=== PATIENT | female | born 1960 | race Caucasian/White ===

== ENCOUNTER → 2021-07-24 10:59 | Outpatient (BNVA) | payer MEDICARE, MEDICAID, SELFPAY | PROVIDERS: PCP Family Medicine; Visit Provider Anesthesiology | DX: M10.9 Gout, unspecified (principal); E66.01 Morbid (severe) obesity due to excess calories; E11.51 Type 2 diabetes mellitus with diabetic peripheral angiopathy without gangrene; I70.209 Unspecified atherosclerosis of native arteries of extremities, unspecified extremity; G89.4 Chronic pain syndrome; Z85.118 Personal history of other malignant neoplasm of bronchus and lung | CPT/HCPCS: 99202 ==

== ENCOUNTER → 2021-08-14 16:04 | Outpatient (BNVA) | payer MEDICARE, MEDICAID, SELFPAY | PROVIDERS: PCP Family Medicine; Visit Provider Nurse Practitioner Family | DX: G89.4 Chronic pain syndrome (principal); M79.7 Fibromyalgia; M10.9 Gout, unspecified; E11.51 Type 2 diabetes mellitus with diabetic peripheral angiopathy without gangrene; E66.01 Morbid (severe) obesity due to excess calories; I70.209 Unspecified atherosclerosis of native arteries of extremities, unspecified extremity; Z85.118 Personal history of other malignant neoplasm of bronchus and lung | CPT/HCPCS: 99212 ==

== ENCOUNTER → 2021-09-11 15:41 | Outpatient (BNVA) | payer MEDICARE, MEDICAID, SELFPAY | PROVIDERS: PCP Family Medicine; Visit Provider Anesthesiology | DX: G89.4 Chronic pain syndrome (principal); M10.9 Gout, unspecified; E66.01 Morbid (severe) obesity due to excess calories; Z68.42 Body mass index [BMI] 45.0-49.9, adult; E11.51 Type 2 diabetes mellitus with diabetic peripheral angiopathy without gangrene; I70.209 Unspecified atherosclerosis of native arteries of extremities, unspecified extremity; Z85.118 Personal history of other malignant neoplasm of bronchus and lung; Z79.891 Long term (current) use of opiate analgesic | CPT/HCPCS: 99212 ==

== ENCOUNTER → 2021-10-09 15:58 | Outpatient (BNVA) | payer MEDICARE, MEDICAID, SELFPAY | PROVIDERS: PCP Family Medicine; Visit Provider Anesthesiology | DX: Z51.81 Encounter for therapeutic drug level monitoring (principal); F11.20 Opioid dependence, uncomplicated | CPT/HCPCS: 99211 ==

== ENCOUNTER → 2021-11-09 13:55 | Outpatient (BNVA) | payer MEDICARE, MEDICAID, SELFPAY | PROVIDERS: PCP Family Medicine; Visit Provider Nurse Practitioner Family | DX: Z51.81 Encounter for therapeutic drug level monitoring (principal); M79.7 Fibromyalgia; M10.9 Gout, unspecified; G89.4 Chronic pain syndrome; E66.01 Morbid (severe) obesity due to excess calories; Z79.891 Long term (current) use of opiate analgesic | CPT/HCPCS: 99212 ==

== ENCOUNTER → 2021-12-07 14:52 | Outpatient (BNVA) | payer MEDICARE, MEDICAID, SELFPAY | PROVIDERS: PCP Family Medicine; Visit Provider Nurse Practitioner Family | DX: Z51.81 Encounter for therapeutic drug level monitoring (principal); F11.20 Opioid dependence, uncomplicated | CPT/HCPCS: 99211 ==

== ENCOUNTER → 2022-01-04 15:23 | Outpatient (BNVA) | payer MEDICARE, MEDICAID, SELFPAY | PROVIDERS: PCP Family Medicine; Visit Provider Nurse Practitioner Family | DX: Z51.81 Encounter for therapeutic drug level monitoring (principal); F11.20 Opioid dependence, uncomplicated | CPT/HCPCS: 99211 ==

== ENCOUNTER → 2022-02-01 15:00 | Outpatient (BNVA) | payer MEDICARE, MEDICAID, SELFPAY | PROVIDERS: PCP Family Medicine; Visit Provider Nurse Practitioner Family | DX: Z79.891 Long term (current) use of opiate analgesic (principal) | CPT/HCPCS: 99211 ==

== ENCOUNTER → 2022-03-01 14:48 | Outpatient (BNVA) | payer MEDICARE, MEDICAID, SELFPAY | PROVIDERS: PCP Family Medicine; Visit Provider Nurse Practitioner Family | DX: Z51.81 Encounter for therapeutic drug level monitoring (principal); F11.20 Opioid dependence, uncomplicated | CPT/HCPCS: 99211 ==

== ENCOUNTER → 2022-03-30 15:17 | Outpatient (BNVA) | payer MEDICARE, MEDICAID, SELFPAY | PROVIDERS: PCP Family Medicine; Visit Provider Nurse Practitioner Family | DX: Z51.81 Encounter for therapeutic drug level monitoring (principal); F11.20 Opioid dependence, uncomplicated; M79.7 Fibromyalgia; G89.4 Chronic pain syndrome; E11.40 Type 2 diabetes mellitus with diabetic neuropathy, unspecified; E66.01 Morbid (severe) obesity due to excess calories; Z68.41 Body mass index [BMI] 40.0-44.9, adult | CPT/HCPCS: 99212 ==

== ENCOUNTER → 2022-04-27 11:40 | Outpatient (BNVA) | payer MEDICARE, MEDICAID, SELFPAY | PROVIDERS: PCP Family Medicine; Visit Provider Nurse Practitioner Family | DX: Z51.81 Encounter for therapeutic drug level monitoring (principal); Z79.899 Other long term (current) drug therapy | CPT/HCPCS: 99211 ==

== ENCOUNTER → 2022-06-01 14:43 | Outpatient (BNVA) | payer MEDICARE, MEDICAID, SELFPAY | PROVIDERS: PCP Family Medicine; Visit Provider Nurse Practitioner Family | DX: Z51.81 Encounter for therapeutic drug level monitoring (principal); F11.20 Opioid dependence, uncomplicated | CPT/HCPCS: 99211 ==

== ENCOUNTER → 2022-06-28 15:41 | Outpatient (BNVA) | payer MEDICARE, MEDICAID, SELFPAY | PROVIDERS: PCP Family Medicine; Visit Provider Nurse Practitioner Family | DX: Z51.81 Encounter for therapeutic drug level monitoring (principal); M25.561 Pain in right knee; M25.562 Pain in left knee; G89.4 Chronic pain syndrome; M79.7 Fibromyalgia; E66.01 Morbid (severe) obesity due to excess calories; E11.40 Type 2 diabetes mellitus with diabetic neuropathy, unspecified; Z79.891 Long term (current) use of opiate analgesic; Z68.41 Body mass index [BMI] 40.0-44.9, adult | CPT/HCPCS: 99212 ==

== ENCOUNTER → 2022-07-26 13:15 | Outpatient (BNVA) | payer MEDICARE, MEDICAID, SELFPAY | PROVIDERS: PCP Family Medicine; Visit Provider Nurse Practitioner Family | DX: Z51.81 Encounter for therapeutic drug level monitoring (principal); F11.20 Opioid dependence, uncomplicated | CPT/HCPCS: 99211 ==

== ENCOUNTER → 2022-08-23 11:01 | Outpatient (BNVA) | payer MEDICARE, MEDICAID, SELFPAY | PROVIDERS: PCP Family Medicine; Visit Provider Nurse Practitioner Family | DX: Z51.81 Encounter for therapeutic drug level monitoring (principal); M25.561 Pain in right knee; M25.562 Pain in left knee; M79.7 Fibromyalgia; E66.01 Morbid (severe) obesity due to excess calories; E11.40 Type 2 diabetes mellitus with diabetic neuropathy, unspecified; G89.4 Chronic pain syndrome; Z79.891 Long term (current) use of opiate analgesic; Z68.41 Body mass index [BMI] 40.0-44.9, adult | CPT/HCPCS: 99212 ==

== ENCOUNTER → 2022-09-20 10:57 | Outpatient (BNVA) | payer MEDICARE, MEDICAID, SELFPAY | PROVIDERS: PCP Family Medicine; Visit Provider Nurse Practitioner Family | DX: G89.4 Chronic pain syndrome (principal); M25.561 Pain in right knee; M25.562 Pain in left knee; M79.7 Fibromyalgia; E66.01 Morbid (severe) obesity due to excess calories; E11.40 Type 2 diabetes mellitus with diabetic neuropathy, unspecified; Z79.891 Long term (current) use of opiate analgesic | CPT/HCPCS: 99212 ==

== ENCOUNTER → 2022-10-25 15:29 | Outpatient (BNVA) | payer MEDICARE, MEDICAID, SELFPAY | PROVIDERS: PCP Family Medicine; Visit Provider Nurse Practitioner Family | DX: Z79.891 Long term (current) use of opiate analgesic (principal) | CPT/HCPCS: 99211 ==

== ENCOUNTER → 2022-11-22 15:24 | Outpatient (BNVA) | payer MEDICARE, MEDICAID, SELFPAY | PROVIDERS: PCP Family Medicine; Visit Provider Nurse Practitioner Family | DX: Z51.81 Encounter for therapeutic drug level monitoring (principal); F11.20 Opioid dependence, uncomplicated; M25.561 Pain in right knee; M25.562 Pain in left knee; M79.7 Fibromyalgia; E66.01 Morbid (severe) obesity due to excess calories; E11.40 Type 2 diabetes mellitus with diabetic neuropathy, unspecified; Z79.891 Long term (current) use of opiate analgesic; Z68.41 Body mass index [BMI] 40.0-44.9, adult | CPT/HCPCS: 99212 ==

== ENCOUNTER → 2022-12-20 15:25 | Outpatient (BNVA) | payer MEDICARE, MEDICAID, SELFPAY | PROVIDERS: PCP Family Medicine; Visit Provider Nurse Practitioner Family | DX: Z51.81 Encounter for therapeutic drug level monitoring (principal); F11.20 Opioid dependence, uncomplicated; M25.561 Pain in right knee; M25.562 Pain in left knee; M79.7 Fibromyalgia; G89.4 Chronic pain syndrome; E11.40 Type 2 diabetes mellitus with diabetic neuropathy, unspecified; E66.01 Morbid (severe) obesity due to excess calories; Z79.891 Long term (current) use of opiate analgesic; Z68.41 Body mass index [BMI] 40.0-44.9, adult | CPT/HCPCS: 99212 ==

== ENCOUNTER 2023-01-24 15:29 | Outpatient (AMB) | payer MEDICARE, MEDICAID, SELFPAY ==
--- NOTE | 2023-01-24 15:30 | A.OFFVIS_ITS ---
Intake Vital Signs 01/24/23 15:41 Height 5 ft 5 in Weight 264 lb 4 oz BMI 44.0 BP 132/60 Blood Pressure Location Lt brachial Position Sitting Intake Visit Reasons: Pill count Intake Note: Lina comes in today for a pill count to oxycodone, patient should have 42 tablets and presents with 44 tablets which she last took today 01/24/23at 10am. Pain today 09/21 Pediatric Clinical Dietician Required: No Accompanied by: Sponsored Dependent Allergies aspartame Allergy (Unknown, Verified 01/24/23 15:43) Unknown cephalexin Allergy (Unknown, Verified 01/24/23 15:43) Unknown cyclobenzaprine Allergy (Unknown, Verified 01/24/23 15:43) Unknown dobutamine Allergy (Unknown, Verified 01/24/23 15:43) Unknown indomethacin Allergy (Unknown, Verified 01/24/23 15:43) Unknown levofloxacin [Levaquin] Allergy (Unknown, Verified 01/24/23 15:43) Unknown morphine Allergy (Unknown, Verified 01/24/23 15:43) Unknown penicillin V Allergy (Unknown, Verified 01/24/23 15:43) Unknown tramadol Allergy (Unknown, Verified 01/24/23 15:43) Unknown Latex Gloves Allergy (Unknown, Uncoded 10/25/22 16:01) Unknown HPI HPI Comments History of Present Illness Details Lina presents today for a pill count. Patient is accompanied by . Patient is supposed to have #42 pills, in her possession has #44 pills. This demonstrates a responsible attitude in regards to the medication regimen. Patient reports adequate analgesia on her regimen of oxycodone 5 mg TID prn. She reports adequate analgesia, with no noted side effects. Denies any fever, malaise, weight changes, abdominal pain, constipation, nausea, sedation, dizziness, or urinary retention. She has lost 2 lbs since last week and encouraged to continue her weight loss journey. 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 Diabetic retinopathy Family history of lung cancer Fibromyalgia GERD (gastroesophageal reflux disease) Gout Gout, arthritis History of lung cancer IBS (irritable bowel syndrome) Lung cancer Migraine Morbid obesity Morbidly obese Nerve pain Non-alcoholic micronodular cirrhosis of liver Paroxysmal atrial fibrillation Plantar fasciitis, bilateral Primary Sjogren's syndrome Psoriasis Rosacea Sciatica Sleep apnea Type 2 diabetes mellitus Surgical History History of appendectomy History of carpal tunnel release History of section History of lung surgery History of repair of left rotator cuff Review of Systems Const All systems reviewed & are unremarkable except as noted in HPI and below Physical Exam Vital Signs: Last Vital Signs BP 132/60 01/24/23 15:41 BMI result Body Mass Index 44.0 General: Appears afebrile. Alert and oriented. Mood and affect appropriate. Follows and participates in conversation appropriately. Respiratory effort is unlabored. No cough. Able to transition from sit to stand unassisted. Ambulates with cane. Ambulates with bilaterally normal heel strike and toe off. Resp Effort & Inspection: normal respiratory effort, able to speak in complete sentences, no audible wheezes, no cough, no respiratory distress and symmetric chest movement Psych Appearance: grossly normal Mental Status: mental status grossly normal Speech and movement: Normal speech and movement present Affect: normal affect Attitude: cooperative Thought process: Normal thought process present Thought content: Normal thought content present, suicidality (none), no hallucinations and No Depressive thoughts present Insight: Good insight present (Psych) Judgement: Good judgement present (Psych) Assessment & Plan Assessment & Plan (1) Opioid contract exists: Code(s): Z79.891 - senior living (current) use of opiate analgesic (2) Bilateral knee pain: Code(s): M25.561 - Pain in right knee; M25.562 - Pain in left knee (3) Chronic pain syndrome: Code(s): G89.4 - Chronic pain syndrome (4) Fibromyalgia: Code(s): M79.7 - Fibromyalgia (5) Morbid obesity: Code(s): E66.01 - Morbid (severe) obesity due to excess calories (6) Chronic painful diabetic neuropathy: Code(s): E11.40 - Type 2 diabetes mellitus with diabetic neuropathy, unspecified Plan Patient has shown accountability for her medication regimen and the pill count was accurate.? There is no evidence of misuse, abuse or diversion at this time. [employer] reviewed. Will send in a prescription for oxycodone for 30 days with advanced date of 02/07/23. She is aware of monitoring for side effects. Reports adequate analgesia with no noted side effects. Encouraged daily physical activity and continue weight loss. All questions were answered and the patient is in agreement with the plan. Follow up in one month for pill count or sooner if needed. Medications: Refilled oxycodone Partial Fill upon patient request. 5 mg PO TID PRN 90 tabs 0RF pain 30 days G89.4 - Chronic pain syndrome, M25.561 - Pain in right knee, M25.562 - Pain in left knee, Z79.891 - senior living (current) use of opiate analgesic Coding Level of Care Code Est Pt Level 4 (26880) Diagnoses Opioid contract exists Z79.891 Bilateral knee pain M25.561; M25.562 Chronic pain syndrome G89.4 Fibromyalgia M79.7 Morbid obesity E66.01 Chronic painful diabetic neuropathy E11.40
[2023-01-24 15:41] VITALS: BP 132/60; BMI 44.0
== END 2023-01-24 15:46 | disposition home or self-care (01) ==
PROVIDERS: PCP Family Medicine; Visit Provider Nurse Practitioner Family
DX: M25.561 Pain in right knee (principal); Z79.891 Long term (current) use of opiate analgesic; M25.562 Pain in left knee; G89.4 Chronic pain syndrome; M79.7 Fibromyalgia; E66.01 Morbid (severe) obesity due to excess calories; E11.40 Type 2 diabetes mellitus with diabetic neuropathy, unspecified
CPT/HCPCS: 99213

== ENCOUNTER → 2023-01-24 15:29 | Outpatient (BNVA) | payer MEDICARE, MEDICAID, SELFPAY | PROVIDERS: PCP Family Medicine; Visit Provider Nurse Practitioner Family | DX: G89.4 Chronic pain syndrome (principal); M25.561 Pain in right knee; M25.562 Pain in left knee; M79.7 Fibromyalgia; E11.40 Type 2 diabetes mellitus with diabetic neuropathy, unspecified; E66.01 Morbid (severe) obesity due to excess calories; Z68.41 Body mass index [BMI] 40.0-44.9, adult; Z79.891 Long term (current) use of opiate analgesic | CPT/HCPCS: 99212 ==

== ENCOUNTER → 2023-02-28 14:31 | Outpatient (BNVA) | payer MEDICARE, MEDICAID, SELFPAY | PROVIDERS: PCP Family Medicine; Visit Provider Nurse Practitioner Family | DX: Z51.81 Encounter for therapeutic drug level monitoring (principal); F11.20 Opioid dependence, uncomplicated | CPT/HCPCS: 99211 ==

== ENCOUNTER 2023-03-28 15:19 | Outpatient (AMB) | payer MEDICARE, MEDICAID, SELFPAY ==
--- NOTE | 2023-03-28 15:27 | MHC.OFFVIS ---
Intake Vital Signs 03/28/23 15:37 Height 5 ft 5 in Weight 271 lb BMI 45.1 BP 152/70 H Blood Pressure Location Lt brachial Position Sitting Pulse 76 Pulse Source Pulse Oximeter Pulse Oximetry (%) 94 Oxygen Delivery Method Room Air Intake Visit Reasons: Pill count Intake Note: Lina comes in today for a pill count to oxycodone, patient should have 30 tablets and presents with 36 tablets which she last took 1/2 tablet today 03/28/23 at 3pm. Pain today 09/21. Food Service Representative Required: No Accompanied by: Self / Same As Patient Allergies aspartame Allergy (Unknown, Verified 03/28/23 15:38) Unknown cephalexin Allergy (Unknown, Verified 03/28/23 15:38) Unknown cyclobenzaprine Allergy (Unknown, Verified 03/28/23 15:38) Unknown dobutamine Allergy (Unknown, Verified 03/28/23 15:38) Unknown indomethacin Allergy (Unknown, Verified 03/28/23 15:38) Unknown levofloxacin [Levaquin] Allergy (Unknown, Verified 03/28/23 15:38) Unknown morphine Allergy (Unknown, Verified 03/28/23 15:38) Unknown penicillin V Allergy (Unknown, Verified 03/28/23 15:38) Unknown tramadol Allergy (Unknown, Verified 03/28/23 15:38) Unknown Latex Gloves Allergy (Unknown, Uncoded 02/28/23 14:48) Unknown HPI HPI Comments History of Present Illness Details Lina presents today for a pill count. Patient is accompanied by . Patient is supposed to have #30 pills, in her possession has # pills. This demonstrates a responsible attitude in regards to the medication regimen. Patient reports adequate analgesia on her regimen of oxycodone 5 mg TID prn. She reports adequate analgesia, with no noted side effects. Denies any fever, malaise, weight changes, abdominal pain, constipation, nausea, sedation, dizziness, or urinary retention. Patient reports she continues to stay under observation at [facility] for pulmonary nodules that have been stable per recent CT scan lung on 02/27/23. She reports new thyroid nodules noted per recent thyroid ultrasound. Patient reports muscle spasms and stiffness with right lateral cervical rotation, extension or bending. She notes neck pain increases her fibromyalgia symptoms. Patient has been treating her neck symptoms with over the counter magnesium and lidocaine patches. [facility] Medical History Chronic pain syndrome History of lung cancer Diabetes type 2 with atherosclerosis of arteries of extremities Morbid obesity Gout, arthritis Morbidly obese Gout Psoriasis Arthritis Family history of lung cancer Lung cancer Diabetic retinopathy Williamson's palsy Sciatica Plantar fasciitis, bilateral Rosacea Sleep apnea Asthma GERD (gastroesophageal reflux disease) IBS (irritable bowel syndrome) Nerve pain Migraine Carpal tunnel syndrome, bilateral Diabetic cheirarthropathy Fibromyalgia Non-alcoholic micronodular cirrhosis of liver Paroxysmal atrial fibrillation Primary Sjogren's syndrome Type 2 diabetes mellitus Surgical History History of carpal tunnel release History of lung surgery History of appendectomy History of repair of left rotator cuff History of section Review of Systems Const All systems reviewed & are unremarkable except as noted in HPI and below Physical Exam Vital Signs: Last Vital Signs Pulse 76 03/28/23 15:37 BP 152/70 H 03/28/23 15:37 Pulse Ox 94 03/28/23 15:37 Oxygen Delivery Method Room Air 03/28/23 15:37 BMI result Body Mass Index 45.1 General: Appears afebrile. Alert and oriented. Mood and affect appropriate. Follows and participates in conversation appropriately. Respiratory effort is unlabored. No cough. Able to transition from sit to stand unassisted. Ambulates with cane. Ambulates with bilaterally normal heel strike and toe off. Neck Neck: Yes full ROM, Yes no lymphadenopathy, Yes supple, No anterior neck swelling, Yes no JVD and Yes prominent dorsocervical fat pad Resp Effort & Inspection: normal respiratory effort, able to speak in complete sentences, no audible wheezes, no cough, no respiratory distress and symmetric chest movement Back/Spine/Pelvis Cervical Spine: loss of normal cervical lordosis, cervical muscular tenderness, pain with cervical ROM, cervical spasm (right) and No Cervical spine tenderness Psych Appearance: grossly normal Mental Status: mental status grossly normal Speech and movement: Normal speech and movement present Affect: normal affect Attitude: cooperative Thought process: Normal thought process present Thought content: Normal thought content present, suicidality (none), no hallucinations and No Depressive thoughts present Insight: Good insight present (Psych) Judgement: Good judgement present (Psych) Assessment & Plan Assessment & Plan (1) Opioid contract exists: Code(s): Z79.891 - director long term care (current) use of opiate analgesic (2) Chronic pain syndrome: Code(s): G89.4 - Chronic pain syndrome (3) Fibromyalgia: Code(s): M79.7 - Fibromyalgia (4) Morbid obesity: Code(s): E66.01 - Morbid (severe) obesity due to excess calories (5) Chronic painful diabetic neuropathy: Code(s): E11.40 - Type 2 diabetes mellitus with diabetic neuropathy, unspecified (6) Cervicalgia: Code(s): M54.2 - Cervicalgia Plan Patient has shown accountability for her medication regimen and the pill count was accurate.? There is no evidence of misuse, abuse or diversion at this time. Rosa reviewed. Will send in a prescription for oxycodone for 30 days with advanced date of 04/08/23. She is aware of monitoring for side effects. Reports adequate analgesia with no noted side effects. Encouraged daily physical activity and continue weight loss. Encouraged good posture, neck stretching exercises, sleep hygiene, ice/heat therapy, lidocaine patches and activity modifications as needed. All questions were answered and the patient is in agreement with the plan. Follow up in one month for pill count or sooner if needed. Medications: Refilled oxycodone Partial Fill upon patient request. 5 mg PO TID PRN 90 tabs 0RF pain 30 days G89.4 - Chronic pain syndrome, M25.561 - Pain in right knee, M25.562 - Pain in left knee, Z79.891 - long-term (current) use of opiate analgesic Coding Level of Care Code Est Pt Level 4 (56569) Diagnoses Opioid contract exists Z79.891 Chronic pain syndrome G89.4 Fibromyalgia M79.7 Morbid obesity E66.01 Chronic painful diabetic neuropathy E11.40 Cervicalgia M54.2
[2023-03-28 15:37] VITALS: BP 152/70; PULSE 76; O2SAT 94; BMI 45.1
== END 2023-03-28 15:51 | disposition home or self-care (01) ==
PROVIDERS: PCP Family Medicine; Visit Provider Nurse Practitioner Family
DX: G89.4 Chronic pain syndrome (principal); M79.7 Fibromyalgia; E11.40 Type 2 diabetes mellitus with diabetic neuropathy, unspecified; Z79.891 Long term (current) use of opiate analgesic; M54.2 Cervicalgia; E66.01 Morbid (severe) obesity due to excess calories
CPT/HCPCS: 99214

== ENCOUNTER → 2023-03-28 15:19 | Outpatient (BNVA) | payer MEDICARE, MEDICAID, SELFPAY | PROVIDERS: PCP Family Medicine; Visit Provider Nurse Practitioner Family | DX: G89.4 Chronic pain syndrome (principal); M79.7 Fibromyalgia; E11.40 Type 2 diabetes mellitus with diabetic neuropathy, unspecified; M54.2 Cervicalgia; E66.01 Morbid (severe) obesity due to excess calories; Z68.42 Body mass index [BMI] 45.0-49.9, adult; Z79.891 Long term (current) use of opiate analgesic | CPT/HCPCS: 99212 ==

== ENCOUNTER 2023-04-25 15:22 | Outpatient (AMB) | payer MEDICARE, MEDICAID, SELFPAY ==
--- NOTE | 2023-04-25 15:23 | MHC.OFFVIS ---
Intake Vital Signs 04/25/23 15:37 Height 5 ft 5 in Weight 270 lb 4 oz BMI 45.0 BP 138/68 Blood Pressure Location Rt brachial Position Sitting Pulse 60 Pulse Source Pulse Oximeter Pulse Oximetry (%) 95 Oxygen Delivery Method Room Air Intake Visit Reasons: Medication Count/confirmed Intake Note: Lina comes in today for a pill count to oxycodone, patient should have 36 tablets and presents with 41 tablets which she last took 1/2 tablet today 04/25/23 at 2pm. Pain today 11/21 Yardage Control Clerk Required: No Accompanied by: Spouse Allergies aspartame Allergy (Unknown, Verified 04/25/23 15:24) Unknown cephalexin Allergy (Unknown, Verified 04/25/23 15:24) Unknown cyclobenzaprine Allergy (Unknown, Verified 04/25/23 15:24) Unknown dobutamine Allergy (Unknown, Verified 04/25/23 15:24) Unknown indomethacin Allergy (Unknown, Verified 04/25/23 15:24) Unknown levofloxacin [Levaquin] Allergy (Unknown, Verified 04/25/23 15:24) Unknown morphine Allergy (Unknown, Verified 04/25/23 15:24) Unknown penicillin V Allergy (Unknown, Verified 04/25/23 15:24) Unknown tramadol Allergy (Unknown, Verified 04/25/23 15:24) Unknown Latex Gloves Allergy (Unknown, Uncoded 02/28/23 14:48) Unknown HPI HPI Comments History of Present Illness Details Lina presents today for a pill count. Patient is accompanied by . Patient is supposed to have #36 pills, in her possession has #41 pills. This demonstrates a responsible attitude in regards to the medication regimen. Patient reports adequate analgesia on her regimen of oxycodone 5 mg TID prn. She reports adequate analgesia, with no noted side effects. Patient reports current opioid allows her to be more functional and less symptomatic. Patient reports a 2 month of right foot pain with weight bearing and walking. Reports similar symptoms in left foot in the past with known small fracture. She has informed her hand ii tube bender about this and is trying new show inserts without any improvement in her symptoms. She has follow up with Loan Workout Officer in May. Patient is concerned for ongoing pain. Denies any gout attacks and reports drinking tart beecrra juice to prevent attacks. [facility] Medical History Chronic pain syndrome History of lung cancer Diabetes type 2 with atherosclerosis of arteries of extremities Morbid obesity Gout, arthritis Morbidly obese Gout Psoriasis Arthritis Family history of lung cancer Lung cancer Diabetic retinopathy Williamson's palsy Sciatica Plantar fasciitis, bilateral Rosacea Sleep apnea Asthma GERD (gastroesophageal reflux disease) IBS (irritable bowel syndrome) Nerve pain Migraine Carpal tunnel syndrome, bilateral Diabetic cheirarthropathy Fibromyalgia Non-alcoholic micronodular cirrhosis of liver Paroxysmal atrial fibrillation Primary Sjogren's syndrome Type 2 diabetes mellitus Surgical History History of carpal tunnel release History of lung surgery History of appendectomy History of repair of left rotator cuff History of section Review of Systems Const All systems reviewed & are unremarkable except as noted in HPI and below Physical Exam General: Appears afebrile. Alert and oriented. Mood and affect appropriate. Follows and participates in conversation appropriately. Respiratory effort is unlabored. No cough. Able to transition from sit to stand unassisted. Ambulates with cane. Ambulates with bilaterally normal heel strike and toe off. Back/Spine/Pelvis Cervical Spine: loss of normal cervical lordosis, cervical muscular tenderness, pain with cervical ROM, cervical spasm (right) and No Cervical spine tenderness Extrem General: Yes capillary refill normal, Yes no clubbing, cyanosis or edema, Yes no calf tenderness and No cyanosis Psych Appearance: grossly normal Mental Status: mental status grossly normal Speech and movement: Normal speech and movement present Affect: normal affect Attitude: cooperative Thought process: Normal thought process present Thought content: Normal thought content present, suicidality (none), no hallucinations and No Depressive thoughts present Insight: Good insight present (Psych) Judgement: Good judgement present (Psych) Assessment & Plan Assessment & Plan (1) Opioid contract exists: Code(s): Z79.891 - [facility] (current) use of opiate analgesic (2) Chronic pain syndrome: Code(s): G89.4 - Chronic pain syndrome (3) Fibromyalgia: Code(s): M79.7 - Fibromyalgia (4) Morbid obesity: Code(s): E66.01 - Morbid (severe) obesity due to excess calories (5) Chronic painful diabetic neuropathy: Code(s): E11.40 - Type 2 diabetes mellitus with diabetic neuropathy, unspecified (6) Right foot pain: Code(s): M79.671 - Pain in right foot Plan Patient has shown accountability for her medication regimen and the pill count was accurate.? There is no evidence of misuse, abuse or diversion at this time. [employer] reviewed. Will send in a prescription for oxycodone for 30 days with advanced date of 05/07/23. She is aware of monitoring for side effects. Reports adequate analgesia with no noted side effects. Right foot xray to further evaluate pain. Patient will follow up with her Loan Workout Officer as scheduled. All questions were answered and the patient is in agreement with the plan. Follow up in one month for pill count or sooner if needed. Orders: Orders XR foot RT min 3V Today M79.671 - Pain in right foot Medications: Refilled oxycodone Partial Fill upon patient request. 5 mg PO TID 30 days PRN 90 tabs 0RF pain G89.4 - Chronic pain syndrome, M25.561 - Pain in right knee, M25.562 - Pain in left knee, Z79.891 - intermediate teacher (current) use of opiate analgesic Coding Level of Care Code Est Pt Level 4 (59993) Diagnoses Opioid contract exists Z79.891 Chronic pain syndrome G89.4 Fibromyalgia M79.7 Morbid obesity E66.01 Chronic painful diabetic neuropathy E11.40 Right foot pain M79.671
[2023-04-25 15:37] VITALS: BP 138/68; PULSE 60; O2SAT 95; BMI 45.0
== END 2023-04-25 15:49 | disposition home or self-care (01) ==
PROVIDERS: PCP Family Medicine; Visit Provider Nurse Practitioner Family
DX: G89.4 Chronic pain syndrome (principal); M79.7 Fibromyalgia; E66.01 Morbid (severe) obesity due to excess calories; Z79.891 Long term (current) use of opiate analgesic; E11.40 Type 2 diabetes mellitus with diabetic neuropathy, unspecified; M79.671 Pain in right foot
CPT/HCPCS: 99214

== ENCOUNTER 2023-04-25 15:22 | Outpatient (REF) | payer MEDICARE, MEDICAID, SELFPAY ==
--- NOTE | ~2023-04-25 | XR_ITS ---
EXAMINATION: XR FOOT, RIGHT CLINICAL INFORMATION: Pain in right foot COMPARISON: None available. TECHNIQUE: 3 views of the right foot. FINDINGS: Minimal dorsal calcaneal spurring. Faint tiny calcification in the soft tissues just anterior to a moderate plantar calcaneal spur. Advanced degenerative changes first metatarsophalangeal joint with joint space narrowing and hypertrophic change. XR/XR foot RT min 3V IMPRESSION: Minimal dorsal calcaneal spurring. Faint tiny calcification in the soft tissues just anterior to a moderate plantar calcaneal spur. Advanced degenerative changes first metatarsophalangeal joint. No displaced fracture. Recommend follow-up imaging in 10-14 days if fracture is suspected. Additional imaging with CT scan or MRI should be considered for better visualization as these modalities are much more sensitive for detection of fracture or other underlying pathology.
== END 2023-04-25 15:23 | disposition home or self-care (01) ==
LOC: HO.XRAY 15:22
PROVIDERS: PCP Family Medicine; Visit Provider Nurse Practitioner Family
DX: G89.4 Chronic pain syndrome (principal); M79.671 Pain in right foot; M79.7 Fibromyalgia; E66.01 Morbid (severe) obesity due to excess calories; E11.40 Type 2 diabetes mellitus with diabetic neuropathy, unspecified; Z79.891 Long term (current) use of opiate analgesic
CPT/HCPCS: 73630; 99212

== ENCOUNTER 2023-05-23 15:21 | Outpatient (AMB) | payer MEDICARE, MEDICAID, SELFPAY ==
--- NOTE | 2023-05-23 15:22 | A.OFFVIS_ITS ---
Intake Vital Signs 05/23/23 15:34 Height 5 ft 5 in Weight 272 lb 6 oz BMI 45.3 BP 132/70 Blood Pressure Location Lt brachial Position Sitting Intake Visit Reasons: PILL COUNT/CONFIRMED Intake Note: Lina comes in today for a pill count to oxycodone, patient should have 39 tablets and presents with 44 tablets which she last took today 05/23/23 at 12pm. 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/22 [employer] Required: No Accompanied by: Spouse Allergies aspartame Allergy (Unknown, Verified 05/23/23 15:34) Unknown cephalexin Allergy (Unknown, Verified 05/23/23 15:34) Unknown cyclobenzaprine Allergy (Unknown, Verified 05/23/23 15:34) Unknown dobutamine Allergy (Unknown, Verified 05/23/23 15:34) Unknown indomethacin Allergy (Unknown, Verified 05/23/23 15:34) Unknown levofloxacin [Levaquin] Allergy (Unknown, Verified 05/23/23 15:34) Unknown morphine Allergy (Unknown, Verified 05/23/23 15:34) Unknown penicillin V Allergy (Unknown, Verified 05/23/23 15:34) Unknown tramadol Allergy (Unknown, Verified 05/23/23 15:34) Unknown Latex Gloves Allergy (Unknown, Uncoded 02/28/23 14:48) Unknown HPI HPI Comments History of Present Illness Details Lina presents today for a pill count. Patient is accompanied by . Patient is supposed to have #39 pills, in her possession has #44 pills. This demonstrates a responsible attitude in regards to the medication regimen. Patient reports adequate analgesia on her regimen of oxycodone 5 mg TID prn. She reports adequate analgesia, with no noted side effects. Patient reports current opioid allows her to be more functional and less symptomatic. Right foot xray results were reviewed with patient today and are noted for minimal dorsal calcaneal spurring. Faint tiny calcification in the soft tissues just anterior to a moderate plantar calcaneal spur. Advanced degenerative changes first metatarsophalangeal joint. No displaced fracture. Patient continues to endorse right foot pain and now reports left foot pain. She has been treating with rolling her plantar surfaces on ice bottle and elevation. Pat amber reports she will follow up with her Division Toll Wire Chief for bilateral foot pain. [facility] Medical History Chronic pain syndrome History of lung cancer Diabetes type 2 with atherosclerosis of arteries of extremities Morbid obesity Gout, arthritis Morbidly obese Gout Psoriasis Arthritis Family history of lung cancer Lung cancer Diabetic retinopathy Williamson's palsy Sciatica Plantar fasciitis, bilateral Rosacea Sleep apnea Asthma GERD (gastroesophageal reflux disease) IBS (irritable bowel syndrome) Nerve pain Migraine Carpal tunnel syndrome, bilateral Diabetic cheirarthropathy Fibromyalgia Non-alcoholic micronodular cirrhosis of liver Paroxysmal atrial fibrillation Primary Sjogren's syndrome Type 2 diabetes mellitus Surgical History History of carpal tunnel release History of lung surgery History of appendectomy History of repair of left rotator cuff History of section Review of Systems Const All systems reviewed & are unremarkable except as noted in HPI and below Physical Exam General: Appears afebrile. Alert and oriented. Mood and affect appropriate. Follows and participates in conversation appropriately. Respiratory effort is unlabored. No cough. Able to transition from sit to stand unassisted. Ambulates with cane. Ambulates with bilaterally normal heel strike and toe off. Extrem General: Yes capillary refill normal, Yes no clubbing, cyanosis or edema and Yes no calf tenderness Psych Appearance: grossly normal Mental Status: mental status grossly normal Speech and movement: Normal speech and movement present Affect: normal affect Attitude: cooperative Thought process: Normal thought process present Thought content: Normal thought content present, suicidality (none), no hallucinations and No Depressive thoughts present Insight: Good insight present (Psych) Judgement: Good judgement present (Psych) Results Reviewed Results Reviewed: XR FOOT, RIGHT 04/25/23 CLINICAL INFORMATION: Pain in right foot FINDINGS: Minimal dorsal calcaneal spurring. Faint tiny calcification in the soft tissues just anterior to a moderate plantar calcaneal spur. Advanced degenerative changes first metatarsophalangeal joint with joint space narrowing and hypertrophic change. IMPRESSION: Minimal dorsal calcaneal spurring. Faint tiny calcification in the soft tissues just anterior to a moderate plantar calcaneal spur. Advanced degenerative changes first metatarsophalangeal joint. No displaced fracture. Recommend follow-up imaging in 10-14 days if fracture is suspected. Additional imaging with CT scan or MRI should be considered for better visualization as these modalities are much more sensitive for detection of fracture or other underlying pathology. Assessment & Plan Assessment & Plan (1) Opioid contract exists: Code(s): Z79.891 - senior care (current) use of opiate analgesic (2) Chronic pain syndrome: Code(s): G89.4 - Chronic pain syndrome (3) Fibromyalgia: Code(s): M79.7 - Fibromyalgia (4) Right foot pain: Code(s): M79.671 - Pain in right foot Plan Patient has shown accountability for her medication regimen and the pill count was accurate.? There is no evidence of misuse, abuse or diversion at this time. [employer] reviewed. Will send in a prescription for oxycodone for 30 days with advanced date of 06/05/23. She is aware of monitoring for side effects. Reports adequate analgesia with no noted side effects. Right foot xray results reviewed with patient and ehr family. Patient will follow up with her Division Toll Wire Chief as scheduled. All questions were answered and the patient is in agreement with the plan. Follow up in one month for pill count or sooner if needed. Medications: Refilled oxycodone Partial Fill upon patient request. 5 mg PO TID PRN 90 tabs 0RF pain 30 days G 89.4 - Chronic pain syndrome, M25.561 - Pain in right knee, M25.562 - Pain in left knee, Z79.891 - senior care (current) use of opiate analgesic Coding Level of Care Code Est Pt Level 4 (24275) Diagnoses Opioid contract exists Z79.891 Chronic pain syndrome G89.4 Fibromyalgia M79.7 Right foot pain M79.671
[2023-05-23 15:34] VITALS: BP 132/70; BMI 45.3
== END 2023-05-23 15:43 | disposition home or self-care (01) ==
PROVIDERS: PCP Family Medicine; Visit Provider Nurse Practitioner Family
DX: G89.4 Chronic pain syndrome (principal); M79.7 Fibromyalgia; M79.671 Pain in right foot; Z79.891 Long term (current) use of opiate analgesic
CPT/HCPCS: 99214

== ENCOUNTER → 2023-05-23 15:21 | Outpatient (BNVA) | payer MEDICARE, MEDICAID, SELFPAY | PROVIDERS: PCP Family Medicine; Visit Provider Nurse Practitioner Family | DX: M79.7 Fibromyalgia (principal); M79.671 Pain in right foot; G89.4 Chronic pain syndrome; Z79.891 Long term (current) use of opiate analgesic | CPT/HCPCS: 99212 ==

== ENCOUNTER 2023-06-20 15:24 | Outpatient (AMB) | payer MEDICARE, MEDICAID, SELFPAY ==
--- NOTE | 2023-06-20 15:27 | A.OFFVIS_ITS ---
Intake Vital Signs 06/20/23 15:35 Height 5 ft 5 in Weight 272 lb 8 oz BMI 45.3 BP 122/60 Blood Pressure Location Lt brachial Position Sitting Intake Visit Reasons: Medication Count/confirmed Intake Note: Lina comes in today for a pill count to oxycodone, patient should have 42 tablets and presents with 47 tablets which she last took 12 tab today 06/20/23 at 12pm. 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 Accompanied by: Spouse Allergies aspartame Allergy (Unknown, Verified 06/20/23 15:36) Unknown cephalexin Allergy (Unknown, Verified 06/20/23 15:36) Unknown cyclobenzaprine Allergy (Unknown, Verified 06/20/23 15:36) Unknown dobutamine Allergy (Unknown, Verified 06/20/23 15:36) Unknown indomethacin Allergy (Unknown, Verified 06/20/23 15:36) Unknown levofloxacin [Levaquin] Allergy (Unknown, Verified 06/20/23 15:36) Unknown morphine Allergy (Unknown, Verified 06/20/23 15:36) Unknown penicillin V Allergy (Unknown, Verified 06/20/23 15:36) Unknown tramadol Allergy (Unknown, Verified 06/20/23 15:36) Unknown Latex Gloves Allergy (Unknown, Uncoded 02/28/23 14:48) Unknown HPI HPI Comments 2 History of Present Illness Details Lina presents today for a pill count. Patient is accompanied by . Patient is supposed to have #42 pills, in her possession has #47 pills. This demonstrates a responsible attitude in regards to the medication regimen. Patient reports adequate analgesia on her regimen of oxycodone 5 mg TID prn. She reports adequate analgesia, with no noted side effects. Patient reports current opioid regime allows her to be more functional and less symptomatic. Patient continues to report right foot pain and has upcoming right foot MRI on 07/10/23 at [facility]. Denies any recent cough, cold, infection, fever or other significant changes in medical history since last office visit. [facility] Medical History Chronic pain syndrome History of lung cancer Diabetes type 2 with atherosclerosis of arteries of extremities Morbid obesity Gout, arthritis Morbidly obese Gout Psoriasis Arthritis Family history of lung cancer Lung cancer Diabetic retinopathy Williamson's palsy Sciatica Plantar fasciitis, bilateral Rosacea Sleep apnea Asthma GERD (gastroesophageal reflux disease) IBS (irritable bowel syndrome) Nerve pain Migraine Carpal tunnel syndrome, bilateral Diabetic cheirarthropathy Fibromyalgia Non-alcoholic micronodular cirrhosis of liver Paroxysmal atrial fibrillation Primary Sjogren's syndrome Type 2 diabetes mellitus Surgical History History of carpal tunnel release History of lung surgery History of appendectomy History of repair of left rotator cuff History of section Review of Systems Const All systems reviewed & are unremarkable except as noted in HPI and below Physical Exam General: Appears afebrile. Alert and oriented. Mood and affect appropriate. Follows and participates in conversation appropriately. Respiratory effort is unlabored. No cough. Able to transition from sit to stand unassisted. Ambulates with cane. Ambulates with bilaterally normal heel strike and toe off. Extrem General: Yes capillary refill normal, Yes no clubbing, cyanosis or edema and Yes no calf tenderness Psych Appearance: grossly normal Mental Status: mental status grossly normal Speech and movement: Normal speech and movement present Affect: normal affect Attitude: cooperative Thought process: Normal thought process present Thought content: Normal thought content present, suicidality (none), no hallucinations and No Depressive thoughts present Insight: Good insight present (Psych) Judgement: Good judgement present (Psych) Assessment & Plan Assessment & Plan (1) Opioid contract exists: Code(s): Z79.891 - 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 [employer] reviewed. Will send in a prescription for oxycodone for 30 days with advanced date of 07/04/23. She is aware of monitoring for side effects. Reports adequate analgesia with no noted side effects. Reports upcoming right foot MRI this month to further evaluation ongoing right foot pain. Reports upcoming right foot MRI this month to further evaluation ongoing right foot pain on 07/10/23. All questions were answered and the patient is in agreement with the plan. Follow up in one month for pill count or sooner if needed. Medications: Refilled oxycodone Partial Fill upon patient request. 5 mg PO TID PRN 90 tabs 0RF pain 30 days G89.4 - Chronic pain syndrome, M25.561 - Pain in right knee, M25.562 - Pain in left knee, Z79.891 - termite helper (current) use of opiate analgesic Coding Level of Care Code Est Pt Level 4 (69672) Diagnoses Opioid contract exists Z79.891 Chronic pain syndrome G89.4 Fibromyalgia M79.7 Right foot pain M79.671
[2023-06-20 15:35] VITALS: BP 122/60; BMI 45.3
== END 2023-06-20 15:51 | disposition home or self-care (01) ==
PROVIDERS: PCP Family Medicine; Visit Provider Nurse Practitioner Family
DX: G89.4 Chronic pain syndrome (principal); M79.7 Fibromyalgia; M79.671 Pain in right foot; Z79.891 Long term (current) use of opiate analgesic
CPT/HCPCS: 99214

== ENCOUNTER → 2023-06-20 15:24 | Outpatient (BNVA) | payer MEDICARE, MEDICAID, SELFPAY | PROVIDERS: PCP Family Medicine; Visit Provider Nurse Practitioner Family | DX: Z51.81 Encounter for therapeutic drug level monitoring (principal); M79.7 Fibromyalgia; M79.671 Pain in right foot; G89.4 Chronic pain syndrome; Z79.891 Long term (current) use of opiate analgesic | CPT/HCPCS: 99212 ==

== ENCOUNTER 2023-07-25 15:32 | Outpatient (AMB) | payer MEDICARE, MEDICAID, SELFPAY ==
--- NOTE | 2023-07-25 15:38 | MHC.OFFVIS ---
Intake Vital Signs 07/25/23 15:48 Height 5 ft 5 in Weight 273 lb 8 oz BMI 45.5 BP 142/68 H Blood Pressure Location Lt brachial Position Sitting Intake Visit Reasons: Medication Count/Confirmed Intake Note: Lina comes in today for a pill count to oxycodone, patient should have 24 tablets and presents with 30 tablets which she last took today 07/25/23 about 4-5 hours ago . Pain today 11/21. Lina also signed uppdated opioid contract in office, signed copy was provided. [employer] Instructor Required: No Accompanied by: Spouse Allergies aspartame Allergy (Unknown, Verified 07/25/23 15:48) Unknown cephalexin Allergy (Unknown, Verified 07/25/23 15:48) Unknown cyclobenzaprine Allergy (Unknown, Verified 07/25/23 15:48) Unknown dobutamine Allergy (Unknown, Verified 07/25/23 15:48) Unknown indomethacin Allergy (Unknown, Verified 07/25/23 15:48) Unknown levofloxacin [Levaquin] Allergy (Unknown, Verified 07/25/23 15:48) Unknown morphine Allergy (Unknown, Verified 07/25/23 15:48) Unknown penicillin V Allergy (Unknown, Verified 07/25/23 15:48) Unknown tramadol Allergy (Unknown, Verified 07/25/23 15:48) Unknown Latex Gloves Allergy (Unknown, Uncoded 02/28/23 14:48) Unknown HPI HPI Comments History of Present Illness Details Lina presents today for a pill count. Patient is supposed to have #24 pills, in her possession has #30 pills. This demonstrates a responsible attitude in regards to the medication regimen. Patient reports mild to moderate analgesia on her regimen of oxycodone 5 mg TID prn with no noted side effects. Patient continues to report right foot pain and had completed right foot MRI on 07/10/23 at [facility]. This report is not available today. Patient also reports reoccurrence of right tennis elbow and considers cortisone injection. She describes pain as dull ache and soreness at the lateral epicondyle and worsen with right arm use, rotation movements, pulling, grasping, and lifting objects. She notes conservative measures for right elbow pain, including activity modifications, Tylenol, topical applications and bracing have been minimally effective. Denies any recent cough, cold, infection, fever or other significant changes in medical history since last office visit. [facility] Medical History Chronic pain syndrome History of lung cancer Diabetes type 2 with atherosclerosis of arteries of extremities Morbid obesity Gout, arthritis Morbidly obese Gout Psoriasis Arthritis Family history of lung cancer Lung cancer Diabetic retinopathy Williamson's palsy Sciatica Plantar fasciitis, bilateral Rosacea Sleep apnea Asthma GERD (gastroesophageal reflux disease) IBS (irritable bowel syndrome) Nerve pain Migraine Carpal tunnel syndrome, bilateral Diabetic cheirarthropathy Fibromyalgia Non-alcoholic micronodular cirrhosis of liver Paroxysmal atrial fibrillation Primary Sjogren's syndrome Type 2 diabetes mellitus Surgical History History of carpal tunnel release History of lung surgery History of appendectomy History of repair of left rotator cuff History of section Review of Systems Const All systems reviewed & are unremarkable except as noted in HPI and below Physical Exam Vital Signs: Last Vital Signs BP 142/68 H 07/25/23 15:48 BMI result Body Mass Index 45.5 General: Appears afebrile. Alert and oriented. Mood and affect appropriate. Follows and participates in conversation appropriately. Respiratory effort is unlabored. No cough. Wears facemask. Able to transition from sit to stand unassisted. Ambulates with cane. Ambulates with bilaterally normal heel strike and toe off. Extrem General: Yes capillary refill normal, Yes no clubbing, cyanosis or edema and Yes no calf tenderness Right upper extremity: elbow/forearm Details: normal to inspection and tenderness Location: of the lateral epicondyle; no swelling, no unusual warmth, no ecchymosis and no crepitus Psych Appearance: grossly normal Mental Status: mental status grossly normal Speech and movement: Normal speech and movement present Affect: normal affect Attitude: cooperative Thought process: Normal thought process present Thought content: Normal thought content present, suicidality (none), no hallucinations and No Depressive thoughts present Insight: Good insight present (Psych) Judgement: Good judgement present (Psych) Assessment & Plan Assessment & Plan (1) Opioid contract exists: Code(s): Z79.891 - [facility] (current) use of opiate analgesic (2) Chronic pain syndrome: Code(s): G89.4 - Chronic pain syndrome (3) Fibromyalgia: Code(s): M79.7 - Fibromyalgia (4) Right foot pain: Code(s): M79.671 - Pain in right foot (5) Lateral epicondylitis of right elbow: Code(s): M77.11 - Lateral epicondylitis, right elbow Plan Patient has shown accountability for her medication regimen and the pill count was accurate.?There is no evidence of misuse, abuse or diversion at this time. [employer] reviewed. Prescription for oxycodone for 30 days sent with advanced date of 08/03/23. Patient is aware of monitoring for side effects. Reports adequate analgesia with no noted side effects. Patient will notify our office if she is interested in right elbow injection. Continue conservative measures, activity restrictions, moist heat compresses, ice therapy, rest, NSAIDs, and Tylenol. Patient will continue to follow up for right foot pain with recent MRI with her Orthopedic provider. All questions were answered and the patient is in agreement with the plan. Follow up in one month for pill count or sooner if needed. Medications: Refilled oxycodone Partial Fill upon patient request. 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
[2023-07-25 15:48] VITALS: BP 142/68; BMI 45.5
== END 2023-07-25 15:54 | disposition home or self-care (01) ==
PROVIDERS: PCP Family Medicine; Visit Provider Nurse Practitioner Family
DX: G89.4 Chronic pain syndrome (principal); Z79.891 Long term (current) use of opiate analgesic; M79.7 Fibromyalgia; M79.671 Pain in right foot; M77.11 Lateral epicondylitis, right elbow
CPT/HCPCS: 99214

== ENCOUNTER → 2023-07-25 15:32 | Outpatient (BNVA) | payer MEDICARE, MEDICAID, SELFPAY | PROVIDERS: PCP Family Medicine; Visit Provider Nurse Practitioner Family | DX: Z51.81 Encounter for therapeutic drug level monitoring (principal); M79.7 Fibromyalgia; M79.671 Pain in right foot; M77.11 Lateral epicondylitis, right elbow; G89.4 Chronic pain syndrome; Z79.891 Long term (current) use of opiate analgesic | CPT/HCPCS: 99212 ==

== ENCOUNTER → 2023-08-22 15:19 | Outpatient (BNVA) | payer MEDICARE, MEDICAID, SELFPAY | PROVIDERS: PCP Family Medicine; Visit Provider Nurse Practitioner Family | DX: Z51.81 Encounter for therapeutic drug level monitoring (principal); F11.20 Opioid dependence, uncomplicated; M79.7 Fibromyalgia; M77.11 Lateral epicondylitis, right elbow; M25.561 Pain in right knee; M25.562 Pain in left knee; G89.4 Chronic pain syndrome | CPT/HCPCS: 99212 ==

== ENCOUNTER → 2023-08-22 15:47 | Outpatient (AMB) | payer MEDICARE, MEDICAID, SELFPAY ==
--- NOTE | 2023-08-22 15:22 | MHC.OFFVIS ---
Intake Vital Signs 08/22/23 15:32 Height 5 ft 5 in Weight 273 lb BMI 45.4 BP 110/66 Blood Pressure Location Lt brachial Position Sitting Respiration 16 Pulse 68 Pulse Source Pulse Oximeter Pulse Oximetry (%) 96 Oxygen Delivery Method Room Air Intake Visit Reasons: PILL COUNT Allergies aspartame Allergy (Unknown, Verified 08/22/23 15:32) Unknown cephalexin Allergy (Unknown, Verified 08/22/23 15:32) Unknown cyclobenzaprine Allergy (Unknown, Verified 08/22/23 15:32) Unknown dobutamine Allergy (Unknown, Verified 08/22/23 15:32) Unknown indomethacin Allergy (Unknown, Verified 08/22/23 15:32) Unknown levofloxacin [Levaquin] Allergy (Unknown, Verified 08/22/23 15:32) Unknown morphine Allergy (Unknown, Verified 08/22/23 15:32) Unknown penicillin V Allergy (Unknown, Verified 08/22/23 15:32) Unknown tramadol Allergy (Unknown, Verified 08/22/23 15:32) Unknown Latex Gloves Allergy (Unknown, Uncoded 02/28/23 14:48) Unknown HPI HPI Comments History of Present Illness Details Lina presents today for a pill count. Patient is supposed to have #30 pills, in her possession has #34 pills. This demonstrates a responsible attitude in regards to the medication regimen. Patient reports mild to moderate analgesia on her regimen of oxycodone 5 mg TID prn with no noted side effects. Medication last taken at 10:00 am today. Patient continues to report right tennis elbow pain and is interested in cortisone injection. Pain is described as dull ache and soreness at the lateral epicondyle and worsen with right arm use, rotation movements, pulling, grasping, lifting objects or driving. She is right hand dominant. Patient reports conservative measures for right elbow pain, including activity modifications, Tylenol, topical applications and bracing have been minimally effective. Denies any recent cough, cold, infection, fever or other significant changes in medical history since last office visit. Patient rates her pain at 7/10. Reports most recent A1C 7.9. [facility] Medical History Chronic pain syndrome History of lung cancer Diabetes type 2 with atherosclerosis of arteries of extremities Morbid obesity Gout, arthritis Morbidly obese Gout Psoriasis Arthritis Family history of lung cancer Lung cancer Diabetic retinopathy Williamson's palsy Sciatica Plantar fasciitis, bilateral Rosacea Sleep apnea Asthma GERD (gastroesophageal reflux disease) IBS (irritable bowel syndrome) Nerve pain Migraine Carpal tunnel syndrome, bilateral Diabetic cheirarthropathy Fibromyalgia Non-alcoholic micronodular cirrhosis of liver Paroxysmal atrial fibrillation Primary Sjogren's syndrome Type 2 diabetes mellitus Surgical History History of carpal tunnel release History of lung surgery History of appendectomy History of repair of left rotator cuff History of section Review of Systems Const All systems reviewed & are unremarkable except as noted in HPI and below Physical Exam General: Appears afebrile. Alert and oriented. Mood and affect appropriate. Follows and participates in conversation appropriately. Respiratory effort is unlabored. No cough. Wears facemask. Able to transition from sit to stand unassisted. Ambulates with cane. Ambulates with bilaterally normal heel strike and toe off. Extrem General: Yes capillary refill normal, Yes no clubbing, cyanosis or edema and Yes no calf tenderness Right upper extremity: elbow/forearm Details: normal to inspection and tenderness Location: of the lateral epicondyle; no swelling, no unusual warmth, no ecchymosis and no crepitus Psych Appearance: grossly normal and well kempt Mental Status: mental status grossly normal Speech and movement: Normal speech and movement present and Clear speech present Affect: normal affect Attitude: cooperative Thought process: Normal thought process present Thought content: Normal thought content present, suicidality (none), no hallucinations and No Depressive thoughts present Insight: Good insight present (Psych) Judgement: Good judgement present (Psych) Results Reviewed Results Reviewed: No imaging are available for review today. Assessment & Plan Assessment & Plan (1) Opioid contract exists: Code(s): Z79.891 - intermediate (current) use of opiate analgesic (2) Chronic pain syndrome: Code(s): G89.4 - Chronic pain syndrome (3) Fibromyalgia: Code(s): M79.7 - Fibromyalgia (4) Lateral epicondylitis of right elbow: Code(s): M77.11 - Lateral epicondylitis, right elbow (5) Bilateral knee pain: Code(s): M25.561 - Pain in right knee; M25.562 - Pain in left knee Plan Patient has shown accountability for her medication regimen and the pill count was accurate.?There is no evidence of misuse, abuse or diversion at this time. [employer] reviewed. Prescription for oxycodone for 30 days sent with advanced date of 09/02/23. Patient is aware of monitoring for side effects. Schedule right elbow steroid injection with local and [place] guidance with Dr. Montgomery next week. Expectations, risks and benefits were reviewed. Counseled patient on vigilance in checking and treatment of hyperglycemia following steroid injection. Continue conservative measures, activity restrictions, moist heat compresses, ice therapy, rest, NSAIDs, and Tylenol. All questions were answered and the patient is in agreement with the plan. Follow up in one month for pill count or sooner if needed. Medications: Refilled oxycodone Partial Fill upon patient request. 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
[2023-08-22 15:32] VITALS: BP 110/66; PULSE 68; RESP 16; O2SAT 96; BMI 45.4
== END | disposition home or self-care (01) ==
PROVIDERS: PCP Family Medicine; Visit Provider Nurse Practitioner Family
DX: G89.4 Chronic pain syndrome (principal); M79.7 Fibromyalgia; M77.11 Lateral epicondylitis, right elbow; Z79.891 Long term (current) use of opiate analgesic; M25.561 Pain in right knee; M25.562 Pain in left knee
CPT/HCPCS: 99214

== ENCOUNTER 2023-08-30 10:26 | Outpatient (AMB) | payer MEDICARE, MEDICAID, SELFPAY ==
--- NOTE | 2023-08-30 10:35 | A.OFFVIS_ITS ---
Intake Vital Signs 08/30/23 10:36 Height 5 ft 5 in Weight 273 lb BMI 45.4 BP 148/82 H Blood Pressure Location Lt radial Position Sitting Respiration 12 Pulse 81 Pulse Source Pulse Oximeter Pulse Oximetry (%) 92 Oxygen Delivery Method Room Air Intake Visit Reasons: R ELBOW INJECTION & ULTRASOUND Allergies aspartame Allergy (Unknown, Verified 08/30/23 10:39) Unknown cephalexin Allergy (Unknown, Verified 08/30/23 10:39) Unknown cyclobenzaprine Allergy (Unknown, Verified 08/30/23 10:39) Unknown dobutamine Allergy (Unknown, Verified 08/30/23 10:39) Unknown indomethacin Allergy (Unknown, Verified 08/30/23 10:39) Unknown levofloxacin [Levaquin] Allergy (Unknown, Verified 08/30/23 10:39) Unknown morphine Allergy (Unknown, Verified 08/30/23 10:39) Unknown penicillin V Allergy (Unknown, Verified 08/30/23 10:39) Unknown tramadol Allergy (Unknown, Verified 08/30/23 10:39) Unknown NSAIDS (Non-Steroidal Anti-Inflamma Adverse Reaction (Severe, Verified 08/30/23 10:39) afib Latex Gloves Allergy (Unknown, Uncoded 08/30/23 10:39) Unknown Medication List - Last Reconciled 08/30/23 by Marleny Delaney LPN albuterol sulfate 90 mcg/actuation 0 mcg inhalation cholecalciferol (vitamin D3) 25 mcg PO DAILY fluticasone propionate 50 mcg/actuation sprays intranasal insulin regular hum U-500 conc (Humulin R U-500 (Conc) Insulin Kwikpen) units subcut lidocaine 5% 2 patches topical DAILY loratadine (Claritin) 10 mg PO DAILY mecobalamin (vitamin B12) 1,000 mcg sublingual DAILY metformin ER 1,000 mg PO BID metronidazole 0.75% 1 appl topical BID naloxone 4 mg/actuation (Narcan) 4 mg intranasal Q2M PRN nystatin (Nystop) 1 appl topical BID-TID olopatadine 0.1% 0 drps ophthalmic (eye) oxycodone 5 mg PO TID PRN 30 days propranolol ER 80 mg PO DAILY triamcinolone acetonide 0.1% appl topical BID PRN HPI R ELBOW INJECTION & ULTRASOUND HPI Details 63-year-old female who presents today to the office for a right elbow injection, ultrasound guided. She reports elbow pain. She has a limited ROM. She is unable to extend the arm fully due to pain. She suspects that she has a tennis elbow issue. Denies any recent cough, cold, infection, fever or other significant changes in medical history since last office visit. [facility] Medical History Chronic pain syndrome History of lung cancer Diabetes type 2 with atherosclerosis of arteries of extremities Morbid obesity Gout, arthritis Morbidly obese Gout Psoriasis Arthritis Family history of lung cancer Lung cancer Diabetic retinopathy Williamson's palsy Sciatica Plantar fasciitis, bilateral Rosacea Sleep apnea Asthma GERD (gastroesophageal reflux disease) IBS (irritable bowel syndrome) Nerve pain Migraine Carpal tunnel syndrome, bilateral Diabetic cheirarthropathy Fibromyalgia Non-alcoholic micronodular cirrhosis of liver Paroxysmal atrial fibrillation Primary Sjogren's syndrome Type 2 diabetes mellitus Surgical History History of carpal tunnel release History of lung surgery History of appendectomy History of repair of left rotator cuff History of section Review of Systems Const All systems reviewed & are unremarkable except as noted in HPI and below Physical Exam Vital Signs: Last Vital Signs Pulse 81 08/30/23 10:36 Resp 12 08/30/23 10:36 BP 148/82 H 08/30/23 10:36 Pulse Ox 92 08/30/23 10:36 Oxygen Delivery Method Room Air 08/30/23 10:36 BMI result Body Mass Index 45.4 General: Appears afebrile. Alert and oriented. Mood and affect appropriate. Follows and participates in conversation appropriately. Respiratory effort is unlabored. Able to transition from sit to stand unassisted. Ambulates with bilaterally normal heel strike and toe off. Office Procedures Joint Injection/Drain Joint Injection/Drain Details: Lateral extensor tendon, right elbow, ultrasound guided injection. 20 milligrams Kenalog mixed with 0.25% ropivacaine, 1 ml infiltrated around the tendon. Note: An ultrasound image of the injection was taken and stored in the permanent record. Primary Site: right tennis elbow Prep: site was prepped using sterile technique Injected: 20 mg of, Kenalog, with 1 mL of (0.25% ropivacaine) and other (Around the lateral extensor tendon) Procedure: The patient tolerated the procedure well Coding 18313 - Medium joint (Under ultrasound guidance) Procedure code (CPT) selection complete Results Reviewed Results Reviewed: No imaging is available for review. Assessment & Plan Assessment & Plan (1) Lateral epicondylitis of right elbow: Code(s): M77.11 - Lateral epicondylitis, right elbow Plan Patient is status post lateral extensor tendon right elbow, ultrasound guided injection. Patient tolerated procedure well and was discharged home in stable condition with discharge instructions. All questions were answered. Follow-up as needed. Scribed for Dr. Montgomery by Alex Asencio, medical economics consultant, on 08/30/2023. I, Dr. Montgomery, have personally reviewed and agree with the information entered by the scribe. Coding Level of Care Code Procedure Only Diagnoses Lateral epicondylitis of right elbow M77.11 CPT Codes Coding - 84022 Medium joint: 47089 - Medium joint ([id number])
[2023-08-30 10:36] VITALS: BP 148/82; PULSE 81; RESP 12; O2SAT 92; BMI 45.4
== END 2023-08-30 11:37 | disposition home or self-care (01) ==
PROVIDERS: PCP Family Medicine; Visit Provider Internal Medicine
DX: M77.11 Lateral epicondylitis, right elbow (principal)
CPT/HCPCS: 20606

== ENCOUNTER → 2023-08-30 10:26 | Outpatient (BNVA) | payer MEDICARE, MEDICAID, SELFPAY | PROVIDERS: PCP Family Medicine; Visit Provider Internal Medicine | DX: M77.11 Lateral epicondylitis, right elbow (principal) | CPT/HCPCS: 20606; J2795; J3301 ==

== ENCOUNTER 2023-09-19 15:26 | Outpatient (AMB) | payer MEDICARE, MEDICAID, SELFPAY ==
--- NOTE | 2023-09-19 15:31 | MHC.OFFVIS ---
Intake Vital Signs 09/19/23 15:44 Height 5 ft 5 in Weight 275 lb BMI 45.8 BP 130/64 Blood Pressure Location Lt brachial Position Sitting Intake Visit Reasons: Pill Count Intake Note: Lina comes in today for a pill count today to oxycodone, patient should have 45 tablets and presents with 44 tablets which she last took today 09/19/23 at 3pm. Pain today 10/22. Chro Required: No Accompanied by: Spouse Allergies aspartame Allergy (Unknown, Verified 08/30/23 10:39) Unknown cephalexin Allergy (Unknown, Verified 08/30/23 10:39) Unknown cyclobenzaprine Allergy (Unknown, Verified 08/30/23 10:39) Unknown dobutamine Allergy (Unknown, Verified 08/30/23 10:39) Unknown indomethacin Allergy (Unknown, Verified 08/30/23 10:39) Unknown levofloxacin [Levaquin] Allergy (Unknown, Verified 08/30/23 10:39) Unknown morphine Allergy (Unknown, Verified 08/30/23 10:39) Unknown penicillin V Allergy (Unknown, Verified 08/30/23 10:39) Unknown tramadol Allergy (Unknown, Verified 08/30/23 10:39) Unknown NSAIDS (Non-Steroidal Anti-Inflamma Adverse Reaction (Severe, Verified 08/30/23 10:39) afib Latex Gloves Allergy (Unknown, Uncoded 08/30/23 10:39) Unknown HPI HPI Comments History of Present Illness Details Lina presents today for a pill count. Patient is supposed to have #45 pills, in her possession has #44 pills. This demonstrates a responsible attitude in regards to the medication regimen. Patient reports mild to moderate analgesia on her regimen of oxycodone 5 mg TID prn with no noted side effects. Denies any recent cough, cold, infection, fever, any significant changes in her medical history, medications or recent hospitalizations. Patient reports 75-80% pain relief since right elbow steroid injection on 08/30/[address] Montgomery. Patient is able to fully extend her right arm without significant pain, reports improved functioning. Past Procedures: 08/30/23: Right elbow steroid [id number] pain relief [facility] Medical History Chronic pain syndrome History of lung cancer Diabetes type 2 with atherosclerosis of arteries of extremities Morbid obesity Gout, arthritis Morbidly obese Gout Psoriasis Arthritis Family history of lung cancer Lung cancer Diabetic retinopathy Williamson's palsy Sciatica Plantar fasciitis, bilateral Rosacea Sleep apnea Asthma GERD (gastroesophageal reflux disease) IBS (irritable bowel syndrome) Nerve pain Migraine Carpal tunnel syndrome, bilateral Diabetic cheirarthropathy Fibromyalgia Non-alcoholic micronodular cirrhosis of liver Paroxysmal atrial fibrillation Primary Sjogren's syndrome Type 2 diabetes mellitus Surgical History History of carpal tunnel release History of lung surgery History of appendectomy History of repair of left rotator cuff History of section Review of Systems Const All systems reviewed & are unremarkable except as noted in HPI and below Physical Exam Vital Signs: Last Vital Signs BP 130/64 09/19/23 15:44 BMI result Body Mass Index 45.8 General: Appears afebrile. Alert and oriented. Mood and affect appropriate. Follows and participates in conversation appropriately. Respiratory effort is unlabored. No cough. Wears facemask. Able to transition from sit to stand unassisted. Ambulates with cane. Ambulates with bilaterally normal heel strike and toe off. Extrem Right upper extremity: elbow/forearm Details: normal to inspection, tenderness Location: of the lateral epicondyle (mild TTP) and normal ROM; no swelling, no unusual warmth, no ecchymosis and no crepitus Psych Appearance: grossly normal Mental Status: mental status grossly normal Speech and movement: Normal speech and movement present Affect: normal affect Attitude: cooperative Thought process: Normal thought process present Thought content: Normal thought content present, suicidality (none), no hallucinations and No Depressive thoughts present Insight: Good insight present (Psych) Judgement: Good judgement present (Psych) Results Reviewed Results Reviewed: No imaging is available for review. Assessment & Plan Assessment & Plan (1) Opioid contract exists: Code(s): Z79.891 - [facility] (current) use of opiate analgesic (2) Chronic pain syndrome: Code(s): G89.4 - Chronic pain syndrome (3) Fibromyalgia: Code(s): M79.7 - Fibromyalgia (4) Lateral epicondylitis of right elbow: Code(s): M77.11 - Lateral epicondylitis, right elbow (5) Bilateral knee pain: Code(s): M25.561 - Pain in right knee; M25.562 - Pain in left knee Plan Patient has shown accountability for her medication regimen and the pill count was accurate.?There is no evidence of misuse, abuse or diversion at this time. [employer] reviewed. Prescription for oxycodone for 30 days sent with advanced date of 10/02/23. Patient is aware of monitoring for side effects. Patient reports good results s/p recent right elbow steroid injection on 08/30/23. Patient encouraged to continue activity modifications, moist heat compresses, ice therapy, rest, NSAIDs, and Tylenol. All questions were answered and the patient is in agreement with the plan. Follow up in one month for pill count or sooner if needed. Medications: Refilled oxycodone Partial Fill upon patient request. 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
[2023-09-19 15:44] VITALS: BP 130/64; BMI 45.8
== END 2023-09-19 15:52 | disposition home or self-care (01) ==
PROVIDERS: PCP Family Medicine; Visit Provider Nurse Practitioner Family
DX: G89.4 Chronic pain syndrome (principal); M79.7 Fibromyalgia; M77.11 Lateral epicondylitis, right elbow; Z79.891 Long term (current) use of opiate analgesic; M25.561 Pain in right knee; M25.562 Pain in left knee
CPT/HCPCS: 99214

== ENCOUNTER → 2023-09-19 15:26 | Outpatient (BNVA) | payer MEDICARE, MEDICAID, SELFPAY | PROVIDERS: PCP Family Medicine; Visit Provider Nurse Practitioner Family | DX: Z51.81 Encounter for therapeutic drug level monitoring (principal); M79.7 Fibromyalgia; M77.11 Lateral epicondylitis, right elbow; M25.561 Pain in right knee; M25.562 Pain in left knee; G89.4 Chronic pain syndrome; Z79.891 Long term (current) use of opiate analgesic | CPT/HCPCS: 99212 ==

== ENCOUNTER 2023-10-17 15:13 | Outpatient (AMB) | payer MEDICARE, MEDICAID, SELFPAY ==
--- NOTE | 2023-10-17 15:14 | A.OFFVIS_ITS ---
Intake Vital Signs 10/17/23 15:23 Height 5 ft 5 in BMI Reason not done Patient refused/unable BP 128/70 Blood Pressure Location Lt brachial Position Sitting Pulse 72 Pulse Source Pulse Oximeter Pulse Oximetry (%) 98 Oxygen Delivery Method Room Air Intake Visit Reasons: Pill Count Intake Note: Lina comes in today for a pill count to oxycodone, patient should have 42 tablets and presents with 42 tablets which she last took today 10/17/23 at 10am. 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 Accompanied by: Spouse Allergies aspartame Allergy (Unknown, Verified 10/17/23 15:23) Unknown cephalexin Allergy (Unknown, Verified 10/17/23 15:23) Unknown cyclobenzaprine Allergy (Unknown, Verified 10/17/23 15:23) Unknown dobutamine Allergy (Unknown, Verified 10/17/23 15:23) Unknown indomethacin Allergy (Unknown, Verified 10/17/23 15:23) Unknown levofloxacin [Levaquin] Allergy (Unknown, Verified 10/17/23 15:23) Unknown morphine Allergy (Unknown, Verified 10/17/23 15:23) Unknown penicillin V Allergy (Unknown, Verified 10/17/23 15:23) Unknown tramadol Allergy (Unknown, Verified 10/17/23 15:23) Unknown NSAIDS (Non-Steroidal Anti-Inflamma Adverse Reaction (Severe, Verified 10/17/23 15:23) afib Latex Gloves Allergy (Unknown, Uncoded 08/30/23 10:39) Unknown HPI HPI Comments History of Present Illness Details Lina presents today for a pill count. Patient is supposed to have #42 pills, in her possession has #42 pills. This demonstrates a responsible attitude in regards to the medication regimen. Patient reports mild to moderate analgesia on her regimen of oxycodone 5 mg TID prn with no noted side effects. Denies any recent cough, cold, infection, fever, any significant changes in her medical history, medications or recent hospitalizations. Patient reports ongoing 90% pain relief since right elbow steroid injection on 08/30/[address] Montgomery. She is very content with outcome of injection. Patient is able to fully extend her right arm without significant pain, reports improved functioning and denies localized tenderness to her elbow or forearm. Past Procedures: 08/30/23: Right elbow steroid injection- 90% pain relief [facility] Medical History Chronic pain syndrome History of lung cancer Diabetes type 2 with atherosclerosis of arteries of extremities Morbid obesity Gout, arthritis Morbidly obese Gout Psoriasis Arthritis Family history of lung cancer Lung cancer Diabetic retinopathy Williamson's palsy Sciatica Plantar fasciitis, bilateral Rosacea Sleep apnea Asthma GERD (gastroesophageal reflux disease) IBS (irritable bowel syndrome) Nerve pain Migraine Carpal tunnel syndrome, bilateral Diabetic cheirarthropathy Fibromyalgia Non-alcoholic micronodular cirrhosis of liver Paroxysmal atrial fibrillation Primary Sjogren's syndrome Type 2 diabetes mellitus Surgical History History of carpal tunnel release History of lung surgery History of appendectomy History of repair of left rotator cuff History of section Review of Systems Const All systems reviewed & are unremarkable except as noted in HPI and below Physical Exam Vital Signs: Last Vital Signs Pulse 72 10/17/23 15:23 BP 128/70 10/17/23 15:23 Pulse Ox 98 10/17/23 15:23 Oxygen Delivery Method Room Air 10/17/23 15:23 General: Appears afebrile. Alert and oriented. Mood and affect appropriate. Follows and participates in conversation appropriately. Respiratory effort is unlabored. No cough. Wears facemask. Able to transition from sit to stand unassisted. Ambulates with cane. Ambulates with bilaterally normal heel strike and toe off. Extrem Right upper extremity: elbow/forearm Details: normal to inspection and normal ROM; no tenderness and no swelling Psych Appearance: grossly normal and well kempt Mental Status: mental status grossly normal Speech and movement: Normal speech and movement present Affect: normal affect Attitude: cooperative Thought process: Normal thought process present Thought content: Normal thought content present, suicidality (none), no hallucinations and No Depressive thoughts present Insight: Good insight present (Psych) Judgement: Good judgement present (Psych) Assessment & Plan Assessment & Plan (1) Opioid contract exists: Code(s): Z79.891 - retirement (current) use of opiate analgesic (2) Chronic pain syndrome: Code(s): G89.4 - Chronic pain syndrome (3) Fibromyalgia: Code(s): M79.7 - Fibromyalgia (4) Lateral epicondylitis of right elbow: Code(s): M77.11 - Lateral epicondylitis, right elbow (5) Bilateral knee pain: Code(s): M25.561 - Pain in right knee; M25.562 - Pain in left knee (6) Right foot pain: Code(s): M79.671 - Pain in right foot Plan Patient has shown accountability for her medication regimen and the pill count was accurate.?There is no evidence of misuse, abuse or diversion at this time. [employer] reviewed. Prescription for oxycodone for 30 days sent with advanced date of 11/01/23. Patient is aware of monitoring for side effects. Patient reports good results s/p recent right elbow steroid injection on 08/30/23 with ongoing 90% pain relief. Patient encouraged to continue activity modifications, moist heat compresses, ice therapy, restl as needed. She also has pending Orthopedic evaluation for chronic right foot pain. All questions were answered and the patient is in agreement with the plan. Follow up in one month for pill count or sooner if needed. Medications: Refilled oxycodone Partial Fill upon patient request. 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
[2023-10-17 15:23] VITALS: BP 128/70; PULSE 72; O2SAT 98
== END 2023-10-17 15:35 | disposition home or self-care (01) ==
PROVIDERS: PCP Family Medicine; Visit Provider Nurse Practitioner Family
DX: G89.4 Chronic pain syndrome (principal); M79.7 Fibromyalgia; M77.11 Lateral epicondylitis, right elbow; Z79.891 Long term (current) use of opiate analgesic; M25.561 Pain in right knee; M25.562 Pain in left knee; M79.671 Pain in right foot
CPT/HCPCS: 99214

== ENCOUNTER → 2023-10-17 15:13 | Outpatient (BNVA) | payer MEDICARE, MEDICAID, SELFPAY | PROVIDERS: PCP Family Medicine; Visit Provider Nurse Practitioner Family | DX: Z51.81 Encounter for therapeutic drug level monitoring (principal); M79.7 Fibromyalgia; M77.11 Lateral epicondylitis, right elbow; M25.561 Pain in right knee; M25.562 Pain in left knee; M79.671 Pain in right foot; G89.4 Chronic pain syndrome; Z79.891 Long term (current) use of opiate analgesic | CPT/HCPCS: 99212 ==

== ENCOUNTER 2023-11-21 11:05 | Outpatient (AMB) | payer MEDICARE, MEDICAID, SELFPAY ==
--- NOTE | 2023-11-21 11:07 | MHC.OFFVIS ---
Vital Signs 11/21/23 11:20 Height 5 ft 5 in Weight 280 lb 4 oz BMI 46.6 BP 132/64 Blood Pressure Location Lt brachial Position Sitting Intake Visit Reasons: PILL COUNT/ random UDS Intake Note: Lina comes in today for a pill count to oxycodone, patient should have 30 tablets and presents with 32 tablets which she last took today 11/21/23 at 12am. Pain today 01/21 Patient will also go for a random UDS, aware that she needs to go to the lab on the first floor of this building today 11/21/23 before 12pm. 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 Accompanied by: Spouse Allergies aspartame Allergy (Unknown, Verified 11/21/23 11:19) Unknown cephalexin Allergy (Unknown, Verified 11/21/23 11:19) Unknown cyclobenzaprine Allergy (Unknown, Verified 11/21/23 11:19) Unknown dobutamine Allergy (Unknown, Verified 11/21/23 11:19) Unknown indomethacin Allergy (Unknown, Verified 11/21/23 11:19) Unknown levofloxacin [Levaquin] Allergy (Unknown, Verified 11/21/23 11:19) Unknown morphine Allergy (Unknown, Verified 11/21/23 11:19) Unknown penicillin V Allergy (Unknown, Verified 11/21/23 11:19) Unknown tramadol Allergy (Unknown, Verified 11/21/23 11:19) Unknown NSAIDS (Non-Steroidal Anti-Inflamma Adverse Reaction (Severe, Verified 11/21/23 11:19) afib Latex Gloves Allergy (Unknown, Uncoded 08/30/23 10:39) Unknown HPI Comments Details: Lina presents today for a pill count. Patient is supposed to have #30 pills, in her possession has #32 pills. This demonstrates a responsible attitude in regards to the medication regimen. Patient reports mild to moderate analgesia on her regimen of oxycodone 5 mg TID prn with no noted side effects. Denies any recent cough, cold, infection, fever, any significant changes in her medical history, medications or recent hospitalizations. Past Procedures: 08/30/23: Right elbow steroid injection-90% pain relief [facility] Medical History Chronic pain syndrome History of lung cancer Diabetes type 2 with atherosclerosis of arteries of extremities Morbid obesity Gout, arthritis Morbidly obese Gout Psoriasis Arthritis Family history of lung cancer Lung cancer Diabetic retinopathy Williamson's palsy Sciatica Plantar fasciitis, bilateral Rosacea Sleep apnea Asthma GERD (gastroesophageal reflux disease) IBS (irritable bowel syndrome) Nerve pain Migraine Carpal tunnel syndrome, bilateral Diabetic cheirarthropathy Fibromyalgia Non-alcoholic micronodular cirrhosis of liver Paroxysmal atrial fibrillation Primary Sjogren's syndrome Type 2 diabetes mellitus Surgical History History of carpal tunnel release History of lung surgery History of appendectomy History of repair of left rotator cuff History of section Review of Systems Const All systems reviewed & are unremarkable except as noted in HPI and below Physical Exam Vital Signs: Last Vital Signs BP 132/64 11/21/23 11:20 BMI result Body Mass Index 46.6 General: Appears afebrile. Alert and oriented. Mood and affect appropriate. Follows and participates in conversation appropriately. Respiratory effort is unlabored. No cough. Wears facemask. Able to transition from sit to stand unassisted. Ambulates with cane. Ambulates with bilaterally normal heel strike and toe off. Psych Appearance: grossly normal and well kempt Mental Status: mental status grossly normal Speech and movement: Normal speech and movement present Affect: normal affect Attitude: cooperative Thought process: Normal thought process present Thought content: Normal thought content present, suicidality (none), no hallucinations and No Depressive thoughts present Insight: Good insight present (Psych) Judgement: Good judgement present (Psych) Assessment & Plan Assessment & Plan (1) Opioid contract exists: Code(s): Z79.891 - custodial (current) use of opiate analgesic Category: Medical (2) Chronic pain syndrome: Code(s): G89.4 - Chronic pain syndrome Category: Medical (3) Fibromyalgia: Code(s): M79.7 - Fibromyalgia Category: Medical (4) Bilateral knee pain: Code(s): M25.561 - Pain in right knee; M25.562 - Pain in left knee Category: Medical (5) Right foot pain: Code(s): M79.671 - Pain in right foot Category: Medical Plan Patient has shown accountability for her medication regimen and the pill count was accurate.?There is no evidence of misuse, abuse or diversion at this time. [employer] reviewed. Prescription for oxycodone for 30 days sent with advanced date of 11/30/23. Patient is aware of monitoring for side effects. All questions were answered and the patient is in agreement with the plan. Follow up in one month for pill count or sooner if needed. Medications: Refilled oxycodone Partial Fill upon patient request. 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
[2023-11-21 11:20] VITALS: BP 132/64; BMI 46.6
== END 2023-11-21 11:23 | disposition home or self-care (01) ==
PROVIDERS: PCP Family Medicine; Visit Provider Nurse Practitioner Family
DX: G89.4 Chronic pain syndrome (principal); M79.7 Fibromyalgia; M25.561 Pain in right knee; Z79.891 Long term (current) use of opiate analgesic; M25.562 Pain in left knee; M79.671 Pain in right foot
CPT/HCPCS: 99214

== ENCOUNTER → 2023-11-21 11:05 | Outpatient (BNVA) | payer MEDICARE, MEDICAID, SELFPAY | PROVIDERS: PCP Family Medicine; Visit Provider Nurse Practitioner Family | DX: Z51.81 Encounter for therapeutic drug level monitoring (principal); M79.7 Fibromyalgia; M25.561 Pain in right knee; M25.562 Pain in left knee; M79.671 Pain in right foot; G89.4 Chronic pain syndrome; Z79.891 Long term (current) use of opiate analgesic | CPT/HCPCS: 99212 ==

== ENCOUNTER 2023-12-26 14:07 | Outpatient (AMB) | payer MEDICARE, MEDICAID, SELFPAY ==
--- NOTE | 2023-12-26 14:10 | A.OFFVIS_ITS ---
Vital Signs 12/26/23 14:19 Height 5 ft 5 in Weight 279 lb 2 oz BMI 46.4 BP 128/70 Blood Pressure Location Lt brachial Position Sitting Intake Visit Reasons: PILL COUNT Intake Note: Lina comes in today for a pill count to oxycodone, patient should have 9 tablets and presents with 13 tablets which she last took today 12/26/23 at 1pm. 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 Accompanied by: Spouse Allergies aspartame Allergy (Unknown, Verified 12/26/23 14:18) Unknown cephalexin Allergy (Unknown, Verified 12/26/23 14:18) Unknown cyclobenzaprine Allergy (Unknown, Verified 12/26/23 14:18) Unknown dobutamine Allergy (Unknown, Verified 12/26/23 14:18) Unknown indomethacin Allergy (Unknown, Verified 12/26/23 14:18) Unknown levofloxacin [Levaquin] Allergy (Unknown, Verified 12/26/23 14:18) Unknown morphine Allergy (Unknown, Verified 12/26/23 14:18) Unknown penicillin V Allergy (Unknown, Verified 12/26/23 14:18) Unknown tramadol Allergy (Unknown, Verified 12/26/23 14:18) Unknown NSAIDS (Non-Steroidal Anti-Inflamma Adverse Reaction (Severe, Verified 12/26/23 14:18) afib Latex Gloves Allergy (Unknown, Uncoded 08/30/23 10:39) Unknown HPI Comments Details: Lina presents today for a pill count. Patient is supposed to have #9 pills, in her possession has #13 pills. This demonstrates a responsible attitude in regards to the medication regimen. Patient reports mild to moderate analgesia on her regimen of oxycodone 5 mg TID prn with no noted side effects. Denies any recent cough, cold, infection, fever, any significant changes in her medical history, medications or recent hospitalizations. Past Procedures: 08/30/23: Right elbow steroid injection-90% pain relief [facility] Medical History Chronic pain syndrome History of lung cancer Diabetes type 2 with atherosclerosis of arteries of extremities Morbid obesity Gout, arthritis Morbidly obese Gout Psoriasis Arthritis Family history of lung cancer Lung cancer Diabetic retinopathy Williamson's palsy Sciatica Plantar fasciitis, bilateral Rosacea Sleep apnea Asthma GERD (gastroesophageal reflux disease) IBS (irritable bowel syndrome) Nerve pain Migraine Carpal tunnel syndrome, bilateral Diabetic cheirarthropathy Fibromyalgia Non-alcoholic micronodular cirrhosis of liver Paroxysmal atrial fibrillation Primary Sjogren's syndrome Type 2 diabetes mellitus Surgical History History of carpal tunnel release History of lung surgery History of appendectomy History of repair of left rotator cuff History of section Review of Systems Const All systems reviewed & are unremarkable except as noted in HPI and below Physical Exam General: Appears afebrile. Alert and oriented. Mood and affect appropriate. Follows and participates in conversation appropriately. Respiratory effort is unlabored. No cough. Wears facemask. Able to transition from sit to stand unassisted. Ambulates with cane. Ambulates with bilaterally normal heel strike and toe off. Psych Appearance: grossly normal and well kempt Mental Status: mental status grossly normal Speech and movement: Normal speech and movement present Affect: normal affect Attitude: cooperative Thought process: Normal thought process present Thought content: Normal thought content present, suicidality (none), no hallucinations and No Depressive thoughts present Insight: Good insight present (Psych) Judgement: Good judgement present (Psych) Results Reviewed Results Reviewed: No imaging is available for review. Assessment & Plan Assessment & Plan (1) Opioid contract exists: Code(s): Z79.891 - residential (current) use of opiate analgesic Category: Medical (2) Chronic pain syndrome: Code(s): G89.4 - Chronic pain syndrome Category: Medical (3) Fibromyalgia: Code(s): M79.7 - Fibromyalgia Category: Medical (4) Bilateral knee pain: Code(s): M25.561 - Pain in right knee; M25.562 - Pain in left knee Category: Medical (5) Right foot pain: Code(s): M79.671 - Pain in right foot Category: Medical Plan Patient has shown accountability for her medication regimen and the pill count was accurate.?There is no evidence of misuse, abuse or diversion at this time. [employer] reviewed. Prescription for oxycodone for 30 days sent with advanced date of 12/30/23. Patient is aware of monitoring for side effects. Encouraged daily physical activity, stretching exercises, meditation, massage, adequate hydration, weight optimization (consider Mediterranean diet intermittent fasting) and good posture. Most recent A1C=8.3 per patient, she attributes this to high level of stess for past month due to unexpected in her 's family. She is wearing Dexicomp and reports adherence to ADA diet and medication regime. All questions were answered and the patient is in agreement with the plan. Follow up in 4 weeks for pill count or sooner as needed. Medications: Refilled oxycodone Partial Fill upon patient request. 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
[2023-12-26 14:19] VITALS: BP 128/70; BMI 46.4
== END 2023-12-26 14:30 | disposition home or self-care (01) ==
PROVIDERS: PCP Family Medicine; Visit Provider Nurse Practitioner Family
DX: G89.4 Chronic pain syndrome (principal); M79.7 Fibromyalgia; M25.561 Pain in right knee; Z79.891 Long term (current) use of opiate analgesic; M25.562 Pain in left knee; M79.671 Pain in right foot
CPT/HCPCS: 99214

== ENCOUNTER → 2023-12-26 14:07 | Outpatient (BNVA) | payer MEDICARE, MEDICAID, SELFPAY | PROVIDERS: PCP Family Medicine; Visit Provider Nurse Practitioner Family | DX: M25.561 Pain in right knee (principal); M25.562 Pain in left knee; G89.4 Chronic pain syndrome; M79.671 Pain in right foot; M79.7 Fibromyalgia; Z79.891 Long term (current) use of opiate analgesic | CPT/HCPCS: 99212 ==

== ENCOUNTER 2024-01-23 15:01 | Outpatient (AMB) | payer MEDICARE, MEDICAID, SELFPAY ==
--- NOTE | 2024-01-23 15:04 | A.OFFVIS_ITS ---
Vital Signs 01/23/24 15:17 Height 5 ft 5 in Weight 277 lb 8 oz BMI 46.2 BP 138/70 Blood Pressure Location Lt brachial Position Sitting Pulse 72 Pulse Source Pulse Oximeter Pulse Oximetry (%) 97 Oxygen Delivery Method Room Air Intake Visit Reasons: Pill Count Intake Note: Lina comes in today for a pill count to oxycodone, patient should have 33 tablets and presents with 40 tablets which she last took today 01/23/24 at 1:30pm. 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: No Accompanied by: Spouse Allergies aspartame Allergy (Unknown, Verified 01/23/24 15:17) Unknown cephalexin Allergy (Unknown, Verified 01/23/24 15:17) Unknown cyclobenzaprine Allergy (Unknown, Verified 01/23/24 15:17) Unknown dobutamine Allergy (Unknown, Verified 01/23/24 15:17) Unknown indomethacin Allergy (Unknown, Verified 01/23/24 15:17) Unknown levofloxacin [Levaquin] Allergy (Unknown, Verified 01/23/24 15:17) Unknown morphine Allergy (Unknown, Verified 01/23/24 15:17) Unknown penicillin V Allergy (Unknown, Verified 01/23/24 15:17) Unknown tramadol Allergy (Unknown, Verified 01/23/24 15:17) Unknown NSAIDS (Non-Steroidal Anti-Inflamma Adverse Reaction (Severe, Verified 01/23/24 15:17) afib Latex Gloves Allergy (Unknown, Uncoded 08/30/23 10:39) Unknown HPI Comments Details: Lina presents today for a pill count. Patient is supposed to have #33 pills, in her possession has #40 pills. This demonstrates a responsible attitude in regards to the medication regimen. Patient reports mild to moderate analgesia on her regimen of oxycodone 5 mg TID prn with no noted side effects. Denies any recent cough, cold, infection, fever, any significant changes in her medical history, medications or recent hospitalizations. Past Procedures: 08/30/23: Right elbow steroid injection-90% pain relief [facility] Medical History Chronic pain syndrome History of lung cancer Diabetes type 2 with atherosclerosis of arteries of extremities Morbid obesity Gout, arthritis Morbidly obese Gout Psoriasis Arthritis Family history of lung cancer Lung cancer Diabetic retinopathy Williamson's palsy Sciatica Plantar fasciitis, bilateral Rosacea Sleep apnea Asthma GERD (gastroesophageal reflux disease) IBS (irritable bowel syndrome) Nerve pain Migraine Carpal tunnel syndrome, bilateral Diabetic cheirarthropathy Fibromyalgia Non-alcoholic micronodular cirrhosis of liver Paroxysmal atrial fibrillation Primary Sjogren's syndrome Type 2 diabetes mellitus Surgical History History of carpal tunnel release History of lung surgery History of appendectomy History of repair of left rotator cuff History of section Review of Systems Const All systems reviewed & are unremarkable except as noted in HPI and below Physical Exam General: Appears afebrile. Alert and oriented. Mood and affect appropriate. Follows and participates in conversation appropriately. Respiratory effort is unlabored. No cough. Wears facemask. Able to transition from sit to stand unassisted. Ambulates with cane. Ambulates with bilaterally normal heel strike and toe off. Extrem General: Yes capillary refill normal, Yes no calf tenderness, No cyanosis and Yes edema (nonpitting right ankle) Psych Appearance: grossly normal Mental Status: mental status grossly normal Speech and movement: Normal speech and movement present Affect: normal affect Attitude: cooperative Thought process: Normal thought process present Thought content: Normal thought content present, suicidality (none), no hallucinations and No Depressive thoughts present Insight: Good insight present (Psych) Judgement: Good judgement present (Psych) Results Reviewed Results Reviewed: No imaging is available for review. 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 [employer] reviewed. Prescription for oxycodone for 30 days sent with advanced date of 02/04/24. Patient is aware of monitoring for side effects. Encouraged daily physical activity, stretching exercises, meditation, massage, adequate hydration, weight optimization (consider Mediterranean diet intermit tent fasting) and good posture. Most recent A1C=8.0 per patient. She is wearing Dexicomp and reports adherence to ADA diet and medication regime. All questions were answered and the patient is in agreement with the plan. Follow up in 4 weeks for pill count or sooner as needed. Medications: Refilled oxycodone Partial Fill upon patient request. 5 mg PO TID 30 days PRN 90 tabs 0RF pain G89.4 - Chronic pain syndrome, M25.561 - Pain in right knee, M25.562 - Pain in left knee, Z79.891 - retirement (current) use of opiate analgesic Coding Level of Care Code Est Pt Level 4 (09018) Diagnoses Opioid contract exists Z79.891 Chronic pain syndrome G89.4 Fibromyalgia M79.7 Bilateral knee pain M25.561; M25.562 Right foot pain M79.671
[2024-01-23 15:17] VITALS: BP 138/70; PULSE 72; O2SAT 97; BMI 46.2
== END 2024-01-23 15:27 | disposition home or self-care (01) ==
PROVIDERS: PCP Family Medicine; Visit Provider Nurse Practitioner Family
DX: G89.4 Chronic pain syndrome (principal); M79.7 Fibromyalgia; M25.561 Pain in right knee; Z79.891 Long term (current) use of opiate analgesic; M25.562 Pain in left knee; M79.671 Pain in right foot
CPT/HCPCS: 99214

== ENCOUNTER → 2024-01-23 15:01 | Outpatient (BNVA) | payer MEDICARE, MEDICAID, SELFPAY | PROVIDERS: PCP Family Medicine; Visit Provider Nurse Practitioner Family | DX: Z51.81 Encounter for therapeutic drug level monitoring (principal); M79.7 Fibromyalgia; M25.561 Pain in right knee; M25.562 Pain in left knee; M79.671 Pain in right foot; Z79.891 Long term (current) use of opiate analgesic; G89.4 Chronic pain syndrome | CPT/HCPCS: 99212 ==

== ENCOUNTER 2024-02-27 09:44 | Outpatient (AMB) | payer MEDICARE, SELFPAY ==
--- NOTE | 2024-02-27 09:56 | A.OFFVIS_ITS ---
Vital Signs 02/27/24 09:57 Height 5 ft 5 in Weight 278 lb BMI 46.3 BP 128/62 Blood Pressure Location Lt brachial Position Sitting Intake Visit Reasons: Pill Count Intake Note: Lina comes in today for a pill count to oxycodone, patient should have 21 tablets and presents with 24 tablets which she last took today 02/27/24 at 8 am. 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 Accompanied by: Family/Other Allergies aspartame Allergy (Unknown, Verified 02/27/24 09:57) Unknown cephalexin Allergy (Unknown, Verified 02/27/24 09:57) Unknown cyclobenzaprine Allergy (Unknown, Verified 02/27/24 09:57) Unknown dobutamine Allergy (Unknown, Verified 02/27/24 09:57) Unknown indomethacin Allergy (Unknown, Verified 02/27/24 09:57) Unknown levofloxacin [Levaquin] Allergy (Unknown, Verified 02/27/24 09:57) Unknown morphine Allergy (Unknown, Verified 02/27/24 09:57) Unknown penicillin V Allergy (Unknown, Verified 02/27/24 09:57) Unknown tramadol Allergy (Unknown, Verified 02/27/24 09:57) Unknown NSAIDS (Non-Steroidal Anti-Inflamma Adverse Reaction (Severe, Verified 02/27/24 09:57) afib Latex Gloves Allergy (Unknown, Uncoded 08/30/23 10:39) Unknown HPI Comments Details: Lina presents today for a pill count. Patient is supposed to have #21 pills, in her possession has #23 pills. This demonstrates a responsible attitude in re gards to the medication regimen. Patient reports adequate analgesia on her regimen of oxycodone 5 mg TID prn with no noted side effects. Denies any recent cough, cold, infection, fever, any significant changes in her medical history, medications or recent hospitalizations. Patient reports right elbow pain has returned and pain is worse than prior to injection in August. She is interested in Orthopedic evaluation. Past Procedures: 08/30/23: Right elbow steroid injection-90% pain relief for 1.5 months [facility] Medical History Chronic pain syndrome History of lung cancer Diabetes type 2 with atherosclerosis of arteries of extremities Morbid obesity Gout, arthritis Morbidly obese Gout Psoriasis Arthritis Family history of lung cancer Lung cancer Diabetic retinopathy Williamson's palsy Sciatica Plantar fasciitis, bilateral Rosacea Sleep apnea Asthma GERD (gastroesophageal reflux disease) IBS (irritable bowel syndrome) Nerve pain Migraine Carpal tunnel syndrome, bilateral Diabetic cheirarthropathy Fibromyalgia Non-alcoholic micronodular cirrhosis of liver Paroxysmal atrial fibrillation Primary Sjogren's syndrome Type 2 diabetes mellitus Surgical History History of carpal tunnel release History of lung surgery History of appendectomy History of repair of left rotator cuff History of section Review of Systems Const All systems reviewed & are unremarkable except as noted in HPI and below Physical Exam Vital Signs: Last Vital Signs BP 128/62 02/27/24 09:57 BMI result Body Mass Index 46.3 General: Appears afebrile. No acute distress. Alert and oriented. Mood and affect appropriate. Follows and participates in conversation appropriately. Respiratory effort is unlabored. No cough. Wears facemask. Able to transition from sit to stand unassisted. Ambulates with cane. Ambulates with bilaterally normal heel strike and toe off. Extrem General: Yes capillary refill normal, Yes no calf tenderness, No cyanosis and Yes edema (nonpitting right ankle) Right upper extremity: elbow/forearm Details: normal to inspection, tenderness Location: of the lateral epicondyle and distal pulses intact; no swelling, no unusual warmth and no ecchymosis Psych Appearance: grossly normal and well kempt Mental Status: mental status grossly normal Speech and movement: Normal speech and movement present and Clear speech present Affect: normal affect Attitude: cooperative Thought process: Normal thought process present Thought content: Normal thought content present, suicidality (none), no hallucinations and No Depressive thoughts present Insight: Good insight present (Psych) Judgement: Good judgement present (Psych) Results Reviewed Results Reviewed: No imaging is available for review. Assessment & Plan Assessment & Plan (1) Right foot pain: Code(s): M79.671 - Pain in right foot Category: Medical (2) Lateral epicondylitis of right elbow: Code(s): M77.11 - Lateral epicondylitis, right elbow Category: Medical (3) Opioid contract exists: Code(s): Z79.891 - intermediate (current) use of opiate analgesic Category: Medical (4) Chronic pain syndrome: Code(s): G89.4 - Chronic pain syndrome Category: Medical (5) Fibromyalgia: Code(s): M79.7 - Fibromyalgia Category: Medical (6) Bilateral knee pain: Code(s): M25.561 - Pain in right knee; M25.562 - Pain in left knee Category: Medical Plan Patient has shown accountability for her medication regimen and the pill count was accurate.?There is no evidence of misuse, abuse or diversion at this time. [email or web address] reviewed. Prescription for oxycodone for 30 days sent with advanced date of 03/05/24. Patient is aware of monitoring for side effects. Encouraged daily physical activity, stretching exercises, meditation, massage, adequate hydration, weight optimization (consider Mediterranean diet intermittent fasting) and good posture. Orthopedic Referral for further evaluation and treatment of right elbow pain. Continue bracing, rest, elevation, ice, NSAIDs. All questions were answered and the patient is in agreement with the plan. Follow up in 4 weeks for pill count or sooner as needed. Orders: Referrals Orthopedics Referral M77.11 - Lateral epicondylitis, right elbow, M79.671 - Pain in right foot Medications: Refilled oxycodone Partial Fill upon patient request. 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
[2024-02-27 09:57] VITALS: BP 128/62; BMI 46.3
== END 2024-02-27 10:07 | disposition home or self-care (01) ==
PROVIDERS: PCP Family Medicine; Visit Provider Nurse Practitioner Family
DX: G89.4 Chronic pain syndrome (principal); M79.671 Pain in right foot; M77.11 Lateral epicondylitis, right elbow; Z79.891 Long term (current) use of opiate analgesic; M79.7 Fibromyalgia; M25.561 Pain in right knee; M25.562 Pain in left knee
CPT/HCPCS: 99214

== ENCOUNTER → 2024-02-27 09:44 | Outpatient (BNVA) | payer MEDICARE, MEDICAID, SELFPAY | PROVIDERS: PCP Family Medicine; Visit Provider Nurse Practitioner Family | DX: G89.4 Chronic pain syndrome (principal); M79.671 Pain in right foot; M77.11 Lateral epicondylitis, right elbow; M79.7 Fibromyalgia; M25.561 Pain in right knee; M25.562 Pain in left knee; Z79.891 Long term (current) use of opiate analgesic | CPT/HCPCS: 99212 ==

== ENCOUNTER 2024-03-26 14:06 | Outpatient (AMB) | payer MEDICARE, SELFPAY ==
--- NOTE | 2024-03-26 14:15 | A.OFFVIS_ITS ---
Vital Signs 03/26/24 14:17 Height 5 ft 5 in Weight 276 lb BMI 45.9 Handedness Right Intake Visit Reasons: New Pt - right elbow pain Intake Note: Lina is a 63 year old right hand dominant female who presents today with her Williams as a new patient with complaints of right elbow pain. She was referred by Pain Management. Patient had steroid injection in the past which gave her relief for roughly 1 and a half months. Patient reports her pain is worse than it was before her injection. She feels pain on lateral aspect of her right elbow with flexion and extension and lifting. She is unable to take tylenol and NSAIDs, she finds relief from cannabis lotion and edibles. Pt says she had medical marijuana license. Allergies aspartame Allergy (Unknown, Verified 03/26/24 15:02) Unknown cephalexin Allergy (Unknown, Verified 03/26/24 15:02) Unknown cyclobenzaprine Allergy (Unknown, Verified 03/26/24 15:02) Unknown dobutamine Allergy (Unknown, Verified 03/26/24 15:02) Unknown indomethacin Allergy (Unknown, Verified 03/26/24 15:02) Unknown levofloxacin [Levaquin] Allergy (Unknown, Verified 03/26/24 15:02) Unknown morphine Allergy (Unknown, Verified 03/26/24 15:02) Unknown penicillin V Allergy (Unknown, Verified 03/26/24 15:02) Unknown tramadol Allergy (Unknown, Verified 03/26/24 15:02) Unknown NSAIDS (Non-Steroidal Anti-Inflamma Adverse Reaction (Severe, Verified 03/26/24 15:02) afib Latex Gloves Allergy (Unknown, Uncoded 03/26/24 14:17) Unknown HPI HPI New Pt - right elbow pain: Details: Patient is a 63-year-old female who presents for evaluation of right lateral elbow pain, previously diagnosed as tennis elbow by pain management, ongoing on and off for several years. The patient reports that she has previously had injections into this elbow for this same issue, which we have her relief for approximately 1.5 months. The patient reports that she would like to avoid any further injections if possible, but states she would like to explore other treatment options at this time. Patient reports that this pain worsens with lifting or range of motion of the right wrist and forearm. No other acute complaints or concerns at this time. [facility] Medical History Chronic pain syndrome History of lung cancer Diabetes type 2 with atherosclerosis of arteries of extremities Morbid obesity Gout, arthritis Morbidly obese Gout Psoriasis Arthritis Family history of lung cancer Lung cancer Diabetic retinopathy Williamson's palsy Sciatica Plantar fasciitis, bilateral Rosacea Sleep apnea Asthma GERD (gastroesophageal reflux disease) IBS (irritable bowel syndrome) Nerve pain Migraine Carpal tunnel syndrome, bilateral Diabetic cheirarthropathy Fibromyalgia Non-alcoholic micronodular cirrhosis of liver Paroxysmal atrial fibrillation Primary Sjogren's syndrome Type 2 diabetes mellitus Surgical History History of carpal tunnel release History of lung surgery History of appendectomy History of repair of left rotator cuff History of section Social History Alcohol intake: never Patient Tobacco Use Status: Former Tobacco user Current occupational status: disabled Physical Exam Vital Signs: BMI result Body Mass Index 45.9 Extrem Other: On inspection, there is no visible deformity of the right elbow No ecchymosis, erythema, edema noted No lacerations, abrasions, open areas No evidence of infection Patient reports significant tenderness to palpation about the lateral epicondyle of the right elbow Patient also reports some tenderness to palpation over the lateral aspect of the olecranon of the right elbow Patient is able to extend the right elbow to 0 degrees without difficulty, but states she does experience some discomfort with this Patient is able to flex the right elbow to approximately 150 degrees without difficulty Distal sensation intact Capillary refill brisk Positive Cozen's test on the right Assessment & Plan Assessment & Plan (1) Lateral epicondylitis of right elbow: Code(s): M77.11 - Lateral epicondylitis, right elbow Category: Medical Plan 1. Lateral epicondylitis of right elbow Ongoing for many years Patient is educated about this condition Patient is educated about the typical recovery course Patient is informed that the other main stay of treatment for lateral epicondylitis other than injections is occupational therapy Patient is referred for occupational therapy today, states that she would like to have the order printed out so she can bring it to the clinic of her choosing near home Order printed for the patient today Patient is educated that if she does not experience any relief in approximately 8-12 weeks, she can call the office for repeat evaluation and discussion of other treatment options, namely injections. Patient will follow-up as needed with any acute concerns Orders: Orders OT Evaluation and Treatment Today M77.11 - Lateral epicondylitis, right elbow Coding Level of Care Code New Pt Level 3 (36772) Diagnoses Lateral epicondylitis of right elbow M77.11
[2024-03-26 14:17] VITALS: BMI 45.9
== END 2024-03-26 14:38 | disposition home or self-care (01) ==
PROVIDERS: PCP Family Medicine
DX: M77.11 Lateral epicondylitis, right elbow (principal)
CPT/HCPCS: 99203

== ENCOUNTER → 2024-03-26 14:06 | Outpatient (BNVA) | payer MEDICARE, MEDICAID, SELFPAY | PROVIDERS: PCP Family Medicine | DX: M77.11 Lateral epicondylitis, right elbow (principal); M79.671 Pain in right foot; G89.4 Chronic pain syndrome; M79.7 Fibromyalgia; M25.561 Pain in right knee; M25.562 Pain in left knee; Z79.891 Long term (current) use of opiate analgesic; Z51.81 Encounter for therapeutic drug level monitoring | CPT/HCPCS: 99202; 99212 ==

== ENCOUNTER 2024-03-26 14:41 | Outpatient (AMB) | payer MEDICARE, SELFPAY ==
--- NOTE | 2024-03-26 14:47 | MHC.OFFVIS ---
Vital Signs 03/26/24 15:02 Height 5 ft 5 in Weight 275 lb 2 oz BMI 45.8 BP 122/68 Blood Pressure Location Rt brachial Position Sitting Intake Visit Reasons: PILL COUNT Intake Note: Lina comes in today for a pill count to oxycodone, patient should have 24 tablets and presents with 37 tablets which she last took today 03/26/24. 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: No Accompanied by: Spouse Allergies aspartame Allergy (Unknown, Verified 03/26/24 15:02) Unknown cephalexin Allergy (Unknown, Verified 03/26/24 15:02) Unknown cyclobenzaprine Allergy (Unknown, Verified 03/26/24 15:02) Unknown dobutamine Allergy (Unknown, Verified 03/26/24 15:02) Unknown indomethacin Allergy (Unknown, Verified 03/26/24 15:02) Unknown levofloxacin [Levaquin] Allergy (Unknown, Verified 03/26/24 15:02) Unknown morphine Allergy (Unknown, Verified 03/26/24 15:02) Unknown penicillin V Allergy (Unknown, Verified 03/26/24 15:02) Unknown tramadol Allergy (Unknown, Verified 03/26/24 15:02) Unknown NSAIDS (Non-Steroidal Anti-Inflamma Adverse Reaction (Severe, Verified 03/26/24 15:02) afib Latex Gloves Allergy (Unknown, Uncoded 03/26/24 14:17) Unknown HPI Comments Details: Lina presents today for a pill count. Patient is supposed to have #24 pills, in her possession has #37 pills. This demonstrates a responsible attitude in regards to the medication regimen. Patient reports adequate analgesia on her regimen of oxycodone 5 mg TID prn with no noted side effects. Denies any recent cough, cold, infection, fever, any significant changes in her medical history, medications or recent hospitalizations. Patient is following up with Orthopedics for right elbow pain and is starting OT therapy. She had temporary pain relief with therapeutic injection in August. Past Procedures: 08/30/23: Right elbow steroid injection-90% pain relief for 1.5 months [facility] Medical History Chronic pain syndrome History of lung cancer Diabetes type 2 with atherosclerosis of arteries of extremities Morbid obesity Gout, arthritis Morbidly obese Gout Psoriasis Arthritis Family history of lung cancer Lung cancer Diabetic retinopathy Williamson's palsy Sciatica Plantar fasciitis, bilateral Rosacea Sleep apnea Asthma GERD (gastroesophageal reflux disease) IBS (irritable bowel syndrome) Nerve pain Migraine Carpal tunnel syndrome, bilateral Diabetic cheirarthropathy Fibromyalgia Non-alcoholic micronodular cirrhosis of liver Paroxysmal atrial fibrillation Primary Sjogren's syndrome Type 2 diabetes mellitus Surgical History History of carpal tunnel release History of lung surgery History of appendectomy History of repair of left rotator cuff History of section Social History Alcohol intake: never Patient Tobacco Use Status: Former Tobacco user Current occupational status: disabled Review of Systems Const All systems reviewed & are unremarkable except as noted in HPI and below Physical Exam Vital Signs: Last Vital Signs BP 122/68 03/26/24 15:02 BMI result Body Mass Index 45.8 General: Appears afebrile. Alert and oriented. Mood and affect appropriate. Follows and participates in conversation appropriately. Respiratory effort is unlabored. No cough. Wears facemask. Able to transition from sit to stand unassisted. Ambulates with cane. Ambulates with bilaterally normal heel strike and toe off. Extrem General: Yes capillary refill normal, Yes no calf tenderness, No cyanosis and Yes edema (nonpitting right ankle) Right upper extremity: elbow/forearm Details: normal to inspection, tenderness Location: of the lateral epicondyle, normal ROM and distal pulses intact; no swelling, no unusual warmth and no ecchymosis Psych Appearance: grossly normal Mental Status: mental status grossly normal Speech and movement: Normal speech and movement present Affect: normal affect Attitude: cooperative Thought process: Normal thought process present Thought content: Normal thought content present, suicidality (none), no hallucinations and No Depressive thoughts present Insight: Good insight present (Psych) Judgement: Good judgement present (Psych) Results Reviewed Results Reviewed: No imaging is available for review. Assessment & Plan Assessment & Plan (1) Lateral epicondylitis of right elbow: Code(s): M77.11 - Lateral epicondylitis, right elbow Category: Medical (2) Right foot pain: Code(s): M79.671 - Pain in right foot Category: Medical (3) Opioid contract exists: Code(s): Z79.891 - [facility] (current) use of opiate analgesic Category: Medical (4) Chronic pain syndrome: Code(s): G89.4 - Chronic pain syndrome Category: Medical (5) Fibromyalgia: Code(s): M79.7 - Fibromyalgia Category: Medical (6) Bilateral knee pain: Code(s): M25.561 - Pain in right knee; M25.562 - Pain in left knee Category: Medical Plan Patient has shown accountability for her medication regimen and the pill count was accurate.?There is no evidence of misuse, abuse or diversion at this time. [employer] reviewed. Prescription for oxycodone for 30 days sent with advanced date of 04/08/24. Patient is aware of monitoring for side effects. Encouraged daily physical activity, stretching exercises, meditation, massage, adequate hydration and weight loss. Patient is starting OT therapy for right elbow pain per Orthopedics. Patient cannot take NSAIDs due to allergy (Afib). Will trial topical capsaicin. All questions were answered and the patient is in agreement with the plan. Follow up in 4 weeks for pill count or sooner as needed. Medications: New capsaicin 0.1% (Arthritis Pain Relief (capsaicin)) do not wash area for at least 30 min after application 1 appl topical TID 60 grams 0RF pain M77.11 - Lateral epicondylitis, right elbow Refilled oxycodone Partial Fill upon patient request. 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
[2024-03-26 15:02] VITALS: BP 122/68; BMI 45.8
== END 2024-03-26 15:17 | disposition home or self-care (01) ==
PROVIDERS: PCP Family Medicine; Visit Provider Nurse Practitioner Family
DX: M77.11 Lateral epicondylitis, right elbow (principal); M79.671 Pain in right foot; Z79.891 Long term (current) use of opiate analgesic; G89.4 Chronic pain syndrome; M79.7 Fibromyalgia; M25.561 Pain in right knee; M25.562 Pain in left knee
CPT/HCPCS: 99214; G2211

== ENCOUNTER 2024-04-23 15:31 | Outpatient (AMB) | payer MEDICARE, SELFPAY ==
--- NOTE | 2024-04-23 15:32 | MHC.OFFVIS ---
Vital Signs 04/23/24 15:41 Height 5 ft 5 in Weight 276 lb 6 oz BMI 46.0 BP 138/62 Blood Pressure Location Rt brachial Position Sitting Pulse 72 Pulse Source Pulse Oximeter Intake Visit Reasons: Pill Count Intake Note: Lina comes in today for a pill count to oxycodone, patient should have 42 tablets and presents with 48 tablets which she last took today 04/23/24 at 12:30pm. Pain today 3/10 Allergies aspartame Allergy (Unknown, Verified 03/26/24 15:02) Unknown cephalexin Allergy (Unknown, Verified 03/26/24 15:02) Unknown cyclobenzaprine Allergy (Unknown, Verified 03/26/24 15:02) Unknown dobutamine Allergy (Unknown, Verified 03/26/24 15:02) Unknown indomethacin Allergy (Unknown, Verified 03/26/24 15:02) Unknown levofloxacin [Levaquin] Allergy (Unknown, Verified 03/26/24 15:02) Unknown morphine Allergy (Unknown, Verified 03/26/24 15:02) Unknown penicillin V Allergy (Unknown, Verified 03/26/24 15:02) Unknown tramadol Allergy (Unknown, Verified 03/26/24 15:02) Unknown NSAIDS (Non-Steroidal Anti-Inflamma Adverse Reaction (Severe, Verified 03/26/24 15:02) afib Latex Gloves Allergy (Unknown, Uncoded 03/26/24 14:17) Unknown HPI Comments Details: Lina presents today for a pill count. Patient is supposed to have #42 pills, in her possession has #48 pills. This demonstrates a responsible attitude in regards to the medication regimen. Patient reports adequate analgesia on her regimen of oxycodone 5 mg TID prn with no noted side effects. Denies any recent cough, cold, infection, fever, any significant changes in her medical history, medications or recent hospitalizations. Past Procedures: 08/30/23: Right elbow steroid injection-90% pain relief for 1.5 months [facility] Medical History Chronic pain syndrome History of lung cancer Diabetes type 2 with atherosclerosis of arteries of extremities Morbid obesity Gout, arthritis Morbidly obese Gout Psoriasis Arthritis Family history of lung cancer Lung cancer Diabetic retinopathy Williamson's palsy Sciatica Plantar fasciitis, bilateral Rosacea Sleep apnea Asthma GERD (gastroesophageal reflux disease) IBS (irritable bowel syndrome) Nerve pain Migraine Carpal tunnel syndrome, bilateral Diabetic cheirarthropathy Fibromyalgia Non-alcoholic micronodular cirrhosis of liver Paroxysmal atrial fibrillation Primary Sjogren's syndrome Type 2 diabetes mellitus Surgical History History of carpal tunnel release History of lung surgery History of appendectomy History of repair of left rotator cuff History of section Social History Alcohol intake: never Patient Tobacco Use Status: Former Tobacco user Current occupational status: disabled Review of Systems Const All systems reviewed & are unremarkable except as noted in HPI and below Physical Exam General: Appears afebrile. Alert and oriented. Mood and affect appropriate. Follows and participates in conversation appropriately. Respiratory effort is unlabored. No cough. Wears facemask. Able to transition from sit to stand unassisted. Ambulates with cane. Ambulates with bilaterally normal heel strike and toe off. Psych Appearance: grossly normal Mental Status: mental status grossly normal Speech and movement: Normal speech and movement present Affect: normal affect Attitude: cooperative Thought process: Normal thought process present Thought content: Normal thought content present, suicidality (none), no hallucinations and No Depressive thoughts present Insight: Good insight present (Psych) Judgement: Good judgement present (Psych) Results Reviewed Results Reviewed: No imaging is available for review. Assessment & Plan Assessment & Plan (1) Opioid contract exists: Code(s): Z79.891 - [facility] (current) use of opiate analgesic Category: Medical (2) Chronic pain syndrome: Code(s): G89.4 - Chronic pain syndrome Category: Medical (3) Fibromyalgia: Code(s): M79.7 - Fibromyalgia Category: Medical (4) Bilateral knee pain: Code(s): M25.561 - Pain in right knee; M25.562 - Pain in left knee Category: Medical (5) Cervicalgia: Code(s): M54.2 - Cervicalgia Category: Medical Plan Patient has shown accountability for her medication regimen and the pill count was accurate.?There is no evidence of misuse, abuse or diversion at this time. [employer] reviewed. Prescription for oxycodone for 30 days sent with advanced date of 05/08/24. Patient is aware of monitoring for side effects. Encouraged daily physical activity, stretching exercises, meditation, massage, adequate hydration and weight loss. All questions were answered and the patient is in agreement with the plan. Follow up in 4-5 weeks for pill count or sooner as needed. Medications: Refilled oxycodone Partial Fill upon patient request. 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
[2024-04-23 15:41] VITALS: BP 138/62; PULSE 72; BMI 46.0
== END 2024-04-23 15:56 | disposition home or self-care (01) ==
PROVIDERS: PCP Family Medicine; Visit Provider Nurse Practitioner Family
DX: Z79.891 Long term (current) use of opiate analgesic (principal); G89.4 Chronic pain syndrome; M79.7 Fibromyalgia; M25.561 Pain in right knee; M25.562 Pain in left knee; M54.2 Cervicalgia
CPT/HCPCS: 99214; G2211

== ENCOUNTER → 2024-04-23 15:31 | Outpatient (BNVA) | payer MEDICARE, SELFPAY | PROVIDERS: PCP Family Medicine; Visit Provider Nurse Practitioner Family | DX: G89.4 Chronic pain syndrome (principal); M79.7 Fibromyalgia; M25.561 Pain in right knee; M25.562 Pain in left knee; M54.2 Cervicalgia; Z51.81 Encounter for therapeutic drug level monitoring; Z79.891 Long term (current) use of opiate analgesic | CPT/HCPCS: 99212 ==

== ENCOUNTER 2024-05-28 15:20 | Outpatient (AMB) | payer MEDICARE, SELFPAY ==
--- NOTE | 2024-05-28 15:23 | A.OFFVIS_ITS ---
Vital Signs 05/28/24 15:32 Height 5 ft 5 in Weight 276 lb 8 oz BMI 46.0 BP 140/68 H Blood Pressure Location Lt brachial Position Sitting Intake Visit Reasons: Pill Count Intake Note: Lina comes in today for a pill count to oxycodone, patient should have 27 tablets and presents with 34 tablets which she last took 1/2 tablet today 05/28/24 at 2pm. 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/22 Medical Doctor Md/Medical Director Required: No Accompanied by: Spouse Allergies aspartame Allergy (Unknown, Verified 05/28/24 15:33) Unknown cephalexin Allergy (Unknown, Verified 05/28/24 15:33) Unknown cyclobenzaprine Allergy (Unknown, Verified 05/28/24 15:33) Unknown dobutamine Allergy (Unknown, Verified 05/28/24 15:33) Unknown indomethacin Allergy (Unknown, Verified 05/28/24 15:33) Unknown levofloxacin [Levaquin] Allergy (Unknown, Verified 05/28/24 15:33) Unknown morphine Allergy (Unknown, Verified 05/28/24 15:33) Unknown penicillin V Allergy (Unknown, Verified 05/28/24 15:33) Unknown tramadol Allergy (Unknown, Verified 05/28/24 15:33) Unknown NSAIDS (Non-Steroidal Anti-Inflamma Adverse Reaction (Severe, Verified 05/28/24 15:33) afib Latex Gloves Allergy (Unknown, Uncoded 03/26/24 14:17) Unknown HPI Comments Details: Lina presents today for a pill count. Patient is supposed to have #27 pills, in her possession has #34 pills. This demonstrates a responsible attitude in regards to the medication regimen. Patient reports adequate analgesia on her regimen of oxycodone 5 mg TID prn with no noted side effects. Denies any recent cough, cold, infection, fever, any significant changes in her medical history, medications or recent hospitalizations. Past Procedures: 08/30/23: Right elbow steroid injection-90% pain relief for 1.5 months [facility] Medical History Chronic pain syndrome History of lung cancer Diabetes type 2 with atherosclerosis of arteries of extremities Morbid obesity Gout, arthritis Morbidly obese Gout Psoriasis Arthritis Family history of lung cancer Lung cancer Diabetic retinopathy Williamson's palsy Sciatica Plantar fasciitis, bilateral Rosacea Sleep apnea Asthma GERD (gastroesophageal reflux disease) IBS (irritable bowel syndrome) Nerve pain Migraine Carpal tunnel syndrome, bilateral Diabetic cheirarthropathy Fibromyalgia Non-alcoholic micronodular cirrhosis of liver Paroxysmal atrial fibrillation Primary Sjogren's syndrome Type 2 diabetes mellitus Surgical History History of carpal tunnel release History of lung surgery History of appendectomy History of repair of left rotator cuff History of section Social History Alcohol intake: never Patient Tobacco Use Status: Former Tobacco user Current occupational status: disabled Review of Systems Const All systems reviewed & are unremarkable except as noted in HPI and below Physical Exam Vital Signs: Last Vital Signs BP 140/68 H 05/28/24 15:32 BMI result Body Mass Index 46.0 General: Appears afebrile. Alert and oriented. Mood and affect appropriate. Follows and participates in conversation appropriately. Respiratory effort is unlabored. No cough. Wears facemask. Able to transition from sit to stand unassisted. Ambulates with cane. Ambulates with bilaterally normal heel strike and toe off. Psych Appearance: grossly normal Mental Status: mental status grossly normal Speech and movement: Normal speech and movement present Affect: normal affect Attitude: cooperative Thought process: Normal thought process present Thought content: Normal thought content present, suicidality (none), no hallucinations and No Depressive thoughts present Insight: Good insight present (Psych) Judgement: Good judgement present (Psych) Results Reviewed Results Reviewed: No imaging is available for review. Assessment & Plan Assessment & Plan (1) Opioid contract exists: Code(s): Z79.891 - [facility] (current) use of opiate analgesic Category: Medical (2) Chronic pain syndrome: Code(s): G89.4 - Chronic pain syndrome Category: Medical (3) Fibromyalgia: Code(s): M79.7 - Fibromyalgia Category: Medical (4) Bilateral knee pain: Code(s): M25.561 - Pain in right knee; M25.562 - Pain in left knee Category: Medical (5) Cervicalgia: Code(s): M54.2 - Cervicalgia Category: Medical Plan Patient has shown accountability for her medication regimen and the pill count was accurate.?There is no evidence of misuse, abuse or diversion at this time. [employer] reviewed. Prescription for oxycodone for 30 days sent with advanced date of 06/07/24. Patient is aware of monitoring for side effects. Patient has Narcan at home. Encouraged daily physical activity, stretching exercises, meditation, massage, adequate hydration and weight loss. All questions were answered and the patient is in agreement with the plan. Follow up in 4-5 weeks for pill count or sooner as needed. Medications: Refilled oxycodone Partial Fill upon patient request. 5 mg PO TID 30 days PRN 90 tabs 0RF pain G89.4 - Chronic pain syndrome, M25.561 - Pain in right knee, M25.562 - Pain in left knee, Z79.891 - [facility] (current) use of opiate analgesic Coding Level of Care Code Est Pt Level 4 (29988) Complex EM visit Add On G2211 Diagnoses Opioid contract exists Z79.891 Chronic pain syndrome G89.4 Fibromyalgia M79.7 Bilateral knee pain M25.561; M25.562 Cervicalgia M54.2
[2024-05-28 15:32] VITALS: BP 140/68; BMI 46.0
== END 2024-05-28 15:50 | disposition home or self-care (01) ==
PROVIDERS: PCP Family Medicine; Visit Provider Nurse Practitioner Family
DX: Z79.891 Long term (current) use of opiate analgesic (principal); G89.4 Chronic pain syndrome; M79.7 Fibromyalgia; M25.561 Pain in right knee; M25.562 Pain in left knee; M54.2 Cervicalgia
CPT/HCPCS: 99214; G2211

== ENCOUNTER → 2024-05-28 15:20 | Outpatient (BNVA) | payer MEDICARE, SELFPAY | PROVIDERS: PCP Family Medicine; Visit Provider Nurse Practitioner Family | DX: M54.2 Cervicalgia (principal); M25.561 Pain in right knee; G89.4 Chronic pain syndrome; M25.562 Pain in left knee; M79.7 Fibromyalgia; Z79.891 Long term (current) use of opiate analgesic | CPT/HCPCS: 99212 ==

== ENCOUNTER 2024-07-02 15:20 | Outpatient (AMB) | payer MEDICARE, SELFPAY ==
--- NOTE | 2024-07-02 15:20 | A.OFFVIS_ITS ---
Vital Signs 07/02/24 15:29 Height 5 ft 5 in Weight 276 lb 8 oz BMI 46.0 BP 132/60 Blood Pressure Location Lt brachial Position Sitting Intake Visit Reasons: PILL COUNT Intake Note: Lina comes in today for a pill count to oxycodone, patient should have 15 tablets and presents with 19 tablets which she last took today 07/02/24 at 11am. Pain today 09/21 [employer] Compos[employer] Inspector Required: No Accompanied by: Spouse Allergies aspartame Allergy (Unknown, Verified 05/28/24 15:33) Unknown cephalexin Allergy (Unknown, Verified 05/28/24 15:33) Unknown cyclobenzaprine Allergy (Unknown, Verified 05/28/24 15:33) Unknown dobutamine Allergy (Unknown, Verified 05/28/24 15:33) Unknown indomethacin Allergy (Unknown, Verified 05/28/24 15:33) Unknown levofloxacin [Levaquin] Allergy (Unknown, Verified 05/28/24 15:33) Unknown morphine Allergy (Unknown, Verified 05/28/24 15:33) Unknown penicillin V Allergy (Unknown, Verified 05/28/24 15:33) Unknown tramadol Allergy (Unknown, Verified 05/28/24 15:33) Unknown NSAIDS (Non-Steroidal Anti-Inflamma Adverse Reaction (Severe, Verified 05/28/24 15:33) afib Latex Gloves Allergy (Unknown, Uncoded 03/26/24 14:17) Unknown Medication List - Last Reconciled 07/02/24 by TIMOTHY Perez albuterol sulfate 90 mcg/actuation 0 mcg inhalation cholecalciferol (vitamin D3) 25 mcg PO DAILY fluticasone furoate-vilanterol 100-25 mcg/dose (Breo Ellipta) 1 ea inhalation DAILY fluticasone propionate 50 mcg/actuation sprays intranasal insulin regular hum U-500 conc (Humulin R U-500 (Conc) Insulin Kwikpen) units subcut lidocaine 5% 2 patches topical DAILY loratadine (Claritin) 10 mg PO DAILY mecobalamin (vitamin B12) 1,000 mcg sublingual DAILY metformin ER 1,000 mg PO BID metronidazole 0.75% 1 appl topical BID naloxone 4 mg/actuation (Narcan) 4 mg intranasal Q2M PRN olopatadine 0.1% 0 drps ophthalmic (eye) oxycodone 5 mg PO TID PRN 30 days propranolol ER 80 mg PO DAILY triamcinolone acetonide 0.1% appl topical BID PRN HPI Comments Details: Lina presents today for a pill count. Patient is supposed to have #15 pills, in her possession has #19 pills. This demonstrates a responsible attitude in regards to the medication regimen. Patient reports adequate analgesia on her regimen of oxycodone 5 mg TID prn with no noted side effects. Denies any recent cough, cold, infection, fever, any significant changes in her medical history, medications or recent hospitalizations. Past Procedures: 08/30/23: Right elbow steroid injection-90% pain relief for 1.5 months [facility] Medical History Chronic pain syndrome History of lung cancer Diabetes type 2 with atherosclerosis of arteries of extremities Morbid obesity Gout, arthritis Morbidly obese Gout Psoriasis Arthritis Family history of lung cancer Lung cancer Diabetic retinopathy Williamson's palsy Sciatica Plantar fasciitis, bilateral Rosacea Sleep apnea Asthma GERD (gastroesophageal reflux disease) IBS (irritable bowel syndrome) Nerve pain Migraine Carpal tunnel syndrome, bilateral Diabetic cheirarthropathy Fibromyalgia Non-alcoholic micronodular cirrhosis of liver Paroxysmal atrial fibrillation Primary Sjogren's syndrome Type 2 diabetes mellitus Surgical History History of carpal tunnel release History of lung surgery History of appendectomy History of repair of left rotator cuff History of section Social History Alcohol intake: never Patient Tobacco Use Status: Former Tobacco user Current occupational status: disabled Review of Systems Const All systems reviewed & are unremarkable except as noted in HPI and below Physical Exam Vital Signs: Last Vital Signs BP 132/60 07/02/24 15:29 BMI result Body Mass Index 46.0 General: Appears afebrile. No acute distress. Alert and oriented. Mood and affect appropriate. Follows and participates in conversation appropriately. Respiratory effort is unlabored. No cough. Wears facemask. Able to transition from sit to stand unassisted. Ambulates with cane. Ambulates with bilaterally normal heel strike and toe off. Psych Appearance: grossly normal and well kempt Mental Status: mental status grossly normal Speech and movement: Normal speech and movement present and Clear speech present Affect: normal affect Attitude: cooperative Thought process: Normal thought process present Thought content: Normal thought content present, suicidality (none), no hallucinations and No Depressive thoughts present Insight: Good insight present (Psych) Judgement: Good judgement present (Psych) Results Reviewed Results Reviewed: No imaging is available for review. 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 [email or web address] reviewed. Prescription for oxycodone for 30 days sent with advanced date of 07/06/24. Patient is aware of monitoring for side effects. Patient has Narcan at home. Encouraged daily physical activity, stretching exercises, meditation, massage, adequate hydration and weight loss. All questions were answered and the patient is in agreement with the plan. Follo w up in 4-5 weeks for pill count or sooner as needed. Medications: Refilled oxycodone Partial Fill upon patient request. 5 mg PO TID 30 days PRN 90 tabs 0RF pain G89.4 - Chronic pain syndrome, M25.561 - Pain in right knee, M25.562 - Pain in left knee, Z79.891 - [facility] (current) use of opiate analgesic Coding Level of Care Code Est Pt Level 4 (32034) Complex EM visit Add On G2211 Diagnoses Opioid contract exists Z79.891 Chronic pain syndrome G89.4 Fibromyalgia M79.7 Bilateral knee pain M25.561; M25.562 Cervicalgia M54.2
[2024-07-02 15:29] VITALS: BP 132/60; BMI 46.0
== END 2024-07-02 15:39 | disposition home or self-care (01) ==
PROVIDERS: PCP Family Medicine; Visit Provider Nurse Practitioner Family
DX: Z79.891 Long term (current) use of opiate analgesic (principal); G89.4 Chronic pain syndrome; M79.7 Fibromyalgia; M25.561 Pain in right knee; M25.562 Pain in left knee; M54.2 Cervicalgia
CPT/HCPCS: 99214; G2211

== ENCOUNTER → 2024-07-02 15:20 | Outpatient (BNVA) | payer MEDICARE, SELFPAY | PROVIDERS: PCP Family Medicine; Visit Provider Nurse Practitioner Family | DX: G89.4 Chronic pain syndrome (principal); M79.7 Fibromyalgia; M25.561 Pain in right knee; M25.562 Pain in left knee; M54.2 Cervicalgia; Z51.81 Encounter for therapeutic drug level monitoring; Z79.891 Long term (current) use of opiate analgesic | CPT/HCPCS: 99212 ==

== ENCOUNTER 2024-07-30 15:19 | Outpatient (AMB) | payer MEDICARE, SELFPAY ==
--- NOTE | 2024-07-30 15:23 | MHC.OFFVIS ---
Vital Signs 07/30/24 15:42 Height 5 ft 5 in Weight 276 lb 8 oz BMI 46.0 BP 120/58 L Blood Pressure Location Lt brachial Position Sitting Intake Visit Reasons: Pill Count Intake Note: Lina comes in today for a pill count to oxycodone, patient should have 15 tablets and presents with 24 tablets which she last took today 07/30/24 at 1:30pm. Pain today 4/10 Allergies aspartame Allergy (Unknown, Verified 05/28/24 15:33) Unknown cephalexin Allergy (Unknown, Verified 05/28/24 15:33) Unknown cyclobenzaprine Allergy (Unknown, Verified 05/28/24 15:33) Unknown dobutamine Allergy (Unknown, Verified 05/28/24 15:33) Unknown indomethacin Allergy (Unknown, Verified 05/28/24 15:33) Unknown levofloxacin [Levaquin] Allergy (Unknown, Verified 05/28/24 15:33) Unknown morphine Allergy (Unknown, Verified 05/28/24 15:33) Unknown penicillin V Allergy (Unknown, Verified 05/28/24 15:33) Unknown tramadol Allergy (Unknown, Verified 05/28/24 15:33) Unknown NSAIDS (Non-Steroidal Anti-Inflamma Adverse Reaction (Severe, Verified 05/28/24 15:33) afib Latex Gloves Allergy (Unknown, Uncoded 03/26/24 14:17) Unknown HPI Comments Details: Lina presents today for a pill count. Patient is supposed to have #15 pills, in her possession has #24 pills. This demonstrates a responsible attitude in regards to the medication regimen. Patient reports adequate analgesia on her regimen of oxycodone 5 mg TID prn with no noted side effects. Denies any recent cough, cold, infection, fever, any significant changes in her medical history, medications or recent hospitalizations. Past Procedures: 08/30/23: Right elbow steroid injection-90% pain relief for 1.5 months [facility] Medical History Chronic pain syndrome History of lung cancer Diabetes type 2 with atherosclerosis of arteries of extremities Morbid obesity Gout, arthritis Morbidly obese Gout Psoriasis Arthritis Family history of lung cancer Lung cancer Diabetic retinopathy Williamson's palsy Sciatica Plantar fasciitis, bilateral Rosacea Sleep apnea Asthma GERD (gastroesophageal reflux disease) IBS (irritable bowel syndrome) Nerve pain Migraine Carpal tunnel syndrome, bilateral Diabetic cheirarthropathy Fibromyalgia Non-alcoholic micronodular cirrhosis of liver Paroxysmal atrial fibrillation Primary Sjogren's syndrome Type 2 diabetes mellitus Surgical History History of carpal tunnel release History of lung surgery History of appendectomy History of repair of left rotator cuff History of section Social History Alcohol intake: never Patient Tobacco Use Status: Former Tobacco user Current occupational status: disabled Review of Systems Const All systems reviewed & are unremarkable except as noted in HPI and below Physical Exam General: Appears afebrile. No acute distress. Alert and oriented. Mood and affect appropriate. Follows and participates in conversation appropriately. Respiratory effort is unlabored. No cough. Wears facemask. Able to transition from sit to stand unassisted. Ambulates with cane. Ambulates with bilaterally normal heel strike and toe off. Extrem General: Yes capillary refill normal, Yes no clubbing, cyanosis or edema and Yes no calf tenderness Psych Appearance: grossly normal Mental Status: mental status grossly normal Speech and movement: Normal speech and movement present Affect: normal affect Attitude: cooperative Thought process: Normal thought process present Thought content: Normal thought content present, suicidality (none), no hallucinations and No Depressive thoughts present Insight: Good insight present (Psych) Judgement: Good judgement present (Psych) Results Reviewed Results Reviewed: No imaging is available for review. Assessment & Plan Assessment & Plan (1) Opioid contract exists: Code(s): Z79.891 - care home (current) use of opiate analgesic Category: Medical (2) Chronic pain syndrome: Code(s): G89.4 - Chronic pain syndrome Category: Medical (3) Fibromyalgia: Code(s): M79.7 - Fibromyalgia Category: Medical (4) Bilateral knee pain: Code(s): M25.561 - Pain in right knee; M25.562 - Pain in left knee Category: Medical (5) Cervicalgia: Code(s): M54.2 - Cervicalgia Category: Medical Plan Patient has shown accountability for her medication regimen and the pill count was accurate.?There is no evidence of misuse, abuse or diversion at this time. [employer] reviewed. Opioid contract reviewed with patient. Prescription for oxycodone for 30 days sent with advanced date of 08/05/24. Patient is aware of monitoring for side effects. Patient has Narcan at home. Encouraged daily physical activity, stretching exercises, meditation, massage, adequate hydration and weight loss. All questions were answered and the patient is in agreement with the plan. Follow up in 4 weeks for pill count or sooner as needed. Medications: Refilled oxycodone Partial Fill upon patient request. 5 mg PO TID 30 days PRN 90 tabs 0RF pain G89.4 - Chronic pain syndrome, M25.561 - Pain in right knee, M25.562 - Pain in left knee, Z79.891 - care home (current) use of opiate analgesic Coding Level of Care Code Est Pt Level 4 (15918) Complex EM visit Add On G2211 Diagnoses Opioid contract exists Z79.891 Chronic pain syndrome G89.4 Fibromyalgia M79.7 Bilateral knee pain M25.561; M25.562 Cervicalgia M54.2
[2024-07-30 15:42] VITALS: BP 120/58; BMI 46.0
== END 2024-07-30 15:50 | disposition home or self-care (01) ==
PROVIDERS: PCP Family Medicine; Visit Provider Nurse Practitioner Family
DX: Z79.891 Long term (current) use of opiate analgesic (principal); G89.4 Chronic pain syndrome; M79.7 Fibromyalgia; M25.561 Pain in right knee; M25.562 Pain in left knee; M54.2 Cervicalgia
CPT/HCPCS: 99214; G2211

== ENCOUNTER → 2024-07-30 15:19 | Outpatient (BNVA) | payer MEDICARE, SELFPAY | PROVIDERS: PCP Family Medicine; Visit Provider Nurse Practitioner Family | DX: Z51.81 Encounter for therapeutic drug level monitoring (principal); M79.7 Fibromyalgia; M25.561 Pain in right knee; M25.562 Pain in left knee; M54.2 Cervicalgia; Z79.891 Long term (current) use of opiate analgesic | CPT/HCPCS: 99212 ==

== ENCOUNTER 2024-08-27 15:31 | Outpatient (AMB) | payer MEDICARE, SELFPAY ==
--- NOTE | 2024-08-27 15:30 | A.OFFVIS_ITS ---
Vital Signs 08/27/24 15:41 Height 5 ft 5 in Weight 280 lb 4 oz BMI 46.6 BP 132/60 Blood Pressure Location Lt brachial Position Sitting Intake Visit Reasons: PILL COUNT Intake Note: Lina comes in today for a pill count to oxycodone, patient should have 24 tablets and present with 34 tablets which she last took today 08/27/24 at 2:30pm. Pain today 02/21 Direct Support Professional Home Health Required: No Accompanied by: Spouse Allergies aspartame Allergy (Unknown, Verified 08/27/24 15:41) Unknown cephalexin Allergy (Unknown, Verified 08/27/24 15:41) Unknown cyclobenzaprine Allergy (Unknown, Verified 08/27/24 15:41) Unknown dobutamine Allergy (Unknown, Verified 08/27/24 15:41) Unknown indomethacin Allergy (Unknown, Verified 08/27/24 15:41) Unknown levofloxacin [Levaquin] Allergy (Unknown, Verified 08/27/24 15:41) Unknown morphine Allergy (Unknown, Verified 08/27/24 15:41) Unknown penicillin V Allergy (Unknown, Verified 08/27/24 15:41) Unknown tramadol Allergy (Unknown, Verified 08/27/24 15:41) Unknown NSAIDS (Non-Steroidal Anti-Inflamma Adverse Reaction (Severe, Verified 08/27/24 15:41) afib Latex Gloves Allergy (Unknown, Uncoded 03/26/24 14:17) Unknown HPI Comments Details: Lina presents today for a pill count. Patient is supposed to have #24 pills, in her possession has #34 pills. This demonstrates a responsible attitude in reg ards to the medication regimen. Patient reports adequate analgesia on her regimen of oxycodone 5 mg TID prn with no noted side effects. Denies any recent cough, cold, infection, fever, or any significant changes in her medical history, medications or recent hospitalizations except recent onset of pink eye in right eye and now presenting in the left eye as well. She presents with itchy, watery and red eyes and reports frustration of not being able to be seen at Urgent Clinic today and was told to make appointment for another day. She also reached out to her PCP office for this per patient, but not able to be seen immediately. She has done warm compresses and OTC eye drops with no symptom improvement. Past Procedures: 08/30/23: Right elbow steroid injection-90% pain relief for 1.5 months [facility] Medical History Chronic pain syndrome History of lung cancer Diabetes type 2 with atherosclerosis of arteries of extremities Morbid obesity Gout, arthritis Morbidly obese Gout Psoriasis Arthritis Family history of lung cancer Lung cancer Diabetic retinopathy Williamson's palsy Sciatica Plantar fasciitis, bilateral Rosacea Sleep apnea Asthma GERD (gastroesophageal reflux disease) IBS (irritable bowel syndrome) Nerve pain Migraine Carpal tunnel syndrome, bilateral Diabetic cheirarthropathy Fibromyalgia Non-alcoholic micronodular cirrhosis of liver Paroxysmal atrial fibrillation Primary Sjogren's syndrome Type 2 diabetes mellitus Surgical History History of carpal tunnel release History of lung surgery History of appendectomy History of repair of left rotator cuff History of section Social History Alcohol intake: never Patient Tobacco Use Status: Former Tobacco user Current occupational status: disabled Review of Systems Const All systems reviewed & are unremarkable except as noted in HPI and below Eyes Reports as per HPI, Denies blurry vision, Denies change in vision, Denies decreased night vision, Denies diplopia, Reports dry eyes, Reports irritation, Reports itchy eyes, Denies seeing flashes and Denies photophobia Aller/Immun Reports itchy eyes Physical Exam Vital Signs: Last Vital Signs BP 132/60 08/27/24 15:41 BMI result Body Mass Index 46.6 General: Appears afebrile. No acute distress. Alert and oriented. Mood and affect appropriate. Follows and participates in conversation appropriately. Respiratory effort is unlabored. No cough. Wears facemask. Able to transition from sit to stand unassisted. Ambulates with cane. Ambulates with bilaterally normal heel strike and toe off. Eyes General: appearance normal, both eyes and all related structures Periorbital: periorbital findings normal Eyelids: Yes eyelids normal Conjunctivae: conjunctival abnormal bilateral conjunctival injection diffuse; Negative for conjunctival icterus and without discharge Pupils: Equal, round and reactive pupils present Direct Ophthalmoscopy: No photophobia Neuro Cranial nerves: Yes Equal, round and reactive pupils present Extrem General: Yes capillary refill normal, Yes no clubbing, cyanosis or edema and Yes no calf tenderness Psych Appearance: grossly normal Mental Status: mental status grossly normal Speech and movement: Normal speech and movement present Affect: normal affect Attitude: cooperative Thought process: Normal thought process present Thought content: Normal thought content present, suicidality (none), no hallucinations and No Depressive thoughts present Insight: Good insight present (Psych) Judgement: Good judgement present (Psych) Results Reviewed Results Reviewed: No imaging is available for review. Assessment & Plan Assessment & Plan (1) Opioid contract exists: Code(s): Z79.891 - emt intermediate (current) use of opiate analgesic Category: Medical (2) Chronic pain syndrome: Code(s): G89.4 - Chronic pain syndrome Category: Medical (3) Fibromyalgia: Code(s): M79.7 - Fibromyalgia Category: Medical (4) Bilateral knee pain: Code(s): M25.561 - Pain in right knee; M25.562 - Pain in left knee Category: Medical (5) Cervicalgia: Code(s): M54.2 - Cervicalgia Category: Medical (6) [place] eye: Code(s): H10.029 - Other mucopurulent conjunctivitis, unspecified eye Category: Medical Plan Patient has shown accountability for her medication regimen and the pill count was accurate.?There is no evidence of misuse, abuse or diversion at this time. [employer] reviewed. Opioid contract reviewed with patient. Prescription for oxycodone for 30 days sent with advanced date of 09/07/24. Patient is aware of monitoring for side effects. Patient has Narcan at home. Encouraged daily physical activity, stretching exercises, meditation, massage, a dequate hydration and weight loss. Script sent for antibiotic drop to both eye QID. Patient will return to Urgent clinic or PCP if symptoms are worsening or no relief. All questions were answered and the patient is in agreement with the plan. Follow up in 4-5 weeks for pill count or sooner as needed. Medications: New polymyxin B sulf-trimethoprim 10,000 unit- 1 mg/mL 1 drp ophthalmic (eye) QID 7 days 10 mL 0RF H10.029 - Other mucopurulent conjunctivitis, unspecified eye Refilled oxycodone Partial Fill upon patient request. 5 mg PO TID 30 days PRN 90 tabs 0RF pain G89.4 - Chronic pain syndrome, M25.561 - Pain in right knee, M25.562 - Pain in left knee, Z79.891 - emt intermediate (current) use of opiate analgesic Coding Level of Care Code Est Pt Level 4 (36039) Complex EM visit Add On G2211 Diagnoses Opioid contract exists Z79.891 Chronic pain syndrome G89.4 Fibromyalgia M79.7 Bilateral knee pain M25.561; M25.562 Cervicalgia M54.2 [place] eye H10.029
--- OUTSIDE RECORDS SUMMARY | 2024-08-27 15:37 | XMS_ITS | Clinical Summary ---
Author Organization [facility] Address [address] [place] [address] Care Team Providers Care Electrician Supervisor Substation Name Role Phone Williams Eubanks MD Primary Care Provider [phone] Allergies Active Allergy Reactions Criticality Noted Date Comments Adhesive Tape 04/04/2022 Aspartame 04/04/2022 Sulfamethoxazole-Trimethoprim 2021 Celecoxib 04/04/2022 Cevimeline 04/04/2022 Cyclobenzaprine 04/04/2022 Duloxetine Hcl 04/04/2022 Valproic Acid 04/04/2022 Dobutamine 04/04/2022 Indomethacin 04/04/2022 Levofloxacin 04/04/2022 Morphine 04/04/2022 Nsaids 04/04/2022 Penicillins 04/04/2022 Tramadol 04/04/2022 Medications Medication Sig Dispensed Refills Start Date End Date Status albuterol 108 (90 Base) MCG/ACT inhaler INHALE 2 PUFF FOUR TIMES A DAY NEEDED FOR SHORTNESS OF BREATH. 0 03/20/2022 Active HumuLIN R U-500 KWIKPEN 500 UNIT/ML SOPN PLEASE SEE ATTACHED FOR DETAILED DIRECTIONS 0 02/20/2022 Active metFORMIN (GLUCOPHAGE-XR) ER 24 hr tablet 500 mg TAKE 2 TAB(S) ORALLY TWICE A DAY 90 DAYS 0 03/04/2022 Active nystatin 758509 UNIT/GM external powder APPLY POWDER TOPICALLY TO AFFECTED AREA ONCE DAILY NEEDED 0 02/21/2022 Active olopatadine (PATANOL) 0.1 % ophthalmic solution APPLY 1 DROP INTO BOTH EYES TWICE A DAY 0 03/27/2022 Active propranolol (INDERAL LA) 80 MG 24 hr capsule Take 1 capsule (80 mg total) by mouth daily. 0 03/27/2022 Active triamcinolone (KENALOG) 0.1 % cream APPLY CREAM EXTERNALLY TWICE DAILY NEEDED TO AFFECTED AREAS ON BACK, FOLLOWED BY MOISTURIZER 0 02/21/2022 Active oxyCODONE (ROXICODONE) 5 MG immediate release tablet TAKE 1 TABLET BY MOUTH 3 TIMES A DAY NEEDED FOR PAIN X 30 DAYS 0 07/13/2022 Active Active Problems Problem Noted Date Diagnosed Date Pleural nodules 07/19/2022 Abnormal mammogram 04/04/2022 Skin lesion 04/03/2021 Refusal of blood transfusion s as patient is Islam 04/03/2018 Family history of colon cancer in father 018 History of lung cancer 03/10/2018 Overview: Overview: 2014, Right, Adenocarcinoma, Stage IB, T2A/B NX Tumor, Lobectomy Iron deficiency anemia 03/10/2018 GERD (gastroesophageal reflux disease) 8 DM (diabetes mellitus), type 2 with ophthalmic complications 03/10/2018 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 Anxiety 08/11/2013 GUTHRIE (nonalcoholic steatohepatitis) 08/11/2013 Paroxysmal atrial fibrillation 08/11/2013 Social History Tobacco Use Types Packs/Day Years Used Date Smoking Tobacco: Never Assessed Sex and Gender Information Value Date Recorded Sex Assigned at Not on file Gender Identity Not on file Sexual Orientation Not on file Job Start Date Occupation Industry Not on file Not on file Not on file Last Filed Vital Signs Vital Sign Reading Time Taken Comments Blood Pressure 128/50 10/24/2023 11:36 AM EDT Pulse 74 10/24/2023 11:36 AM EDT Temperature 36.6 ??C (97.8 ??F) 10/24/2023 1 1:36 AM EDT Respiratory Rate - - Oxygen Saturation 96% 10/24/2023 11: 36 AM EDT Inhaled Oxygen Concentration - - Weight 127.3 kg (280 lb 9.6 oz) 024 11:36 AM EDT Height - - Body Mass Index - - Plan of Treatment Health Maintenance Due Date Last Done Comments Hepatitis C Screening 1962 COVID-19 Vaccine (#1) 1962 Pneumococcal Vaccine (1 of 2 - PCV) 1968 Depression Screening 1974 Preventative Health Evaluation 1980 DTap / Tdap / Td (1 - Tdap) 1981 Cervical Cancer Screening (Pap Smear) 1983 Colon Cancer Screening (Colonoscopy) 2007 Breast Cancer Screening (Mammogram) 2012 Shingrix-Zoster Vaccine (1 of 2) 2012 RSV Adult > 60+ Yrs or (1 - Risk 60-74 years 1-dose series) 2022 Influenza Vaccine (#1) 2024 , 03/29/2020, 03/29/2020, Additional history exists Hepatitis B Vaccines Aged Out No long er eligible based on patient's age to complete this topic RSV Ped < 20 months Aged Out No longe r eligible based on patient's age to complete this topic Care Teams Electrician Supervisor Substation Relationship Specialty Start Date End Date Williams Eubanks MD [address] [place] [address] PCP - General Family Medicine 01/21/19
--- OUTSIDE RECORDS SUMMARY | 2024-08-27 15:37 | XMS_ITS | Encounter Summary ---
Author Organization [facility] Address [address] [address] Phone Care Team Providers Care Automation And Controls Supervisor Name Role Phone Williams Eubanks DO Primary Care Provider [phone] Encounter Details Date Type Department Care Team (Late Contact Info) Description 08/13/2024 Orders Only [facility] [address] [place] [address] Gabriele Lopez MD [facility] [address] [address] Hypomagnesemia Social History Tobacco Use Types Packs/Day Years Used Date Smoking Tobacco: Former Cigarettes Q uit: 07/15/1979 Smokeless Tobacco: Never Alcohol Use Standard Drinks/Week Comments Never 0 (1 standard drink = 0.6 oz pur e alcohol) Comments Unknown Sex and Gender Information Value Date Recorded Sex Assigned at Not on file Legal Sex Female 4:44 PM EST Gender Identity Not on file Sexual Orientation Not on file documented as of this encounter Plan of Treatment Upcoming Encounters Date Type Department Care Team (Late st Contact Info) Description 05/19/2025 1:15 PM EST Office Visit [facility] [address] [place] [address] Gabriele Lopez MD [address] [address] documented as of this encounter Visit Diagnoses Diagnosis Hypomagnesemia documented in this encounter Care Teams Automation And Controls Supervisor Relationship Specialty Start Date End Date Williams Eubanks DO [address] [place] [address] PCP - General 07/25/20 documented as of this encounter
--- OUTSIDE RECORDS SUMMARY | 2024-08-27 15:37 | XMS_ITS | Encounter Summary ---
Author Organization [facility] Address [address] [place] [address] Care Team Providers Care Interior Decorator Paperhanging Name Role Phone Williams Eubanks MD Primary Care Provider [phone] Encounter Details Date Type Department Care Team Description 07/27/2022 Social Work [facility] [address] [place] [address] [facility] Social History Tobacco Use Types Packs/Day Years Used Date Smoking Tobacco: Never Assessed Sex and Gender Information Value Date Recorded Sex Assigned at Not on file Gender Identity Not on file Sexual Orientation Not on file Job Start Date Occupation Industry Not on file Not on file Not on file COVID-19 Exposure Response Date Recorded In the last 10 days, have yo u been in contact with someone who was confirmed or suspected to have Coronavirus/COVID-19? No / Unsure 07/19/2022 11:36 AM EST documented as of this encounter Plan of Treatment Not on file documented as of this encounter Visit Diagnoses Not on filedocumented in this encounter Care Teams Interior Decorator Paperhanging Relationship Specialty Start Date End Date Williams Eubanks MD [address] [place] [address] PCP - General Family Medicine 01/21/19 documented as of this encounter
--- OUTSIDE RECORDS SUMMARY | 2024-08-27 15:37 | XMS_ITS | Clinical Summary ---
Author Organization [facility] Address [address] [place] [address] Care Team Providers Care Ammonia Technician Name Role Phone Unavailable Primary Care Provider Unavailabl e Source Comments PLEASE NOTE, if this patient is a minor, it may be UNLAWFUL to discuss sensitive information that is contained in these records (such as FAMILY PLANNING, MENTAL HEALTH or SUBSTANCE ABUSE) with the minor patient's parent or other person without the patient's specific authorization.[facility] Allergies Active Allergy Reactions Criticality Noted Date Comments Amoxicillin Rash 05/16/2022 Celecoxib Palpitations Low 12/05/2017 Clindamycin Rash 05/16/2022 Divalproex Sodium 05/16/2022 Dobutamine Other (See Comments) 06/27/2017 Duloxetine 04/04/2022 Ibuprofen 10/25/2020 Indomethacin Other (See Comments) 06/27/2017 Latex, Natural Rubber Other (See Comments) 06/14 Levofloxacin Other (See Comments) 06/27/2017 Morphine Other (See Comments) 06/27/2017 Nsaids (Non-Steroidal Anti-Inflammatory Drug) 05/16/2021 asthma Penicillin G Benzathin,Procain 06/27 Penicillins 06/27/2017 Sulfamethoxazole-Trimethoprim 2020 Tramadol Other (See Comments) 06/27/2017 Valproic Acid 04/04/2022 Medications clindamycin HCl (CLEOCIN) 300 mg capsuleIndicati ons:Tooth infection Take 1 Cap by mouth 4 (four) times daily 28 Cap 9 Active azithromycin (ZITHROMAX) 250 mg tabletIndicatio ns:Tooth infection Take two (2) tablets on the first day and take one (1) tablet daily for four (4) days 6 Tablet 2 Active fluoride, sodium, (SF 5000 PLUS) 1.1 % creaIndications :Enamel caries Suring twice daily with toothpaste then expectorate. Do not rinse. 51 g 4 4 Active Active Problems Problem Noted Date Diagnosed Date Asthma 05/16/2022 Severe obesity ([facility]) 05/16/2022 Enamel caries 05/16/2022 Extraction of tooth needed 05/16/2022 Overview (05/16/2022): #19 and 31 Abnormal mammogram 04/04/2022 At moderate risk for fall 11/15/2021 Atrophic vulva 11/15/2021 Benign essential hypertension 11/15/2021 Fibromyalgia 11/15/2021 Hyperlipidemia 11/15/2021 Irritable bowel syndrome 11/15/2021 Migraine 11/15/2021 Mixed stress and urge urinary incontinence 11/15 Polyp of colon 11/15/2021 Type 2 diabetes mellitus ([facility]) 11/15/2021 Overview (05/16/2022): endo endo Sleep apnea 11/15/2021 Sciatica 11/15/2021 Pes planus 04/12/2021 Hypomagnesemia 10/25/2020 Deep dyspareunia 02/03/2020 Overview (05/16/2022): Last Assessment & Plan: Patient's evaluation and presentation is entirely compatible with bursitis of the greater trochanter of the right hip. I believe she also has an element of sciatica. I am going to inject the right trochanteric bursa today. If she continues to have further pain we may consider an MRI of the lumbar spine to see if she has lateral recess stenosis or disc herniation which is less likely. Greater trochanteric bursitis of right hip 02/02 Overview (05/16/2022): Last Assessment & Plan: Patient's evaluation and presentation is entirely compatible with bursitis of the greater trochanter of the right hip. I believe she also has an element of sciatica. I am going to inject the right trochanteric bursa today. If she continues to have further pain we may consider an MRI of the lumbar spine to see if she has lateral recess stenosis or disc herniation which is less likely. Lateral epicondylitis of left elbow 08/25/2019 Overview (05/16/2022): Last Assessment & Plan: She is to get a counter brace and use Arnica gel 4 times daily while do stretching for the common extensor tendon sheath. Last Assessment & Plan: She is to get a counter brace and use Arnica gel 4 times daily while do stretching for the common extensor tendon sheath. Neuropathy 05/19/2019 Overview (05/16/2022): Last Assessment & Plan: Painful bilateral upper and lower extremity sensory neuropathy may very likely be secondary to her diabetes but she has not had EMGs and nerve conduction release in more than 5 years and I think these need to be repeated but she is reluctant to do that right now. I think we will need to do these in the near future. In addition I am sending him for diagnostic work-up today for her sensory neuropathy. Previous lab work was reviewed. Last Assessment & Plan: Painful bilateral upper and lower extremity sensory neuropathy may very likely be secondary to her diabetes but she has not had EMGs and nerve conduction release in more than 5 years and I think these need to be repeated but she is reluctant to do that right now. I think we will need to do these in the near future. In addition I am sending him for diagnostic work-up today for her sensory neuropathy. Previous lab work was reviewed. Lumbar radiculitis 01/06/2019 Overview (05/16/2022): Last Assessment & Plan: Unclear etiology of recent acute right sacral pain but could have been a small disc bulge with right lower extremity radicular pain, right sacroiliac joint pain, or a flare of right lower lumbar facet arthropathy. Her most recent lumbar MRI was reviewed and looks rather benign but if symptoms recur or worsen then she will need a new lumbar MRI. No change in treatment including weight modification and home exercise program and avoidance of heavy lifting and prolonged sitting. Last Assessment & Plan: Unclear etiology of recent acute right sacral pain but could have been a small disc bulge with right lower extremity radicular pain, right sacroiliac joint pain, or a flare of right lower lumbar facet arthropathy. Her most recent lumbar MRI was reviewed and looks rather benign but if symptoms recur or worsen then she will need a new lumbar MRI. No change in treatment including weight modification and home exercise program and avoidance of heavy lifting and prolonged sitting. Last Assessment & Plan: I reviewed the incomplete MRI of the lumbar spine from 2019 and suggested that she may benefit from a new MRI of the lumbar spine and referral to pain management for consideration of a fluoroscopically guided epidural or facet joint block but she would like to wait on that for now. Last Assessment & Plan: I reviewed the incomplete MRI of the lumbar spine from 2019 and suggested that she may benefit from a new MRI of the lumbar spine and referral to pain management for consideration of a fluoroscopically guided epidural or facet joint block but she would like to wait on that for now. Carpal tunnel syndrome of right wrist 06/17/2018 Overview (05/16/2022): Last Assessment & Plan: Substantial improvement after injection. Continue to wear nighttime wrist splint. Continue to use Soma at night and PRN oxycodone during the day. Last Assessment & Plan: Injection today due to significant symptoms -please see procedure note Definitive treatment is Left CTR-f/u with hand surgeon Last Assessment & Plan: Agree with plans for hand Ortho evaluation. Last Assessment & Plan: Agree with plans for hand Ortho evaluation. 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 Early OA left 4th PIP vs Trigger finger Pt had relief form previous injection to left 4th PIP joint so this was repeated today-please see procedure note Pt understands going forward -will try to limit this injections as frequent injections can accelerate fusion of the joint . Pt encouraged to work on hand therapy Techniques to continue Full ROM of the joint Last Assessment & Plan: She is having a moderate flare of left first carpometacarpal osteoarthritis which will be treated with ice followed by warmth as well as enlarged saw setter on tools and utensils and her pain medication. In several weeks if it still bothering her I may consider an intra-articular cortisone injection. Last Assessment & Plan: Intra-articular cortisone injection for flaring left fourth PIP joint today. Last Assessment & Plan: ? Early OA left 4th PIP vs Trigger finger Pt had relief form previous injection to left 4th PIP joint so this was repeated today-please see procedure note Pt understands going forward -will try to limit this injections as frequent injections can accelerate fusion of the joint . Pt encouraged to work on hand therapy Techniques to continue Full ROM of the joint Anxiety 08/11/2013 Nonalcoholic steatohepatitis ([facility]) 08/11/2013 Paroxysmal atrial fibrillation ([facility]) 014 Encounters Date Type Department Care Team Description 07/31/2024 1:00 PM EST Office Visit [facility] [address] [place] [address] Vanessa Villafana, DMD Caries (Primary Dx) 07/31/2024 Travel from Last 3 Months Social History Tobacco Use Types Packs/Day Years Used Date Smoking Tobacco: Never Smokeless Tobacco: Never Tobacco Cessation:Counseling Given: Not Answered Social Connections Answer Date Recorded Connectedness 0 04/03/2024 Financial Resource Strain Answer Date R ecorded Financial Resource Strain 0 2021 Stress Answer Date Recorded Stress 0 05/16/2022 Physical Activity Answer Date Recorded Physical Activity 0 05/16/2022 Food Insecurity Answer Date Recorded Food 0 04/09/2024 Transportation Needs Answer Date Record ed Transportation 0 05/16/2022 Housing Stability Answer Date Recorded Housing 0 05/16/2022 Safety and Environment Answer Date Justin rded Safety 0 05/16/2022 Utilities Answer Date Recorded Utilities 0 05/16/2022 Employment Answer Date Recorded Stress 0 04/03/2024 Comments Unknown Sex and Gender Information Value Date Recorded Sex Assigned at Not on file Legal Sex Female 10:35 AM PST Gender Identity Not on file Sexual Orientation Not on file COVID-19 Exposure Response Date Recorded In the last 10 days, have yo u been in contact with someone who was confirmed or suspected to have Coronavirus/COVID-19? No / Unsure 07/31/2024 1:00 PM EST Last Filed Vital Signs Vital Sign Reading Time Taken Comments Blood Pressure 140/65 07/31/2024 1:04 PM EST Pulse 75 07/31/2024 1:04 PM EST Temperature - - Respiratory Rate - - Oxygen Saturation - - Inhaled Oxygen Concentration - - Weight - - Height - - Body Mass Index - - Plan of Treatment Upcoming Encounters Date Type Department Care Team (Late st Contact Info) Description 11/26/2024 1:00 PM EDT Office Visit [facility] [address] [place] [address] [address] [place] [address] Health Maintenance Due Date Last Done Comments Diabetes Foot Exam 1962 Diabetes Microalbumin (w/Creatinine) 1962 EGD (Upper Endoscopy) 1962 HPV Screening 1962 Hepatitis C Screening 1962 Hepatocellular Carcinoma Scr eening (HCC) 1962 Pap + HPV 1962 Retinopathy Screening 1975 HIV Screening 1977 Imm-DTaP/Tdap/Td (1 - Tdap) 1981 Imm-Hepatitis A (1 of 2 - Ri sk 2-dose series) 1981 Imm-Pneumococcal (1 of 2 - PCV) 1981 Cervical Cancer Screening 1983 Pap Smear 1983 Breast Cancer Screening (Mammogram) 2002 CT Colonography 2007 Colonoscopy 2007 Colorectal Cancer Screening 2007 FIT/gFOBT 2007 Fecal DNA 2007 Flexible Sigmoidoscopy 2007 Imm-Zoster, Recombinant (1 of 2) 2012 Imm-Hepatitis B (1 of 3 - Ri sk 3-dose series) 2022 Dental Perio Charting 05/18/2023 05/16/2022 [id number] ( season) 2024 11/22/2021, 06/01/2021, 10/07/2020, Additional history exists Imm-Influenza (#1) 2024 03/28/2021, 0 03/29/2020, 04/06/2019, Additional history exists Lipid Screening 07/11/2024 07/11/2023 Alcohol and Drug Screen 07/15/2024 Depression Annual Screen 07/15/2024 Dental BW 08/11/2024 08/09/2023, 05/16/2022 Dental Prophy 10/24/2024 04/23/2024, 07/16, 05/16/2022 Diabetes HbA1c 12/16/2024 06/17/2024, 02/12, 11/12/2023, Additional history exists Dental Examination 04/25/2025 04/23/2024, 1 , 08/09/2023 Serum Creatinine 06/17/2025 06/17/2024, , 07/11/2023, Additional history exists Tobacco Screening 07/31/2025 07/31/2024 Dental FMX/Pano 05/18/2027 05/16/2022 Cervical Ablation/Cold-Knife Conization Discontinued Cervical Cryotherapy Discontinued Colposcopy Discontinued Endometrial Biopsy Discontinued Excision/Leep Discontinued HPV Genotyping Discontinued Vaginal Pap Discontinued Vulvoscopy Discontinued Procedures Procedure Name Priority Date/Time Associated Diagnosis Comments CASE PRESENTATION SUBS DTL & EXTENSIVE TX PLN Routine 07/31/2024 1:00 PM EST Caries 4 MB RESIN-BASED COMPOSITE - TWO SURFACES POSTERIOR Routine 07/31/2024 1:00 PM EST Caries PROPHYLAXIS - ADULT Routine 04/23/2024 1 :40 PM EDT Encounter for dental examination Caries Enamel caries PERIODIC ORAL EVALUATION ESTABLISHED PATIENT Routine 04/23/2024 1:40 PM EDT Encounter for dental examination [facility]ies Enamel caries BITEWINGS - FOUR RADIOGRAPHIC IMAGES Routine 08/09/2023 1:40 PM EST Caries COMP PERIODONTAL EVALUATION - NEW/EST PATIENT Routine 05/16/2022 9:00 AM EDT Enamel caries Extraction of tooth needed INTRAORAL - COMP SERIES OF RADIOGRAPHIC IMAGES Routine 05/16/2022 9:00 AM EDT Enamel caries Extraction of tooth needed from Last 3 Months or Most Recently Relevant to Health Maintenance
--- OUTSIDE RECORDS SUMMARY | 2024-08-27 15:37 | XMS_ITS | Encounter Summary ---
Author Organization [facility] Address [address] [place] [address] Care Team Providers Care Hand Mixer Name Role Phone Unavailable Primary Care Provider Unavailabl e Encounter Details Date Type Department Care Team (Latest Contact Info) Description 07/31/2024 Travel Social History Tobacco Use Types Packs/Day Years Used Date Smoking Tobacco: Never Smokeless Tobacco: Never Social Connections Answer Date Recorded Connectedness 0 [...] No / Unsure 07/31/2024 1:00 PM EST documented as of this encounter Plan of Treatment Upcoming Encounters Date Type Department Care Team ( Contact Info) Description 11/26/2024 1:00 PM EDT Office Visit [address] [address] [address] [place] [address] documented as of this encounter Visit Diagnoses Not on filedocumented in this encounter
--- OUTSIDE RECORDS SUMMARY | 2024-08-27 15:37 | XMS_ITS | Clinical Summary ---
Author Organization [facility] Facility Address [address] [address] Care Team Providers Care Warehouse Analyst Name Role Phone Williams Eubanks Primary Care Provider [phone] Allergies Active Allergy Reactions Criticality Noted Date Comments Acetaminophen 10/25/2020 Due to cirhosis Adhesive Tape Other (see comments) 10/25/2020 Asparaginase 10/25/2020 Aspartame Other (see comments) 10/25/2020 Other reaction(s): Other (see comments) Celecoxib Palpitations Low 12/05/2017 Cephalexin Other (see comments) 06/27/2017 Cevimeline Palpitations Low 12/05/2017 Clindamycin Rash Low 05/16/2022 Cyclobenzaprine Other (see comments) 06/27/2017 Dobutamine Other (see comments) 06/27/2017 Duloxetine 04/04/2022 Duloxetine Hcl 05/08/2023 Ibuprofen 10/25/2020 Indomethacin Other (see comments) 06/27/2017 Lactose 05/08/2023 Latex Other (see comments) 06/27/2017 Levofloxacin Other (see comments) 06/27/2017 Morphine Other (see comments) 06/27/2017 Nsaids Other (see comments) 05/08/2023 Other 06/27/2017 Asparatame Penicillin G 11/15/2021 Penicillins 06/27/2017 Statins 05/08/2023 Sulfamethoxazole-Trimeth oprim 10/25/2020 Tramadol Other (see comments) 06/27/2017 Valproic Acid 04/04/2022 Medications * This document contains information received from the source organization and may not represent a complete record from that organization. acyclovir (ZOVIRAX) 5 % ointment APPLY TO AFFECTED AREA EVERY 3 HRS X 30 DAY(S) 01/28/20 18 Active albuterol HFA (PROVENTIL HFA;VENTOLIN HFA) 108 (90 Base) MCG/ACT inhaler Acti ve ascorbic acid (VITAMIN C) 1000 MG tablet Active cholecalciferol (VITAMIN D-3) 25 MCG (1000 UT) tablet Take 1 tablet by mouth daily Active Cyanocobalamin 1500 MCG tablet dispersible Take 1 lozenge by mouth daily Active esomeprazole (NexIUM) [address] capsule Take 1 capsule by mouth 2 (two) times a day Active estradiol (ESTRACE) 0.1 MG/GM vaginal cream Insert 2 g into the vagina Active fluticasone (FLONASE) 50 MCG/ACT nasal spray Administer 2 sprays into each nostril every morning Active HumuLIN R U-500 KWIKPEN 500 UNIT/ML CONCENTRATED injection PLEASE SEE ATTACHED FOR DETAILED DIRECTIONS 08/02/19 21 Active loratadine (CLARITIN) 10 MG tablet Take 1 tablet by mouth 1 (one) time each day Active Magnesium Cl-Calcium Carbonate 71.5-119 MG tablet delayed-release Take 3 tablets by mouth 2 (two) times a day 12/14/19 16 Active metFORMIN XR (GLUCOPHAGE-XR) 500 MG 24 hr tablet Take 2 tablets by mouth 2 (two) times a day Active metroNIDAZOLE (Noritate) 1 % cream Apply topically 2 (two) times a day Active Mirabegron ER (Myrbetriq) 25 MG tablet sustained-release 24 hour Take 1 tablet by mouth 1 (one) time each day Active mupirocin (BACTROBAN) 2 % ointment mupirocin 2 % topical ointment 03/11/20 19 Active olopatadine (PATANOL) 0.1 % ophthalmic solution 1 drop twice a day A ctive oxyCODONE (ROXICODONE) 5 MG immediate release tablet Take 1 tablet by mouth 3 (three) times a day 08/19/19 21 Active pimecrolimus (ELIDEL) 1 % cream pimecrolimus 1 % topical cream 05/25/20 20 Active propranolol XL (INNOPRAN XL) 80 MG 24 hr capsule Take 1 capsule by mouth 1 (one) time each day Active Propylene Glycol 0.6 % solution as directed. Ac tive sodium chloride (OCEAN) 0.65 % nasal spray Atkins as directed Active Cranberry 400 MG capsule Take 1 capsule by mouth 1 (one) time each day Active Iron, Ferrous Sulfate, 325 (65 Fe) MG tablet Take 1 capsule by mouth every other day Active Milk Thistle 140 MG capsule Take 1 capsule by mouth daily Active Multiple Vitamin (multivitamin) capsule Take 1 capsule by mouth 1 (one) time each day Active Potassium 99 MG tablet Take 1 tablet by mouth 1 (one) time each day Active Cobalamin Combinations (Vitamin Y41-Tgeli Acid) 500-400 MCG tablet Duration: 1 Active Probiotic Product (PROBIOTIC PEARLS PO) Take 1 capsule by mouth 1 (one) time each day Active Somerset-3 Fatty Acids (OMEGA 3 PO) Take 1 capsule by mouth daily Active CALCIUM POLYCARBOPHIL PO See administration instructions Active doxycycline (VIBRAMYCIN) 100 MG capsule TAKE 1 TABLET BY MOUTH TWICE A DAY FOR 2-4 WEEKS NEEDED FOR FLARING. 10/10/19 22 Active Baqsimi Two Pack 3 MG/DOSE powder USE DIRECTED INTRANASALLY ONCE 08/31/19 22 Active triamcinolone (KENALOG) 0.1 % cream APPLY CREAM EXTERNALLY TWICE DAILY NEEDED TO AFFECTED AREAS ON BACK, FOLLOWED BY MOISTURIZER 10/10/19 22 Active hydrocortisone 0.5 % cream APPLY IN A THIN FILM TO THE AFFECTED SKIN AND RUB IN GENTLY AND COMPLETELY 1-2 TIMES PER DAY 03/18/20 23 Active Naloxone HCl 4 MG/0.1ML liquid USE 1 SPRAY INTO ONE NOSTRIL NEEDED CALL 911 REPEAT AFTER 2-3 MIN IF NO OR MINIMAL RESPONSE 03/05/20 23 Active propranolol LA (INDERAL LA) 80 MG 24 hr capsule Take 80 mg by mouth every night 03/05/20 23 Active Active Problems Problem Noted Date Diagnosed Date Right upper quadrant pain 05/08/20232022 care home current use of insulin 01/09/2023 05/08/2023 H/O: psoriasis 11/12/2022 05/08/2023 Overview (05/08/2023): B27 neg (2021) Last Assessment & Plan: No specific objective evidence to confirm previously documented psoriatic arthritis; will monitor clinically for e/o active inflammatory arthritis Pain in left finger 11/12/2022 05/08/2023 Overview (05/08/2023): Last Assessment & Plan: No significant joint space narrowing of left 1st CMC on 12/2020 plain films; empiric intra-articular steroid injection today as detailed in procedure note. Will obtain updated plain films pending clinical course. 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 Continue current treatment 'Unable to tolerate anti cholinergic tx Encouraged regular eye Enamel caries 05/16/2022 05/08/2023 Extraction of tooth needed 05/16/202205/08 Overview (05/08/2023): #19 and 31 Severe obesity 05/16/2022 05/08/2023 Mammography abnormal 04/04/2022 05/08/2023 Sleep apnea 11/15/2021 At moderate risk for fall 11/15/2021 Atrophic vulva 11/15/2021 Benign essential hypertension 11/15/2021 Fibromyalgia 11/15/2021 Hyperlipidemia 11/15/2021 Irritable bowel syndrome 11/15/2021 Lung mass 11/15/2021 Migraine 11/15/2021 Mixed urinary incontinence 11/15/2021 Non-alcoholic fatty liver 11/15/2021 Patient encounter status 11/15/2021 Polyp of colon 11/15/2021 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 Deep pain on intercourse 02/03/2020 Overview (11/15/2021): Last Assessment & Plan: Patient's evaluation and [...] or disc herniation which is less likely. Sj??gren's syndrome 09/23/2019 Lateral epicondylitis of left humerus 08/25/2019 Overview (10/25/2020): Last Assessment & Plan: She is to get a counter brace and use Arnica gel 4 times daily while do stretching for the common extensor tendon sheath. Neuropathy 05/19/2019 Overview (10/25/2020): Last Assessment & Plan: Painful bilateral upper [...] work was reviewed. Lumbar radiculitis 01/06/2019 Overview (10/25/2020): Last Assessment & Plan: Unclear etiology of [...] tunnel syndrome of right wrist 06/17/2018 Overview (11/15/2021): Last Assessment & Plan: Substantial improvement after injection. Continue to wear nighttime wrist splint. Continue to use Soma at night and PRN oxycodone during the day. Last Assessment & Plan: Injection today due to significant symptoms -please see procedure note Definitive treatment is Left CTR-f/u with hand surgeon Last Assessment & Plan: Agree with plans for hand Ortho evaluation. 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 Last Assessment & Plan: Patient is having a flare of her arthritis in her right first MTP joint. We discussed the utility and well fitting shoes with a wide enough toe box to accommodate her osteophytosis. She will receive a pain relieving injection today. I refilled her pain medication. Her trigger fingers will be dealt with on the next visit. Osteoarthritis of joint of bilateral hands 06/27 Overview (11/15/2021): Last Assessment & Plan: She is having a moderate flare of left first carpometacarpal osteoarthritis which will be treated with ice followed by warmth as well as enlarged studio model on tools and utensils and her pain [...] to continue Full ROM of the joint Triggering of digit 06/27/2017 Overview (11/15/2021): Last Assessment & Plan: Inject with cortisone today. Continue oxycodone as needed every 6 hours. Last Assessment & Plan: Continue pain medication as prescribed. Continue as needed stretches of the affected flexor tendon sheaths and a basin of warm water daily as needed. Schedule an appointment for corticosteroid injection within the next several weeks. Last Assessment & Plan: Patient will be referred to hand Ortho if for comment on surgical treatment of recurrent bilateral trigger fingers in this patient who has diabetes. She will receive an injection of corticosteroid today into the right fourth trigger finger. There has been some symptomatic improvement with the use of topical cannabis ointment which may continue and as a result as she states today she likely will need less oxycodone hopefully. Unspecified rotator cuff tea r or rupture of left shoulder, not specified as traumatic 06/27/2017 Overview (10/25/2020): Last Assessment & Plan: Patient's chief complaint today continues to be pain in the right shoulder. It can awaken her from sleep and she lies on the right side. Her exam today points towards acromioclavicular impingement and there is no evidence of glenohumeral instability or large rotator cuff tear. I will inject the shoulder today using a lateral approach and I refilled her pain medicine and requested an x-ray of the right shoulder. I will get back to her by phone call thereafter. I suggested physical therapy which she is reluctant to begin. I will try to find a physical therapist closer to her home. Last Assessment & Plan: Pendulum and wall walking motion exercises to maintain range of motion and corticosteroid injection today into the left shoulder. 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 Last Assessment & Plan: Secondary to Sjogren's syndrome her xerostomia is managed with Biotene mouthwash and toothpaste in good oral hydration and regular visits to the dentist. Last Assessment & Plan: Secondary to Sjogren's syndrome her xerostomia is managed with Biotene mouthwash and toothpaste in good oral hydration and regular visits to the dentist. Anxiety 08/11/2013 Nonalcoholic steatohepatitis (GUTHRIE) 08/11/2013 Atrial fibrillation 08/11/2013 Encounters Date Type Department Care Team Description 08/13/2024 Orders Only [facility] [address] [place] [address] Gabriele Lopez MD Hypomagnesemia from Last 3 Months Immunizations Name Administration Dates Next Due Influenza Whole 04/06/2019 Influenza, Quadrivalent, Pre servative Free 03/29/2020 Influenza, Unspecified 03/28/2021,2019,04/17/2018,2016,04/14/2016,04/16/2015 Moderna SARS-COV-2 11/22/2021,,10/07/2020,2020 Family History Medical History Relation Comments Diabetes Father Cancer Mother lung Heart disease Mother mothers father Cancer Sibling sister-lung Relation Status Comments Father Alive Mother Sibling Social History Tobacco Use Types Packs/Day Years Used Date Smoking Tobacco: Former Cigarettes Q uit: 07/15/1979 Smokeless Tobacco: Never Tobacco Cessation:Counseling Given: No Alcohol Use Standard Drinks/Week Comments Never 0 (1 standard drink = 0.6 oz pur e alcohol) Comments Unknown Sex and Gender Information Value Date Recorded Sex Assigned at Not on file Legal Sex Female 4:44 PM EST Gender Identity Not on file Sexual Orientation Not on file Last Filed Vital Signs Vital Sign Reading Time Taken Comments Blood Pressure 114/58 05/13/2024 1:26 PM EDT Pulse 66 05/13/2024 1:26 PM EDT Temperature - - Respiratory Rate - - Oxygen Saturation 96% 05/13/2024 1:26 PM EDT Inhaled Oxygen Concentration - - Weight 125 kg (276 lb) 05/13/2024 1:26 PM EDT Height 165.1 cm (5' 5 ) 10/26/2020 12:58 PM EDT Body Mass Index 45.93 10/26/2020 12:58 PM EDT Plan of Treatment Upcoming Encounters Date Type Department Care Team (Late st Contact Info) Description 05/19/2025 1:15 PM EST Office Visit [facility] [address] [place] [address] Gabriele Lopez MD [address] [address] Health Maintenance Due Date Last Done Comments Breast Cancer Screening 1960 Pneumococcal Vaccine: Pediat rics (0 to 5 Years) and At-Risk Patients (6 to 64 Years) (1 of 2 - PCV) 1968 Colorectal Cancer Screening: Annual FOBT 2011 Colorectal Cancer Screening: Colonoscopy 2011 Colorectal Cancer Screening: Sigmoidoscopy 2011 Diabetes: Ophthalmology Exam 08/11/2020 Diabetes: Pedal Pulse Checked 08/11/2020 Diabetes: Sensory Foot Exam 08/11/2020 Diabetes: Visual Foot Exam 08/11/2020 Hepatitis B Vaccine (1 of 3 - Risk 3-dose series) 2022 Diabetes: Hemoglobin A1C 10/10/2023 07/11/2023, 12/14 Influenza Vaccine (#1) 2024 , 03/29/2020, 03/29/2020, Additional history exists Procedures Procedure Name Priority Date/Time Associated Diagnosis Comments BLOOD PANEL (HC) Routine 01/09/2019 12:0 0 AM EDT from Last 3 Months or Most Recently Relevant to Health Maintenance Results * (ABNORMAL) Blood Panel (01/09/2019 12:00 AM EDT) Potassium 4.4 3.5 - 5.1 mmol/L [facility] Calcium 9.4 8.4 - 10.2 mg/dl [facility] eGFR 118 >60 ml/min [facility] LDL,Direct 99 <130 mg/dl [facility] Iron Saturation (TSat) 14(L) 15 - 62 % [facility] BUN 10 9 - 20 mg/dl [facility] Triglycerides 147 <150 mg/dl [facility] Hgb 13.0 13.0 - 16.5 g/dl [facility] Platelets 326 140 - 440 k/uL [facility] Iron 52 49 - 181 ug/dl [facility] Carbon Dioxide (CO2) 29 22 - 30 mmol/L [facility] Creatinine 0.6(L) 0.70 - 1.30 mg/dl [facility] eGFR Non- 102 >60 ml/min [facility] Cholesterol 173 <200 mg/dl [facility] Ferritin 63 [facility] Hemoglobin A1C 9.2(H) <5 % [facility] Sodium 140 137 - 145 mmol/L [facility] HDL 45 >40 mg/dl [facility] Hematocrit 41.0 38 - 50 % [facility] TIBC 365 261 - 462 ug/dl [facility] 01/09/2019 us [facility] [id number] LICITED RESULTS Final Result [facility] from Last 3 Months or Most Recently Relevant to Health Maintenance Insurance MEDICARE MEDICARE Care Teams Warehouse Analyst Relationship Specialty Start Date End Date Williams Eubanks DO [address] [place] [address] PCP - General 07/25/20
--- OUTSIDE RECORDS SUMMARY | 2024-08-27 15:37 | XMS_ITS | Encounter Summary ---
Author Organization [facility] Address [address] [facility] [place] [address] Care Team Providers Care Automotive Drivability Technician Name Role Phone Unavailable Primary Care Provider Unavailabl e Encounter Details Date Type Department Care Team (Late st Contact Info) Description 07/31/2024 1:00 PM EST Office Visit [facility] [address] [place] [phone] Vanessa Villafana, DENI [address] [place], [place] [phone] Caries (Primary Dx) Social History Tobacco Use Types Packs/Day Years [...] PM EST documented as of this encounter Last Filed Vital Signs Vital Sign Reading Time Taken Comments Blood Pressure 140/65 07/31/2024 1:04 PM EST Pulse 75 07/31/2024 1:04 PM EST Temperature - - Respiratory Rate - - Oxygen Saturation - - Inhaled Oxygen Concentration - - Weight - - Height - - Body Mass Index - - documented in this encounter Progress Notes * Vanessa Villafana DMD - 07/31/2024 1:18 PM EST Restorative Subjective Lina Phipps, 64 year old female, presents with for restorative. Enrolled Nurse: No CC: episcopal #4 Objective RMHx: Yes Vitals: Vitals: 07/31/24 1304 BP: (!) 140/65 Pulse: 75 BP Site: Left Arm BP Position: Sitting BP Cuff Size: Regular Adult Pain Score: 0 - No pain Assessment Dx: K02.9 Caries (primary encounter diagnosis) Dx Details (Clinical Decision-Making): #4 MF caries Plan Informed Consent/PARQ (Procedure, Alternatives, Risks, Questions): Patient confirms informed consent using PARQ. Topical Anesthetic: 20% topical benzocaine Local Anesthetic: 1/2 carpule 4% articaine (Septocaine) with 1:100k epi Injection administered: Infiltration Isolation used: Cotton roll Excavation of caries completed. No pulpal involvement Details: Etch, Munson, composite . Challenging closing the contact with the MOB design, contact left slightly open, pt is aware, if food impaction becomes an issue, crown episcopal is recommended as tooth is heavily restored. Shade: A3. Contour/Upper Sorbian: Yes Verified margins Post-Op Information Given: verbal Referral: No orders of the following type(s) were placed in this encounter: Referral. Rx: No orders of the defined types were placed in this encounter. Behavior: Excellent DA: Amy Jones [place]: Recall Exam - 6 months documented in this encounter Plan of Treatment Upcoming Encounters Date Type Department Care Team (Late st Contact Info) Description 11/26/2024 1:00 PM EDT Office Visit [address] [phone] [facility] [address] [place] [address] documented as of this encounter Procedures Procedure Name Priority Date/Time Associated Diagnosis Comments CASE PRESENTATION SUBS DTL & EXTENSIVE TX PLN Routine 07/31/2024 1:00 PM EST Caries 4 MB RESIN-BASED COMPOSITE - TWO SURFACES POSTERIOR Routine 07/31/2024 1:00 PM EST Caries documented in this encounter Visit Diagnoses Diagnosis Caries- Primary Unspecified dental caries documented in this encounter
--- OUTSIDE RECORDS SUMMARY | 2024-08-27 15:37 | XMS_ITS | Clinical Summary ---
Author Organization [facility] Address [address] [place] [address] Phone Care Team Providers Care Contract Modeler Name Role Phone Williams Eubanks Primary Care Provider [phone] Allergies Active Allergy Reactions Criticality Noted Date Comments Adhesive Tape-Silicones 04/04/2022 Aspartame 04/04/2022 Sulfamethoxazole-Trimethoprim 2021 Celecoxib 04/04/2022 Cevimeline 04/04/2022 Cyclobenzaprine 04/04/2022 Dobutamine 04/04/2022 Duloxetine Hcl 04/04/2022 Indomethacin 04/04/2022 Levofloxacin 04/04/2022 Morphine 04/04/2022 Nsaids (Non-Steroidal Anti-I nflammatory Drug) 04/04/2022 Penicillins 04/04/2022 Tramadol 04/04/2022 Valproic Acid 04/04/2022 Medications albuterol HFA (PROAIR HFA ; PROVENTIL HFA ; VENTOLIN HFA) 90 mcg/actuation inhaler INHALE 2 PUFF FOUR TIMES A DAY NEEDED FOR SHORTNESS OF BREATH. Active insulin regular (HumuLIN R U-500, Conc, Kwikpen) 500 unit/mL (3 mL) CONCENTRATED injection pen PLEASE SEE ATTACHED FOR DETAILED DIRECTIONS 2 Active metFORMIN XR (GLUCOPHAGE-XR) 500 mg 24 hr tablet TAKE 2 TAB(S) ORALLY TWICE A DAY 90 DAYS 2 Active nystatin (Nystop) 100,000 unit/gram powder APPLY POWDER TOPICALLY TO AFFECTED AREA ONCE DAILY NEEDED 2 Active olopatadine (PATANOL) 0.1 % ophthalmic solution APPLY 1 DROP INTO BOTH EYES TWICE A DAY 2 Active oxyCODONE (ROXICODONE) 5 mg immediate release tablet TAKE 1 TABLET BY MOUTH 3 TIMES A DAY NEEDED FOR PAIN X 30 DAYS 2 Active triamcinolone (KENALOG) 0.1 % cream APPLY CREAM EXTERNALLY TWICE DAILY NEEDED TO AFFECTED AREAS ON BACK, FOLLOWED BY MOISTURIZER 2 Active propranolol LA (INDERAL LA) 80 mg 24 hr capsule Take 1 capsule (80 mg total) by mouth at bedtime. Do not crush, chew, or split. 90 capsule 1 4 Active fluticasone propionate (FLONASE) 50 mcg/actuation nasal spray Administer 2 sprays into each nostril 2 (two) times a day. 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 Anxiety 08/11/2013 GUTHRIE (nonalcoholic steatohepatitis) 08/11/2013 Paroxysmal atrial fibrillation 08/11/2013 Encounters Date Type Department Care Team Description 06/19/2024 11:15 AM EST Office Visit [facility] Hematology Oncology [address] [place] [phone] Amarilis Reyes MD Malignant neoplasm of upper lobe of right lung (CMS/HCC) (Primary Dx); Sjogren's syndrome with other organ involvement (CMS/HCC); Other iron deficiency anemia; Breast pain; Anxiety; Abnormal mammogram from Last 3 Months Immunizations Name Administration Dates Next Due Moderna SARS-CoV-2 COVID-19, mRNA, LNP-S, preservative free 11/22/2021,06/01/2021,10/07/2020,2020 Surgical History Surgery Date Site/Laterality Comments ROTATOR CUFF REPAIR 04/2012 Left PROCEDURE: HISTORICAL ROTATOR CUFF REPAIR FOOT SURGERY 07/2010 Left PROCEDURE: HISTORICAL FOOT SURGERY; COMMENT: arthrodesis 1st intermetatarsal base L foot APPENDECTOMY PROCEDURE: HISTORICAL APPENDECTOMY SECTION PROCEDURE: HISTORICAL OTHER SURGICAL HISTORY 08/2012 PROCEDURE: DE BIOPSY LIVER NEEDLE PERCUTANEOUS UPPER GASTROINTESTINAL ENDOSCOPY 01/11/2015 PROCEDURE: DE UPPER GI ENDOSCOPY PERFORMED; COMMENT: Normal COLONOSCOPY 11/08/2015 PROCEDURE: HISTORICAL COLONOSCOPY; COMMENT: Colon Polyps. Repeat 5 yrs OTHER SURGICAL HISTORY 02/2014 Right PROCEDURE: DE RMVL LUNG XCP TOT PNEUMONECTOMY SLEEVE LOBECTOMY; COMMENT: Right Upper Lobe, Wedge Resection COLONOSCOPY 12/28/2020 PROCEDURE: HISTORICAL COLONOSCOPY; COMMENT: tubular adenomas Medical History Medical History Date Comments Paroxysmal atrial fibrillati on (CMS/HCC) 08/11/2013 DX:Paroxysmal atrial fibrill ation (HCC) Allergic rhinitis 08/11/2013 DX:Allergic rh initis Anxiety 08/11/2013 DX:Anxiety Sjogren's syndrome (CMS/HCC) DX: Sjogren's syndrome (HCC) GERD (gastroesophageal reflux disease) 8 DX:GERD (gastroesophageal reflux disease) IBS (irritable bowel syndrome) 03/10/2018 D X:IBS (irritable bowel syndrome) Migraines 03/10/2018 DX:Migraines Iron deficiency anemia 03/10/2018 DX:Iron d eficiency anemia LORAINE (obstructive sleep apnea) 03/10/2018 DX :LORAINE (obstructive sleep apnea) Osteoarthritis 03/10/2018 DX:Osteoarthriti s; COMMENT: Thoracic Spine Tubular adenoma 03/10/2018 DX:Tubular adeno ma; COMMENT: 2015. Repeat 5 years Morbid obesity with BMI of 4 0.0-44.9, adult (CMS/HCC) 03/10/2018 DX:Morbid obesity with BMI o f 40.0-44.9, adult (HCC) Fibromyalgia 03/10/2018 DX:Fibromyalgia Depression 03/10/2018 DX:Depression Pulmonary nodule 08/11/2013 DX:Pulmonary no dule; COMMENT: CT 10/2017, 4 mm stable lesion within Right middle lobe abbuting the major fissure Liver lesion 03/10/2018 DX:Liver lesion; COMMENT: CT, 02/2017, 10 mm liver lesion Diabetic retinopathy (CMS/HCC) 03/10/2018 D X:Diabetic retinopathy (HCC) Psoriasis 03/10/2018 DX:Psoriasis DM (diabetes mellitus), type 2 with ophthalmic complications (CMS/HCC) 03/10/2018 DX:DM (diabetes michelle litus), type 2 with ophthalmic complications (HCC) Non-alcoholic fatty liver disease 08/11/2013 DX:Non-alcoholic fatty liver disease Pain in joint, multiple sites 08/11/2013 DX :Pain in joint, multiple sites History of lung cancer 03/10/2018 DX:Histor y of lung cancer; COMMENT: 2013, Right, Adenocarcinoma, Stage IB, T2A/B NX Tumor, Lobectomy Refusal of blood transfusion s as patient is Confucianist 04/03/2018 DX:Refusal of blood trans fusions as patient is Confucianist Asthma 05/14/2019 DX:Asthma 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 (HCC) Vitamin D deficiency 05/14/2019 DX:Vitamin D deficiency OAB (overactive bladder) 05/14/2019 DX:OAB (overactive bladder) GUTHRIE (nonalcoholic steatohepatitis) 08/11/2013 DX:GUTHRIE (nonalcoholic steatohepatitis) Cirrhosis of liver (CMS/HCC) DX: Cirrhosis of liver (HCC) Refusal of blood transfusion s as patient is Confucianist DX:Refusal of blood trans fusions as patient is Confucianist; COMMENT: Patient states may possibly accept Cell Saver if needed Family History Medical History Relation Name Comments Other: Osteoarthritis Brother Colon cancer Father Arthritis Lung cancer Mother @ 51, cirr hosis Bladder Cancer Other Cousin Lung cancer Sister @ 44, Oste oarthritis Bladder Cancer Uncle Relation Name Status Comments Brother Father Mother Other Sister Uncle Social History Tobacco Use Types Packs/Day Years Used Date Smoking Tobacco: Former Cigarettes 2 6.4 0 1978 - 08/11/1984 Smokeless Tobacco: Never Tobacco Cessation:Counseling Given: Not Answered Alcohol Use Standard Drinks/Week Comments Not Currently 0 (1 standard drink = 0.6 oz pur e alcohol) Comments Unknown Sex and Gender Information Value Date Recorded Sex Assigned at Not on file Legal Sex Female 5:41 AM EST Gender Identity Not on file Sexual Orientation Not on file Obstetrics History Last Filed Vital Signs Vital Sign Reading Time Taken Comments Blood Pressure 144/50 06/19/2024 11:22 AM EST Pulse 69 06/19/2024 11:22 AM EST Temperature 36.4 ??C (97.6 ??F) 06/19/2024 11:[address] Respiratory Rate - - Oxygen Saturation 95% 06/19/2024 11:22 AM EST Inhaled Oxygen Concentration - - Weight 127 kg (279 lb 6.4 oz) 06/19/2024 11:22 A M EST Height 165.1 cm (5' 5 ) 04/29/2024 1:49 PM EDT Body Mass Index 46.49 04/29/2024 1:49 PM EDT Plan of Treatment Upcoming Encounters Date Type Department Care Team (Late st Contact Info) Description 04/09/2025 11:30 AM EDT Office Visit [facility] Hematology Oncology [address] [place] [address] Sherri-Amarilis Neves MD [address] [place] [phone] Health Maintenance Due Date Last Done Comments Breast Cancer Screening 1962 Diabetes: Annual Foot Exam 1972 Diabetes: Annual Retina Eye Exam 1972 DTaP,Tdap,and Td Vaccines (1 - Tdap) 1981 Hepatitis A Vaccines (1 of 2 - Risk 2-dose series) 1981 Zoster Vaccines (1 of 2) 1981 Cervical Cancer Screening: Pap Smear 1983 Pneumococcal Vaccine: Pediatrics (0 to 5 Years) and At-Risk Patients (6 to 64 Years) (2 of 2 - PPSV23 or PCV20) 08/26/2017 07/01/2017 Hepatitis B Vaccines (1 of 3 - Risk 3-dose series) 2022 RSV Immunization Patients 60+ Years Old (1 - Risk 60-74 years 1-dose series) 2022 Colorectal Cancer Screening: Colonoscopy 06/23/2022 Depression Screening 06/23/2022 HIV Screening 06/23/2022 Hepatitis C Screening 06/23/2022 Medicare Annual Wellness Visit 06/23/2022 Social Influencers of Health Screening 06/23/2022 Diabetes: Blood Sugar Control Test (HGBA1C) 01/10/2024 07/11/2023 COVID-19 Vaccine ( season) 2024 11/22/2021, 06/01/2021, 10/07/2020, Additional history exists Influenza Vaccine (#1) 2024 , 03/29/2020, 04/06/2019, Additional history exists Diabetes: Annual GFR (Glomerular Filtration Rate) 07/11/2024 07/11/2023 Hypertension/CHF/CAD Annual BMP Blood Test 07/11/2024 07/11/2023 Diabetes: Annual Urine Albumin-Creatinine Ratio (uACR) 02/25/2025 02/26/2024, 07/11/2023, 07/11/2023 Cholesterol Screening (Lipid Panel) 07/11/2028 07/11/2023 HIB Vaccines Aged Out No longer eligi ble based on patient's age to complete this topic HPV Vaccines Aged Out No longer eligi ble based on patient's age to complete this topic IPV Vaccines Aged Out No longer eligi ble based on patient's age to complete this topic MMR Vaccines Aged Out No longer eligi ble based on patient's age to complete this topic Meningococcal ACWY Vaccine Aged Out N o longer eligible based on patient's age to complete this topic RSV Immunization Patients Under 20 months Aged Out No longer eligible based on patient's age to complete this topic Varicella Vaccines Aged Out No longer eligible based on patient's age to complete this topic Procedures Procedure Name Priority Date/Time Associated Diagnosis Comments HM URINE ALBUMIN CREATININE RATIO Routine 07/11/2023 ANNUAL BMP BLOOD TEST Routine 07/11/2023 HEMOGLOBIN A1C Routine 07/11/2023 LIPID PANEL Routine 07/11/2023 from Last 3 Months or Most Recently Relevant to Health Maintenance Results * Urine Albumin Creatinine Ratio (07/11/2023) Pathologist [facility] Urine Albumin Creatinine Ratio abstracted Result [facility] Provider HEALTH MAINTENANCE Final Result * Annual BMP Blood Test (07/11/2023) Pathologist [facility] Annual BMP Blood Test abstracted Result [facility] HEALTH MAINTENANCE Final Result * Hemoglobin A1c (07/11/2023) Pathologist [facility] Hemoglobin A1C 0.0 % Comment:no interpretation,ab stracted Blood Venous blood specimen / Unknown Result [facility] Provider LAB BLOOD ORDERABLES Sridevi l Result * Lipid panel (07/11/2023) Pathologist [facility] LDL/HDL Ratio 0 Comment:no interpretation,ab stracted Triglycerides 0 mg/dL Comment:no interpretation,ab stracted Cholesterol 0 mg/dL Comment:no interpretation,ab stracted HDL 0 mg/dL Comment:no interpretation,ab stracted LDL Cholesterol 0 mg/dL Comment:no interpretation,ab stracted Blood Venous blood specimen / Unknown Result [facility] Provider LAB BLOOD ORDERABLES Sridevi l Result from Last 3 Months or Most Recently Relevant to Health Maintenance Insurance MEDICARE Advance Directives Documents on File Type Date Recorded Patient Marketing Services Specialist Expl anation Health Care Decision (hx) 03/01/2014 AD GARCIAS DIRECTIVE Health Care Decision (hx) 03/01/2014 AD GARCIAS DIRECTIVE Health Care Decision (hx) 03/01/2014 AD GARCIAS DIRECTIVE Health Care Decision (hx) 03/01/2014 AD GARCIAS DIRECTIVE Health Care Decision (hx) 03/01/2014 AD GARCIAS DIRECTIVE Health Care Decision (hx) 03/01/2014 AD GARCIAS DIRECTIVE Health Care Decision (hx) 03/01/2014 AD GARCIAS DIRECTIVE Health Care Decision (hx) 03/01/2014 AD GARCIAS DIRECTIVE Health Care Decision (hx) 03/01/2014 AD GARCIAS DIRECTIVE Health Care Decision (hx) 03/01/2014 AD GARCIAS DIRECTIVE Health Care Decision (hx) 03/01/2014 AD GARCIAS DIRECTIVE Health Care Decision (hx) 03/01/2014 AD GARCIAS DIRECTIVE Health Care Decision (hx) 03/01/2014 AD GARCIAS DIRECTIVE Health Care Decision (hx) 02/12/2014 AD GARCIAS DIRECTIVE Health Care Decision (hx) 02/12/2014 AD GARCIAS DIRECTIVE Health Care Decision (hx) 02/12/2014 AD GARCIAS DIRECTIVE Health Care Decision (hx) 02/12/2014 AD GARCIAS DIRECTIVE Health Care Decision (hx) 02/12/2014 AD GARCIAS DIRECTIVE Health Care Decision (hx) 02/12/2014 AD GARCIAS DIRECTIVE Health Care Decision (hx) 02/12/2014 AD GARCIAS DIRECTIVE Health Care Decision (hx) 02/12/2014 AD GARCIAS DIRECTIVE Health Care Decision (hx) 02/12/2014 AD GARCIAS DIRECTIVE Health Care Decision (hx) 02/12/2014 AD GARCIAS DIRECTIVE Health Care Decision (hx) 02/12/2014 AD GARCIAS DIRECTIVE Health Care Decision (hx) 02/12/2014 AD GARCIAS DIRECTIVE Health Care Decision (hx) 02/12/2014 AD GARCIAS DIRECTIVE Care Teams Contract Modeler Relationship Specialty Start Date End Date Williams Eubanks DO [address] [place], [place] PCP - General Family Medicine 01/21/19
[2024-08-27 15:41] VITALS: BP 132/60; BMI 46.6
--- OUTSIDE RECORDS SUMMARY | 2024-08-27 16:13 | XMS_ITS | Encounter Summary ---
Author Organization [facility][1] Address [address] [address] Phone Care Team Providers Care Geothermal Powerplant Mechanic Name Role Phone Williams Eubanks DO Primary Care Provider [phone] Encounter Details Date Type Department Care Team (Late Contact Info) Description 08/13/2024 Orders Only [facility][1] [address] [place] [address] Gabriele Lopez MD [facility] [address] [address] Hypomagnesemia Social History Tobacco Use [...] Office Visit [facility][1] [address] [place] [address] Gabriele Lopez MD [address] [address] documented as of this encounter Visit Diagnoses Diagnosis Hypomagnesemia documented in this encounter Care Teams Geothermal Powerplant Mechanic Relationship Specialty Start Date End Date Williams Eubanks DO [address] [place] [address] PCP - General 07/25/20 documented as of this encounter
--- OUTSIDE RECORDS SUMMARY | 2024-08-27 16:13 | XMS_ITS | Encounter Summary ---
Author Organization [facility] Address [address] [place] [address] Care Team Providers Care Manager Video Name Role Phone Williams Eubanks MD Primary Care Provider [phone] Encounter Details Date Type Department Care Team Description 07/27/2022 Social Work [facility] Oncology Services [address] [place] [address] [facility] Social History Tobacco Use Types Packs/Day Years [...] on filedocumented in this encounter Care Teams Manager Video Relationship Specialty Start Date End Date Williams Eubanks MD [address] [place] [address] PCP - General Family Medicine 01/21/19 documented as of this encounter
--- OUTSIDE RECORDS SUMMARY | 2024-08-27 16:13 | XMS_ITS | Encounter Summary ---
Author Organization [facility] Address [address] [facility] [place] [address] Care Team Providers Care Towel Folder Name Role Phone Unavailable Primary Care Provider Unavailabl e Encounter Details Date Type Department Care Team (Late st Contact Info) Description 07/31/2024 1:00 PM EST Office Visit [facility] [address] [place] [phone] Vanessa Villafana, DENI [address] [place], [place] [phone] Caries (Primary Dx) Social History Tobacco Use [...] year old female, presents with for restorative. Manager Resort: No CC: lutheran #4 Objective RMHx: Yes Vitals: Vitals: 07/31/24 [...] if food impaction becomes an issue, crown lutheran is recommended as tooth is heavily restored. Shade: A3. Contour/Pashto: Yes Verified margins Post-Op Information Given: verbal [...] Description 11/26/2024 1:00 PM EDT Office Visit [address] [phone] Gil Bar RHD [address] [place] [address] documented as of this encounter Procedures Procedure [...]
--- OUTSIDE RECORDS SUMMARY | 2024-08-27 16:13 | XMS_ITS | Clinical Summary ---
Author Organization [facility] Address [address] [address] Care Team Providers Care Plasterer Helper Name Role Phone Williams Eubanks Primary Care Provider [phone] Allergies Active Allergy Reactions Criticality Noted Date [...] sodium chloride (OCEAN) 0.65 % nasal spray Keavy as directed Active Cranberry 400 MG capsule [...] time each day Active Cobalamin Combinations (Vitamin W91-Awtbe Acid) 500-400 MCG tablet Duration: 1 Active Probiotic Product (PROBIOTIC PEARLS PO) Take 1 capsule by mouth 1 (one) time each day Active Hotevilla-3 Fatty Acids (OMEGA 3 PO) Take 1 [...] Diagnosed Date Right upper quadrant pain 05/08/20232022 [facility] current use of insulin 01/09/2023 05/08/2023 H/O: [...] followed by warmth as well as enlarged plug cutter on tools and utensils and her pain [...] Only [facility] [address] [place] [address] Gabriele Lopez MD Hypomagnesemia from Last 3 [...] Visit [facility] [address] [place] [address] Gabriele Lopez MD [address] [address] Health Maintenance Due Date Last [...] ug/dl PVNMA 01/09/2019 us Rtama Conversion LAB [id number] LICITED RESULTS Final Result PVNMA from Last 3 Months or Most Recently Relevant to Health Maintenance Insurance MEDICARE MEDICARE Care Teams Plasterer Helper Relationship Specialty Start Date End Date Williams Eubanks DO [address] [place] [address] PCP - General 07/25/20
--- OUTSIDE RECORDS SUMMARY | 2024-08-27 16:13 | XMS_ITS | Encounter Summary ---
Author Organization [facility] Address [address] [facility] [address] [place] [address] Care Team Providers Care Slot Floor Supervisor Name Role Phone Unavailable Primary Care Provider [...] Description 11/26/2024 1:00 PM EDT Office Visit [address] [address] Gil Bar [facility] [address] [place] [address] documented as of this encounter Visit Diagnoses Not on filedocumented in this encounter
--- OUTSIDE RECORDS SUMMARY | 2024-08-27 16:13 | XMS_ITS | Clinical Summary ---
Author Organization [facility] Address [address] [place] [address] Care Team Providers Care Public Relations Representative Name Role Phone Williams Eubanks MD Primary Care Provider [phone] Allergies Active Allergy Reactions Criticality Noted Date [...] DAY 90 DAYS 0 03/04/2022 Active nystatin 517350 UNIT/GM external powder APPLY POWDER TOPICALLY TO [...] of blood transfusion s as patient is Mandaeism 04/03/2018 Family history of colon cancer in [...] age to complete this topic Care Teams Public Relations Representative Relationship Specialty Start Date End Date Williams Eubanks MD [address] [place] [address] PCP - General Family Medicine 01/21/19
--- OUTSIDE RECORDS SUMMARY | 2024-08-27 16:13 | XMS_ITS | Clinical Summary ---
Author Organization [facility] Address [address] [place] [address] Care Team Providers Care Ramp Supervisor Name Role Phone Unavailable Primary Care [...] 5000 PLUS) 1.1 % creaIndications :Enamel caries [place] twice daily with toothpaste then expectorate. Do not rinse. 51 g 4 4 Active Active Problems Problem Noted Date Diagnosed Date Asthma 05/16/2022 Severe obesity ([facility]) 05/16/2022 Enamel caries 05/16/2022 Extraction of tooth needed 05/16/2022 Overview (05/16/2022): #19 and 31 Abnormal mammogram 04/04/2022 At moderate risk for fall 11/15/2021 Atrophic vulva 11/15/2021 Benign essential hypertension 11/15/2021 Fibromyalgia 11/15/2021 Hyperlipidemia 11/15/2021 Irritable bowel syndrome 11/15/2021 Migraine 11/15/2021 Mixed stress and urge urinary incontinence 11/15 Polyp of colon 11/15/2021 Type 2 diabetes mellitus ([facility]) 11/15/2021 Overview (05/16/2022): endo endo Sleep apnea [...] Left CTR-f/u with hand surgeon Cryptogenic cirrhosis ([facility]) 03/10/2018 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 [address] [place] [address] Vanessa Villafana, DMD Caries (Primary [...] Description 11/26/2024 1:00 PM EDT Office Visit [facility] [address] [place] [address] Gil Bar R[facility] [address] [place] [address] Health Maintenance Due Date Last Done Comments [...] series) 2022 Dental Perio Charting 05/18/2023 05/16/2022 [id number] ( season) 2024 11/22/2021, 06/01/2021, 10/07/2020, Additional [...]
--- OUTSIDE RECORDS SUMMARY | 2024-08-27 16:13 | XMS_ITS | Clinical Summary ---
Author Organization [facility] Address [address] [place] [address] Phone Care Team Providers Care Dural Mechanic Name Role Phone Williams Eubanks Primary Care Provider [phone] Allergies Active Allergy Reactions Criticality Noted Date [...] Description 06/19/2024 11:15 AM EST Office Visit [facility] Hematology Oncology [address] [place] [phone] Amarilis Reyes MD Malignant neoplasm of upper [...] PROCEDURE: HISTORICAL OTHER SURGICAL HISTORY 08/2012 PROCEDURE: NM BIOPSY LIVER NEEDLE PERCUTANEOUS UPPER GASTROINTESTINAL ENDOSCOPY 01/11/2015 PROCEDURE: NM UPPER GI ENDOSCOPY PERFORMED; COMMENT: Normal COLONOSCOPY 11/08/2015 PROCEDURE: HISTORICAL COLONOSCOPY; COMMENT: Colon Polyps. Repeat 5 yrs OTHER SURGICAL HISTORY 02/2014 Right PROCEDURE: NM RMVL LUNG XCP TOT PNEUMONECTOMY SLEEVE LOBECTOMY; [...] of blood transfusion s as patient is Rastafari 04/03/2018 DX:Refusal of blood trans fusions as patient is Rastafari Asthma 05/14/2019 DX:Asthma 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 (HCC) Vitamin D deficiency 05/14/2019 DX:Vitamin D deficiency OAB (overactive bladder) 05/14/2019 DX:OAB (overactive bladder) GUTHRIE (nonalcoholic steatohepatitis) 08/11/2013 DX:GUTHRIE (nonalcoholic steatohepatitis) Cirrhosis of liver (CMS/HCC) DX: Cirrhosis of liver (HCC) Refusal of blood transfusion s as patient is Rastafari DX:Refusal of blood trans fusions as patient is Rastafari; COMMENT: Patient states may possibly accept Cell [...] Description 04/09/2025 11:30 AM EDT Office Visit [facility] Hematology Oncology [address] [place] [address] Sherri-Amarilis Neves MD [address] [place] [phone] Health Maintenance Due Date Last Done Comments [...] * Urine Albumin Creatinine Ratio (07/11/2023) Pathologist [facility] Urine Albumin Creatinine Ratio abstracted Result [facility] Provider HEALTH MAINTENANCE Final Result * Annual BMP Blood Test (07/11/2023) Pathologist [facility] Annual BMP Blood Test abstracted Result [facility] HEALTH MAINTENANCE Final Result * Hemoglobin A1c (07/11/2023) Pathologist [facility] Hemoglobin A1C 0.0 % Comment:no interpretation,ab stracted Blood Venous blood specimen / Unknown Result [facility] Provider LAB BLOOD ORDERABLES Sridevi l Result * Lipid panel (07/11/2023) Pathologist [facility] LDL/HDL Ratio 0 Comment:no interpretation,ab stracted Triglycerides 0 mg/dL Comment:no interpretation,ab stracted Cholesterol 0 mg/dL Comment:no interpretation,ab stracted HDL 0 mg/dL Comment:no interpretation,ab stracted LDL Cholesterol 0 mg/dL Comment:no interpretation,ab stracted Blood Venous blood specimen / Unknown Result [facility] Provider LAB BLOOD ORDERABLES Sridevi l Result from Last 3 Months or Most Recently Relevant to Health Maintenance Insurance MEDICARE Advance Directives Documents on File Type Date Recorded Patient Home And Family Living Professor Expl anation Health Care Decision (hx) 03/01/2014 [...] (hx) 02/12/2014 AD GARCIAS DIRECTIVE Care Teams Dural Mechanic Relationship Specialty Start Date End Date Williams Eubanks DO [address] [place], [place] PCP - General Family Medicine 01/21/19
== END 2024-08-27 15:51 | disposition home or self-care (01) ==
LOC: HO.PMC 16:11
PROVIDERS: PCP Family Medicine; Visit Provider Nurse Practitioner Family
DX: Z79.891 Long term (current) use of opiate analgesic (principal); G89.4 Chronic pain syndrome; M79.7 Fibromyalgia; M25.561 Pain in right knee; M25.562 Pain in left knee; M54.2 Cervicalgia; H10.029 Other mucopurulent conjunctivitis, unspecified eye
CPT/HCPCS: 99214; G2211

== ENCOUNTER → 2024-08-27 15:32 | Outpatient (BNVA) | payer MEDICARE, SELFPAY | PROVIDERS: PCP Family Medicine; Visit Provider Nurse Practitioner Family | DX: Z51.81 Encounter for therapeutic drug level monitoring (principal); M79.7 Fibromyalgia; M25.561 Pain in right knee; M25.562 Pain in left knee; M54.2 Cervicalgia; H10.029 Other mucopurulent conjunctivitis, unspecified eye; Z79.891 Long term (current) use of opiate analgesic | CPT/HCPCS: 99212 ==

== ENCOUNTER 2024-09-24 15:33 | Outpatient (AMB) | payer MEDICARE, SELFPAY ==
--- NOTE | 2024-09-24 15:34 | MHC.OFFVIS ---
Vital Signs 09/24/24 15:47 Height 5 ft 5 in Weight 283 lb 2 oz BMI 47.1 BP 130/68 Blood Pressure Location Rt brachial Position Sitting Intake Visit Reasons: PILL COUNT Intake Note: Lina comes in today for a pill count to oxycodone, patient should have 36 tablets and presents with 42 tablets which she last took today 09/24/24 at 1:30pm, pain today 02/21 [employer] Portal Developer Required: No Accompanied by: Spouse Allergies aspartame Allergy (Unknown, Verified 09/24/24 15:47) Unknown cephalexin Allergy (Unknown, Verified 09/24/24 15:47) Unknown cyclobenzaprine Allergy (Unknown, Verified 09/24/24 15:47) Unknown dobutamine Allergy (Unknown, Verified 09/24/24 15:47) Unknown indomethacin Allergy (Unknown, Verified 09/24/24 15:47) Unknown levofloxacin [Levaquin] Allergy (Unknown, Verified 09/24/24 15:47) Unknown morphine Allergy (Unknown, Verified 09/24/24 15:47) Unknown penicillin V Allergy (Unknown, Verified 09/24/24 15:47) Unknown tramadol Allergy (Unknown, Verified 09/24/24 15:47) Unknown NSAIDS (Non-Steroidal Anti-Inflamma Adverse Reaction (Severe, Verified 09/24/24 15:47) afib Latex Gloves Allergy (Unknown, Uncoded 03/26/24 14:17) Unknown HPI Comments Details: Lina presents today for a pill count. Patient is supposed to have #36 pills, in her possession has #42 pills. This demonstrates a responsible attitude in regards to the medication regimen. Patient reports adequate analgesia on her regimen of oxycodone 5 mg TID prn with no noted side effects. Denies any recent cough, cold, infection, fever, or any significant changes in her medical history, medications or recent hospitalizations. Past Procedures: 08/30/23: Right elbow steroid injection-90% pain relief for 1.5 months [facility] Medical History Chronic pain syndrome History of lung cancer Diabetes type 2 with atherosclerosis of arteries of extremities Morbid obesity Gout, arthritis Morbidly obese Gout Psoriasis Arthritis Family history of lung cancer Lung cancer Diabetic retinopathy Williamson's palsy Sciatica Plantar fasciitis, bilateral Rosacea Sleep apnea Asthma GERD (gastroesophageal reflux disease) IBS (irritable bowel syndrome) Nerve pain Migraine Carpal tunnel syndrome, bilateral Diabetic cheirarthropathy Fibromyalgia Non-alcoholic micronodular cirrhosis of liver Paroxysmal atrial fibrillation Primary Sjogren's syndrome Type 2 diabetes mellitus Surgical History History of carpal tunnel release History of lung surgery History of appendectomy History of repair of left rotator cuff History of section Social History Alcohol intake: never Patient Tobacco Use Status: Former Tobacco user Current occupational status: disabled Review of Systems Const All systems reviewed & are unremarkable except as noted in HPI and below Physical Exam Vital Signs: Last Vital Signs BP 130/68 09/24/24 15:47 BMI result Body Mass Index 47.1 General: Appears afebrile. No acute distress. Alert and oriented. Mood and affect appropriate. Follows and participates in conversation appropriately. Respiratory effort is unlabored. No cough. Wears facemask. Able to transition from sit to stand unassisted. Ambulates with cane. Ambulates with bilaterally normal heel strike and toe off. Psych Appearance: grossly normal Mental Status: mental status grossly normal Speech and movement: Normal speech and movement present Affect: normal affect Attitude: cooperative Thought process: Normal thought process present Thought content: Normal thought content present, suicidality (none), no hallucinations and No Depressive thoughts present Insight: Good insight present (Psych) Judgement: Good judgement present (Psych) Results Reviewed Results Reviewed: No imaging is available for review. Assessment & Plan Assessment & Plan (1) Opioid contract exists: Code(s): Z79.891 - oysterman (current) use of opiate analgesic Category: Medical (2) Chronic pain syndrome: Code(s): G89.4 - Chronic pain syndrome Category: Medical (3) Fibromyalgia: Code(s): M79.7 - Fibromyalgia Category: Medical (4) Bilateral knee pain: Code(s): M25.561 - Pain in right knee; M25.562 - Pain in left knee Category: Medical (5) Cervicalgia: Code(s): M54.2 - Cervicalgia Category: Medical Plan Patient has shown accountability for her medication regimen and the pill count was accurate.?There is no evidence of misuse, abuse or diversion at this time[facility]. [facility] for [facility]one for 30 days sent with advanced date of 10/06/24. Patient is aware of monitoring for side effects. Patient has Narcan at home. Encouraged daily physical activity, stretching exercises, meditation, massage, adequate hydration and weight loss. All questions were answered and the patient is in agreement with the plan. Follow up in one month for pill count or sooner as needed. Medications: Refilled oxycodone Partial Fill upon patient request. 5 mg PO TID 30 days PRN 90 tabs 0RF pain G89.4 - Chronic pain syndrome, M25.561 - Pain in right knee, M25.562 - Pain in left knee, Z79.891 - oysterman (current) use of opiate analgesic Coding Level of Care Code Est Pt Level 4 (36017) Complex EM visit Add On G2211 Diagnoses Opioid contract exists Z79.891 Chronic pain syndrome G89.4 Fibromyalgia M79.7 Bilateral knee pain M25.561; M25.562 Cervicalgia M54.2
[2024-09-24 15:47] VITALS: BP 130/68; BMI 47.1
--- OUTSIDE RECORDS SUMMARY | 2024-09-24 19:07 | XMS_ITS | Clinical Summary ---
Author Organization [facility] Address [address] [place] [address] Care Team Providers Care Sweeper Driver Name Role Phone Williams Eubanks MD Primary Care Provider [phone] Allergies Active Allergy Reactions Criticality Noted Date [...] DAY 90 DAYS 0 03/04/2022 Active nystatin 179518 UNIT/GM external powder APPLY POWDER TOPICALLY TO [...] of blood transfusion s as patient is Mu-ism 04/03/2018 Family history of colon cancer in [...] age to complete this topic Care Teams Sweeper Driver Relationship Specialty Start Date End Date Williams Eubanks MD [address] [place] [address] PCP - General Family Medicine 01/21/19
--- OUTSIDE RECORDS SUMMARY | 2024-09-24 19:07 | XMS_ITS | Clinical Summary ---
Author Organization [facility] Address [address] [address] Care Team Providers Care Human Resources Operations Specialist Name Role Phone Williams Eubanks Primary Care Provider [phone] Allergies Active Allergy Reactions Criticality Noted Date [...] sodium chloride (OCEAN) 0.65 % nasal spray Kirby as directed Active Cranberry 400 MG capsule [...] time each day Active Cobalamin Combinations (Vitamin C96-Krsuu Acid) 500-400 MCG tablet Duration: 1 Active Probiotic Product (PROBIOTIC PEARLS PO) Take 1 capsule by mouth 1 (one) time each day Active [place]-3 Fatty Acids (OMEGA 3 PO) Take 1 [...] Diagnosed Date Right upper quadrant pain 05/08/20232022 snf current use of insulin 01/09/2023 05/08/2023 H/O: [...] followed by warmth as well as enlarged specialized developer on tools and utensils and her pain [...] Only [facility] [address] [place] [address] Gabriele Lopez MD Hypomagnesemia from Last 3 [...] Visit [facility] [address] [place] [address] Gabriele Lopez MD [address] [address] Health Maintenance Due Date Last [...] ug/dl PVNMA 01/09/2019 us [facility] [id number] LICITED RESULTS Final Result PVNMA from Last 3 Months or Most Recently Relevant to Health Maintenance Insurance MEDICARE MEDICARE Care Teams Human Resources Operations Specialist Relationship Specialty Start Date End Date Williams Eubanks DO [address] [place] [address] PCP - General 07/25/20
--- OUTSIDE RECORDS SUMMARY | 2024-09-24 19:07 | XMS_ITS | Clinical Summary ---
Author Organization [facility] Address [address] [place] [address] Care Team Providers Care Tool Builder Name Role Phone Unavailable Primary Care Provider [...] 5000 PLUS) 1.1 % creaIndications :Enamel caries [place] twice daily with toothpaste then expectorate. Do not rinse. 51 g 4 4 Active Active Problems Problem Noted Date Diagnosed Date Asthma 05/16/2022 Severe obesity ([facility]) 05/16/2022 Enamel caries 05/16/2022 Extraction of tooth needed 05/16/2022 Overview (05/16/2022): #19 and 31 Abnormal mammogram 04/04/2022 At moderate risk for fall 11/15/2021 Atrophic vulva 11/15/2021 Benign essential hypertension 11/15/2021 Fibromyalgia 11/15/2021 Hyperlipidemia 11/15/2021 Irritable bowel syndrome 11/15/2021 Migraine 11/15/2021 Mixed stress and urge urinary incontinence 11/15 Polyp of colon 11/15/2021 Type 2 diabetes mellitus ([facility]) 11/15/2021 Overview (05/16/2022): endo endo Sleep [...] Left CTR-f/u with hand surgeon 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 ([facility]) 03/10/2018 Gastroesophageal reflux disease 03/10/2018 History [...] followed by warmth as well as enlarged core winding operator on tools and utensils and her pain [...] Nonalcoholic steatohepatitis ([facility]) 08/11/2013 Paroxysmal atrial fibrillation ([facility]) 014 Encounters Date Type Department Care Team Description 07/31/2024 1:00 PM EST Office Visit [facility] [address] [place] [phone] Vanessa Villafana, DENI Caries (Primary Dx) 07/31/2024 Travel from Last [...] Description 11/26/2024 1:00 PM EDT Office Visit [facility] [address] [place] [phone] [address] [facility] [place] [address] Health Maintenance Due Date Last Done Comments [...] series) 2022 Dental Perio Charting 05/18/2023 05/16/2022 [id number] ( season) 2024 11/22/2021, 06/01/2021, 10/07/2020, Additional [...]
--- OUTSIDE RECORDS SUMMARY | 2024-09-24 19:07 | XMS_ITS | Clinical Summary ---
Author Organization [facility] Address [address] [place] [address] Phone Care Team Providers Care Real Estate Agency Licensee Name Role Phone Williams Eubanks Primary Care Provider [phone] Allergies Active Allergy Reactions Criticality Noted Date [...] (nonalcoholic steatohepatitis) 08/11/2013 Paroxysmal atrial fibrillation 08/11/2013 Immunizations Name Administration Dates Next Due Moderna SARS-CoV-2 COVID-19, mRNA, LNP-S, preservative free 11/22/2021,06/01/2021,10/07/2020,2020 Surgical History Surgery Date Site/Laterality Comments ROTATOR CUFF REPAIR 04/2012 Left PROCEDURE: HISTORICAL ROTATOR CUFF REPAIR FOOT SURGERY 07/2010 Left PROCEDURE: HISTORICAL FOOT SURGERY; COMMENT: arthrodesis 1st intermetatarsal base L foot APPENDECTOMY PROCEDURE: HISTORICAL APPENDECTOMY SECTION PROCEDURE: HISTORICAL OTHER SURGICAL HISTORY 08/2012 PROCEDURE: PA BIOPSY LIVER NEEDLE PERCUTANEOUS UPPER GASTROINTESTINAL ENDOSCOPY 01/11/2015 PROCEDURE: PA UPPER GI ENDOSCOPY PERFORMED; COMMENT: Normal COLONOSCOPY 11/08/2015 PROCEDURE: HISTORICAL COLONOSCOPY; COMMENT: Colon Polyps. Repeat 5 yrs OTHER SURGICAL HISTORY 02/2014 Right PROCEDURE: PA RMVL LUNG XCP TOT PNEUMONECTOMY SLEEVE LOBECTOMY; COMMENT: Right Upper Lobe, Wedge Resection COLONOSCOPY 12/28/2020 PROCEDURE: HISTORICAL COLONOSCOPY; COMMENT: tubular adenomas Medical History Medical History Date Comments Paroxysmal atrial fibrillati on (CMS/HCC) 08/11/2013 DX:Paroxysmal atrial fibrill ation (HCC) Allergic rhinitis 08/11/2013 DX:Allergic rh initis Anxiety 08/11/2013 DX:Anxiety Sjogren's syndrome (CMS/HCC) DX: Sjogren's syndrome (HCC) GERD (gastroesophageal reflux disease) DX:GERD (gastroesophageal reflux disease) IBS (irritable bowel [...] obesity with BMI o f 40.0-44.9, adult ([facility]) Fibromyalgia 03/10/2018 DX:Fibromyalgia Depression 03/10/2018 DX:Depression Pulmonary [...] of blood transfusion s as patient is Worship 04/03/2018 DX:Refusal of blood trans fusions as patient is Worship Asthma 05/14/2019 DX:Asthma 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 (HCC) Vitamin D deficiency 05/14/2019 DX:Vitamin D deficiency OAB (overactive bladder) 05/14/2019 DX:OAB (overactive bladder) GUTHRIE (nonalcoholic steatohepatitis) 08/11/2013 DX:GUTHRIE (nonalcoholic steatohepatitis) Cirrhosis of liver (CMS/HCC) DX: Cirrhosis of liver (HCC) Refusal of blood transfusion s as patient is Worship DX:Refusal of blood trans fusions as patient is Worship; COMMENT: Patient states may possibly accept Cell [...] Description 04/09/2025 11:30 AM EDT Office Visit [facility] Hematology Oncology [address] [place] [phone] Sherri-Amarilis Neves MD [address] [place] [phone] Health Maintenance Due Date Last Done Comments Breast Cancer Screening 1962 Diabetes: Annual Foot Exam 1972 Diabetes: Annual Retina Eye Exam 1972 DTaP,Tdap,and Td Vaccines (1 - Tdap) 1981 Hepatitis A Vaccines (1 of 2 - Risk 2-dose series) 1981 Zoster Vaccines (1 of 2) 1981 Cervical Cancer Screening: Pap Smear 1983 Pneumococcal Vaccine: 50+ Years (2 of 2 - PPSV23) 08/26/2017 07/01/2017 Pneumococcal Vaccine: Pediatrics (0 to 5 Years) and At-Risk Patients (6 to 64 Years) (2 of 2 - PPSV23) 08/26/2017 07/01/2017 Hepatitis B Vaccines (1 of [...] patient's age to complete this topic Meningococcal B Vacine Aged Out No lo nger eligible based on patient's age to complete [...] Recently Relevant to Health Maintenance Results * HM Urine Albumin Creatinine Ratio (07/11/2023) Pathologist [facility] Urine Albumin Creatinine Ratio abstracted Result [facility] Provider HEALTH MAINTENANCE Final Result * Annual BMP Blood Test (07/11/2023) Pathologist [facility] Annual BMP Blood Test abstracted Result [facility] Provider HEALTH MAINTENANCE Final Result * Hemoglobin A1c (07/11/2023) Pathologist [facility] Hemoglobin A1C 0.0 % Comment:no interpretation,ab stracted Blood Venous blood specimen / Unknown Result [facility] Provider LAB BLOOD ORDERABLES Sridevi l Result * Lipid panel (07/11/2023) Pathologist [facility] LDL/HDL Ratio 0 Comment:no interpretation,ab stracted Triglycerides 0 mg/dL Comment:no interpretation,ab stracted Cholesterol 0 mg/dL Comment:no interpretation,ab stracted HDL 0 mg/dL Comment:no interpretation,ab stracted LDL Cholesterol 0 mg/dL Comment:no interpretation,ab stracted Blood Venous blood specimen / Unknown Result [facility] Provider LAB BLOOD ORDERABLES Sridevi l Result from Last 3 Months or Most Recently Relevant to Health Maintenance Insurance MEDICARE Advance Directives Documents on File Type Date Recorded Patient Wood Dowel Machine Operator Expl anation Health Care Decision (hx) 03/01/2014 [...] DIRECTIVE Health Care Decision (hx) 03/01/2014 AD GARICAS DIRECTIVE Health Care Decision (hx) 03/01/2014 AD [...] (hx) 02/12/2014 AD GARCIAS DIRECTIVE Care Teams Real Estate Agency Licensee Relationship Specialty Start Date End Date Williams Eubanks DO [address] [place] [address] PCP - General Family Medicine 01/21/19
--- OUTSIDE RECORDS SUMMARY | 2024-09-24 19:07 | XMS_ITS | Encounter Summary ---
Author Organization [facility] Address [address] [place] [address] Care Team Providers Care Pbx Installer Name Role Phone Williams Eubanks MD Primary Care Provider [phone] Encounter Details Date Type Department Care Team Description 07/27/2022 Social Work [facility] Oncology Services [address] [place] [address] [facility] History Tobacco Use Types Packs/Day [...] on filedocumented in this encounter Care Teams Pbx Installer Relationship Specialty Start Date End Date Williams Eubanks MD [address] [place] [phone] PCP - General Family Medicine 01/21/19 documented as of this encounter
== END 2024-09-24 15:56 | disposition home or self-care (01) ==
LOC: HO.PMC 15:33
PROVIDERS: PCP Family Medicine; Visit Provider Nurse Practitioner Family
DX: G89.4 Chronic pain syndrome (principal); M79.7 Fibromyalgia; M25.561 Pain in right knee; Z79.891 Long term (current) use of opiate analgesic; M25.562 Pain in left knee; M54.2 Cervicalgia
CPT/HCPCS: 99214; G2211

== ENCOUNTER → 2024-09-24 15:33 | Outpatient (BNVA) | payer MEDICARE, SELFPAY | PROVIDERS: PCP Family Medicine; Visit Provider Nurse Practitioner Family | DX: G89.4 Chronic pain syndrome (principal); M79.7 Fibromyalgia; M25.561 Pain in right knee; M25.562 Pain in left knee; M54.2 Cervicalgia; Z51.81 Encounter for therapeutic drug level monitoring; Z79.891 Long term (current) use of opiate analgesic | CPT/HCPCS: 99212 ==

== ENCOUNTER 2024-10-22 15:19 | Outpatient (AMB) | payer MEDICARE, SELFPAY ==
--- NOTE | 2024-10-22 15:21 | MHC.OFFVIS ---
Vital Signs 10/22/24 15:40 Height 5 ft 5 in Weight 282 lb 6 oz BMI 47.0 BP 132/70 Blood Pressure Location Lt brachial Position Sitting Respiration 18 Intake Visit Reasons: PILL COUNT Intake Note: Lina comes in today for a pill count to oxycodone, patient should have 45 tablets and presents with 52 tablets which she last took today 10/22/24 at 2pm. Pain today 11/21 Medical Billing Assistant Required: No Accompanied by: Spouse Allergies aspartame Allergy (Unknown, Verified 10/22/24 15:41) Unknown cephalexin Allergy (Unknown, Verified 10/22/24 15:41) Unknown cyclobenzaprine Allergy (Unknown, Verified 10/22/24 15:41) Unknown dobutamine Allergy (Unknown, Verified 10/22/24 15:41) Unknown indomethacin Allergy (Unknown, Verified 10/22/24 15:41) Unknown levofloxacin [Levaquin] Allergy (Unknown, Verified 10/22/24 15:41) Unknown morphine Allergy (Unknown, Verified 10/22/24 15:41) Unknown penicillin V Allergy (Unknown, Verified 10/22/24 15:41) Unknown tramadol Allergy (Unknown, Verified 10/22/24 15:41) Unknown NSAIDS (Non-Steroidal Anti-Inflamma Adverse Reaction (Severe, Verified 10/22/24 15:41) afib Latex Gloves Allergy (Unknown, Uncoded 03/26/24 14:17) Unknown HPI Comments Details: Lina presents today for a pill count. Patient is supposed to have #45 pills, in her possession has #52 pills. This demonstrates a responsible attitude in regards to the medication regimen. Patient reports adequate analgesia on her regimen of oxycodone 5 mg TID prn with no noted side effects. Denies any recent cough, cold, infection, fever, or any significant changes in her medical history, medications or recent hospitalizations except recently she pulled right shoulder. She reports limited range of motion and has been using walker. Patient declines need to further evaluate shoulder pain and notes symptoms have been sibsiding. Past Procedures: 08/30/23: Right elbow steroid injection-90% pain relief for 1.5 months [facility] Medical History Chronic pain syndrome History of lung cancer Diabetes type 2 with atherosclerosis of arteries of extremities Morbid obesity Gout, arthritis Morbidly obese Gout Psoriasis Arthritis Family history of lung cancer Lung cancer Diabetic retinopathy Williamson's palsy Sciatica Plantar fasciitis, bilateral Rosacea Sleep apnea Asthma GERD (gastroesophageal reflux disease) IBS (irritable bowel syndrome) Nerve pain Migraine Carpal tunnel syndrome, bilateral Diabetic cheirarthropathy Fibromyalgia Non-alcoholic micronodular cirrhosis of liver Paroxysmal atrial fibrillation Primary Sjogren's syndrome Type 2 diabetes mellitus Surgical History History of carpal tunnel release History of lung surgery History of appendectomy History of repair of left rotator cuff History of section Social History Alcohol intake: never Patient Tobacco Use Status: Former Tobacco user Current occupational status: disabled Review of Systems Const All systems reviewed & are unremarkable except as noted in HPI and below Physical Exam General: Appears afebrile. No acute distress. Alert and oriented. Mood and affect appropriate. Follows and participates in conversation appropriately. Respiratory effort is unlabored. No cough. Wears facemask. Able to transition from sit to stand unassisted. Ambulates with cane. Ambulates with bilaterally normal heel strike and toe off. Extrem Right upper extremity: shoulder/upper arm (limited ROM due to pain) Details: normal to inspection, tenderness (anterior aspects) and crepitus; no swelling Psych Appearance: grossly normal Mental Status: mental status grossly normal Speech and movement: Normal speech and movement present Affect: normal affect Attitude: cooperative Thought process: Normal thought process present Thought content: Normal thought content present, suicidality (none), no hallucinations and No Depressive thoughts present Insight: Good insight present (Psych) Judgement: Good judgement present (Psych) Results Reviewed Results Reviewed: No imaging is available for review. Assessment & Plan Assessment & Plan (1) Opioid contract exists: Code(s): Z79.891 - superintendent terminal (current) use of opiate analgesic Category: Medical (2) Chronic pain syndrome: Code(s): G89.4 - Chronic pain syndrome Category: Medical (3) Fibromyalgia: Code(s): M79.7 - Fibromyalgia Category: Medical (4) Bilateral knee pain: Code(s): M25.561 - Pain in right knee; M25.562 - Pain in left knee Category: Medical (5) Cervicalgia: Code(s): M54.2 - Cervicalgia Category: Medical (6) Right shoulder pain: Code(s): M25.511 - Pain in right shoulder Category: Medical Plan Patient has shown accountability for her medication regimen and the pill count was accurate.?There is no evidence of misuse, abuse or diversion at this time. [employer] reviewed. Prescription for oxycodone for 30 days sent with advanced date of 11/08/24. Patient is aware of monitoring for side effects. Patient has Narcan at home. Encouraged daily physical activity, stretching exercises, meditation, massage, adequate hydration and weight loss. All questions were answered and the patient is in agreement with the plan. Follow up in one month for pill count or sooner as needed. Medications: Refilled oxycodone Partial Fill upon patient request. 5 mg PO TID PRN 90 tabs 0RF pain 30 days G89.4 - Chronic pain syndrome, M25.561 - Pain in right knee, M25.562 - Pain in left knee, Z79.891 - superintendent terminal (current) use of opiate analgesic Coding Level of Care Code Est Pt Level 4 (47543) Complex EM visit Add On G2211 Diagnoses Opioid contract exists Z79.891 Chronic pain syndrome G89.4 Fibromyalgia M79.7 Bilateral knee pain M25.561; M25.562 Cervicalgia M54.2 Right shoulder pain M25.511
[2024-10-22 15:40] VITALS: BP 132/70; RESP 18; BMI 47.0
--- OUTSIDE RECORDS SUMMARY | 2024-10-22 17:41 | XMS_ITS | Clinical Summary ---
Author Organization [facility] Address [address] [place] [address] Care Team Providers Care Payment Collector Name Role Phone Unavailable Primary Care Provider [...] 5000 PLUS) 1.1 % creaIndications :Enamel caries Vici twice daily with toothpaste then expectorate. Do not rinse. 51 g 4 4 Active Active Problems Problem Noted Date Diagnosed Date Asthma ([facility]) 05/16/2022 Severe obesity ([facility]) 05/16/2022 Enamel caries 05/16/2022 Extraction of tooth needed 05/16/2022 Overview (05/16/2022): #19 and 31 Abnormal mammogram 04/04/2022 At moderate risk for fall 11/15/2021 Atrophic vulva 11/15/2021 Benign essential hypertension 11/15/2021 Fibromyalgia 11/15/2021 Hyperlipidemia 11/15/2021 Irritable bowel syndrome 11/15/2021 Migraine 11/15/2021 Mixed stress and urge urinary incontinence 11/15 Polyp of colon 11/15/2021 Type 2 diabetes mellitus ([facility]) 11/15/2021 Overview (05/16/2022): endo endo Sleep apnea [...] with hand surgeon 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 ([facility]) 03/10/2018 Gastroesophageal reflux disease 03/10/2018 History of [...] followed by warmth as well as enlarged plumber assistant on tools and utensils and her pain [...] Nonalcoholic steatohepatitis ([facility]) 08/11/2013 Paroxysmal atrial fibrillation ([facility]) 014 Encounters Date Type Department Care Team Description 07/31/2024 1:00 PM EST Office Visit [facility] [address] [place] [phone] Vanessa Villafana DENI Caries (Primary Dx) 07/31/2024 Travel from [...] Description 11/26/2024 1:00 PM EDT Office Visit [facility] [address] [place] [phone] [address] [place] [address] Health Maintenance Due Date Last Done Comments Anxiety Screening 1962 Diabetes Foot Exam 1960 EGD (Upper Endoscopy) 1962 HPV Screening [...] 3 - Ri sk 3-dose series) 2022 Urine Albumin Creatinine Rat io Screening 12/25/2022 12/25/2021 Dental Perio Charting 05/18/2023 05/16/2022 [id number] ( season) 2024 11/22/2021, 06/01/2021, 10/07/2020, Additional [...]
--- OUTSIDE RECORDS SUMMARY | 2024-10-22 17:41 | XMS_ITS | Clinical Summary ---
Author Organization [facility] Address [address] [place] [address] Care Team Providers Care Kiln Tester Name Role Phone Williams Eubanks MD Primary Care Provider [phone] Allergies Active Allergy Reactions Criticality Noted Date [...] DAY 90 DAYS 0 03/04/2022 Active nystatin 976302 UNIT/GM external powder APPLY POWDER TOPICALLY TO [...] of blood transfusion s as patient is Gnosticism 04/03/2018 Family history of colon cancer in [...] age to complete this topic Care Teams Kiln Tester Relationship Specialty Start Date End Date Williams Eubanks MD [address] [place] [address] PCP - General Family Medicine 01/21/19
--- OUTSIDE RECORDS SUMMARY | 2024-10-22 17:41 | XMS_ITS | Clinical Summary ---
Author Organization [facility] Facility Address [address] [address] Care Team Providers Care Bellstand Attendant Name Role Phone Williams Eubanks Primary Care Provider [phone] Allergies Active Allergy Reactions Criticality Noted Date [...] sodium chloride (OCEAN) 0.65 % nasal spray [place] as directed Active Cranberry 400 MG capsule [...] time each day Active Cobalamin Combinations (Vitamin J18-Ikvsy Acid) 500-400 MCG tablet Duration: 1 Active Probiotic Product (PROBIOTIC PEARLS PO) Take 1 capsule by mouth 1 (one) time each day Active [place]-3 Fatty Acids (OMEGA 3 PO) Take 1 [...] Diagnosed Date Right upper quadrant pain 05/08/20232022 long-term current use of insulin 01/09/2023 05/08/2023 H/O: [...] followed by warmth as well as 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 [address] [place] [address] Gabriele Lopez MD [address] [address] Health Maintenance Due Date Last Done Comments Breast Cancer Screening 1960 Pneumococcal Vaccine: Peds ( 0 to 5 Years) and At-Risk Patients (6 to 49 Years) (1 of 2 - PCV) 1968 Colorectal Cancer Screening: Annual FOBT 2011 Colorectal Cancer Screening: Colonoscopy 2011 Colorectal Cancer Screening: Sigmoidoscopy 2011 Diabetes: Ophthalmology Exam 08/11/2020 Diabetes: Pedal Pulse Checked 08/11/2020 Diabetes: Sensory Foot Exam 08/11/2020 Diabetes: Visual Foot Exam 08/11/2020 Hepatitis B Vaccine (1 of 3 - Risk 3-dose series) 2022 Diabetes: Hemoglobin A1C 10/10/2023 07/11/2023, 12/14 Influenza Vaccine (Season Ended) 2025 03/28/2021, 03/29/2020, 03/29/2020, Additional history exists Procedures Procedure [...] ug/dl PVNMA 01/09/2019 us Rtama Conversion LAB [id number] LICITED RESULTS Final Result PVNMA from Last 3 Months or Most Recently Relevant to Health Maintenance Insurance Medicare Medicare Care Teams Bellstand Attendant Relationship Specialty Start Date End Date Williams Eubanks DO [address] [place] [address] PCP - General 07/25/20
--- OUTSIDE RECORDS SUMMARY | 2024-10-22 17:41 | XMS_ITS | Encounter Summary ---
Author [facility] Address [address] [place] [address] Care Team Providers Care Bulk Fluids Handler Name Role Phone RaimundoWilliams Primary Care Provider [phone] Reason for Referral * Imaging (Routine) - Authorized Specialty Diagnoses / Procedures Referred By Johana gaxiola Referred To Contact Radiology Diagnoses Cirrhosis of liver without ascites, unspecified hepatic cirrhosis type (CMS/HCC V24, CMS/HCC V28) Procedures US Abdomen Limited Yg Chahal PA [address] [address] Phone: tel: fax: [facility] Ultrasound [address] [place] [address] Phone: tel: Referral ID Status Reason Start Date Expiration Date V isits Requested Visits Authorized [id number] Authorized 10/19/2024 10/19/2025 1 1 Encounter Details Date Type Department Care Team (Late st Contact Info) Description 10/19/2024 Telephone Gastroenterology - [place] 175 [facility] 175 [facility] [address] [place] [phone] Yg Chahal PA [address] [id number] Social History Tobacco Use Types Packs/Day Years Used Date Smoking Tobacco: Former Cigarettes 2 6.4 0 1978 - 08/11/1984 Smokeless Tobacco: Never Alcohol Use Standard Drinks/Week Comments Not Currently 0 (1 standard drink = 0.6 oz pur e alcohol) Comments Unknown Sex and Gender Information Value Date Recorded Sex Assigned at Not on file Legal Sex Female 5:41 AM EST Gender Identity Not on file Sexual Orientation Not on file documented as of this encounter Progress Notes * SEGUN Liu - 10/19/2024 8:03 PM EDT Cirrhosis needs labs and ultrasound documented in this encounter Plan of Treatment Upcoming Encounters Date Type Department Care Team (Late st Contact Info) Description 04/09/2025 11:30 AM EDT Office Visit [facility] Hematology Oncology [address] [place] [address] Amarilis Reyes MD [address] [place] [phone] Scheduled Orders Name Type Priority Associated Diagnoses Orde r Schedule CBC and differential Lab Routine Cirrhosis of liver without ascites, unspecified hepatic cirrhosis type (CMS/HCC V24, CMS/HCC V28) Expected: 10/19/2024, Expires: 10/19/2025 Comprehensive metabolic panel Lab Routine Cirrhosis of liver without ascites, unspecified hepatic cirrhosis type (CMS/HCC V24, CMS/HCC V28) Expected: 10/19/2024, Expires: 10/19/2025 Alpha fetoprotein tumor marker Lab Routine Cirrhosis of liver without ascites, unspecified hepatic cirrhosis type (CMS/HCC V24, CMS/HCC V28) Expected: 10/19/2024, Expires: 10/19/2025 Prothrombin time with INR Lab Routine Cirrhosis of liver without ascites, unspecified hepatic cirrhosis type (CMS/HCC V24, CMS/HCC V28) Expected: 10/19/2024, Expires: 10/19/2025 US Abdomen Limited Imaging Routine Cirrhosis of liver without ascites, unspecified hepatic cirrhosis type (CMS/HCC V24, CMS/HCC V28) Expected: 10/19/2024, Expires: 10/19/2025 documented as of this encounter Visit Diagnoses Diagnosis Cirrhosis of liver without ascites, unspecified hepatic cirrhosis type (CMS/HCC V24, CMS/HCC V28)- Primary documented in this encounter Care Teams Bulk Fluids Handler Relationship Specialty Start Date End Date Williams Eubanks DO [address] [place], [place] PCP - General Family Medicine 01/21/19 documented as of this encounter
--- OUTSIDE RECORDS SUMMARY | 2024-10-22 17:41 | XMS_ITS | Clinical Summary ---
Author Organization [facility] Address [address] [place] [address] Phone Care Team Providers Care Rim Fire Priming Tool Setter Name Role Phone Williams Eubanks Primary Care Provider [phone] Allergies Active Allergy Reactions Criticality Noted Date [...] mammogram 04/04/2022 Skin lesion 04/03/2021 Cryptogenic cirrhosis ([facility] V24, [facility] V28) 03/10/2018 DM (diabetes mellitus), type 2 with ophthalmic complications ([facility] V24, [facility] V28) 03/10/2018 GERD (gastroesophageal reflux disease) 8 Iron deficiency anemia 03/10/2018 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 Anxiety 08/11/2013 GUTHRIE (nonalcoholic steatohepatitis) 08/11/2013 Paroxysmal atrial fibrillation ([facility] V24, [facility] V28) 08/11/2013 Encounters Date Type Department Care Team Description 10/19/2024 Telephone Gastroenterology - [place] [address] [place] [address] [facility] [address] [place] [address] Yg Chahal PA from Last 3 Months Immunizations Name Administration Dates Next Due Moderna SARS-CoV-2 COVID-19, mRNA, LNP-S, preservative free 11/22/2021,06/01/2021,10/07/2020,2020 Surgical History Surgery Date Site/Laterality Comments ROTATOR CUFF REPAIR 04/2012 Left PROCEDURE: HISTORICAL ROTATOR CUFF REPAIR FOOT SURGERY 07/2010 Left PROCEDURE: HISTORICAL FOOT SURGERY; COMMENT: arthrodesis 1st intermetatarsal base L foot APPENDECTOMY PROCEDURE: HISTORICAL APPENDECTOMY SECTION PROCEDURE: HISTORICAL OTHER SURGICAL HISTORY 08/2012 PROCEDURE: NC BIOPSY LIVER NEEDLE PERCUTANEOUS UPPER GASTROINTESTINAL ENDOSCOPY 01/11/2015 PROCEDURE: NC UPPER GI ENDOSCOPY PERFORMED; COMMENT: Normal COLONOSCOPY 11/08/2015 PROCEDURE: HISTORICAL COLONOSCOPY; COMMENT: Colon Polyps. Repeat 5 yrs OTHER SURGICAL HISTORY 02/2014 Right PROCEDURE: NC RMVL LUNG XCP TOT PNEUMONECTOMY SLEEVE LOBECTOMY; COMMENT: Right Upper Lobe, Wedge Resection COLONOSCOPY 12/28/2020 PROCEDURE: HISTORICAL COLONOSCOPY; COMMENT: tubular adenomas Medical History Medical History Date Comments Paroxysmal atrial fibrillati on ([facility] V24, [facility] V28) 08/11/2013 DX:Paroxysmal atrial fibril lation ([facility]) Allergic rhinitis 08/11/2013 DX:Allergic rh initis Anxiety 08/11/2013 DX:Anxiety Sjogren's syndrome ([facility] V24) DX:Sjogren's syndrome ([facility]) GERD (gastroesophageal reflux disease) 8 DX:GERD (gastroesophageal [...] obesity with BMI of 4 0.0-44.9, adult (CMS/HCC V24, CMS/HCC V28) 03/10/2018 DX:Morbid obesity wit h BMI of 40.0-44.9, adult (HCC) Fibromyalgia 03/10/2018 DX:Fibromyalgia Depression 03/10/2018 DX:Depression Pulmonary nodule 08/11/2013 DX:Pulmonary no dule; COMMENT: CT 10/2017, 4 mm stable lesion within Right middle lobe abbuting the major fissure Liver lesion 03/10/2018 DX:Liver lesion; COMMENT: CT, 02/2017, 10 mm liver lesion Diabetic retinopathy (CMS/HC C V24, CMS/HCC V28) 03/10/2018 DX:Diabetic retinopathy (HCC ) Psoriasis 03/10/2018 DX:Psoriasis DM (diabetes mellitus), type 2 with ophthalmic complications (CMS/HCC V24, CMS/HCC V28) 03/10/2018 DX:DM (diabetes mellitus), t ype 2 with ophthalmic complications (HCC) Non-alcoholic fatty liver disease 08/11/2013 DX:Non-alcoholic fatty liver disease Pain in joint, multiple sites 08/11/2013 DX :Pain in joint, multiple sites History of lung cancer 03/10/2018 DX:Histor y of lung cancer; COMMENT: 2013, Right, Adenocarcinoma, Stage IB, T2A/B NX Tumor, Lobectomy Refusal of blood transfusion s as patient is Amish 04/03/2018 DX:Refusal of blood trans fusions as patient is Amish Asthma 05/14/2019 DX:Asthma Cryptogenic cirrhosis (CMS/H CC V24, 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) Vitamin D deficiency 05/14/2019 DX:Vitamin D deficiency OAB (overactive bladder) 05/14/2019 DX:OAB (overactive bladder) GUTHRIE (nonalcoholic steatohepatitis) 08/11/2013 DX:GUHTRIE (nonalcoholic steatohepatitis) Cirrhosis of liver (CMS/HCC V24, CMS/HCC V28) DX:Cirrhosis of liver (HCC) Refusal of blood transfusion s as patient is Amish DX:Refusal of blood trans fusions as patient is Amish; COMMENT: Patient states may possibly accept Cell [...] Description 04/09/2025 11:30 AM EDT Office Visit [facility] Hematology Oncology [address] [place] [phone] Amarilis Reyes MD [address] [place] [phone] Health Maintenance Due Date Last Done Comments [...] - Risk 3-dose series) 2022 RSV Immunization Adult Patients (1 - Risk 60-74 years 1-dose series) 2022 Colorectal Cancer Screening: Colonoscopy 06/23/2022 Depression Screening 06/23/2022 HIV Screening 06/23/2022 Hepatitis C Screening 06/23/2022 Medicare Annual Wellness Visit 06/23/2022 Social Influencers of Health Screening 06/23/2022 Diabetes: Blood Sugar Control Test (HGBA1C) 01/10/2024 07/11/2023 COVID-19 Vaccine ( season) 2024 11/22/2021, 06/01/2021, 10/07/2020, Additional history exists Diabetes: Annual GFR (Glomerular Filtration Rate) 07/11/2024 07/11/2023 Hypertension/CHF/CAD Annual BMP Blood Test 07/11/2024 07/11/2023 Diabetes: Annual Urine Albumin-Creatinine Ratio (uACR) 02/25/2025 02/26/2024, 07/11/2023, 07/11/2023 Influenza Vaccine (Season Ended) 2025 03/28/2021, 03/29/2020, 04/06/2019, Additional history exists Cholesterol Screening (Lipid Panel) 07/11/2028 07/11/2023 HIB [...] age to complete this topic Meningococcal B Vaccine Aged Out No l onger eligible based on patient's age to complete this topic RSV Immunization Patients Under 20 months Aged Out No longer eligible based on patient's age to complete this topic Varicella Vaccines Aged Out No longer eligible based on patient's age to complete this topic Procedures Procedure Name Priority Date/Time Associated Diagnosis Comments URINE ALBUMIN CREATININE RATIO Routine 07/11/2023 ANNUAL BMP BLOOD TEST Routine 07/11/2023 HEMOGLOBIN A1C Routine 07/11/2023 LIPID PANEL Routine 07/11/2023 from Last 3 Months or Most Recently Relevant to Health Maintenance Results * Urine Albumin Creatinine Ratio (07/11/2023) [facility]ologist [facility] Urine Albumin Creatinine Ratio abstracted Result [facility] HEALTH MAINTENANCE Final Result * Annual BMP Blood Test (07/11/2023) Pathologist [facility] Annual BMP Blood Test abstracted Result [facility] Provider HEALTH MAINTENANCE Final Result * Hemoglobin A1c (07/11/2023) Pathologist [facility] Hemoglobin A1C 0.0 % Comment:no interpretation,ab stracted Blood Venous blood specimen / Unknown Result [facility] Provider LAB BLOOD ORDERABLES Sridevi l Result * Lipid panel (07/11/2023) Pathologist [facility] LDL/HDL Ratio 0 Comment:no interpretation,ab stracted Triglycerides 0 mg/dL Comment:no interpretation,ab stracted Cholesterol 0 mg/dL Comment:no interpretation,ab stracted HDL 0 mg/dL Comment:no interpretation,ab stracted LDL Cholesterol 0 mg/dL Comment:no interpretation,ab stracted Blood Venous blood specimen / Unknown Result [facility] Provider LAB BLOOD ORDERABLES Sridevi l Result from Last 3 Months or Most Recently Relevant to Health Maintenance Insurance MEDICARE Advance Directives Documents on File Type Date Recorded Patient Animal Therapist Expl anation Health Care Decision (hx) 03/01/2014 [...] (hx) 02/12/2014 AD GARCIAS DIRECTIVE Care Teams Rim Fire Priming Tool Setter Relationship Specialty Start Date End Date Williams Eubanks DO [address] [place], [place] PCP - General Family Medicine 01/21/19
--- OUTSIDE RECORDS SUMMARY | 2024-10-22 17:42 | XMS_ITS | Encounter Summary ---
Author Organization [facility] Address [address] [place] [address] Care Team Providers Care Dehairer Name Role Phone Williams Eubanks MD Primary Care Provider [phone] Encounter Details Date Type Department Care Team Description 07/27/2022 Social Work [facility] [address] [place] [address] [facility] Social History Tobacco Use Types Packs/Day [...] on filedocumented in this encounter Care Teams Dehairer Relationship Specialty Start Date End Date Williams Eubanks MD [address] [place] [phone] PCP - General Family Medicine 01/21/19 documented as of this encounter
== END 2024-10-22 15:37 | disposition home or self-care (01) ==
LOC: HO.PMC 15:20
PROVIDERS: PCP Family Medicine; Visit Provider Nurse Practitioner Family
DX: G89.4 Chronic pain syndrome (principal); M79.7 Fibromyalgia; M25.561 Pain in right knee; Z79.891 Long term (current) use of opiate analgesic; M25.562 Pain in left knee; M54.2 Cervicalgia; M25.511 Pain in right shoulder
CPT/HCPCS: 99214; G2211

== ENCOUNTER → 2024-10-22 15:19 | Outpatient (BNVA) | payer MEDICARE, SELFPAY | PROVIDERS: PCP Family Medicine; Visit Provider Nurse Practitioner Family | DX: Z51.81 Encounter for therapeutic drug level monitoring (principal); M25.561 Pain in right knee; M25.562 Pain in left knee; M54.2 Cervicalgia; M25.511 Pain in right shoulder; M79.7 Fibromyalgia; G89.4 Chronic pain syndrome; Z79.891 Long term (current) use of opiate analgesic | CPT/HCPCS: 99212 ==

== ENCOUNTER 2024-11-26 15:27 | Outpatient (AMB) | payer MEDICARE, SELFPAY ==
--- NOTE | 2024-11-26 15:29 | MHC.OFFVIS ---
Vital Signs 11/26/24 15:38 Height 5 ft 5 in Weight 278 lb 4 oz BMI 46.3 BP 122/60 Blood Pressure Location Lt brachial Position Sitting Respiration 16 Pulse 82 Pulse Source Pulse Oximeter Intake Visit Reasons: Pill Count Intake Note: Lina comes in today for a pill count to oxycodone, patient should have 33 tablets and presents with 40 tablets which she last took today 12/06/24 between 1-2pm. Pain today 310 Strategic Communications Manager Required: No Accompanied by: Spouse Allergies aspartame Allergy (Unknown, Verified 11/26/24 15:38) Unknown cephalexin Allergy (Unknown, Verified 11/26/24 15:38) Unknown cyclobenzaprine Allergy (Unknown, Verified 11/26/24 15:38) Unknown dobutamine Allergy (Unknown, Verified 11/26/24 15:38) Unknown indomethacin Allergy (Unknown, Verified 11/26/24 15:38) Unknown levofloxacin [Levaquin] Allergy (Unknown, Verified 11/26/24 15:38) Unknown morphine Allergy (Unknown, Verified 11/26/24 15:38) Unknown penicillin V Allergy (Unknown, Verified 11/26/24 15:38) Unknown tramadol Allergy (Unknown, Verified 11/26/24 15:38) Unknown NSAIDS (Non-Steroidal Anti-Inflamma Adverse Reaction (Severe, Verified 11/26/24 15:38) afib Latex Gloves Allergy (Unknown, Uncoded 03/26/24 14:17) Unknown HPI Comments Details: Lina presents today for a pill count. Patient is supposed to have #33 pills, in her possession has #40 pills. This demonstrates a responsible attitude in regards to the medication regimen. Patient reports adequate analgesia on her regimen of oxycodone 5 mg TID prn with no noted side effects. Pain is rated at 3/10. Denies any recent cough, cold, infection, fever, or any significant changes in her medical history, medications or recent hospitalizations. She reports seasonal and environmental allergies managed with Zertec, Flonase nasal spray, Pataday eye drops and had to use rescue inhaler. Past Procedures: 08/30/23: Right elbow steroid injection-90% pain relief for 1.5 months [facility] Medical History (Updated 11/26/24 @ 15:47 by TIMOTHY Perez) Environmental and seasonal allergies Chronic pain syndrome History of lung cancer Diabetes type 2 with atherosclerosis of arteries of extremities Morbid obesity Gout, arthritis Morbidly obese Gout Psoriasis Arthritis Family history of lung cancer Lung cancer Diabetic retinopathy Willaimson's palsy Sciatica Plantar fasciitis, bilateral Rosacea Sleep apnea Asthma GERD (gastroesophageal reflux disease) IBS (irritable bowel syndrome) Nerve pain Migraine Carpal tunnel syndrome, bilateral Diabetic cheirarthropathy Fibromyalgia Non-alcoholic micronodular cirrhosis of liver Paroxysmal atrial fibrillation Primary Sjogren's syndrome Type 2 diabetes mellitus Surgical History History of carpal tunnel release History of lung surgery History of appendectomy History of repair of left rotator cuff History of section Social History Alcohol intake: never Patient Tobacco Use Status: Former Tobacco user Current occupational status: disabled Review of Systems Const All systems reviewed & are unremarkable except as noted in HPI and below Physical Exam Vital Signs: Last Vital Signs Pulse 82 11/26/24 15:38 Resp 16 11/26/24 15:38 BP 122/60 11/26/24 15:38 BMI result Body Mass Index 46.3 General: Appears afebrile. No acute distress. Alert and oriented. Mood and affect appropriate. Follows and participates in conversation appropriately. Respiratory effort is unlabored. No cough. Wears facemask. Able to transition from sit to stand unassisted. Ambulates with cane. Ambulates with bilaterally normal heel strike and toe off. Extrem Right upper extremity: shoulder/upper arm (limited ROM due to pain) Details: normal to inspection, tenderness (anterior aspects) and crepitus; no swelling Psych Appearance: grossly normal Mental Status: mental status grossly normal Speech and movement: Normal speech and movement present Affect: normal affect Attitude: cooperative Thought process: Normal thought process present Thought content: Normal thought content present, suicidality (none), no hallucinations and No Depressive thoughts present Insight: Good insight present (Psych) Judgement: Good judgement present (Psych) Results Reviewed Results Reviewed: No imaging is available for review. Assessment & Plan Assessment & Plan (1) Opioid contract exists: Code(s): Z79.891 - ferry terminal agent (current) use of opiate analgesic Category: Medical (2) Chronic pain syndrome: Code(s): G89.4 - Chronic pain syndrome Category: Medical (3) Fibromyalgia: Code(s): M79.7 - Fibromyalgia Category: Medical (4) Bilateral knee pain: Code(s): M25.561 - Pain in right knee; M25.562 - Pain in left knee Category: Medical (5) Cervicalgia: Code(s): M54.2 - Cervicalgia Category: Medical Plan Patient has shown accountability for her medication regimen and the pill count was accurate.?There is no evidence of misuse, abuse or diversion at this time. [employer] reviewed. Prescription for oxycodone for 30 days sent with advanced date of 12/08/24. Patient is aware of monitoring for side effects. Patient has Narcan at home. Encouraged daily physical activity, stretching exercises, meditation, massage, adequate hydration and weight loss. All questions were answered and the patient is in agreement with the plan. Follow up in one month for pill count or sooner as needed. Medications: Refilled oxycodone Partial Fill upon patient request. 5 mg PO TID 30 days PRN 90 tabs 0RF pain G89.4 - Chronic pain syndrome, M25.561 - Pain in right knee, M25.562 - Pain in left knee, Z79.891 - ferry terminal agent (current) use of opiate analgesic Coding Level of Care Code Est Pt Level 4 (31061) Complex EM visit Add On G2211 Diagnoses Opioid contract exists Z79.891 Chronic pain syndrome G89.4 Fibromyalgia M79.7 Bilateral knee pain M25.561; M25.562 Cervicalgia M54.2
[2024-11-26 15:38] VITALS: BP 122/60; PULSE 82; RESP 16; BMI 46.3
--- OUTSIDE RECORDS SUMMARY | 2024-11-26 15:55 | XMS_ITS | Clinical Summary ---
Author Organization [facility] Facility Address [address] [address] Care Team Providers Care Plant Controls Specialist Name Role Phone Williams Eubanks Primary Care Provider [phone] Allergies Active Allergy Reactions Criticality Noted Date [...] sodium chloride (OCEAN) 0.65 % nasal spray [place] as directed Active Cranberry 400 MG capsule [...] time each day Active Cobalamin Combinations (Vitamin Q67-Fjzli Acid) 500-400 MCG tablet Duration: 1 Active Probiotic Product (PROBIOTIC PEARLS PO) Take 1 capsule by mouth 1 (one) time each day Active [place]-3 Fatty Acids (OMEGA 3 PO) Take 1 [...] Diagnosed Date Right upper quadrant pain 05/08/20232022 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 [address] [place] [phone] Gabriele Lopez MD [address] [phone] Health Maintenance Due Date Last Done Comments Breast Cancer Screening 1962 Pneumococcal Vaccine: 50+ Ye ars (1 of 2 - PCV) 1981 Colorectal Cancer Screening: Annual FOBT 2011 Colorectal [...] ug/dl PVNMA 01/09/2019 us [facility] [id number] LICITED RESULTS Final Result PVNMA from Last 3 Months or Most Recently Relevant to Health Maintenance Insurance Medicare Medicare Care Teams Plant Controls Specialist Relationship Specialty Start Date End Date Williams Eubanks DO [address] [place] [address] PCP - General 07/25/20
--- OUTSIDE RECORDS SUMMARY | 2024-11-26 15:55 | XMS_ITS | Clinical Summary ---
Author Organization [facility] Address [address] [place] [address] Care Team Providers Care Eco Industrial Development Consultant Name Role Phone Unavailable Primary Care Provider [...] 5000 PLUS) 1.1 % creaIndications :Enamel caries [place] twice daily with toothpaste then expectorate. Do not rinse. 51 g 4 4 Active Active Problems Problem Noted Date Diagnosed Date Asthma ([facility]) 05/16/2022 Severe obesity ([facility]) 05/16/2022 Enamel caries 05/16/2022 Extraction of tooth needed 05/16/2022 Overview (05/16/2022): #19 and 31 Abnormal mammogram 04/04/2022 At moderate risk for fall 11/15/2021 Atrophic vulva 11/15/2021 Benign essential hypertension 11/15/2021 Fibromyalgia 11/15/2021 Hyperlipidemia 11/15/2021 Irritable bowel syndrome 11/15/2021 Migraine 11/15/2021 Mixed stress and urge urinary incontinence 11/15 Polyp of colon 11/15/2021 Type 2 diabetes mellitus ([facility]) 11/15/2021 Overview (05/16/2022): endo endo Sleep apnea [...] Left CTR-f/u with hand surgeon Cryptogenic cirrhosis ([facility]) 03/10/2018 Diabetic oculopathy associat ed with type 2 diabetes mellitus ([facility]) 03/10/2018 Gastroesophageal reflux disease 03/10/2018 History of [...] followed by warmth as well as 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 and her pain [...] Nonalcoholic steatohepatitis (GUTHRIE) 08/11/2013 Paroxysmal atrial fibrillation ([facility]) 014 Social History Tobacco Use Types Packs/Day Years [...] Care Team (Late st Contact Info) Description 12/08/2024 2:20 PM EDT Office Visit [facility] [address] [place] [phone] Vanessa Villafana, DMD [address] [place], [place] [id number] Health Maintenance Due Date Last Done Comments [...] 12/25/2022 12/25/2021 Dental Perio Charting 05/18/2023 05/16/2022 [id number] ( season) 2024 11/22/2021, 06/01/2021, 10/07/2020, Additional history exists Imm-Influenza (#1) 2024 03/28/2021, 0 03/29/2020, 04/06/2019, Additional history exists Lipid Screening 07/11/2024 07/11/2023 Alcohol and Drug Screen 07/15/2024 Depression Annual Screen 07/15/2024 Dental BW 08/11/2024 08/09/2023, 05/16/2022 Dental Prophy 10/24/2024 04/23/2024, 07/16, 05/16/2022 Diabetes HbA1c 12/16/2024 06/17/2024, 08/10/2023, 11/12/2023, Additional history exists Dental Examination 04/25/2025 04/23/2024, 1 , 08/09/2023 Serum Creatinine 06/17/2025 06/17/2024, , 07/11/2023, Additional history exists Tobacco Screening 07/31/2025 07/31/2024 Dental FMX/Pano 05/18/2027 05/16/2022 Cervical Ablation/Cold-Knife Conization Discontinued Cervical Cryotherapy Discontinued Colposcopy Discontinued Endometrial Biopsy Discontinued Excision/Leep Discontinued HPV Genotyping Discontinued Vaginal Pap Discontinued Vulvoscopy Discontinued Procedures Procedure Name Priority Date/Time Associated Diagnosis Comments PROPHYLAXIS - ADULT Routine 04/23/2024 1 :40 [...]
--- OUTSIDE RECORDS SUMMARY | 2024-11-26 15:55 | XMS_ITS | Clinical Summary ---
Author Organization [facility] Address [address] [place] [address] Phone Care Team Providers Care Cabin Crew Name Role Phone Williams Eubanks Primary Care Provider [phone] Allergies Active Allergy Reactions Criticality Noted Date [...] A DAY NEEDED FOR SHORTNESS OF BREATH. 03/20/20 22 Active insulin regular (HumuLIN R U-500, Conc, Kwikpen) 500 unit/mL (3 mL) CONCENTRATED injection pen PLEASE SEE ATTACHED FOR DETAILED DIRECTIONS 02/21/20 Active metFORMIN XR (GLUCOPHAGE-XR) 500 mg 24 hr tablet TAKE 2 TAB(S) ORALLY TWICE A DAY 90 DAYS 03/04/20 Active nystatin (Nystop) 100,000 unit/gram powder APPLY POWDER TOPICALLY TO AFFECTED AREA ONCE DAILY NEEDED 02/22/20 Active olopatadine (PATANOL) 0.1 % ophthalmic solution APPLY 1 DROP INTO BOTH EYES TWICE A DAY 03/27/20 Active oxyCODONE (ROXICODONE) 5 mg immediate release tablet TAKE 1 TABLET BY MOUTH 3 TIMES A DAY NEEDED FOR PAIN X 30 DAYS 07/13/20 Active triamcinolone (KENALOG) 0.1 % cream APPLY CREAM EXTERNALLY TWICE DAILY NEEDED TO AFFECTED AREAS ON BACK, FOLLOWED BY MOISTURIZER 02/22/20 Active fluticasone propionate (FLONASE) 50 mcg/actuation nasal spray Administer 2 sprays into each nostril 2 (two) times a day. Active propranolol LA (INDERAL LA) 80 mg 24 hr capsule TAKE 1 CAPSULE BY MOUTH EVERY DAY AT BEDTIME DO NOT CRUSH CHEW OR SPLIT 90 capsule 1 11/17/19 25 Active propranolol LA (INDERAL LA) 80 mg 24 hr capsule Take 1 capsule (80 mg total) by mouth at bedtime. Do not crush, chew, or split. 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 Anxiety 08/11/2013 GUTHRIE (nonalcoholic steatohepatitis) 08/11/2013 Paroxysmal atrial fibrillation ([facility] V24, [facility] V28) 08/11/2013 Encounters Date Type Department Care Team Description 10/19/2024 Telephone Gastroenterology - [address] [facility] [address] [place] [address] Yg Chahal PA from Last [...] PROCEDURE: HISTORICAL OTHER SURGICAL HISTORY 08/2012 PROCEDURE: VT BIOPSY LIVER NEEDLE PERCUTANEOUS UPPER GASTROINTESTINAL ENDOSCOPY 01/11/2015 PROCEDURE: VT UPPER GI ENDOSCOPY PERFORMED; COMMENT: Normal COLONOSCOPY 11/08/2015 PROCEDURE: HISTORICAL COLONOSCOPY; COMMENT: Colon Polyps. Repeat 5 yrs OTHER SURGICAL HISTORY 02/2014 Right PROCEDURE: VT RMVL LUNG XCP TOT PNEUMONECTOMY SLEEVE LOBECTOMY; COMMENT: Right Upper Lobe, Wedge Resection COLONOSCOPY 12/28/2020 PROCEDURE: HISTORICAL COLONOSCOPY; COMMENT: tubular adenomas Medical History Medical History Date Comments Paroxysmal atrial fibrillati on ([facility] V24, [facility] V28) 08/11/2013 DX:Paroxysmal atrial fibril lation (HCC) Allergic rhinitis 08/11/2013 DX:Allergic rh initis Anxiety 08/11/2013 DX:Anxiety Sjogren's syndrome ([facility] V24) DX:Sjogren's syndrome (HCC) GERD (gastroesophageal reflux disease) 8 [...] of blood transfusion s as patient is Adventism 04/03/2018 DX:Refusal of blood trans fusions as patient is Adventism Asthma 05/14/2019 DX:Asthma Cryptogenic cirrhosis (CMS/H CC V24, 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) Vitamin D deficiency 05/14/2019 DX:Vitamin D deficiency OAB (overactive bladder) 05/14/2019 DX:OAB (overactive bladder) GUTHRIE (nonalcoholic steatohepatitis) 08/11/2013 DX:GUTHRIE (nonalcoholic steatohepatitis) Cirrhosis of liver (CMS/HCC V24, CMS/HCC V28) DX:Cirrhosis of liver (HCC) Refusal of blood transfusion s as patient is Adventism DX:Refusal of blood trans fusions as patient is Adventism; COMMENT: Patient states may possibly accept Cell [...] Description 04/09/2025 11:30 AM EDT Office Visit [facility] Hematology Oncology [address] [place] [address] Amarilis Reyes MD [address] [place] [phone] Health Maintenance Due Date Last Done Comments [...] Results * Urine Albumin Creatinine Ratio (07/11/2023) Urine Albumin Creatinine Ratio abstracted Result [facility] Provider HEALTH MAINTENANCE Final Result * Annual BMP Blood Test (07/11/2023) Annual BMP Blood Test abstracted Result [facility] Provider HEALTH MAINTENANCE Final Result * Hemoglobin A1c (07/11/2023) Hemoglobin A1C 0.0 % Comment:no interpretation,ab stracted Blood Venous blood specimen / Unknown Result [facility] Provider LAB BLOOD ORDERABLES Sridevi l Result * Lipid panel (07/11/2023) LDL/HDL Ratio 0 Comment:no interpretation,ab stracted Triglycerides 0 mg/dL Comment:no interpretation,ab stracted Cholesterol 0 mg/dL Comment:no interpretation,ab stracted HDL 0 mg/dL Comment:no interpretation,ab stracted LDL Cholesterol 0 mg/dL Comment:no interpretation,ab stracted Blood Venous blood specimen / Unknown Result [facility] Provider LAB BLOOD ORDERABLES Sridevi l Result from Last 3 Months or Most Recently Relevant to Health Maintenance Insurance MEDICARE Advance Directives Documents on File Type Date Recorded Patient Die Forger Expl anation Health Care Decision (hx) 03/01/2014 [...] DIRECTIVE Health Care Decision (hx) 02/12/2014 AD GRACIAS DIRECTIVE Health Care Decision (hx) 02/12/2014 AD GARCIAS DIRECTIVE Health Care Decision (hx) 02/12/2014 AD GARCIAS DIRECTIVE Health Care Decision (hx) 02/12/2014 AD GARCIAS DIRECTIVE Care Teams Cabin Crew Relationship Specialty Start Date End Date Williams Eubanks DO [address] [place], [place] PCP - General Family Medicine 01/21/19
--- OUTSIDE RECORDS SUMMARY | 2024-11-26 15:55 | XMS_ITS | Encounter Summary ---
Author Organization [facility] Address [address] [place] [address] Care Team Providers Care Airport Ramp Attendant Name Role Phone Williams Eubanks MD Primary Care Provider [phone] Encounter Details Date Type Department Care Team Description 07/27/2022 Social Work [facility] Oncology Services [address] [place] [address] [facility] Social History Tobacco Use Types Packs/Day [...] on filedocumented in this encounter Care Teams Airport Ramp Attendant Relationship Specialty Start Date End Date Williams Eubanks MD [address] [place] [address] PCP - General Family Medicine 01/21/19 documented as of this encounter
--- OUTSIDE RECORDS SUMMARY | 2024-11-26 15:55 | XMS_ITS | Clinical Summary ---
Author Organization [facility] Address [address] [place] [address] Care Team Providers Care S3B Multi Sensor Operator Name Role Phone Williams Eubanks MD Primary Care Provider [phone] Allergies Active Allergy Reactions Criticality Noted Date [...] DAY 90 DAYS 0 03/04/2022 Active nystatin 249067 UNIT/GM external powder APPLY POWDER TOPICALLY TO [...] of blood transfusion s as patient is [employer] 04/03/2018 Family history of colon cancer in [...] age to complete this topic Care Teams S3B Multi Sensor Operator Relationship Specialty Start Date End Date Williams Eubanks MD [address] [place] [address] PCP - General Family Medicine 01/21/19
== END 2024-11-26 15:44 | disposition home or self-care (01) ==
LOC: HO.PMC 15:28
PROVIDERS: PCP Family Medicine; Visit Provider Nurse Practitioner Family
DX: G89.4 Chronic pain syndrome (principal); M79.7 Fibromyalgia; M25.561 Pain in right knee; Z79.891 Long term (current) use of opiate analgesic; M25.562 Pain in left knee; M54.2 Cervicalgia
CPT/HCPCS: 99214; G2211

== ENCOUNTER → 2024-11-26 15:27 | Outpatient (BNVA) | payer MEDICARE, SELFPAY | PROVIDERS: PCP Family Medicine; Visit Provider Nurse Practitioner Family | DX: Z51.81 Encounter for therapeutic drug level monitoring (principal); M79.7 Fibromyalgia; M25.561 Pain in right knee; M25.562 Pain in left knee; M54.2 Cervicalgia; G89.4 Chronic pain syndrome; Z79.891 Long term (current) use of opiate analgesic | CPT/HCPCS: 99212 ==

== ENCOUNTER 2024-12-31 15:17 | Outpatient (AMB) | payer MEDICARE, SELFPAY ==
--- NOTE | 2024-12-31 15:20 | MHC.OFFVIS ---
Vital Signs 12/31/24 15:33 Height 5 ft 5 in Weight 277 lb 2 oz BMI 46.1 BP 120/68 Blood Pressure Location Lt brachial Position Sitting Respiration 16 Intake Visit Reasons: Pill Count Intake Note: Lina comes in today for a pill count to oxycodone, patient should have 18 tablets and presents with 29 tablets which she last took today 12/31/24 at 2pm. Pain today 8/10 Accompanied by: Spouse Allergies aspartame Allergy (Unknown, Verified 12/31/24 15:33) Unknown cephalexin Allergy (Unknown, Verified 12/31/24 15:33) Unknown cyclobenzaprine Allergy (Unknown, Verified 12/31/24 15:33) Unknown dobutamine Allergy (Unknown, Verified 12/31/24 15:33) Unknown indomethacin Allergy (Unknown, Verified 12/31/24 15:33) Unknown levofloxacin (Levaquin) Allergy (Unknown, Verified 12/31/24 15:33) Unknown morphine Allergy (Unknown, Verified 12/31/24 15:33) Unknown penicillin V Allergy (Unknown, Verified 12/31/24 15:33) Unknown tramadol Allergy (Unknown, Verified 12/31/24 15:33) Unknown NSAIDS (Non-Steroidal Anti-Inflamma Adverse Reaction (Severe, Verified 12/31/24 15:33) afib Latex Gloves Allergy (Unknown, Uncoded 03/26/24 14:17) Unknown HPI Comments Details: Lina presents today for a pill count. Patient is supposed to have #18 pills, in her possession has #29 pills. This demonstrates a responsible attitude in regards to the medication regimen. Patient reports adequate analgesia on her regimen of oxycodone 5 mg TID prn with no noted side effects. Pain is rated at 8/10, low back with bilateral radiculopathy. Patient also reports worsening coccyx pain following a fall last year, which has not been evaluated. She reports significant discomfort when sitting and difficulty finding a comfortable position, impacting her daily activities. The pain radiates and affects her mobility, causing her to alter her walking pattern. Denies any recent cough, cold, infection, fever, or any significant changes in her medical history, medications or recent hospitalizations. She reports seasonal and environmental allergies managed with Zertec, Flonase nasal spray, Pataday eye drops and had to use rescue inhaler. Past Procedures: 08/30/23: Right elbow steroid injection-90% pain relief for 1.5 months [facility] Medical History Environmental and seasonal allergies Chronic pain syndrome History of lung cancer Diabetes type 2 with atherosclerosis of arteries of extremities Morbid obesity Gout, arthritis Morbidly obese Gout Psoriasis Arthritis Family history of lung cancer Lung cancer Diabetic retinopathy Williamson's palsy Sciatica Plantar fasciitis, bilateral Rosacea Sleep apnea Asthma GERD (gastroesophageal reflux disease) IBS (irritable bowel syndrome) Nerve pain Migraine Carpal tunnel syndrome, bilateral Diabetic cheirarthropathy Fibromyalgia Non-alcoholic micronodular cirrhosis of liver Paroxysmal atrial fibrillation Primary Sjogren's syndrome Type 2 diabetes mellitus Surgical History History of carpal tunnel release History of lung surgery History of appendectomy History of repair of left rotator cuff History of section Social History Alcohol intake: never Patient Tobacco Use Status: Former Tobacco user Current occupational status: disabled Review of Systems Const Details: - Musculoskeletal: Reports chronic pain, worsening coccyx pain, and difficulty sitting - Neurological: Reports neuropathy, denies bowel or bladder dysfunction or saddle anesthesia. All systems reviewed & are unremarkable except as noted in HPI and below Physical Exam Vital Signs: Last Vital Signs Resp 16 12/31/24 15:33 BP 120/68 12/31/24 15:33 BMI result Body Mass Index 46.1 General: Appears afebrile. No acute distress. Alert and oriented. Mood and affect appropriate. Follows and participates in conversation appropriately. Respiratory effort is unlabored. No cough. Wears facemask. Able to transition from sit to stand unassisted. Ambulates with cane. Ambulates with bilaterally normal heel strike and toe off. General: Yes no CVA tenderness Back/Spine/Pelvis Back: no CVA tenderness and back tenderness Cervical Spine: cervical ROM normal, cervical muscular tenderness, pain with cervical ROM and No Cervical spine tenderness Thoracic/Lumbar Spine: thoracic and lumbar spine normal to inspection, Lasegue's sign positive bilateral and diffuse, No thoracic spinal tenderness and lumbar spinal tenderness (L4-S1) Sacroiliac joints: bilaterally tender to palpation Sacrum: tenderness midline Coccyx: Coccyx tenderness present (per patient, h/o fall 2023) Extrem General: Yes capillary refill normal, Yes no clubbing, cyanosis or edema and Yes no calf tenderness Psych Appearance: grossly normal Mental Status: mental status grossly normal Speech and movement: Normal speech and movement present Affect: normal affect Attitude: cooperative Thought process: Normal thought process present Thought content: Normal thought content present, suicidality (none), no hallucinations and No Depressive thoughts present Insight: Good insight present (Psych) Judgement: Good judgement present (Psych) Results Reviewed Results Reviewed: No imaging is available for review. Assessment & Plan Assessment & Plan (1) Coccydynia: Code(s): M53.3 - Sacrococcygeal disorders, not elsewhere classified Category: Medical (2) Low back pain: Code(s): M54.50 - Low back pain, unspecified Category: Medical (3) Lumbar radiculopathy: Code(s): M54.16 - Radiculopathy, lumbar region Category: Medical (4) Opioid contract exists: Code(s): Z79.891 - longterm (current) use of opiate analgesic Category: Medical (5) Chronic pain syndrome: Code(s): G89.4 - Chronic pain syndrome Category: Medical (6) Fibromyalgia: Code(s): M79.7 - Fibromyalgia Category: Medical (7) Bilateral knee pain: Code(s): M25.561 - Pain in right knee; M25.562 - Pain in left knee Category: Medical (8) Cervicalgia: Code(s): M54.2 - Cervicalgia Category: Medical Plan Patient has shown accountability for her medication regimen and the pill count was accurate.?There is no evidence of misuse, abuse or diversion at this time. Zoodigt reviewed. Prescription for oxycodone for 30 days sent with advanced date of 01/08/25. Patient is aware of monitoring for side effects. Patient has Narcan at home. Patient has upcoming vacation travels in January and notify us with any changes, to ensure adequate supply for medication. Encouraged daily physical activity, stretching exercises, meditation, massage, adequate hydration and weight loss. The patient will undergo x-rays to evaluate the coccyx and lumbar spine for any fractures or abnormalities. She is advised to contact the clinic if her pain worsens or if new symptoms arise. All questions were answered and the patient is in agreement with the plan. Follow up in one month for pill count or sooner as needed. Patient was informed and verbally consented to the use of an ambient scribe for clinic note documentation during this visit. Orders: Orders XR sacrum coccyx min 2V Today M53.3 - Sacrococcygeal disorders, not elsewhere classified XR lumbar spine 6V w bending Today M54.16 - Radiculopathy, lumbar region, M54.50 - Low back pain, unspecified Medications: Refilled oxycodone Partial Fill upon patient request. 5 mg PO TID PRN 90 tabs 0RF pain 30 days G89.4 - Chronic pain syndrome, M25.561 - Pain in right knee, M25.562 - Pain in left knee, Z79.891 - longterm (current) use of opiate analgesic Coding Level of Care Code Est Pt Level 4 (80085) Complex EM visit Add On G2211 Diagnoses Coccydynia M53.3 Low back pain M54.50 Lumbar radiculopathy M54.16 Opioid contract exists Z79.891 Chronic pain syndrome G89.4 Fibromyalgia M79.7 Bilateral knee pain M25.561; M25.562 Cervicalgia M54.2
[2024-12-31 15:33] VITALS: BP 120/68; RESP 16; BMI 46.1
--- OUTSIDE RECORDS SUMMARY | 2024-12-31 16:34 | XMS_ITS | Clinical Summary ---
Author Organization [facility] Facility Address [address] [address] Care Team Providers Care Keg Varnisher Name Role Phone Williams Eubanks Primary Care Provider [phone] Allergies Active Allergy Reactions Criticality Noted Date [...] sodium chloride (OCEAN) 0.65 % nasal spray [place] as directed Active Cranberry 400 MG capsule [...] time each day Active Cobalamin Combinations (Vitamin T32-Auwlh Acid) 500-400 MCG tablet Duration: 1 Active Probiotic Product (PROBIOTIC PEARLS PO) Take 1 capsule by mouth 1 (one) time each day Active [place]-3 Fatty Acids (OMEGA 3 PO) Take 1 [...] Diagnosed Date Right upper quadrant pain 05/08/20232022 emt intermediate current use of insulin 01/09/2023 05/08/2023 H/O: [...] labs Pleura finding 07/19/2022 05/08/2023 Keratoconjunctivitis sicca ( excluding Sj gren syndrome) 06/15/2022 05/08/2023 Overview (05/08/2023): Sicca syndrome with [...] or disc herniation which is less likely. Sj gren's syndrome 09/23/2019 Lateral epicondylitis of left humerus [...] followed by warmth as well as enlarged hr assistant on tools and utensils and her [...] Office Visit [facility] [address] [place] [address] Gabriele Lopez MD [address] [phone] Health Maintenance Due Date Last Done Comments [...] ug/dl PVNMA 01/09/2019 us Rtama Conversion LAB [id number] LICITED RESULTS Final Result PVNMA from Last 3 Months or Most Recently Relevant to Health Maintenance Insurance Medicare Medicare Care Teams Keg Varnisher Relationship Specialty Start Date End Date Williams Eubanks DO [address] [place] [address] PCP - General 07/25/20
== END 2024-12-31 15:44 | disposition home or self-care (01) ==
LOC: HO.PMC 15:18
PROVIDERS: PCP Family Medicine; Visit Provider Nurse Practitioner Family
DX: M53.3 Sacrococcygeal disorders, not elsewhere classified (principal); M54.50 Low back pain, unspecified; M54.16 Radiculopathy, lumbar region; Z79.891 Long term (current) use of opiate analgesic; G89.4 Chronic pain syndrome; M79.7 Fibromyalgia; M25.561 Pain in right knee; M25.562 Pain in left knee; M54.2 Cervicalgia
CPT/HCPCS: 99214; G2211

== ENCOUNTER → 2024-12-31 15:17 | Outpatient (BNVA) | payer MEDICARE, SELFPAY | PROVIDERS: PCP Family Medicine; Visit Provider Nurse Practitioner Family | DX: Z51.81 Encounter for therapeutic drug level monitoring (principal); M54.50 Low back pain, unspecified; M54.16 Radiculopathy, lumbar region; M53.3 Sacrococcygeal disorders, not elsewhere classified; M79.7 Fibromyalgia; M25.561 Pain in right knee; M25.562 Pain in left knee; M54.2 Cervicalgia; G89.4 Chronic pain syndrome; Z79.891 Long term (current) use of opiate analgesic | CPT/HCPCS: 99212 ==

== ENCOUNTER 2025-02-04 11:15 | Outpatient (AMB) | payer MEDICARE, SELFPAY ==
--- NOTE | 2025-02-04 11:15 | A.OFFVIS_ITS ---
Vital Signs 3 02/04/25 11:35 Height 5 ft 5 in Weight 276 lb BMI 45.9 BP 128/70 Blood Pressure Location Lt brachial Position Sitting Intake Visit Reasons: Pill Count/ random UDS Intake Note: Lina comes in today for a pill count to oxycodone, patient should have 9 tablets and presents with 15 tablets which she last took today 02/04/25 at 7:30am. Pain today 09/21 Patient will also have a random UDS done today, aware that she will need to go to the lab on the first floor of this building today 02/04/25 before 12pm. Accounting System Expert Required: No Accompanied by: Spouse Allergies aspartame Allergy (Unknown, Verified 02/04/25 11:36) Unknown cephalexin Allergy (Unknown, Verified 02/04/25 11:36) Unknown cyclobenzaprine Allergy (Unknown, Verified 02/04/25 11:36) Unknown dobutamine Allergy (Unknown, Verified 02/04/25 11:36) Unknown indomethacin Allergy (Unknown, Verified 02/04/25 11:36) Unknown levofloxacin (Levaquin) Allergy (Unknown, Verified 02/04/25 11:36) Unknown morphine Allergy (Unknown, Verified 02/04/25 11:36) Unknown penicillin V Allergy (Unknown, Verified 02/04/25 11:36) Unknown tramadol Allergy (Unknown, Verified 02/04/25 11:36) Unknown NSAIDS (Non-Steroidal Anti-Inflamma Adverse Reaction (Severe, Verified 02/04/25 11:36) afib Latex Gloves Allergy (Unknown, Uncoded 03/26/24 14:17) Unknown HPI Comments Details: Lina presents today for a pill count. Patient is supposed to have #9 pills, in her possession has #15 pills. This demonstrates a responsible attitude in regards to the medication regimen on as needed for moderate-severe pain only. Patient reports adequate analgesia on her regimen of oxycodone 5 mg TID prn with no noted side effects. Pain is rated at 3/10, low back and bilateral buttock and coccyx pain. Patient has worsening coccyx pain following a fall last year, which has not been evaluated. She reports significant discomfort when sitting and difficulty finding a comfortable position, impacting her daily activities. The pain radiates and affects her mobility, causing her to alter her walking pattern. Her recent lumbar spine and sacrum/coccyx x-rays noted for mild degenerative changes and no fracture. Denies any recent cough, cold, infection, fever, or any significant changes in her medical history, medications or recent hospitalizations. Past Procedures: 08/30/23: Right elbow steroid injection-90% pain relief for 1.5 months [facility] Medical History Environmental and seasonal allergies Chronic pain syndrome History of lung cancer Diabetes type 2 with atherosclerosis of arteries of extremities Morbid obesity Gout, arthritis Morbidly obese Gout Psoriasis Arthritis Family history of lung cancer Lung cancer Diabetic retinopathy Williamson's palsy Sciatica Plantar fasciitis, bilateral Rosacea Sleep apnea Asthma GERD (gastroesophageal reflux disease) IBS (irritable bowel syndrome) Nerve pain Migraine Carpal tunnel syndrome, bilateral Diabetic cheirarthropathy Fibromyalgia Non-alcoholic micronodular cirrhosis of liver Paroxysmal atrial fibrillation Primary Sjogren's syndrome Type 2 diabetes mellitus Surgical History History of carpal tunnel release History of lung surgery History of appendectomy History of repair of left rotator cuff History of section Social History Alcohol intake: never Patient Tobacco Use Status: Former Tobacco user Current occupational status: disabled Review of Systems Const All systems reviewed & are unremarkable except as noted in HPI and below Physical Exam General: Appears afebrile. No acute distress. Alert and oriented. Mood and affect appropriate. Follows and participates in conversation appropriately. Respiratory effort is unlabored. No cough. Wears facemask. Able to transition from sit to stand unassisted. Ambulates with cane. Ambulates with bilaterally normal heel strike and toe off. General: Yes no CVA tenderness Back/Spine/Pelvis Back: no CVA tenderness and back tenderness Cervical Spine: cervical ROM normal, cervical muscular tenderness, pain with cervical ROM and No Cervical spine tenderness Thoracic/Lumbar Spine: thoracic and lumbar spine normal to inspection, No Thoracic/lumbar spine scar(s), pain with thoraco-lumbar ROM, paraspinal muscle tenderness, thoraco-lumbar ROM limited, No thoracic spinal tenderness and lumbar spinal tenderness (L4-S1) Sacroiliac joints: bilaterally (+Juan's, +Pelvic compression) tender to palpation Sacrum: tenderness midline Extrem General: Yes capillary refill normal, Yes no clubbing, cyanosis or edema and Yes no calf tenderness Psych Appearance: grossly normal Mental Status: mental status grossly normal Speech and movement: Normal speech and movement present Affect: normal affect Attitude: cooperative Thought process: Normal thought process present Thought content: Normal thought content present, suicidality (none), no hallucinations and No Depressive thoughts present Insight: Good insight present (Psych) Judgement: Good judgement present (Psych) Results Reviewed Results Reviewed: Assessment & Plan Assessment & Plan (1) Coccydynia: Code(s): M53.3 - Sacrococcygeal disorders, not elsewhere classified Category: Medical (2) Low back pain: Code(s): M54.50 - Low back pain, unspecified Category: Medical (3) Lumbar radiculopathy: Code(s): M54.16 - Radiculopathy, lumbar region Category: Medical (4) Opioid contract exists: Code(s): Z79.891 - oil heaterman (current) use of opiate analgesic Category: Medical (5) Chronic pain syndrome: Code(s): G89.4 - Chronic pain syndrome Category: Medical (6) Fibromyalgia: Code(s): M79.7 - Fibromyalgia Category: Medical (7) Bilateral knee pain: Code(s): M25.561 - Pain in right knee; M25.562 - Pain in left knee Category: Medical Plan Patient has shown accountability for her medication regimen and the pill count was accurate.?There is no evidence of misuse, abuse or diversion at this time. MassPat reviewed. Random UDS will be obtained today. Prescription for oxycodone for 30 days sent with advanced date of 02/06/25. Patient is aware of monitoring for side effects. Patient has Narcan at home. Encouraged daily physical activity, stretching exercises, meditation, massage, adequate hydration and weight loss. All questions were answered and the patient is in agreement with the plan. Follow up in one month for pill count/UDS review or sooner as needed. Medications: Refilled 2 oxycodone Partial Fill upon patient request. 5 mg PO TID PRN 90 tabs 0RF pain 30 days G89.4 - Chronic pain syndrome, M25.561 - Pain in right knee, M25.562 - Pain in left knee, Z79.891 - oil heaterman (current) use of opiate analgesic Coding Level of Care Code Est Pt Level 4 (18150) Complex EM visit Add On G2211 Diagnoses Coccydynia M53.3 Low back pain M54.50 Lumbar radiculopathy M54.16 Opioid contract exists Z79.891 Chronic pain syndrome G89.4 Fibromyalgia M79.7 Bilateral knee pain M25.561; M25.562
[2025-02-04 11:35] VITALS: BP 128/70; BMI 45.9
--- OUTSIDE RECORDS SUMMARY | 2025-02-04 12:09 | XMS_ITS | Encounter Summary ---
Author Organization [facility] Address [address] [place] [phone] Phone Care Team Providers Care Plastic Boat Buffer Name Role Phone Williams Eubanks Primary Care Provider Encounter Details Date Type Department Care Team (Late st Contact Info) Description 03/27/2021 Prep for Surgery [facility] [address] [place] [id number] Gela Ott MD [address] [place] [address] Orthopedics & Sports Medicine, [facility] [place] [address] [email or web address] Social History Tobacco Use Types Packs/Day Years Used Date Smoking Tobacco: Never Smokeless Tobacco: Never Alcohol Use Standard Drinks/Week Comments No 0 (1 standard drink = 0.6 oz pur e alcohol) Comments Unknown Sex and Gender Information Value Date Recorded Sex Assigned at Female 05/17/2021 7:39 AM EDT Legal Sex Female 9:45 PM EDT Gender Identity Female 05/17/2021 7:39 AM EDT Sexual Orientation Straight 05/17/2021 7: 39 AM EDT documented as of this encounter Plan of Treatment Upcoming Encounters Date Type Department Care Team (Late st Contact Info) Description 02/15/2025 1:20 PM EDT Office Visit [facility] [address] [place] [address] [id number] Melanie Morton MD [address] [place] [id number] 05/19/2025 11:20 AM EST Office Visit [facility] [address] [place] [address] Norah Saldana PA-C [address] [place] [address] documented as of this encounter Visit Diagnoses Not on filedocumented in this encounter Care Teams Plastic Boat Buffer Relationship Specialty Start Date End Date Williams Eubanks DO [address] [facility] [place] [address] PCP - General Family Medicine 06/27/17 documented as of this encounter Additional Source Comments The information contained in this document represents components of the legal health record. It is not the complete legal health record.[facility]
--- OUTSIDE RECORDS SUMMARY | 2025-02-04 12:10 | XMS_ITS | Clinical Summary ---
Author Organization [facility] Facility Address [address] [address] Care Team Providers Care Cableman Name Role Phone Williams Eubanks Primary Care Provider [phone] Allergies Active Allergy Reactions Criticality Noted Date [...] sodium chloride (OCEAN) 0.65 % nasal spray [place] as directed Active Cranberry 400 MG capsule [...] time each day Active Cobalamin Combinations (Vitamin A84-Nqdlo Acid) 500-400 MCG tablet Duration: 1 Active Probiotic Product (PROBIOTIC PEARLS PO) Take 1 capsule by mouth 1 (one) time each day Active [place]-3 Fatty Acids (OMEGA 3 PO) Take 1 [...] Diagnosed Date Right upper 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 01/09/2023 05/08/2023 H/O: [...] followed by warmth as well as enlarged 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 and utensils and her pain [...] [facility] [address] [place] [address] Gabriele Lopez MD [address] [phone] Health Maintenance Due Date Last Done Comments [...] A1C 10/10/2023 07/11/2023, 12/14 Influenza Vaccine (#1) 2025 , 03/29/2020, 03/29/2020, Additional history exists Procedures [...] ug/dl PVNMA 01/09/2019 us Rtama Conversion LAB [id number] LICITED RESULTS Final Result PVNMA from Last 3 Months or Most Recently Relevant to Health Maintenance Insurance Medicare Medicare Care Teams Cableman Relationship Specialty Start Date End Date Williams Eubanks DO [address] [place] [address] PCP - General 07/25/20
--- OUTSIDE RECORDS SUMMARY | 2025-02-04 12:10 | XMS_ITS | Clinical Summary ---
Author Organization [facility] Address [address] [place] [address] Phone Care Team Providers Care Upper Trimmer Name Role Phone Williams Eubanks Primary Care Provider [phone] Allergies Active Allergy Reactions Criticality Noted Date [...] ON BACK, FOLLOWED BY MOISTURIZER 2 Active fluticasone propionate (FLONASE) 50 mcg/actuation nasal spray Administer 2 sprays into each nostril 2 (two) times a day. 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[facility] V24, [facility] V28) 03/10/2018 DM (diabetes mellitus), type 2 with ophthalmic complications ([facility] V24, [facility] V28) 03/10/2018 GERD (gastroesophageal reflux disease) 8 Iron deficiency anemia 03/10/2018 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 Anxiety 08/11/2013 GUTHRIE (nonalcoholic steatohepatitis) 08/11/2013 Paroxysmal atrial fibrillation ([facility] V24, [facility] V28) 08/11/2013 Encounters Date Type Department Care Team Description 01/14/2025 Telephone Gastroenterology - [place] 175 [facility] [address] [facility] [address] [place] [address] Zandra Briceno PA Provider Call Back 01/01/2025 Telephone Thoracic Surgery - [place] [address] [place] [address] Evelyne Lara MA from Last 3 Months Immunizations Name Administration Dates Next Due Moderna SARS-CoV-2 COVID-19, mRNA, LNP-S, preservative free 11/22/2021,06/01/2021,10/07/2020,2020 Surgical History Surgery Date Site/Laterality Comments ROTATOR CUFF REPAIR 04/2012 Left PROCEDURE: HISTORICAL ROTATOR CUFF REPAIR FOOT SURGERY 07/2010 Left PROCEDURE: HISTORICAL FOOT SURGERY; COMMENT: arthrodesis 1st intermetatarsal base L foot APPENDECTOMY PROCEDURE: HISTORICAL APPENDECTOMY SECTION PROCEDURE: HISTORICAL OTHER SURGICAL HISTORY 08/2012 PROCEDURE: IA BIOPSY LIVER NEEDLE PERCUTANEOUS UPPER GASTROINTESTINAL ENDOSCOPY 01/11/2015 PROCEDURE: IA UPPER GI ENDOSCOPY PERFORMED; COMMENT: Normal COLONOSCOPY 11/08/2015 PROCEDURE: HISTORICAL COLONOSCOPY; COMMENT: Colon Polyps. Repeat 5 yrs OTHER SURGICAL HISTORY 02/2014 Right PROCEDURE: IA RMVL LUNG XCP TOT PNEUMONECTOMY SLEEVE LOBECTOMY; COMMENT: Right Upper Lobe, Wedge Resection COLONOSCOPY 12/28/2020 PROCEDURE: HISTORICAL COLONOSCOPY; COMMENT: tubular adenomas Medical History Medical History Date Comments Paroxysmal atrial fibrillati on ([facility] V24, [facility] V28) 08/11/2013 DX:Paroxysmal atrial fibril lation (HCC) Allergic rhinitis 08/11/2013 DX:Allergic rh initis Anxiety 08/11/2013 DX:Anxiety Sjogren's syndrome ([facility] V24) DX:Sjogren's syndrome (HCC) GERD (gastroesophageal reflux [...] of blood transfusion s as patient is Latter-day 04/03/2018 DX:Refusal of blood trans fusions as patient is Latter-day Asthma 05/14/2019 DX:Asthma Cryptogenic cirrhosis (CMS/H CC V24, 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) Vitamin D deficiency 05/14/2019 DX:Vitamin D deficiency OAB (overactive bladder) 05/14/2019 DX:OAB (overactive bladder) GUTHRIE (nonalcoholic steatohepatitis) 08/11/2013 DX:GUTHRIE (nonalcoholic steatohepatitis) Cirrhosis of liver (CMS/HCC V24, CMS/HCC V28) DX:Cirrhosis of liver (HCC) Refusal of blood transfusion s as patient is Latter-day DX:Refusal of blood trans fusions as patient is Latter-day; COMMENT: Patient states may possibly accept Cell [...] 69 06/19/2024 11:22 AM EST Temperature 36.4 C (97.6 F) 06/19/2024 11:22 AM EST Respiratory Rate - - Oxygen Saturation 95% 06/19/2024 11:22 AM EST Inhaled Oxygen Concentration - - Weight 127 kg (279 lb 6.4 oz) 06/19/2024 11:22 A M EST Height 165.1 cm (5' 5 ) 04/29/2024 1:49 PM EDT Body Mass Index 46.49 04/29/2024 1:49 PM EDT Plan of Treatment Upcoming Encounters Date Type Department Care Team (Late st Contact Info) Description 03/10/2025 11:00 AM EDT Office Visit Thoracic Surgery - [place] [address] [phone] Nhan Ewing PA [address] [address] 04/09/2025 11:30 AM EDT Office Visit [facility] Hematology Oncology [address] [place] [phone] Amarilis Reyes MD [address] [place] [phone] 04/14/2025 1:00 PM EDT Office Visit Gastroenterology - [place] 175 [facility] 175 [facility] [address] [place] [phone] Zandra Briceno PA 175 [facility] 200 [place] [address] Health Maintenance Due Date Last Done Comments [...] series) 2022 Colorectal Cancer Screening: Colonoscopy 06/23/2022 HIV Screening 06/23/2022 Hepatitis C Screening 06/23/2022 Medicare Annual Wellness Visit 06/23/2022 Social Influencers of Health Screening 06/23/2022 Diabetes: Blood Sugar Control Test (HGBA1C) 01/10/2024 07/11/2023 COVID-19 Vaccine ( season) 2024 11/22/2021, 06/01/2021, 10/07/2020, Additional history exists Diabetes: Annual GFR (Glomerular Filtration Rate) 07/11/2024 07/11/2023 Hypertension/CHF/CAD Annual BMP Blood Test 07/11/2024 07/11/2023 Depression Screening 07/15/2024 Diabetes: Annual Urine Albumin-Creatinine Ratio (uACR) 02/25/2025 02/26/2024, 07/11/2023, 07/11/2023 Influenza Vaccine (#1) 2025 1, 03/29/2020, 04/06/2019, Additional history exists Cholesterol Screening [...] * Urine Albumin Creatinine Ratio (07/11/2023) Pathologist [facility] Urine Albumin Creatinine Ratio abstracted [facility] Provider HEALTH MAINTENANCE Final Result * Annual BMP Blood Test (07/11/2023) Pathologist [facility] Annual BMP Blood Test abstracted [facility] Provider HEALTH MAINTENANCE Final Result * Hemoglobin A1c (07/11/2023) [facility] Hemoglobin A1C 0.0 % Comment:no interpretation,ab stracted Blood Venous blood specimen / Unknown Result [facility] Provider LAB BLOOD ORDERABLES Sridevi l Result * Lipid panel (07/11/2023) LDL/HDL Ratio 0 Comment:no interpretation,ab stracted Triglycerides 0 mg/dL Comment:no interpretation,ab stracted Cholesterol 0 mg/dL Comment:no interpretation,ab stracted HDL 0 mg/dL Comment:no interpretation,ab stracted LDL Cholesterol 0 mg/dL Comment:no interpretation,ab stracted Blood Venous blood specimen / Unknown Historical Provider LAB BLOOD ORDERABLES Sridevi l Result from Last 3 Months or Most Recently Relevant to Health Maintenance Insurance MEDICARE Advance Directives Documents on File Type Date Recorded 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
--- OUTSIDE RECORDS SUMMARY | 2025-02-04 12:11 | XMS_ITS | Clinical Summary ---
Author Organization [facility] Address [address] [place] [address] Care Team Providers Care Scrum Master Name Role Phone Williams Eubanks MD Primary Care Provider [phone] Allergies Active Allergy Reactions Criticality Noted Date [...] DAY 90 DAYS 0 03/04/2022 Active nystatin 302382 UNIT/GM external powder APPLY POWDER TOPICALLY TO [...] of blood transfusion s as patient is Jainism 04/03/2018 Family history of colon cancer in [...] 74 10/24/2023 11:36 AM EDT Temperature 36.6 C (97.8 F) 10/24/2023 11:36 AM EDT Respiratory Rate - - Oxygen [...] years 1-dose series) 2022 Influenza Vaccine (#1) 2025 1, 03/29/2020, 03/29/2020, Additional history exists Hepatitis B Vaccines Aged Out No long er eligible based on patient's age to complete this topic RSV Ped < 20 months Aged Out No longe r eligible based on patient's age to complete this topic Care Teams Scrum Master Relationship Specialty Start Date End Date Williams Eubanks MD [address] [place] [address] PCP - General Family Medicine 01/21/19
== END 2025-02-04 12:05 | disposition home or self-care (01) ==
LOC: HO.PMC 11:15
PROVIDERS: PCP Family Medicine; Visit Provider Nurse Practitioner Family
DX: G89.4 Chronic pain syndrome (principal); M79.7 Fibromyalgia; M25.561 Pain in right knee; Z79.891 Long term (current) use of opiate analgesic; M25.562 Pain in left knee
CPT/HCPCS: 99214; G2211

== ENCOUNTER → 2025-02-04 11:15 | Outpatient (BNVA) | payer MEDICARE, SELFPAY | PROVIDERS: PCP Family Medicine; Visit Provider Nurse Practitioner Family | DX: Z79.891 Long term (current) use of opiate analgesic (principal); G89.4 Chronic pain syndrome; M53.3 Sacrococcygeal disorders, not elsewhere classified; M54.50 Low back pain, unspecified; M54.16 Radiculopathy, lumbar region; M79.7 Fibromyalgia; M25.561 Pain in right knee; M25.562 Pain in left knee | CPT/HCPCS: 99212 ==

== ENCOUNTER 2025-03-05 14:59 | Outpatient (AMB) | payer MEDICARE, SELFPAY ==
--- OUTSIDE RECORDS SUMMARY | 2025-03-05 15:02 | XMS_ITS | Clinical Summary ---
Author Organization [facility] Address [address] [place] [address] Phone Care Team Providers Care Auger Operator Name Role Phone Williams Eubanks Primary Care Provider [phone] Allergies Active Allergy Reactions Criticality Noted Date [...] CRUSH CHEW OR SPLIT 90 capsule 1 02/24/20 25 Active propranolol LA (INDERAL LA) 80 mg 24 hr capsule TAKE 1 CAPSULE BY MOUTH EVERY DAY AT BEDTIME DO NOT CRUSH CHEW OR SPLIT 90 capsule 1 11/17/19 25 025 Discontinued Active Problems Problem Noted Date Diagnosed Date Pleural nodules 07/19/2022 Abnormal mammogram 04/04/2022 Skin lesion 04/03/2021 Cryptogenic cirrhosis (CMS/HCC V24, CMS/[facility] V28) 03/10/2018 DM (diabetes mellitus), type 2 with ophthalmic complications (CMS/HCC V24, CMS/HCC V28) 03/10/2018 GERD (gastroesophageal reflux disease) 8 Iron deficiency anemia 03/10/2018 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 Anxiety 08/11/2013 GUTHRIE (nonalcoholic steatohepatitis) 08/11/2013 Paroxysmal atrial fibrillation ([facility] V24, [facility] V28) 08/11/2013 Encounters Date Type Department Care Team Description 01/14/2025 Telephone Gastroenterology - [place] 175 [facility] 175 [facility] [address] [place] [address] Zandra Briceno PA Provider Call Back 01/01/2025 Telephone Thoracic Surgery - [place] 299 [facility] [address] [place] [address] Evelyne Lara MA from Last [...] PROCEDURE: HISTORICAL OTHER SURGICAL HISTORY 08/2012 PROCEDURE: [place] BIOPSY LIVER NEEDLE PERCUTANEOUS UPPER GASTROINTESTINAL ENDOSCOPY 01/11/2015 PROCEDURE: SC UPPER GI ENDOSCOPY PERFORMED; COMMENT: Normal COLONOSCOPY 11/08/2015 PROCEDURE: HISTORICAL COLONOSCOPY; COMMENT: Colon Polyps. Repeat 5 yrs OTHER SURGICAL HISTORY 02/2014 Right PROCEDURE: SC RMVL LUNG XCP TOT PNEUMONECTOMY SLEEVE LOBECTOMY; COMMENT: Right Upper Lobe, Wedge Resection COLONOSCOPY 12/28/2020 PROCEDURE: HISTORICAL COLONOSCOPY; COMMENT: tubular adenomas Medical History Medical History Date Comments Paroxysmal atrial fibrillati on ([facility] V24, [facility] V28) 08/11/2013 DX:Paroxysmal atrial fibril lation (HCC) Allergic rhinitis 08/11/2013 DX:Allergic rh initis Anxiety 08/11/2013 DX:Anxiety Sjogren's syndrome ([facility] V24) DX:Sjogren's syndrome (HCC) GERD (gastroesophageal reflux [...] of blood transfusion s as patient is Holiness 04/03/2018 DX:Refusal of blood trans fusions as patient is Holiness Asthma 05/14/2019 DX:Asthma Cryptogenic cirrhosis (CMS/H CC V24, 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) Vitamin D deficiency 05/14/2019 DX:Vitamin D deficiency OAB (overactive bladder) 05/14/2019 DX:OAB (overactive bladder) GUTHRIE (nonalcoholic steatohepatitis) 08/11/2013 DX:GUTHRIE (nonalcoholic steatohepatitis) Cirrhosis of liver (CMS/HCC V24, CMS/HCC V28) DX:Cirrhosis of liver (HCC) Refusal of blood transfusion s as patient is Holiness DX:Refusal of blood trans fusions as patient is Holiness; COMMENT: Patient states may possibly accept Cell [...] AM EDT Office Visit Thoracic Surgery - [place] 299 [facility] [address] [place] [phone] Nhan Ewing PA [address] [place] [address] 04/09/2025 11:30 AM EDT Office Visit [facility] Hematology Oncology [address] [place] [address] Amarilis Reyes MD [address] [place] [address] 04/14/2025 1:00 PM EDT Office Visit Gastroenterology - [place] 175 [facility] 175 [facility] 200 [place] [address] Zandra Briceno PA 175 [facility] 200 [place] [address] Health Maintenance Due Date Last Done Comments [...] 02/26/2024, 07/11/2023, 07/11/2023 Influenza Vaccine (#1) 2025 , 03/29/2020, 04/06/2019, Additional history exists Cholesterol Screening [...] Ratio (07/11/2023) Urine Albumin Creatinine Ratio abstracted Historical Provider HEALTH MAINTENANCE Final Result * Annual BMP Blood Test (07/11/2023) Pathologist [facility] Annual BMP Blood Test abstracted Historical Provider HEALTH MAINTENANCE Final Result * Hemoglobin [...] Documents on File Type Date Recorded 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
--- OUTSIDE RECORDS SUMMARY | 2025-03-05 15:02 | XMS_ITS | Clinical Summary ---
Author Organization [facility] Address [address] [place] [address] Care Team Providers Care Footwear Sales Associate Name Role Phone Williams Eubanks MD Primary Care Provider [phone] Allergies Active Allergy Reactions Criticality Noted Date [...] DAY 90 DAYS 0 03/04/2022 Active nystatin 467052 UNIT/GM external powder APPLY POWDER TOPICALLY TO [...] of blood transfusion s as patient is Adventist 04/03/2018 Family history of colon cancer in [...] age to complete this topic Care Teams Footwear Sales Associate Relationship Specialty Start Date End Date Williams Eubanks MD [address] [place] [address] PCP - General Family Medicine 01/21/19
--- OUTSIDE RECORDS SUMMARY | 2025-03-05 15:02 | XMS_ITS | Encounter Summary ---
Author Organization [facility] Address [address] [place] [phone] Phone Care Team Providers Care Fiber Technician Name Role Phone Williams Eubanks Primary Care Provider Encounter Details Date Type Department Care Team (Late st Contact Info) Description 03/27/2021 Prep for Surgery [facility] Orthopedics & Sports Medicine [address] [place] [address] Gela Ott MD [address] [place] [address] Orthopedics & Sports Medicine, [facility] [place] [address] [email or web address] Social History Tobacco Use Types Packs/Day Years [...] Care Team (Late st Contact Info) Description 03/26/2025 11:40 AM EDT Office Visit [facility] [address] [place], [place] [phone] Norah Saldana PA-C [address] [place] [address] 05/19/2025 11:20 AM EST Office Visit [facility] [address] [place] [address] [place] [address] 06/17/2025 11:00 AM EST Office Visit [facility] [address] [place] [address] Melanie Morton MD [address] [address] documented as of this encounter Visit Diagnoses Not on filedocumented in this encounter Care Teams Fiber Technician Relationship Specialty Start Date End Date Williams Eubanks DO 24 [facility] [place] [address] PCP - General Family Medicine 06/27/17 documented as of this encounter Additional Source Comments The information contained in this document represents components of the legal health record. It is not the complete legal health record.[facility]
--- OUTSIDE RECORDS SUMMARY | 2025-03-05 15:02 | XMS_ITS | Clinical Summary ---
Author Organization [facility] Address [address] [address] Care Team Providers Care Tobacco Weigher Name Role Phone Williams Eubanks Primary Care Provider [phone] Allergies Active Allergy Reactions Criticality Noted Date [...] sodium chloride (OCEAN) 0.65 % nasal spray [place] as directed Active Cranberry 400 MG capsule [...] time each day Active Cobalamin Combinations (Vitamin C16-Glqds Acid) 500-400 MCG tablet Duration: 1 Active Probiotic Product (PROBIOTIC PEARLS PO) Take 1 capsule by mouth 1 (one) time each day Active [place]-3 Fatty Acids (OMEGA 3 PO) Take 1 [...] Diagnosed Date Right upper quadrant pain 05/08/20232022 [facility] current use of insulin 01/09/2023 05/08/2023 H/O: [...] followed by warmth as well as 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 and her pain [...] Office [facility] [address] [place] [address] Gabriele Lopez MD [address] [phone] Health Maintenance Due Date Last Done Comments [...] Procedure Name Priority Date/Time Associated Diagnosis Comments MAGNESIUM Routine 02/12/2025 10:44 AM EDT BLOOD PANEL (HC) Routine 01/09/2019 12:0 0 AM EDT from Last 3 Months or Most Recently Relevant to Health Maintenance Results * Magnesium (02/12/2025 10:44 AM EDT) Pathologist [facility] Magnesium 1.8 1.6 - 2.3 mg/dL [facility] 02/12/2025 10:4 4 AM EDT 02/12/2025 Narrative [facility] - 02/13/2025 8:07 AM EDT Specimen Comment: A courtesy copy of this report has been sent to the patient Gabriele Lopez MD LAB BLOOD ORDERABLES Final Resul t [facility] [address] [place] [id number] * (ABNORMAL) Blood Panel (01/09/2019 12:00 AM EDT) Pathologist [facility] Potassium 4.4 3.5 - 5.1 mmol/L PVNMA [...] ug/dl PVNMA 01/09/2019 us Rtama Conversion LAB [id number] LICITED RESULTS Final Result PVNMA from Last 3 Months or Most Recently Relevant to Health Maintenance Insurance Medicare Medicare Care Teams Tobacco Weigher Relationship Specialty Start Date End Date Williams Eubanks DO [address] [place] [address] PCP - General 07/25/20
--- OUTSIDE RECORDS SUMMARY | 2025-03-05 15:02 | XMS_ITS | Clinical Summary ---
Author Organization [facility] Address [address] [place] [address] Care Team Providers Care Dairy Farm Operator Name Role Phone Unavailable Primary Care Provider [...] 5000 PLUS) 1.1 % creaIndications :Enamel caries [place] twice daily with toothpaste then expectorate. Do not rinse. 51 g 4 4 Active Active Problems Problem Noted Date Diagnosed Date Asthma ([facility]) 05/16/2022 Severe obesity ([facility]) 05/16/2022 Enamel caries 05/16/2022 Extraction of tooth needed 05/16/2022 Overview (05/16/2022): #19 and 31 Abnormal mammogram 04/04/2022 At moderate risk for fall 11/15/2021 Atrophic vulva 11/15/2021 Benign essential hypertension 11/15/2021 Fibromyalgia 11/15/2021 Hyperlipidemia 11/15/2021 Irritable bowel syndrome 11/15/2021 Migraine 11/15/2021 Mixed stress and urge urinary incontinence 11/15 Polyp of colon 11/15/2021 Type 2 diabetes mellitus ([facility]) 022 Overview (05/16/2022): endo endo Sleep apnea 11/15/2021 [...] Left CTR-f/u with hand surgeon Cryptogenic cirrhosis (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) 0 08/11/2013 Encounters Date Type Department Care Team Description 12/08/2024 2:20 PM EDT Office Visit [place] [id number] [place] [address] Vanessa Villafana DMD from Last 3 Months Social History Tobacco [...] Sign Reading Time Taken Comments Blood Pressure 154/89 12/08/2024 2:56 PM EDT Pulse 73 12/08/2024 2:56 PM EDT Temperature - - Respiratory Rate [...] - Ri sk 2-dose series) 1981 Imm-Pneumococcal 50+ (1 of 2 - PCV) 1981 Cervical [...] 12/25/2022 12/25/2021 Dental Perio Charting 05/18/2023 05/16/2022 [id number] ( season) 2024 11/22/2021, 06/01/2021, 10/07/2020, Additional history exists Lipid Screening 07/11/2024 07/11/2023 Alcohol and Drug Screen 07/15/2024 Depression Annual Screen 07/15/2024 Dental BW 08/11/2024 08/09/2023, 05/16/2022 Dental Prophy 10/24/2024 04/23/2024, 07/16, 05/16/2022 Imm-Influenza (#1) 2025 03/28/2021, 0 03/29/2020, 04/06/2019, Additional history exists Hemoglobin A1c 04/10/2025 10/08/2024, 12/10/2023, 02/26/2024, Additional history exists Dental Examination 04/25/2025 04/23/2024, 1 , 08/09/2023 Serum Creatinine 10/08/2025 10/08/2024, 10/2023, 02/26/2024, Additional history exists Tobacco Screening 12/08/2025 12/08/2024 Dental FMX/Pano 05/18/2027 05/16/2022 Cervical Ablation/Cold-Knife Conization Discontinued Cervical Cryotherapy Discontinued Colposcopy Discontinued Endometrial Biopsy Discontinued Excision/Leep Discontinued HPV Genotyping Discontinued Vaginal Pap Discontinued Vulvoscopy Discontinued Procedures Procedure Name Priority Date/Time Associated Diagnosis Comments CASE PRESENTATION SUBS DTL & EXTENSIVE TX PLN Routine 12/08/2024 2:20 PM EDT Fractured dental sabianism with loss of material 8 MIDF RESIN-BASED COMPOSITE-4/> SURFACES ANTERIOR Routine 12/08/2024 2:20 PM EDT Fractured dental sabianism with loss of material PROPHYLAXIS - ADULT Routine 04/23/2024 1 :40 [...]
[2025-03-05 15:17] VITALS: BP 120/71; RESP 16; BMI 46.6
--- NOTE | 2025-03-05 15:17 | A.OFFVIS_ITS ---
Vital Signs 3 03/05/25 15:17 Height 5 ft 5 in Weight 280 lb BMI 46.6 BP 120/71 Blood Pressure Location Lt brachial Position Sitting Respiration 16 Intake Visit Reasons: Pill Count Intake Note: Patient here for a pill count routine of Oxycodone. Per directions patient should have 9 pills. Patient presented 15 pills. last took 12. Investigative Agent Required: No Accompanied by: Life Partner Allergies aspartame Allergy (Unknown, Verified 03/05/25 15:18) Unknown cephalexin Allergy (Unknown, Verified 03/05/25 15:18) Unknown cyclobenzaprine Allergy (Unknown, Verified 03/05/25 15:18) Unknown dobutamine Allergy (Unknown, Verified 03/05/25 15:18) Unknown indomethacin Allergy (Unknown, Verified 03/05/25 15:18) Unknown levofloxacin (Levaquin) Allergy (Unknown, Verified 03/05/25 15:18) Unknown morphine Allergy (Unknown, Verified 03/05/25 15:18) Unknown penicillin V Allergy (Unknown, Verified 03/05/25 15:18) Unknown tramadol Allergy (Unknown, Verified 03/05/25 15:18) Unknown NSAIDS (Non-Steroidal Anti-Inflamma Adverse Reaction (Severe, Verified 03/05/25 15:18) afib Latex Gloves Allergy (Unknown, Uncoded 03/26/24 14:17) Unknown HPI Comments Details: Christy is a very pleasant 64-year-old female who presents the office today, accompanied by her , for chronic pain and chronic opioid medication management. Patient is prescribed oxycodone 5 mg p.o. 3 times daily as needed. Patient arrived today with the expectation of having 9 pills, she presented 15 pills which were counted in the presence of two staff members and returned to the patient in the original prescription bottle. This demonstrates responsible attitude toward patient's opioid medications. Pain is reported today as 3/10 and last dose of pain medication was taken at 130 this afternoon. Pain is well managed on current opioid regimen. Patient denies any recent changes or exacerbations of chronic back pain and states she is able to engage in activities of daily living with minimal interruption due to chronic pain. Patient denies side effects including somnolence, constipation, itching, dyspnea, rash, dizziness or weakness. [facility] Medical History Environmental and seasonal allergies Chronic pain syndrome History of lung cancer Diabetes type 2 with atherosclerosis of arteries of extremities Morbid obesity Gout, arthritis Morbidly obese Gout Psoriasis Arthritis Family history of lung cancer Lung cancer Diabetic retinopathy Williamson's palsy Sciatica Plantar fasciitis, bilateral Rosacea Sleep apnea Asthma GERD (gastroesophageal reflux disease) IBS (irritable bowel syndrome) Nerve pain Migraine Carpal tunnel syndrome, bilateral Diabetic cheirarthropathy Fibromyalgia Non-alcoholic micronodular cirrhosis of liver Paroxysmal atrial fibrillation Primary Sjogren's syndrome Type 2 diabetes mellitus Surgical History History of carpal tunnel release History of lung surgery History of appendectomy History of repair of left rotator cuff History of section Social History Alcohol intake: never Patient Tobacco Use Status: Former Tobacco user Current occupational status: disabled Review of Systems Const All systems reviewed & are unremarkable except as noted in HPI and below Physical Exam Exam Exam: General: awake, alert, oriented. Answers questions appropriately. Fully engaged in examination. Obese Skin: warm, dry, intact HEENT: Normocephalic. Hearing intact. Cardiac: External chest normal in appearance. Respiratory: No cough, audible wheezing or stridor. Abdomen: without gross distension. MS: No obvious swelling or deformities. Neurological: Oriented to person, place, time and situation. Thought process intact. No gait abnormalities appreciated. Ambulates with the use of a cane Psychiatric: Appropriate mood and affect. Good judgment and insight. Vital Signs: Last Vital Signs Resp 16 03/05/25 15:17 BP 120/71 03/05/25 15:17 BMI result Body Mass Index 46.6 Results Reviewed Results Reviewed: Assessment & Plan Assessment & Plan (1) Coccydynia: Code(s): M53.3 - Sacrococcygeal disorders, not elsewhere classified Category: Medical (2) Low back pain: Code(s): M54.50 - Low back pain, unspecified Category: Medical (3) Lumbar radiculopathy: Code(s): M54.16 - Radiculopathy, lumbar region Category: Medical (4) Opioid contract exists: Code(s): Z79.891 - long term care social worker (current) use of opiate analgesic Category: Medical (5) Chronic pain syndrome: Code(s): G89.4 - Chronic pain syndrome Category: Medical (6) Fibromyalgia: Code(s): M79.7 - Fibromyalgia Category: Medical (7) Bilateral knee pain: Code(s): M25.561 - Pain in right knee; M25.562 - Pain in left knee Category: Medical Plan Masspat was reviewed and without concerns. No obvious signs of diversion, abuse or misuse of the opioid medications. Will send in prescription for oxycodone 5 mg p.o. 3 times daily as needed dispense #90, no refills Patient has Narcan at home, trained in the use. All questions and concerns have been answered and patient agrees with the plan. Follow-up in the office in 1 month, sooner if needed. Medications: Refilled 2 oxycodone Partial Fill upon patient request. 5 mg PO TID PRN 90 tabs 0RF pain 30 days G89.4 - Chronic pain syndrome, M25.561 - Pain in right knee, M25.562 - Pain in left knee, Z79.891 - [facility] (current) use of opiate analgesic Coding Level of Care Code Est Pt Level 3 (11966) Complex EM visit Add On G2211 Diagnoses Coccydynia M53.3 Low back pain M54.50 Lumbar radiculopathy M54.16 Opioid contract exists Z79.891 Chronic pain syndrome G89.4 Fibromyalgia M79.7 Bilateral knee pain M25.561; M25.562
== END 2025-03-05 15:50 | disposition home or self-care (01) ==
LOC: HO.PMC 15:00
PROVIDERS: PCP Family Medicine; Visit Provider Registered Nurse Emergency
DX: M53.3 Sacrococcygeal disorders, not elsewhere classified (principal); M54.50 Low back pain, unspecified; M54.16 Radiculopathy, lumbar region; Z79.891 Long term (current) use of opiate analgesic; G89.4 Chronic pain syndrome; M79.7 Fibromyalgia; M25.561 Pain in right knee; M25.562 Pain in left knee
CPT/HCPCS: 99213; G2211

== ENCOUNTER → 2025-03-05 14:59 | Outpatient (BNVA) | payer MEDICARE, SELFPAY | PROVIDERS: PCP Family Medicine; Visit Provider Registered Nurse Emergency | DX: Z51.81 Encounter for therapeutic drug level monitoring (principal); M53.3 Sacrococcygeal disorders, not elsewhere classified; M54.50 Low back pain, unspecified; M54.16 Radiculopathy, lumbar region; M79.7 Fibromyalgia; M25.561 Pain in right knee; M25.562 Pain in left knee; G89.4 Chronic pain syndrome; Z79.891 Long term (current) use of opiate analgesic | CPT/HCPCS: 99212 ==

== ENCOUNTER 2025-04-01 15:24 | Outpatient (AMB) | payer MEDICARE, SELFPAY ==
--- NOTE | 2025-04-01 15:25 | MHC.OFFVIS ---
Vital Signs 04/01/25 15:36 Height 5 ft 5 in Weight 274 lb 4 oz BMI 45.6 BP 128/70 Blood Pressure Location Lt brachial Position Sitting Intake Visit Reasons: PILL COUNT Intake Note: Lina comes in today for a pill count to oxycodone, patient should have 24 tablets and presents with 32 tablets which she last took today 04/01/25 at 1:30pm. Pain today 6/10 Outpatient Phlebotomist Required: No Accompanied by: Spouse Allergies aspartame Allergy (Unknown, Verified 04/01/25 15:36) Unknown cephalexin Allergy (Unknown, Verified 04/01/25 15:36) Unknown cyclobenzaprine Allergy (Unknown, Verified 04/01/25 15:36) Unknown dobutamine Allergy (Unknown, Verified 04/01/25 15:36) Unknown indomethacin Allergy (Unknown, Verified 04/01/25 15:36) Unknown levofloxacin (Levaquin) Allergy (Unknown, Verified 04/01/25 15:36) Unknown morphine Allergy (Unknown, Verified 04/01/25 15:36) Unknown penicillin V Allergy (Unknown, Verified 04/01/25 15:36) Unknown tramadol Allergy (Unknown, Verified 04/01/25 15:36) Unknown NSAIDS (Non-Steroidal Anti-Inflamma Adverse Reaction (Severe, Verified 04/01/25 15:36) afib Latex Gloves Allergy (Unknown, Uncoded 03/26/24 14:17) Unknown HPI Comments Details: Lina presents today for a pill count. Patient is supposed to have #24 pills, in her possession has #32 pills. This demonstrates a responsible attitude in regards to the medication regimen on as needed for moderate-severe pain only. Patient reports adequate analgesia on her regimen of oxycodone 5 mg TID prn with no noted side effects. Pain is rated at 6/10, low back and right buttock radiating down into right leg. The patient reports she has followed up with her Urban Renewal Manager and have been told pulmonary nodules with a recent increase in size and number, as noted on a recent CT scan. She is scheduled to see her Oncologist later this month for further evaluation. She also has a history of liver cirrhosis, with imaging showing nodularity on the liver surface resembling bubble wrap and early stages of internal scarring. She is aware that chemotherapy is not an option and that radiation could further damage the liver. Her Oncologist has mentioned the possibility of future immunotherapy. The patient has asthma, which contributes to her dyspnea, especially since she carries weight centrally. Denies any recent cough, cold, infection, fever, or any significant changes in her medical history, medications or recent hospitalizations. Past Procedures: 08/30/23: Right elbow steroid injection-90% pain relief for 1.5 months [facility] Medical History Environmental and seasonal allergies Chronic pain syndrome History of lung cancer Diabetes type 2 with atherosclerosis of arteries of extremities Morbid obesity Gout, arthritis Morbidly obese Gout Psoriasis Arthritis Family history of lung cancer Lung cancer Diabetic retinopathy Williamson's palsy Sciatica Plantar fasciitis, bilateral Rosacea Sleep apnea Asthma GERD (gastroesophageal reflux disease) IBS (irritable bowel syndrome) Nerve pain Migraine Carpal tunnel syndrome, bilateral Diabetic cheirarthropathy Fibromyalgia Non-alcoholic micronodular cirrhosis of liver Paroxysmal atrial fibrillation Primary Sjogren's syndrome Type 2 diabetes mellitus Surgical History History of carpal tunnel release History of lung surgery History of appendectomy History of repair of left rotator cuff History of section Social History Alcohol intake: never Patient Tobacco Use Status: Former Tobacco user Current occupational status: disabled Review of Systems Const All systems reviewed & are unremarkable except as noted in HPI and below Physical Exam Vital Signs: Last Vital Signs BP 128/70 04/01/25 15:36 BMI result Body Mass Index 45.6 General: Appears afebrile. No acute distress. Alert and oriented. Mood and affect appropriate. Follows and participates in conversation appropriately. Respiratory effort is unlabored. No cough. Wears facemask. Able to transition from sit to stand unassisted. Ambulates with cane. Ambulates with bilaterally normal heel strike and toe off. General: Yes no CVA tenderness Back/Spine/Pelvis Back: no CVA tenderness and back tenderness Cervical Spine: cervical ROM normal, cervical muscular tenderness, pain with cervical ROM and No Cervical spine tenderness Thoracic/Lumbar Spine: thoracic and lumbar spine normal to inspection, No Thoracic/lumbar spine scar(s), pain with thoraco-lumbar ROM, paraspinal muscle tenderness, thoraco-lumbar ROM limited, No thoracic spinal tenderness and lumbar spinal tenderness (L4-S1) Sacroiliac joints: bilaterally (+Juan's, +Pelvic compression) tender to palpation Sacrum: tenderness midline Extrem General: Yes capillary refill normal, Yes no clubbing, cyanosis or edema and Yes no calf tenderness Psych Appearance: grossly normal Mental Status: mental status grossly normal Speech and movement: Normal speech and movement present Affect: normal affect Attitude: cooperative Thought process: Normal thought process present Thought content: Normal thought content present, suicidality (none), no hallucinations and No Depressive thoughts present Insight: Good insight present (Psych) Judgement: Good judgement present (Psych) Results Reviewed Results Reviewed: Assessment & Plan Assessment & Plan (1) Coccydynia: Code(s): M53.3 - Sacrococcygeal disorders, not elsewhere classified Category: Medical (2) Low back pain: Code(s): M54.50 - Low back pain, unspecified Category: Medical (3) Lumbar radiculopathy: Code(s): M54.16 - Radiculopathy, lumbar region Category: Medical (4) Opioid contract exists: Code(s): Z79.891 - [facility] (current) use of opiate analgesic Category: Medical (5) Chronic pain syndrome: Code(s): G89.4 - Chronic pain syndrome Category: Medical (6) Fibromyalgia: Code(s): M79.7 - Fibromyalgia Category: Medical (7) Bilateral knee pain: Code(s): M25.561 - Pain in right knee; M25.562 - Pain in left knee Category: Medical Plan Patient has shown accountability for her medication regimen and the pill count was accurate.?There is no evidence of misuse, abuse or diversion at this time. MassPat reviewed. Recent random UDS was concordant. Prescription for oxycodone for 30 days sent with advanced date of 04/11/25. Patient is aware of monitoring for side effects. Patient has Narcan at home. Continue daily physical activity, stretching exercises, meditation, massage, adequate hydration and weight loss. All questions were answered and the patient is in agreement with the plan. Follow up in one month for pill count or sooner as needed. Medications: Refilled oxycodone Partial Fill upon patient request. 5 mg PO TID PRN 90 tabs 0RF pain 30 days G89.4 - Chronic pain syndrome, M25.561 - Pain in right knee, M25.562 - Pain in left knee, Z79.891 - intermediate school teacher (current) use of opiate analgesic Coding Level of Care Code Est Pt Level 4 (70545) Complex EM visit Add On G2211 Diagnoses Coccydynia M53.3 Low back pain M54.50 Lumbar radiculopathy M54.16 Opioid contract exists Z79.891 Chronic pain syndrome G89.4 Fibromyalgia M79.7 Bilateral knee pain M25.561; M25.562
[2025-04-01 15:36] VITALS: BP 128/70; BMI 45.6
--- OUTSIDE RECORDS SUMMARY | 2025-04-01 16:50 | XMS_ITS | Encounter Summary ---
Author Organization [facility] Address [address] [place] [address] Care Team Providers Care Bankruptcy Judge Name Role Phone Yuni Chirinos Primary Care Provider [phone] Reason for Visit * Reason Onset Date Comments Med Dose Change 03/11/2025 Encounter Details Date Type Department Care Team (Late st Contact Info) Description 03/11/2025 Telephone [facility] [address] [place] [address] [place] [address] Oz So MD [address] [place] [address] [address] [place] [address] Social History Tobacco Use Types Packs/Day Years [...] as of this encounter Progress Notes * Christel Jimenez MA - 03/12/2025 2:30 PM EDT Lvm for pt to cb , lvm on land line * Ernesto Ho - 03/11/2025 10:53 AM EDT Patient spoke to her airframe and powerplant technician and they want her to taper off her Propranolol slowly. She has questions about this. documented in this encounter Plan of Treatment Upcoming Encounters Date Type Department Care Team (Late st Contact Info) Description 04/09/2025 11:30 AM EDT Office Visit [facility] Hematology Oncology [address] [place] [phone] Amarilis Reyes MD [address] [place] [phone] 04/14/2025 1:00 PM EDT Office Visit Gastroenterology - [place] 175 [facility] 175 [facility] [address] [place] [phone] Zandra Briceno PA 175 [facility] [address] [place] [address] 04/20/2025 11:00 AM EDT Office Visit Pulmonology - [place] 299 [facility] [address] [place] [address] Rima Johnson MD [address] [place] [address] documented as of this encounter Visit Diagnoses Not on filedocumented in this encounter Care Teams Bankruptcy Judge Relationship Specialty Start Date End Date CandisEpifanio carlsonna [address] [place] [address] PCP - General 03/11/25 documented as of this encounter
--- OUTSIDE RECORDS SUMMARY | 2025-04-01 16:50 | XMS_ITS | Encounter Summary ---
Author Organization [facility] Address [address] [place] [address] Phone Care Team Providers Care Manager Cash Name Role Phone Eubanks, Gary Zaki SALGUERO Primary Care Provider Yuni Chirinos NP Primary Care Provider + Encounter Details Date Type Department Care Team (Late st Contact Info) Description 03/27/2021 Prep for Surgery [facility] Orthopedics & Sports Medicine [address] [place] [address] Gela Ott MD [address] [place] [address] Orthopedics & Sports Medicine, [facility] [place] [address] [email or web address] Social History Tobacco Use Types Packs/Day Years [...] Care Team (Late st Contact Info) Description 06/17/2025 11:00 AM EST Office Visit [facility] [address] [place] [address] Melanie Morton MD [address] [address] 10/20/2025 11:20 AM EDT Office Visit [facility] [address] [place] [address] Norah Saldana PA-C [address] [place] [address] [email or web address] documented as of this encounter Visit Diagnoses Not on filedocumented in this encounter Care Teams Manager Cash Relationship Specialty Start Date End Date Williams Eubanks DO 24 [facility] [place] [address] PCP - General Family Medicine 06/27/17 03/25/25 Yuni Chirinos NP [address] [place] [address] PCP - General Nurse Practitioner 03/26/25 documented as of this encounter Additional Source Comments The information contained in this document represents components of the legal health record. It is not the complete legal health record.[facility]
--- OUTSIDE RECORDS SUMMARY | 2025-04-01 16:50 | XMS_ITS | Clinical Summary ---
Author Organization [facility] Address [address] [place] [address] Care Team Providers Care Solid Tire Tuber Machine Operator Name Role Phone Williams Eubnaks MD Primary Care Provider [phone] Allergies Active Allergy Reactions Criticality Noted Date [...] DAY 90 DAYS 0 03/04/2022 Active nystatin 497972 UNIT/GM external powder APPLY POWDER TOPICALLY TO [...] of blood transfusion s as patient is Syn[employer] 04/03/2018 Family history of colon cancer in [...] age to complete this topic Care Teams Solid Tire Tuber Machine Operator Relationship Specialty Start Date End Date Williams Eubanks MD [address] [place] [address] PCP - General Family Medicine 01/21/19
--- OUTSIDE RECORDS SUMMARY | 2025-04-01 16:50 | XMS_ITS | Encounter Summary ---
Author Organization [facility] Address [address] [place] [address] [place] [address] Phone Care Team Providers Care Hvac Services Professional Name Role Phone Willimas Eubanks DO Primary Care Provider Yuni Chirinos NP Primary Care Provider + Encounter Details Date Type Department Care Team (Late st Contact Info) Description 05/27/2023 Procedure Pass [facility], [facility] [address] [place] [address] Social History Tobacco Use Types Packs/Day Years Used Date Smoking Tobacco: Former Smokeless Tobacco: Never Comments:over 30 years ago Alcohol Use Standard Drinks/Week Comments No 0 (1 standard drink = 0.6 oz pur e alcohol) Education Answer Date Recorded Are you interested in more education? Not on susan e 11/09/2022 Are you concerned about learning? Not on file 11/09/2022 No 11/09/2022 No 11/09/2022 Digital Access Answer Date Recorded No 12/08/2022 No 12/08/2022 Reliable internet access at home? Not on file 12/08/2022 Device with a working camera? Not on file Comments No Sex and Gender Information Value Date Recorded [...] AM EST Office Visit [facility] [address] [place] [address] Melanie Morton MD [address] [address] 10/20/2025 11:20 AM EDT Office Visit [facility] [address] [place] [address] Norah Saldana PA-C [address] [place] [address] [email or web address] documented as of this encounter Visit Diagnoses Not on filedocumented in this encounter Care Teams Hvac Services Professional Relationship Specialty Start Date End Date Williams Eubanks DO 24 [facility] [place] [address] PCP - General Family Medicine 06/27/17 03/25/25 Yuni Chirinos NP [address] [place] [address] PCP - General Nurse Practitioner 03/26/25 documented as of this encounter Additional Source Comments The information contained in this document represents components of the legal health record. It is not the complete legal health record.[facility]
--- OUTSIDE RECORDS SUMMARY | 2025-04-01 16:50 | XMS_ITS | Encounter Summary ---
Author Organization [facility] Address [address] [place] [address] Care Team Providers Care Guidance Director Name Role Phone Williams Eubanks MD Primary Care Provider [phone] Encounter Details Date Type Department Care Team Description 07/27/2022 Social Work [facility] Oncology Services [address] [place] [address] [facility] Social History Tobacco Use Types Packs/Day [...] on filedocumented in this encounter Care Teams Guidance Director Relationship Specialty Start Date End Date Williams Eubanks MD [address] [place] [address] PCP - General Family Medicine 01/21/19 documented as of this encounter
--- OUTSIDE RECORDS SUMMARY | 2025-04-01 16:50 | XMS_ITS | Clinical Summary ---
Author Organization [facility] Address [address] [place] [id number] Phone Care Team Providers Care [employer] Operators Supervisor Name Role Phone Yuni Chirinos NP Primary Care Provider + Allergies Active Allergy Reactions Criticality Noted Date Comments Acetaminophen 10/25/2020 Due to cirhosis Adhesive 06/27/2017 Adhesive Tape-Silicones 10/25/2020 Other reaction(s): Other (see comments) Celecoxib Palpitations Low 12/05/2017 Cephalexin 06/27/2017 Cyclobenzaprine 06/27/2017 Divalproex 10/03/2022 Dobutamine 06/27/2017 Duloxetine 04/04/2022 Duloxetine Hcl 04/04/2022 Cevimeline Palpitations Low 12/05/2017 Indomethacin 06/27/2017 Latex, Natural Rubber 06/27/2017 Levofloxacin 06/27/2017 Morphine Sulfate 06/27/2017 Nsaids (Non-Steroidal Anti-Inflammatory Drug) 05/16/2021 asthma Other 06/27/2017 Asparatame Penicillin G Benzathin,Procain 06/27/2017 Penicillins 06/27/2017 Vofvgvf-Hqb-Lqi Reductase Inhibitors 10/03/2022 Sulfamethoxazole-Trimethopri m 10/25/2020 Tramadol 06/27/2017 Medications mhvnz-2m-pys-epa- fish oil 1,000-1,400 mg CpDR Take 1 capsule by mouth daily. Active fluticasone propionate (FLONASE) 50 mcg/actuation nasal spray 2 sprays by Nasal route as needed. Active iron bisgly,ps-FA-B-C# 12-succ 65 mg-65 mg -1,000 mcg (24) Tab Take 1 tablet by mouth daily. Active propylene glycoL (SYSTANE BALANCE) 0.6 % Drop as directed. Active rcfogwi-hpo-sjpiq -osr747-juo24 167 mg-65 mg -50 mg Tab Take 1 tablet by mouth daily. Active milk thistle 140 mg Cap Take 1 capsule by mouth daily. Active ktuggfjp-mam-gpwd ous fumarate 9 mg iron/15 mL Liqd Take 1 TABLEspoonful by mouth daily. Active olopatadine (PATANOL) 0.1 % ophthalmic solution 1 drop 2 (two) times a day. Active albuterol 90 mcg/actuation inhaler Inhale 2 puffs into the lungs as needed. Active L. ACIDOPHILUS/BIFID O LONGUM (PROBIOTIC PEARLS ORAL) Take by mouth daily. Active propranolol (INDERAL) 80 MG immediate release tablet Take 1 tablet by mouth daily. Active sodium chloride (OCEAN) 0.65 % nasal spray Active cyanocobalamin, vitamin B-12, 1,500 mcg ODT Take 1 lozenge by mouth daily. Active cholecalciferol (VITAMIN D3) 1,000 unit tablet Take 1 tablet by mouth daily. 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 90 tablet 07/17/19 22 Active pimecrolimus (ELIDEL) 1 % cream APPLY TO AFFECTED AREA TWICE A DAY 30 g 10/10/19 22 Active Medication-Free Text Take 1,500 mg by mouth daily. chaga Active insulin pen needles, disposable, (BD INSULIN PEN NEEDLE UF SHORT) 31 gauge x 11/27 NdleIndications:T ype 2 diabetes mellitus with hyperglycemia, with long-term current use of insulin USE 1 EACH 3 TIMES A DAY BEFORE MEALS 300 each 3 07/20/19 25 Active metFORMIN (GLUCOPHAGE-XR) 500 MG 24 hr tabletIndications :Type 2 diabetes mellitus with hyperglycemia, with long-term current use of insulin TAKE 2 TABLETS (1,000 MG TOTAL) BY MOUTH 2 (TWO) TIMES A DAY. 360 tablet 2 08/20/19 25 Active esomeprazole (NEXIUM) 40 MG capsule Take 1 capsule by mouth 2 (two) times a day. Active FREESTYLE LITE Strp stripsIndications :Type 2 diabetes mellitus with hyperglycemia, with long-term current use of insulin 1 each by Percutaneous route 2 (two) times a day. 200 strip 3 11/21/19 25 Active ADVAIR HFA 115-21 mcg/actuation inhaler Inhale 230 mcg/treatment of fluticasone into the lungs 2 (two) times a day. 02/04/20 25 Active glucagon (BAQSIMI) 3 mg/actuation SpryIndications:T ype 2 diabetes mellitus with hyperglycemia, with long-term current use of insulin 1 spray by Nasal route once as needed (severe hypoglycemia). 2 each 3 03/26/20 25 Active insulin regular U-500 CONC (HUMULIN R, KWIKPEN) 500 unit/mL (3 mL) subcutaneous injection penIndications:Ty pe 2 diabetes mellitus with hyperglycemia, with long-term current use of insulin Inject 140 Units under the skin daily before breakfast AND 20-40 Units daily before lunch AND 70 Units Daily before dinner. 48 mL 2 03/26/20 25 Active glucagon (BAQSIMI) 3 mg/actuation SpryIndications:T ype 2 diabetes mellitus with hyperglycemia, with long-term current use of insulin 1 spray by Nasal route once as needed (severe hypoglycemia). 2 each 3 02/28/20 24 025 Discontin ued(Reord er) insulin regular U-500 CONC (HUMULIN R, KWIKPEN) 500 unit/mL (3 mL) subcutaneous injection penIndications:Ty pe 2 diabetes mellitus with hyperglycemia, with long-term current use of insulin Inject 140 Units under the skin daily before breakfast AND 20-40 Units daily before lunch AND 70 Units Daily before dinner. 48 mL 2 07/20/19 25 025 Discontin ued(Reord er) Active Problems Problem Noted Date Diagnosed Date Other fatigue 10/09/2024 Assessment & Plan (10/14/2024 12:03 PM EDT): With having a lot of fatigue, will order labs to rule out potential causes of the fatigue Polyarthralgia 05/27/2024 Assessment & Plan (05/27/2024 1:46 PM EST): Documented h/o polyarticular OA; no specific objective e/o underlying or co- morbid inflammatory arthritis. Limited role for ongoing rheum-specific mgmt in absence of inflammatory disease. Happy to re-evaluate for any clinically significant change. Left groin pain 05/27/2024 Assessment & Plan (05/27/2024 1:45 PM EST): Present x2 wks; plain films left hip and l-spine deferred per patient preference and logistics. She will obtain these studies next month if pain persists. Chronic foot pain, right 05/27/2023 Overview (05/27/2023): Plain film ([facility]) 04/2023 - significant joint space narrowing and hypertrophy of 1st MTP, otherwise essentially nl Assessment & Plan (05/27/2023 9:55 AM EST): Proceed with MRI given chronicity and severity of pain, ? occult fx. Patient to f/u with people manager. intermediate current use of insulin 01/09/2023 Chronic pain of left thumb 11/12/2022 Assessment & Plan (05/27/2023 9:53 AM EST): Left 1st CMC pain significantly improved since 11/2022 intra-articular steroid injection Assessment & Plan (11/12/2022 1:26 PM EDT): No significant joint space narrowing of left 1st CMC on 12/2020 plain films; empiric intra-articular steroid injection today as detailed in procedure note. Will obtain updated plain films pending clinical course. H/O guttate psoriasis 11/12/2022 Overview (11/12/2022): B27 neg (2021) Assessment & Plan (05/27/2024 1:45 PM EST): No objective e/o co-morbid psoriatic or other inflammatory arthritis Assessment & Plan (05/27/2023 9:53 AM EST): Remains no specific evidence of underlying psoriatic arthritis Assessment & Plan (11/12/2022 1:25 PM EDT): No specific objective evidence to confirm previously documented psoriatic arthritis; will monitor clinically for e/o active inflammatory arthritis Podagra 11/12/2022 Overview (05/27/2023): One lifetime episode of podagra 2021; no crystal dx to confirm gout and no baseline serum uric acid Assessment & Plan (05/27/2023 9:54 AM EST): No recurrence; patient will call for expedited re-evaluation if she has any recurrent s/s s/o acute gout Assessment & Plan (11/12/2022 1:27 PM EDT): No recurrent podagra and no baseline serum uric acid; can obtain on f/u / with next routine labs Trigger finger, right index finger 06/18/2022 Overview (06/18/2022): Injection today Assessment & Plan (06/18/2022 5:27 PM EST): Injection today-Right index finger Risks and benefits discussed . Under sterile conditions and with verbal consent the A1 swathi of right index finger site was cleaned with iodine and alcohol, then injected w/ 0.25mL lidocaine 1% and depo-medrol 20 mg using a 27G 0.5 needle without complications. Bandage applied. Patient tolerated the procedure well w/o immediate complications. Counseled about monitoring for increased pain, swelling, warmth, or redness in the area. Keratoconjunctivitis sicca o f both eyes not due to Sjogren's syndrome 06/15/2022 Overview (06/15/2022): Sicca syndrome with negative labs for SS or other auto immune dz Continue current treatment 'Unable to tolerate anti cholinergic tx Encouraged regular eye Assessment & Plan (06/15/2022 11:52 AM EST): Sicca syndrome with negative labs for SS or other auto immune dz Continue current treatment 'Unable to tolerate anti cholinergic tx Encouraged regular eye Type 2 diabetes mellitus wit h hyperglycemia, with long-term current use of insulin 11/15/2021 Assessment & Plan (04/01/2025 3:43 PM EDT): Control is reasonable but not optimal based upon the patient's dexcom G7 sensor download. No frequent or severe hypoglycemia. With all of the stress she has been under recently, this is likely the cause of the higher glucose levels. Do not want to increase the insulin dosing to potentially cause hypoglycemia. Will maintain her regimen. She will try to work through the stress the best she can. Continue to work on eating healthy and being active. To call or message with any issues managing her glucose levels. Up to date with [facility]. Labs ordered Assessment & Plan (10/14/2024 12:08 PM EDT): Control is reasonable but not optimal based upon the patient's dexcom G7 sensor download. No frequent or severe hypoglycemia. She is getting frustrated that her glucose levels are not responding to the insulin even when giving it far enough in advance. Discussed considering the use of insulin pump. She is willing to try it. Will ordered the blood work to determine if she will qualify for a pump by medicare standards. Continue to work on eating healthy and being active. To call or message with any issues managing her glucose levels. Up to date with [facility]. Labs ordered Assessment & Plan (07/18/2024 11:02 AM EST): Suboptimal control by Dexcom G7 download. A1c higher at 8.6% in 06/2024 from 8.2% in 02/2024. Weight is stable. Limited physical activity. She remains on U-500 insulin between 140 to 150 units around 9 AM, 50 to 85 units before evening meal at 9 PM and 50 units between 1 to 2 AM when blood sugars are high. No frequent or severe hypoglycemia. Postprandial hyperglycemia between 12 to 3 PM and between 11 PM to 3 AM. -Suggested to decrease carbohydrate content and increase protein with first meal. -Try set dose of insulin 140 units with first meal, about 20 units with lunch and 70 units with dinner for few days and see blood sugar trends before adjusting insulin doses. Enter insulin doses to sensor -Call if blood sugar below 70 or over 250 repeatedly to help assist with insulin adjustment. Assessment & Plan (02/28/2024 3:48 PM EDT): Control is reasonable/improving based upon the patient's dexcom G7 download and her . No frequent or severe hypoglycemia. Will maintain her insulin regimen. Continue to work on eating healthy and being active. To call or message with any issues managing her glucose levels. Up to date with [facility]. Foot and nail care is good. Will order labs to do prior to next visit Assessment & Plan (11/13/2023 1:32 PM EDT): Control is unknown as we are unable to download the patient's dexcom G6 last sawyer and we don't have the results of her blood work yet. No frequent or severe hypoglycemia. She has had some lows but cannot determine the cause as she had eaten normally and activity levels were normal. She has noticed that her levels are running higher more often but other days are okay. Without being able to look at her dexcom download will maintain her regimen as lows are not happening often. Will get the copy of her blood work to determine if adjustments should be made. Continue to work on eating healthy and being active. To call or message with any issues managing her glucose levels. [facility] Waiting to see podiatry. Will order labs to do prior to next visit Assessment & Plan (07/21/2023 10:58 AM EST): Improved, reasonable control by last A1c of 8% on 07/11/2023 and by reported blood sugars from her Dexcom CGM which we could not download remotely. She has been wildly varying the dose of her U-500 insulin before breakfast, before dinner and has been taking bedtime dose between 25 to 60 units since last visit in mid April which improved overnight blood sugars. Weight is up by few pounds while less physically active because of pain and and short of breath. No frequent or severe hypoglycemia. Plan to continue to inject the U-500 insulin at least 1 hour before breakfast and before dinner. Try not to adjust the bedtime insulin dose so widely because of risk of overnight hypoglycemia. Hope to see her in person at next visit on 11/13/2023 in order to download her Dexcom. She will call in the interim with blood sugar problems. Lab orders mailed to her to do none fasting before next appointment. Assessment & Plan (05/06/2023 12:22 PM EDT): Control is improving/reasonable based upon the patient's dexcom G6 download. No frequent or severe hypoglycemia. She will have an occasional low, she will correct with something to eat and then is fine. With her glucose levels running higher in the evening, will have her increase her evening dose of insulin and see if this helps with the highs in the evenings. Continue to work on eating healthy and being active. To call or message with any issues managing her glucose levels. Up to date with [facility]. A foot exam was done by Dr Morton during today's visit. Assessment & Plan (01/09/2023 5:27 PM EDT): Suboptimal control by Dexcom CGM download and by last A1c of 8.2% in 12/2022. Highest blood sugars are after late breakfast. Patient is changing the morning U500 insulin widely between 85 to 120 units depending on activity level and if she is staying home or not. When leaving the home for safety she is using a lower dose. Her blood sugars lately are running high overnight while using between 40 to 50 units of U-500. In the last 2 weeks she had soft diet because of an oral surgery. Suggested to increase her insulin to 50 units before dinner. Try taking the morning insulin even earlier about 60 to 70 minutes before eating her cereal. She wants to continue to eat cereal for breakfast. Gave her prescription on diabetic shoes. She has follow-up with her people manager Dr. Ware. Reviewed symptoms, prevention and treatment of hypoglycemia. Patient to call if blood sugars below 70 or over 250 repeatedly. Assessment & Plan (10/03/2022 3:55 PM EDT): Control is reasonable based upon the patient's dexcom G6 download. No frequent severe or hypoglycemia. She has had some recent variation in her glucose levels, likely due to her pain levels being higher recently. She has been adjusting her insulin to help compensate for the higher glucose levels. She will also decrease the insulin dosing when needed if she is not eating as much. Will maintain her regimen as she has been going. Continue to work on eating healthy and being as active as can tolerate. Up to date with [facility]. Lab orders given to do when having blood work with oncology Flat foot 04/12/2021 Osteoarthritis of left hand 01/31/2021 Assessment & Plan (01/31/2021 10:03 AM EDT): Intra-articular cortisone injection for flaring left fourth PIP joint today. Right carpal tunnel syndrome 11/15/2020 Assessment & Plan (01/31/2021 10:04 AM EDT): Agree with plans for hand Ortho evaluation. Assessment & Plan (11/15/2020 9:03 AM EDT): Continue to wear nighttime wrist splints and do consultation with hand Ortho at the end of this month. No further injection therapy at is shown to be not helpful. Trigger thumb, left thumb 10/25/2020 Assessment & Plan (11/15/2020 9:02 AM EDT): Inject with cortisone today. Lumbar radiculitis 05/02/2020 Assessment & Plan (05/02/2020 4:19 PM EDT): I reviewed the incomplete MRI of the lumbar spine from 2019 and suggested that she may benefit from a new MRI of the lumbar spine and referral to pain management for consideration of a fluoroscopically guided epidural or facet joint block but she would like to wait on that for now. Greater trochanteric bursitis of right hip 02/02 Assessment & Plan (02/03/2020 4:51 PM EDT): Patient's evaluation and presentation is entirely compatible [...] or disc herniation which is less likely. Left lateral epicondylitis 08/25/2019 Assessment & Plan (12/29/2019 8:23 AM EDT): She is to get a counter brace and use Arnica gel 4 times daily while do stretching for the common extensor tendon sheath. Assessment & Plan (08/25/2019 3:15 PM EST): Acute left lateral epicondylitis will be treated with local injection therapy today followed by use of a counter brace and stretches and strengthening of the left common extensor tendon sheath. Neuropathy 05/19/2019 Assessment & Plan (05/19/2019 2:46 PM EST): Painful bilateral upper and lower extremity sensory [...] lab work was reviewed. Lumbar radiculitis 01/06/2019 Assessment & Plan (11/25/2019 1:53 PM EDT): Unclear etiology of recent acute right sacral [...] avoidance of heavy lifting and prolonged sitting. Assessment & Plan (03/11/2019 3:33 PM EDT): Certainly the symptomatology is compatible with intermittent lumbar radiculopathy but I reviewed in detail the last MRI scan done last month indicating minimal broad- based posterior disc bulge at L3-4 but no central canal or lateral recess stenosis. Interestingly no mention was made of the hemangiomas which were seen on the previous study. I am considering referring her to [facility] for more physical therapy as they have gotten results were of the physical therapist have not. I do not think it is appropriate to do another epidural injection. If not already done it may be helpful to have EMGs and nerve conduction velocities of both lower extremities but will hold off with that for now. Several questions were answered on review of the MRI and greater than 50% of this 28-minute visit was spent [id number] conversation with the patient and her present going over the treatment and natural history of trigger fingers as well as the treatment and natural history of lumbar radiculopathy going over her scans and coordinating my care with out of other subspecialist. I refilled her oxycodone today as well. Assessment & Plan (01/06/2019 3:33 PM EDT): Because of persistent and severe pain which have been worsening and disturbing her sleep in a pattern consistent with lumbar radiculitis, I will do an MRI of the lumbar spine and get back to her by phone call. Medications will be unchanged today. Left carpal tunnel syndrome 06/17/2018 Assessment & Plan (07/30/2021 11:54 PM EST): Injection today due to significant symptoms -please see procedure note Definitive treatment is Left CTR-f/u with hand surgeon Assessment & Plan (01/31/2021 10:04 AM EDT): Agree with plans for evaluating and surgically treating bilateral carpal tunnel syndrome with hand Ortho. Assessment & Plan (11/15/2020 9:03 AM EDT): Nighttime wrist splinting. Assessment & Plan (10/25/2020 8:42 AM EDT): Worsening symptoms from median neuropathy and carpal tunnel syndrome be addressed today with continued use of a nighttime splint and injection of Depo-Medrol into the carpal tunnel and referral to hand Ortho for consideration of surgery. Assessment & Plan (02/03/2020 4:54 PM EDT): Substantial improvement after injection. Continue to wear nighttime wrist splint. Continue to use Soma at night and PRN oxycodone during the day. Assessment & Plan (12/29/2019 8:23 AM EDT): Nighttime wrist splint preceded by injection today. Assessment & Plan (11/25/2019 1:52 PM EDT): Subacute flare of left carpal tunnel syndrome causing paresthesias and pain will be treated by carpal tunnel corticosteroid injection on next visit. In the meantime continue to wear nighttime wrist splint. Assessment & Plan (09/24/2018 3:27 PM EDT): Injection today. But the wrist splint back on at night. Follow-up phone call 10 days. If no improvement consider referral to hand orthopnea. Assessment & Plan (06/17/2018 4:10 PM EST): She is to use a carpal tunnel wrist splint for the next 3-4 weeks at night only and then call me with the results. If she see some improvement to the tingling and numbness then we will continue this for an additional 3 months until her next visit otherwise I will consider doing an injection in the left carpal tunnel. Pain medicine was renewed today. Trigger middle finger of left hand 06/17/2018 Assessment & Plan (11/25/2019 1:51 PM EDT): Continue pain medication as prescribed. Continue as needed stretches of the affected flexor tendon sheaths and a basin of warm water daily as needed. Schedule an appointment for corticosteroid injection within the next several weeks. Assessment & Plan (05/19/2019 2:45 PM EST): Same instructions as for the contralateral hand. Assessment & Plan (03/11/2019 3:31 PM EDT): Acute flare of left third trigger finger will be treated with local warmth, as well as stretches in a basin of warm water to be held for 60 seconds twice daily. Large tailor's aide on tools and utensils. Assessment & Plan (06/17/2018 4:09 PM EST): Cortisone injection today. Stretches in a basin of warm water twice daily to be held for 60 seconds each. Osteoarthritis of right ankle 12/05/2017 Assessment & Plan (08/25/2019 3:16 PM EST): I gave her an update on her prescription for compression stockings today. Assessment & Plan (09/24/2018 3:28 PM EDT): Flare of osteoarthritis and tendinitis over the medial aspect of the ankle. She will use a ankle support and contrast baths as well as relative rest and elevation over the next 48-72 hours. Assessment & Plan (03/12/2018 5:26 PM EDT): Chronic pain from osteoarthritis and the right ankle and foot she'll be treated with orthotic inserts. I've asked her to contact [facility]. She will do so. Assessment & Plan (12/05/2017 1:23 PM EDT): Flare of pain along the medial aspect of the right ankle for 2 months is suggestive of a tendinitis. She does have pain on inversion and dorsiflexion but there is no erythema or edema or ecchymosis. She will get an ankle support. We will get an x-ray today to rule out a fracture and I'll get back to her by phone call. Incomplete tear of right rotator cuff 12/05/2017 Assessment & Plan (03/12/2018 5:26 PM EDT): Patient's chief complaint today continues to be [...] a physical therapist closer to her home. Assessment & Plan (12/05/2017 1:23 PM EDT): Flare of pain and rotator cuff impingement in the right shoulder be treated with range of motion exercises, continue his current medication and cortisone injection today. Osteoarthritis of right foot 09/05/2017 Assessment & Plan (09/05/2017 1:31 PM EST): Patient is having a flare of her arthritis in her right first MTP joint. We discussed the utility and well fitting shoes with a wide enough toe box to accommodate her osteophytosis. She will receive a pain relieving injection today. I refilled her pain medication. Her trigger fingers will be dealt with on the next visit. Clinical xerostomia 06/27/2017 Overview (11/12/2022): SSA/SSB neg 12/2021 KALYN NR 2018 No baseline RF Did not tolerate pilocarpine - vomiting; cevimeline - palpitations No salivary gland bx done per previous rheum Assessment & Plan (05/27/2024 1:43 PM EST): Persistent oral and ocular sicca; reviewed with patient potential utility of minor salivary gland bx but she is not interested in pursuing this option. She is also not currently interested in second opinion from [facility]. D/w patient and her that Sjogren's dx is much more difficult to confirm in absence of either positive serologies or bx findings. She has previously tried and not tolerated oral secretagogues regardless. Assessment & Plan (11/12/2022 1:24 PM EDT): Yearly CXR through oncologist / thoracic surgeon; no clear e/o extra-glandular disease. Patient-reported h/o Raynaud's; reassuringly there is no periungual erythema on exam today and baseline KALYN is NR. Assessment & Plan (06/15/2022 11:56 AM EST): No evidence of underlying auto immune disorder by labs Occasionally SS can present without positive labs Minor salivary biopsy would be test of choice to confirm dx At this time , will continue current tx with OTC products and regular follow up visits intermediate Rare potential complications include B cell lymphoma, and ILD Pt getting yearly CT scan of Chest for hx of lung cancer Assessment & Plan (05/19/2019 2:44 PM EST): Secondary to Sjogren's syndrome her xerostomia is managed with Biotene mouthwash and toothpaste in good oral hydration and regular visits to the dentist. Assessment & Plan (03/12/2018 5:26 PM EDT): This is stable. No odontophagia or dysphagia. She will continue to use good oral hydration and Biotene mouthwash and toothpaste when needed. Primary osteoarthritis of both hands 06/27/2017 Assessment & Plan (07/30/2021 11:57 PM EST): ? Early OA left 4th PIP vs Trigger finger Pt had relief form previous injection to left 4th PIP joint so this was repeated today-please see procedure note Pt understands going forward -will try to limit this injections as frequent injections can accelerate fusion of the joint . Pt encouraged to work on hand therapy Techniques to continue Full ROM of the joint Assessment & Plan (01/31/2021 10:04 AM EDT): Continue current pain medicine along with generalized warmth and enlarged tailor's aide on tools and utensils. 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 Assessment & Plan (02/03/2020 4:50 PM EDT): She is having a moderate flare of left first carpometacarpal osteoarthritis which will be treated with ice followed by warmth as well as enlarged tailor's aide on tools and utensils and her pain medication. In several weeks if it still bothering her I may consider an intra-articular cortisone injection. Assessment & Plan (09/24/2018 3:27 PM EDT): Enlarged tailor's aide on tools and utensils and the judicious use of warmth. Fill pain medication today. Left rotator cuff tear arthropathy 06/27/2017 Assessment & Plan (05/19/2019 2:44 PM EST): Pendulum and wall walking motion exercises to maintain range of motion and corticosteroid injection today into the left shoulder. Assessment & Plan (06/28/2017 11:01 AM EST): This is be treated with local injection therapy today. We discussed the natural history of rotator cuff impingement syndrome as well as rotator cuff stretches and strengthening. We also discussed the potential referral to physical therapy and an orthopedic shoulder surgeon. Medications otherwise will remain unchanged. Trigger ring finger of right hand 06/27/2017 Assessment & Plan (06/15/2022 11:49 AM EST): Due to DM Injection today Right 2nd Digit Trigger finger Risks and benefits discussed . Under sterile conditions and with verbal consent the A-1 swathi site of right 2nd digit was cleaned with iodine and alcohol, then injected w/ 0.25mL lidocaine 1% and depo-medrol 20 mg using a 27G 0.5 needle without complications. Bandage applied. Patient tolerated the procedure well w/o immediate complications. Counseled about monitoring for increased pain, swelling, warmth, or redness in the area. Assessment & Plan (10/25/2020 8:42 AM EDT): Patient will be referred to hand Ortho [...] she likely will need less oxycodone hopefully. Assessment & Plan (05/02/2020 4:19 PM EDT): Inject with cortisone today. Continue oxycodone as needed every 6 hours. Assessment & Plan (12/29/2019 8:23 AM EDT): Trigger finger injection today followed by stretches in a basin of warm water 3 times daily as needed. Assessment & Plan (08/25/2019 3:16 PM EST): We talked about habituation to the oxycodone in this patient who cannot tolerate NSAIDs. She will continue on 5 mg of oxycodone 3 times daily as needed. Appropriate narcotics contract was filled out today. Other medications will remain unchanged. Assessment & Plan (05/19/2019 2:44 PM EST): Stable, active, and she is to use enlarged tailor's aide on tools utensils and judicious use of warmth and steroid injections were necessary. Assessment & Plan (01/06/2019 3:33 PM EDT): Enlarged tailor's aide on tools utensils, judicious use of warmth, and local injection today. Assessment & Plan (06/17/2018 4:10 PM EST): Cortisone injection today. Stretches in a basin of warm water to be done twice daily and held for 60 seconds each. Assessment & Plan (12/05/2017 1:22 PM EDT): Patient will receive a cortisone injection today into the flaring trigger finger of the right third position. Assessment & Plan (06/28/2017 11:01 AM EST): Patient's right fourth finger will be treated today with a injection into the inflamed and nodular flexor tendon sheath and she'll follow that up with stretches of the affected flexor tendon sheath and a basin of warm water twice daily. Encounter for preoperative s creening laboratory testing for COVID-19 virus Encounters Date Type Department Care Team Description 03/26/2025 11:40 AM EDT Office Visit [facility] [address] [place] [address] [place] [address] Norah Saldana PA-C Type 2 diabetes mellitus with hyperglycemia, with long-term current use of insulin (Primary Dx) 03/01/2025 Orders Only [facility] [address] [place] [address] Svetlana Bustillos MA Other fatigue; Type 2 diabetes mellitus with hyperglycemia, with long-term current use of insulin 02/12/2025 Telephone [facility] [address] [place] [address] Melanie Morton MD Appointment from Last 3 Months Social History Tobacco Use Types Packs/Day Years Used Date Smoking Tobacco: Former Passive Smoke Exposure: Past Smokeless Tobacco: Never Tobacco Cessation:Counseling Given: Not Answered Comments:over 30 years ago Alcohol Use Standard [...] Orientation Straight 05/17/2021 7: 39 AM EDT Last Filed Vital Signs Vital Sign Reading Time Taken Comments Blood Pressure 118/68 03/26/2025 11:37 AM EDT Pulse 71 03/26/2025 11:37 AM EDT Temperature 35.9 C (96.6 F) 01/09/2023 1:05 PM EDT Respiratory Rate 16 05/27/2023 9:06 AM EST Oxygen Saturation 97% 03/26/2025 11:37 AM EDT Inhaled Oxygen Concentration - - Weight 125.2 kg (276 lb) 03/26/2025 11:37 AM EDT Height 165.1 cm (5' 5 ) 03/26/2025 11:37 AM EDT Body Mass Index 45.93 03/26/2025 11:37 AM EDT Plan of Treatment Upcoming Encounters Date Type Department Care Team (Late st Contact Info) Description 06/17/2025 11:00 AM EST Office Visit [facility] [address] [place] [address] Melanie Morton MD [address] [place] [id number] 10/20/2025 11:20 AM EDT Office Visit [facility] [address] [place] [address] Norah Saldana PA-C [address] [place] [id number] Health Maintenance Due Date Last Done Comments Adult Td,Tdap Booster 1962 DEPRESSION SCREENING 1974 SMOKING Hx and SMOKELESS TOBACCO SCREENING 1975 HEPATITIS C SCREENING 1980 HIV ONE-TIME SCREENING (18-65 YEARS) 1980 PNEUMOCOCCAL VACCINES (50+ years) (1 of 2 - PCV) 1981 PAP SMEAR 1983 MAMMOGRAM 2002 COLOGUARD 2007 COLONOSCOPY 2007 COLORECTAL CANCER SCREENING 2007 FIT TEST 2007 FOBT 2007 SIGMOIDOSCOPY 2007 VIRTUAL COLONOSCOPY 2007 ZOSTER VACCINES (1 of 2) 2012 RSV VACCINE (1 - Risk 60-74 years 1-dose series) 2022 DIABETIC EYE EXAM 06/13/2022 URINE MICROALBUMIN/CREATININE RATIO 06/13/2022 HEMOGLOBIN A1C 01/10/2024 07/11/2023 LIPID PANEL 07/11/2024 07/11/2023 INFLUENZA VACCINE (#1) 2025 , 03/29/2020, 03/29/2020, Additional history exists COVID-19 VACCINE ( season) 2025 11/22/2021, 06/01/2021, 10/07/2020, Additional history exists BLOOD PRESSURE 09/23/2025 03/26/2025 CREATININE LEVEL 02/13/2026 02/13/2025, , 06/17/2024, Additional history exists HEPATITIS A VACCINES Aged Out No long er eligible based on patient's age to complete this topic HIB VACCINES Aged Out No longer eligi ble based on patient's age to complete this topic MENINGOCOCCAL VACCINES (ACWY) Aged Out No longer eligible based on patient's age to complete this topic MENINGOCOCCAL VACCINES (B) Aged Out N o longer eligible based on patient's age to complete this topic Medical Devices Not on file Procedures Procedure Name Priority Date/Time Associated Diagnosis Comments ASPARTATE AMINOTRANSFERASE (AST) Routine 02/13/2025 10:11 AM EDT Type 2 diabetes mellitus with hyperglycemia, with long-term current use of insulin VITAMIN B12 Routine 02/13/2025 10:11 AM EDT Other fatigue TSH WITH REFLEX Routine 02/13/2025 10:11 AM EDT Other fatigue 25-OH VITAMIN D Routine 02/13/2025 10:10 AM EDT Other fatigue C-PEPTIDE Routine 02/13/2025 10:10 AM EDT Type 2 diabetes mellitus with hyperglycemia, with long-term current use of insulin HEMOGLOBIN A1C Routine 02/13/2025 10:10 AM EDT Type 2 diabetes mellitus with hyperglycemia, with long-term current use of insulin MICROALBUMIN/CREATININE RATIO, RANDOM URINE Routine 02/13/2025 10:10 AM EDT Type 2 diabetes mellitus with hyperglycemia, with long-term current use of insulin IRON AND IRON BINDING CAPACITY Routine 02/13/2025 10:10 AM EDT Other fatigue LIPID PANEL Routine 02/13/2025 10:10 AM EDT Type 2 diabetes mellitus with hyperglycemia, with long-term current use of insulin BASIC METABOLIC PANEL Routine 02/13/2025 10:10 AM EDT Type 2 diabetes mellitus with hyperglycemia, with long-term current use of insulin CBC Routine 02/13/2025 10:10 AM EDT Other fatigue from Last 3 Months Results * Aspartate aminotransferase (AST) (02/13/2025 10:11 AM EDT) Blood us Norah Saldana PA-C LAB BLOOD ORDERABL ES Final Result [address] [address] * Vitamin B12 (02/13/2025 10:11 AM EDT) Blood Norah Saldana PA-C LAB BLOOD ORDERABL ES Final Result Performing Organization Address [facility] de Phone Number [address] [address] * TSH with reflex (02/13/2025 10:11 AM EDT) Blood Norah Saldana PA-C LAB BLOOD ORDERABL ES Final Result Performing Organization Address [facility] Phone Number [address] [address] * 25-OH vitamin D (02/13/2025 10:10 AM EDT) Blood Norah Saldana PA-C LAB BLOOD ORDERABL ES Final Result Performing Organization Address [facility] de Phone Number [address] [address] * C-peptide (02/13/2025 10:10 AM EDT) Blood Norah Saldana PA-C LAB BLOOD ORDERABL ES Final Result Performing Organization Address [facility] de Phone Number [address] [address] * Hemoglobin A1c (02/13/2025 10:10 AM EDT) Blood Norah Saldana PA-C LAB BLOOD ORDERABL ES Final Result Performing Organization Address [facility] Co de Phone Number [address] [address] * Microalbumin/creatinine ratio, random urine (02/13/2025 10:10 AM EDT) Urine (Urine) Norah Saldana PA-C URINE ORDERABLES F inal Result Performing Organization Address [facility] Co de Phone Number [address] [address] * Iron and iron binding capacity (02/13/2025 10:10 AM EDT) Blood Norah Saldana PA-C LAB BLOOD ORDERABL ES Final Result Performing Organization Address [facility] de Phone Number [address] [address] * Lipid panel (02/13/2025 10:10 AM EDT) Blood Norah Saldana PA-C LAB BLOOD ORDERABL ES Final Result Performing Organization Address [facility] Co de Phone Number [address] [address] * Basic metabolic panel (02/13/2025 10:10 AM EDT) Blood Norah Suzetteduong Bradyor PA-C LAB BLOOD ORDERABL ES Final Result Performing Organization Address [facility] Co de Phone Number [address] [address] * CBC (02/13/2025 10:10 AM EDT) Blood us Norah Saldana PA-C LAB BLOOD ORDERABL ES Final Result [facility] [address] [place] [address] from Last 3 Months Insurance MEDICARE PART A & B MEDICARE PART A & B MEDICARE PART A & B MEDICARE PART A & B MEDICARE PART A & B MEDICARE PART A & B MEDICARE PART A & B MEDICARE PART A & B MEDICARE PART A & B Care Teams Power Plant Operators Supervisor Relationship Specialty Start Date End Date uYni Chirinos NP [address] [place] [address] PCP - General Nurse Practitioner 03/26/25 Additional Source Comments The information contained in this document represents components of the legal health record. It is not the complete legal health record.[facility]
--- OUTSIDE RECORDS SUMMARY | 2025-04-01 16:50 | XMS_ITS | Clinical Summary ---
Author Organization [facility] Facility Address [address] [address] Care Team Providers Care Counter Waiter Name Role Phone Williams Eubanks Primary Care Provider [phone] Allergies Active Allergy Reactions Criticality Noted Date [...] sodium chloride (OCEAN) 0.65 % nasal spray [place] as directed Active Cranberry 400 MG capsule [...] time each day Active Cobalamin Combinations (Vitamin E90-Whfzp Acid) 500-400 MCG tablet Duration: 1 Active Probiotic Product (PROBIOTIC PEARLS PO) Take 1 capsule by mouth 1 (one) time each day Active [place]-3 Fatty Acids (OMEGA 3 PO) Take 1 [...] Diagnosed Date Right upper quadrant pain 05/08/20232022 prison current use of insulin 01/09/2023 05/08/2023 H/O: [...] followed by warmth as well as enlarged tire technician on tools and utensils and her pain [...] Office Visit [facility] [address] [place] [address] Gabriele Lopez MD [address] [phone] Health Maintenance Due Date Last Done Comments [...] * Magnesium (02/12/2025 10:44 AM EDT) Pathologist [facility] Magnesium 1.8 1.6 - 2.3 mg/dL [facility] 02/12/2025 10:4 4 AM EDT 02/12/2025 Narrative [facility] - 02/13/2025 8:07 AM EDT Specimen Comment: A courtesy copy of this report has been sent to the patient Gabriele Lopez MD LAB BLOOD ORDERABLES Final Resul t [facility] [address] [place] [phone] * (ABNORMAL) Blood Panel (01/09/2019 12:00 AM EDT) Pathologist [facility] Potassium 4.4 3.5 - 5.1 mmol/L PVNMA [...] ug/dl PVNMA 01/09/2019 us [facility] [id number] LICITED RESULTS Final Result PVNMA from Last 3 Months or Most Recently Relevant to Health Maintenance Insurance Medicare Medicare Care Teams Counter Waiter Relationship Specialty Start Date End Date Williams Eubanks DO [address] [place] [address] PCP - General 07/25/20
--- OUTSIDE RECORDS SUMMARY | 2025-04-01 16:50 | XMS_ITS | Encounter Summary ---
Author Organization [facility] Address [address] [place] [phone] Phone Care Team Providers Care Motorboat Mechanic Inboard/Outboard Name Role Phone Eubanks, Williams Haines DO Primary Care Provider Yuni Chirinos NP Primary Care Provider + Encounter Details Date Type Department Care Team (Late st Contact Info) Description 05/17/2021 Procedure Pass OR Admitting Dept - Virtual Department [address] [place] [address] Social History Tobacco Use Types Packs/Day Years Used Date Smoking Tobacco: Former Smokeless Tobacco: Never Comments:over 30 years ago Alcohol Use Standard Drinks/Week Comments No 0 (1 standard drink = 0.6 oz pur e alcohol) Comments No Sex and Gender Information Value [...] 11:00 AM EST Office Visit [facility] [address] [place] [address] Melanie Morton MD [address] [place] [address] 10/20/2025 11:20 AM EDT Office Visit [facility] [address] [place] [address] Norah Saldana PA-C [address] [place] [address] [email or web address] documented as of this encounter Visit Diagnoses Not on filedocumented in this encounter Care Teams Motorboat Mechanic Inboard/Outboard Relationship Specialty Start Date End Date Williams Eubanks DO [address] [facility] [place] [address] PCP - General Family Medicine 06/27/17 03/25/25 Yuni Chirinos NP [address] [place] [address] PCP - General Nurse Practitioner 03/26/25 documented as of this encounter Additional Source Comments The information contained in this document represents components of the legal health record. It is not the complete legal health record.[facility]
--- OUTSIDE RECORDS SUMMARY | 2025-04-01 16:50 | XMS_ITS | Clinical Summary ---
Author Organization [facility] Address [address] [place] [address] Phone Care Team Providers Care Furnace Reliner Name Role Phone Yuni Chirinos Primary Care Provider [phone] Allergies Active Allergy Reactions Criticality Noted Date [...] A DAY NEEDED FOR SHORTNESS OF BREATH. 09/06/202 2 Active insulin regular (HumuLIN R U-500, Conc, [...] Problems Problem Noted Date Diagnosed Date Pleural effusion 03/11/2025 Pleural nodules 07/19/2022 Assessment & Plan (03/11/2025 2:38 PM EDT): Ms. Veliz is a 64 year old female who did have a right upper lobe wedge resection for a stage 1b adenocarcinoma in [address] Terry. On subsequent imaging she was noted to have some increased nodularity at the right lung apex, as well as a small right pleural effusion. While in office we did review her most recent chest CT scan which does show an increase of her right sided pleural effusion which was performed on 03/04/2025 and does show a small increase once again in her right sided pleural effusion as well as a slight interval increase in size of 5 mm subpleural nodule in the right lower lobe and interval increase in size of 1.5 x 0.8 cm subpleural nodular density in the right lower lobe previously measuring 1.3 x 0.6 cm which may reflect an enlarging pulmonary nodule versus compressive atelectasis. There are also additional nodular densities in the right lung apex along her staple line which has also slightly increased in size since her initial scan with us in 2021. We did discuss recommendations during her visit with us today which included a PET CT scan however patient is refusing to move forward with a PET CT scan as she does not want to have too much imaging performed due to fears of radiation exposure. In regards to her pleural effusion we will be referring her to interventional pulmonology for further assessment and to discuss any possible biopsies of her slowly enlarging pulmonary nodules. 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 Anxiety 08/11/2013 GUTHRIE (nonalcoholic steatohepatitis) 08/11/2013 Paroxysmal atrial fibrillation ([facility] V24, [facility] V28) 08/11/2013 Encounters Date Type Department Care Team Description 03/11/2025 Telephone [facility] [address] [place] [phone] Oz So MD 03/10/2025 11:00 AM EDT Office Visit Thoracic Surgery - [place] [address] [place] [address] Nhan Ewing PA Pleural nodules (Primary Dx) 01/14/2025 Telephone Gastroenterology [facility] [address] [place] [phone] Zandra Briceno PA 01/01/2025 Telephone Thoracic Surgery - [address] [place] [address] Evelyne Lara MA from Last [...] PROCEDURE: HISTORICAL OTHER SURGICAL HISTORY 08/2012 PROCEDURE: WI BIOPSY LIVER NEEDLE PERCUTANEOUS UPPER GASTROINTESTINAL ENDOSCOPY 01/11/2015 PROCEDURE: WI UPPER GI ENDOSCOPY PERFORMED; COMMENT: Normal COLONOSCOPY 11/08/2015 PROCEDURE: HISTORICAL COLONOSCOPY; COMMENT: Colon Polyps. Repeat 5 yrs OTHER SURGICAL HISTORY 02/2014 Right PROCEDURE: WI RMVL LUNG XCP TOT PNEUMONECTOMY SLEEVE LOBECTOMY; COMMENT: Right Upper Lobe, Wedge Resection COLONOSCOPY 12/28/2020 PROCEDURE: HISTORICAL COLONOSCOPY; COMMENT: tubular adenomas Medical History Medical History Date Comments Paroxysmal atrial fibrillati on ([facility] V24, [facility] V28) 08/11/2013 DX:Paroxysmal atrial fibril lation (HCC) Allergic rhinitis 08/11/2013 DX:Allergic rh initis Anxiety 08/11/2013 DX:Anxiety Sjogren's syndrome ([facility] V24) DX:Sjogren's syndrome (HCC) GERD [...] obesity with BMI of 4 0.0-44.9, adult ([facility] V24, [facility] V28) 03/10/2018 DX:Morbid obesity wit h BMI [...] of blood transfusion s as patient is Yazidi 04/03/2018 DX:Refusal of blood trans fusions as patient is Yazidi Asthma 05/14/2019 DX:Asthma 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, [facility]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/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 (HC C) Vitamin D deficiency 05/14/2019 DX:Vitamin D deficiency OAB (overactive bladder) 05/14/2019 DX:OAB (overactive bladder) GUTHRIE (nonalcoholic steatohepatitis) 08/11/2013 DX:GUTHRIE (nonalcoholic steatohepatitis) Cirrhosis of liver (CMS/HCC V24, CMS/HCC V28) DX:Cirrhosis of liver (HCC) Refusal of blood transfusion s as patient is Yazidi DX:Refusal of blood trans fusions as patient is Yazidi; COMMENT: Patient states may possibly accept Cell [...] Sign Reading Time Taken Comments Blood Pressure 143/80 03/10/2025 11:12 AM EDT Pulse 69 03/10/2025 11:12 AM EDT Temperature 37.1 C (98.8 F) 03/10/2025 11:12 AM EDT Respiratory Rate 16 03/10/2025 11:12 AM EDT Oxygen Saturation 97% 03/10/2025 11:12 AM EDT Inhaled Oxygen Concentration - - Weight 124 kg (274 lb 3.2 oz) 03/10/2025 11:12 A M EDT Height 165.1 cm (5' 5 ) 03/10/2025 11:12 AM EDT Body Mass Index 45.63 03/10/2025 11:12 AM EDT Plan of Treatment Upcoming Encounters Date Type Department Care Team (Late st Contact Info) Description 04/09/2025 11:30 AM EDT Office Visit [facility] Hematology Oncology [address] [place] [phone] Amarilis Reyes MD [address] [place] [address] 04/14/2025 1:00 PM EDT Office Visit G[facility]enterology [facility] [address] [facility] [address] [phone] Zandra Briceno PA [address] [address] 04/20/2025 11:00 AM EDT Office Visit Pulmonology - [address] [place] [address] Rima Johnson MD [address] [place] [address] Health Maintenance Due Date Last Done Comments [...] Blood Sugar Control Test (HGBA1C) 01/10/2024 07/11/2023 Diabetes: Annual GFR (Glomerular Filtration Rate) 07/11/2024 07/11/2023 Hypertension/CHF/CAD Annual BMP Blood Test 07/11/2024 07/11/2023 Depression Screening 07/15/2024 COVID-19 Vaccine ( season) 2025 11/22/2021, 06/01/2021, 10/07/2020, Additional history exists Influenza Vaccine (#1) 2025 , 03/29/2020, 04/06/2019, Additional history exists Diabetes: Annual Urine Albumin-Creatinine Ratio (uACR) 02/13/2026 02/13/2025, 02/26/2024, 07/11/2023, Additional history exists Cholesterol Screening (Lipid Panel) [...] Recently Relevant to Health Maintenance Results * Annual BMP Blood Test (07/11/2023) Pathologist [facility] Annual BMP Blood Test abstracted [facility] Provider HEALTH MAINTENANCE Final Result * Hemoglobin A1c (07/11/2023) Pathologist [facility] Hemoglobin A1C 0.0 % Comment:no interpretation,ab stracted Blood Venous blood specimen / Unknown Historical Provider LAB BLOOD ORDERABLES Sridevi l Result * Lipid panel (07/11/2023) LDL/HDL Ratio 0 Comment:no interpretation,ab stracted Triglycerides 0 mg/dL Comment:no interpretation,ab stracted Cholesterol 0 mg/dL Comment:no interpretation,ab stracted HDL 0 mg/dL Comment:no interpretation,ab stracted LDL Cholesterol 0 mg/dL Comment:no interpretation,ab stracted Blood Venous blood specimen / Unknown us Historical Provider LAB BLOOD ORDERABLES Sridevi l Result from Last 3 Months or Most Recently Relevant to Health Maintenance Insurance MEDICARE Advance Directives Documents on File Type Date Recorded Patient Support Group Manager Expl anation Health Care Decision (hx) 03/01/2014 [...] (hx) 02/12/2014 AD GARCIAS DIRECTIVE Care Teams Furnace Reliner Relationship Specialty Start Date End Date Yuni Chirinos [address] [place] [id number] PCP - General 03/11/25
--- OUTSIDE RECORDS SUMMARY | 2025-04-01 16:50 | XMS_ITS | Clinical Summary ---
Author Organization [facility] Address [address] [place] [address] Care Team Providers Care Gluing Machine Offbearer Name Role Phone Unavailable Primary Care Provider [...] 5000 PLUS) 1.1 % creaIndications :Enamel caries Yampa twice daily with toothpaste then expectorate. Do not rinse. 51 g 4 4 Active Active Problems Problem Noted Date Diagnosed Date Asthma ([facility]) 05/16/2022 Severe obesity ([facility]) 05/16/2022 Enamel caries 05/16/2022 Extraction of tooth needed 05/16/2022 Overview (05/16/2022): #19 and 31 Abnormal mammogram 04/04/2022 At moderate risk for fall 11/15/2021 Atrophic vulva 11/15/2021 Benign essential hypertension 11/15/2021 Fibromyalgia 11/15/2021 Hyperlipidemia 11/15/2021 Irritable bowel syndrome 11/15/2021 Migraine 11/15/2021 Mixed stress and urge urinary incontinence 11/15 Polyp of colon 11/15/2021 Type 2 diabetes mellitus ([facility]) 022 Overview (05/16/2022): endo endo Sleep [...] hand surgeon 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 ([facility]) 03/10/2018 Gastroesophageal reflux disease 03/10/2018 [...] followed by warmth as well as enlarged resource paraprofessional on tools and utensils and her pain [...] 08/11/2013 Paroxysmal atrial fibrillation ([facility]) 0 08/11/2013 Social History Tobacco Use Types Packs/Day [...] Imm-Hepatitis B (1 of 3 - Ri 3-dose series) 2022 Urine Albumin Creatinine Rat io Screening 12/25/2022 12/25/2021 Dental Perio Charting 05/18/2023 05/16/2022 Lipid Screening 07/11/2024 07/11/2023 Alcohol and Drug Screen 07/15/2024 Depression Annual Screen 07/15/2024 Dental BW 08/11/2024 08/09/2023, 05/16/2022 Dental Prophy 10/24/2024 04/23/2024, 07/16, 05/16/2022 [id number] ( season) 2025 11/22/2021, 06/01/2021, 10/07/2020, Additional history exists Imm-Influenza (#1) 2025 03/28/2021, 0 03/29/2020, 04/06/2019, Additional history exists Hemoglobin A1c 04/10/2025 10/08/2024, 12/0 10/2023, 02/26/2024, Additional history exists Dental Examination 04/25/2025 [...]
--- OUTSIDE RECORDS SUMMARY | 2025-04-01 16:50 | XMS_ITS | Encounter Summary ---
Author Organization [facility] Address [address] [place] [address] [place] [phone] Phone Care Team Providers Care Data Programmer Name Role Phone Williams Eubanks DO Primary Care Provider Yuni Chirinos NP Primary Care Provider + Encounter Details Date Type Department Care Team (Late st Contact Info) Description 03/01/2025 Orders Only [facility] [address] [place] [phone] Svetlana [place], [place] [address] [place] [address] [email or web address] Other fatigue; Type 2 diabetes mellitus with hyperglycemia, with long-term current use of insulin Social History Tobacco Use Types Packs/Day Years Used Date Smoking Tobacco: Former Passive Smoke Exposure: Past Smokeless Tobacco: Never Comments:over 30 years ago [...] 11:00 AM EST Office Visit [facility] [address] [place] [address] [place] [address] Melanie Morton MD [address] [place] [address] 10/20/2025 11:20 AM EDT Office Visit [facility] [address] [place] [address] [place] [address] Norah Saldana PA-C [address] [place] [phone] documented as of this encounter Procedures Procedure [...] Routine 02/13/2025 10:10 AM EDT Other fatigue documented in this encounter Results * Aspartate aminotransferase (AST) (02/13/2025 10:11 AM EDT) Blood Norah Sadlana PA-C LAB BLOOD ORDERABL ES Final Result Performing Organization Address [facility] Co de Phone Number [address] [address] * Vitamin B12 (02/13/2025 10:11 AM EDT) Blood Norah Saldana PA-C LAB BLOOD ORDERABL ES Final Result Performing Organization Address [facility] Co de Phone Number [address] [address] * TSH with reflex (02/13/2025 10:11 AM EDT) Blood Norah Saldana PA-C LAB BLOOD ORDERABL ES Final Result Performing Organization Address [facility] Co de Phone Number [address] [address] * 25-OH vitamin D (02/13/2025 10:10 AM EDT) Blood Norah Bradyor PA-C LAB BLOOD ORDERABL ES Final Result Performing Organization Address [facility] Co de Phone Number [address] [address] * C-peptide (02/13/2025 10:10 AM EDT) Blood Norah Bradford Les PA-C LAB BLOOD ORDERABL ES Final Result Performing Organization Address [facility] Co de Phone Number [address] [address] * Hemoglobin A1c (02/13/2025 10:10 AM EDT) Blood Norah Bradyor PA-C LAB BLOOD ORDERABL ES Final Result Performing Organization Address [facility] de Phone Number [address] [address] * Microalbumin/creatinine ratio, random urine (02/13/2025 10:10 AM EDT) Urine (Urine) us Norah Saldana PA-C URINE ORDERABLES F inal Result Performing Organization Address [facility] Co de Phone Number [address] [address] * Iron and iron binding capacity (02/13/2025 10:10 AM EDT) Blood Norah Suzetteduong Saldana PA-C LAB BLOOD ORDERABL ES Final Result Performing Organization Address [facility] Co de Phone Number [address] [address] * Lipid panel (02/13/2025 10:10 AM EDT) Blood us Norah Wisdomanda Les PA-C LAB BLOOD ORDERABL ES Final Result Performing Organization Address [facility] Co de Phone Number [address] [address] * Basic metabolic panel (02/13/2025 10:10 AM EDT) Blood Norah Bradford Les CAST-Tasha LAB BLOOD ORDERABL ES Final Result Performing Organization Address [facility]/ZIP Co de Phone Number [address] [address] * CBC (02/13/2025 10:10 AM EDT) Blood Norah Suzette CAST-C LAB BLOOD ORDERABL ES Final Result Performing Organization Address [facility] Co de Phone Number [address] [address] documented in this encounter Visit Diagnoses Diagnosis Other fatigue Type 2 diabetes mellitus with hyperglycemia, with long-term current use of insulin documented in this encounter Care Teams Data Programmer Relationship Specialty Start Date End Date Williams Eubanks DO [address] [facility] [place] [address] PCP - General Family Medicine 06/27/17 03/25/25 Yuni Chirinos NP [address] [place] [address] PCP - General Nurse Practitioner 03/26/25 documented as of this encounter Additional Source Comments The information contained in this document represents components of the legal health record. It is not the complete legal health record.[facility]
== END 2025-04-01 15:58 | disposition home or self-care (01) ==
LOC: HO.PMC 15:24
PROVIDERS: PCP Family Medicine; Visit Provider Nurse Practitioner Family
DX: M53.3 Sacrococcygeal disorders, not elsewhere classified (principal); M54.50 Low back pain, unspecified; M54.16 Radiculopathy, lumbar region; Z79.891 Long term (current) use of opiate analgesic; G89.4 Chronic pain syndrome; M79.7 Fibromyalgia; M25.561 Pain in right knee; M25.562 Pain in left knee
CPT/HCPCS: 99214; G2211

== ENCOUNTER → 2025-04-01 15:24 | Outpatient (BNVA) | payer MEDICARE, SELFPAY | PROVIDERS: PCP Family Medicine; Visit Provider Nurse Practitioner Family | DX: M53.3 Sacrococcygeal disorders, not elsewhere classified (principal); M54.16 Radiculopathy, lumbar region; M79.7 Fibromyalgia; M54.50 Low back pain, unspecified; M25.561 Pain in right knee; M25.562 Pain in left knee; G89.4 Chronic pain syndrome; Z79.891 Long term (current) use of opiate analgesic | CPT/HCPCS: 99212 ==

== ENCOUNTER 2025-04-29 15:14 | Outpatient (AMB) | payer MEDICARE, SELFPAY ==
--- NOTE | 2025-04-29 15:17 | MHC.OFFVIS ---
Vital Signs 04/29/25 15:27 Height 5 ft 5 in Weight 273 lb 2 oz BMI 45.4 BP 128/68 Blood Pressure Location Lt brachial Position Sitting Respiration 16 Intake Visit Reasons: Pill Count Intake Note: Lina comes in today for a pill count to oxycodone, patient should have 33 tablets and presents with 43 tablets which she last took today 04/29/25 at 2:30pm. Pain today 10/22 Oxygen Equipment Technician Required: No Accompanied by: Spouse Allergies aspartame Allergy (Unknown, Verified 04/29/25 15:27) Unknown cephalexin Allergy (Unknown, Verified 04/29/25 15:27) Unknown cyclobenzaprine Allergy (Unknown, Verified 04/29/25 15:27) Unknown dobutamine Allergy (Unknown, Verified 04/29/25 15:27) Unknown indomethacin Allergy (Unknown, Verified 04/29/25 15:27) Unknown levofloxacin (Levaquin) Allergy (Unknown, Verified 04/29/25 15:27) Unknown morphine Allergy (Unknown, Verified 04/29/25 15:27) Unknown penicillin V Allergy (Unknown, Verified 04/29/25 15:27) Unknown tramadol Allergy (Unknown, Verified 04/29/25 15:27) Unknown NSAIDS (Non-Steroidal Anti-Inflamma Adverse Reaction (Severe, Verified 04/29/25 15:27) afib Latex Gloves Allergy (Unknown, Uncoded 03/26/24 14:17) Unknown HPI Comments Details: Lina presents today for a pill count. Patient is supposed to have #33 pills, in her possession has #43 pills. This demonstrates a responsible attitude in regards to the medication regimen on as needed for moderate-severe pain only. Patient reports adequate analgesia on her regimen of oxycodone 5 mg TID prn with no noted side effects. Pain is rated at 6/10, low back and right buttock radiating down into right leg. The patient reports she has followed up with her Surveillance Manager and have been told pulmonary nodules with a recent increase in size and number, as noted on a recent CT scan. She is scheduled to see her Oncologist later this month for further evaluation. She also has a history of liver cirrhosis, with imaging showing nodularity on the liver surface resembling bubble wrap and early stages of internal scarring. She is aware that chemotherapy is not an option and that radiation could further damage the liver. Her Oncologist has mentioned the possibility of future immunotherapy. The patient has asthma, which contributes to her dyspnea, especially since she carries weight centrally. Denies any recent cough, cold, infection, fever, or any significant changes in her medical history, medications or recent hospitalizations. Past Procedures: 08/30/23: Right elbow steroid injection-90% pain relief for 1.5 months [facility] Medical History Environmental and seasonal allergies Chronic pain syndrome History of lung cancer Diabetes type 2 with atherosclerosis of arteries of extremities Morbid obesity Gout, arthritis Morbidly obese Gout Psoriasis Arthritis Family history of lung cancer Lung cancer Diabetic retinopathy Williamson's palsy Sciatica Plantar fasciitis, bilateral Rosacea Sleep apnea Asthma GERD (gastroesophageal reflux disease) IBS (irritable bowel syndrome) Nerve pain Migraine Carpal tunnel syndrome, bilateral Diabetic cheirarthropathy Fibromyalgia Non-alcoholic micronodular cirrhosis of liver Paroxysmal atrial fibrillation Primary Sjogren's syndrome Type 2 diabetes mellitus Surgical History History of carpal tunnel release History of lung surgery History of appendectomy History of repair of left rotator cuff History of section Social History Alcohol intake: never Patient Tobacco Use Status: Former Tobacco user Current occupational status: disabled Review of Systems Const All systems reviewed & are unremarkable except as noted in HPI and below Physical Exam Vital Signs: Last Vital Signs Resp 16 04/29/25 15:27 BP 128/68 04/29/25 15:27 BMI result Body Mass Index 45.4 General: Appears afebrile. No acute distress. Alert and oriented. Mood and affect appropriate. Follows and participates in conversation appropriately. Respiratory effort is unlabored. No cough. Wears facemask. Able to transition from sit to stand unassisted. Ambulates with cane. Ambulates with bilaterally normal heel strike and toe off. Back/Spine/Pelvis Cervical Spine: cervical ROM normal, cervical muscular tenderness and No Cervical spine tenderness Thoracic/Lumbar Spine: thoracic and lumbar spine normal to inspection, No Thoracic/lumbar spine scar(s), pain with thoraco-lumbar ROM, paraspinal muscle tenderness, thoraco-lumbar ROM limited, No thoracic spinal tenderness and No lumbar spinal tenderness Sacroiliac joints: bilaterally tender to palpation Extrem General: Yes capillary refill normal, Yes no clubbing, cyanosis or edema and Yes no calf tenderness Psych Appearance: grossly normal Mental Status: mental status grossly normal Speech and movement: Normal speech and movement present Affect: normal affect Attitude: cooperative Thought process: Normal thought process present Thought content: Normal thought content present, suicidality (none), no hallucinations and No Depressive thoughts present Insight: Good insight present (Psych) Judgement: Good judgement present (Psych) Results Reviewed Results Reviewed: Assessment & Plan Assessment & Plan (1) Low back pain: Code(s): M54.50 - Low back pain, unspecified Category: Medical (2) Lumbar radiculopathy: Code(s): M54.16 - Radiculopathy, lumbar region Category: Medical (3) Opioid contract exists: Code(s): Z79.891 - alf (current) use of opiate analgesic Category: Medical (4) Chronic pain syndrome: Code(s): G89.4 - Chronic pain syndrome Category: Medical (5) Fibromyalgia: Code(s): M79.7 - Fibromyalgia Category: Medical (6) Bilateral knee pain: Code(s): M25.561 - Pain in right knee; M25.562 - Pain in left knee Category: Medical Plan Patient has shown accountability for her medication regimen and the pill count was accurate.?There is no evidence of misuse, abuse or diversion at this time. MassPat reviewed. Prescription for oxycodone for 30 days sent with advanced date of 05/11/25. Patient is aware of monitoring for side effects. Patient has Narcan at home. All questions were answered and the patient is in agreement with the plan. Follow up in 4-5 weeks for pill count or sooner as needed. Medications: Refilled oxycodone Partial Fill upon patient request. 5 mg PO TID PRN 90 tabs 0RF pain 30 days G89.4 - Chronic pain syndrome, M25.561 - Pain in right knee, M25.562 - Pain in left knee, Z79.891 - rodent exterminator (current) use of opiate analgesic Coding Level of Care Code Est Pt Level 4 (04530) Complex EM visit Add On G2211 Diagnoses Low back pain M54.50 Lumbar radiculopathy M54.16 Opioid contract exists Z79.891 Chronic pain syndrome G89.4 Fibromyalgia M79.7 Bilateral knee pain M25.561; M25.562
[2025-04-29 15:27] VITALS: BP 128/68; RESP 16; BMI 45.4
--- OUTSIDE RECORDS SUMMARY | 2025-04-29 19:05 | XMS_ITS | Clinical Summary ---
Author Organization [facility] Address [address] [place] [address] Care Team Providers Care Drug Purchaser Name Role Phone Williams Eubanks MD Primary Care Provider [phone] Allergies Active Allergy Reactions Criticality Noted Date [...] DAY 90 DAYS 0 03/04/2022 Active nystatin 117562 UNIT/GM external powder APPLY POWDER TOPICALLY TO [...] transfusion s as patient is Rastafari 04/03/2018 Family history of colon cancer in [...] age to complete this topic Care Teams Drug Purchaser Relationship Specialty Start Date End Date Williams Eubanks MD [address] [place] [address] PCP - General Family Medicine 01/21/19
--- OUTSIDE RECORDS SUMMARY | 2025-04-29 19:05 | XMS_ITS | Encounter Summary ---
Author Organization [facility] Address [address] [place] [address] [place] [address] Phone Care Team Providers Care Technical Program Manager Name Role Phone Williams Eubanks DO Primary Care Provider Yuni Chirinos NP Primary Care Provider + Encounter Details Date Type Department Care Team (Late st Contact Info) Description 05/27/2023 Procedure Pass [employer] [employer] [facility] [address] [place] [address] Social History Tobacco Use Types Packs/Day Years [...] AM EST Office Visit [facility] [address] [place] [address] Melanie Morton MD [address] [address] 10/20/2025 11:20 AM EDT Office Visit [facility] 22 [place] [address] Norah Saldana PA-C [address] [place] [address] [email or web address] documented as of this encounter Visit Diagnoses Not on filedocumented in this encounter Care Teams Technical Program Manager Relationship Specialty Start Date End Date Williams Eubanks DO 24 [facility] [place] [address] PCP - General Family Medicine 06/27/17 03/25/25 Yuni Chirinos NP [address] [place] [address] PCP - General Nurse Practitioner 03/26/25 documented as of this encounter Additional Source Comments The information contained in this document represents components of the legal health record. It is not the complete legal health record.[facility]
--- OUTSIDE RECORDS SUMMARY | 2025-04-29 19:05 | XMS_ITS | Encounter Summary ---
Author Organization [facility] Address [address] [place] [address] Phone Care Team Providers Care Assistant Purchasing Manager Name Role Phone Eubanks, Williams Haines DO Primary Care Provider Yuni Chirinos NP Primary Care Provider + Encounter Details Date Type Department Care Team (Late st Contact Info) Description 05/17/2021 Procedure Pass [place] Admitting Dept - Virtual Department 30 [place] [address] Social History Tobacco Use Types Packs/Day Years [...] 11:00 AM EST Office Visit [facility] [address] [place] [address] Melanie Morton MD [address] [place] [address] 10/20/2025 11:20 AM EDT Office Visit [facility] [address] [place] [address] Norah Saldana PA-C 22 [place] [address] [email or web address] documented as of this encounter Visit Diagnoses Not on filedocumented in this encounter Care Teams Assistant Purchasing Manager Relationship Specialty Start Date End Date Williams Eubanks DO 24 [facility] [place] [address] PCP - General Family Medicine 06/27/17 03/25/25 Yuni Chirinos NP [address] [place] [address] PCP - General Nurse Practitioner 03/26/25 documented as of this encounter Additional Source Comments The information contained in this document represents components of the legal health record. It is not the complete legal health record.[facility]
--- OUTSIDE RECORDS SUMMARY | 2025-04-29 19:05 | XMS_ITS | Encounter Summary ---
Author Organization [facility] Address [address] [place] [address] Care Team Providers Care Souvenir Assembler Name Role Phone Williams Eubanks MD Primary Care Provider [phone] Encounter Details Date Type Department Care Team Description 07/27/2022 Social Work [facility] On[facility] Services [address] [place] [address] [facility] Social History Tobacco Use Types Packs/Day Years [...] on filedocumented in this encounter Care Teams Souvenir Assembler Relationship Specialty Start Date End Date Williams Eubanks MD [address] [place] [address] PCP - General Family Medicine 01/21/19 documented as of this encounter
--- OUTSIDE RECORDS SUMMARY | 2025-04-29 19:05 | XMS_ITS | Encounter Summary ---
Author Organization [facility] Address [address] [place] [address] [place] [address] Phone Care Team Providers Care Concrete Finishing Machine Operator Name Role Phone Yuni Chirinos NP Primary Care Provider + Reason for Referral * MRI/CAT Scan - Closed Specialty Diagnoses / Procedures Referred By Johana gaxiola Referred To Contact Radiology Procedures Outside CT Chest Report Only [facility] [address] [place] [address] Phone: tel: fax: Referral ID Status Reason Start Date Expiration Date Visits Re quested Visits Authorized [id number] Closed 04/09/2025 1 1 Encounter Details Date Type Department Care Team (Late st Contact Info) Description 04/09/2025 Orders Only [facility] [address] [place] [address] Williams Eubanks, DO 24 [facility] [place] [address] Social History Tobacco Use Types Packs/Day Years [...] 11:00 AM EST Office Visit [facility] [address] [place] [address] [place] [address] Melanie Morton MD [address] [place] [address] 10/20/2025 11:20 AM EDT Office Visit [facility] [address] [place] [address] [place] [address] Norah Saldana PA-C [address] [place] [address] documented as of this encounter Procedures Procedure Name Priority Date/Time Associated Diagnosis Comments OUTSIDE US THYROID REPORT ONLY Routine 03/17/2025 8:[address] CHEST REPORT ONLY Routine 03/03/2025 8:43 AM EDT COMPREHENSIVE METABOLIC PANEL Routine 02/12/2025 9:12 AM EDT CBC Routine 02/12/2025 9:12 AM EDT TSH Routine 02/12/2025 9:12 AM EDT LIPID PANEL Routine 02/12/2025 9:12 AM EDT HEMOGLOBIN A1C Routine 02/12/2025 9:03 AM EDT OUTSIDE XR ABDOMEN REPORT ONLY Routine 02/10/2025 8:49 AM EDT documented in this encounter Results * Outside US Thyroid Report Only (03/17/2025 8:40 AM EDT) us Williams Eubanks DO IMG US THYROID Final R esult * Outside CT??Chest Report Only (03/03/2025 8:43 AM EDT) us Historical Provider IMMt CT CHEST Final Res ult * CBC (02/12/2025 9:12 AM EDT) us Williams Eubanks DO LAB BLOOD ORDERABLES Fi nal Result * Comprehensive metabolic panel (02/12/2025 9:12 AM EDT) us Williams Eubanks DO LAB BLOOD ORDERABLES Fi nal Result * Lipid panel (02/12/2025 9:12 AM EDT) us Williamskarolyn Eubanks DO LAB BLOOD ORDERABLES Fi nal Result * TSH (02/12/2025 9:12 AM EDT) us Williamskarolyn Eubanks DO LAB BLOOD ORDERABLES Fi nal Result * Hemoglobin A1c (02/12/2025 9:03 AM EDT) us Williams Eubanks DO LAB BLOOD ORDERABLES Fi nal Result * Outside XR Abdomen Report Only (02/10/2025 8:49 AM EDT) us Williams Eubanks DO IMG XR ABDOMEN Final R esult documented in this encounter Visit Diagnoses Not on filedocumented in this encounter Care Teams Concrete Finishing Machine Operator Relationship Specialty Start Date End Date Yuni Chirinos NP [address] [place] [address] PCP - General Nurse Practitioner 03/26/25 documented as of this encounter Additional Source Comments The information contained in this document represents components of the legal health record. It is not the complete legal health record.[facility]
--- OUTSIDE RECORDS SUMMARY | 2025-04-29 19:05 | XMS_ITS | Clinical Summary ---
Author Organization [facility] Address [address] [place] [address] Phone Care Team Providers Care Cost Specialist Name Role Phone Yuni Chirinos NP Primary [...] Asparatame Penicillin G Benzathin,Procain 06/27/2017 Penicillins 06/27/2017 Nsjmose-Tgl-Ads Reductase Inhibitors 10/03/2022 Sulfamethoxazole-Trimethopri m 10/25/2020 Tramadol 06/27/2017 Medications dvyvf-3u-pmg-epa-f issac oil 1,000-1,400 mg CpDR Take 1 capsule by mouth daily. Active fluticasone propionate (FLONASE) 50 mcg/actuation nasal spray 2 sprays by Nasal route as needed. Active iron bisgly,ps-FA-B-C#1 2-succ 65 mg-65 mg -1,000 mcg (24) Tab Take 1 tablet by mouth daily. Active propylene glycoL (SYSTANE BALANCE) 0.6 % Drop as directed. Active pmwyqwx-gum-gotat- rzn221-ttm36 167 mg-65 mg -50 mg Tab Take 1 tablet by mouth daily. Active milk thistle 140 mg Cap Take 1 capsule by mouth daily. Active hphpqpgb-szv-hqeko us fumarate 9 mg iron/15 mL Liqd Take 1 TABLEspoonful by mouth daily. Active olopatadine (PATANOL) 0.1 % ophthalmic solution 1 drop 2 (two) times a day. Active albuterol 90 mcg/actuation inhaler Inhale 2 puffs into the lungs as needed. Active L. 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 360 tablet 2 08/20/19 25 Active esomeprazole (NEXIUM) 40 MG capsule Take 1 capsule by mouth 2 (two) times a day. Active FREESTYLE LITE Strp stripsIndications: Type 2 diabetes mellitus with hyperglycemia, with long-term current use of insulin 1 each by Percutaneous route 2 (two) times a day. 200 strip 3 11/21/19 25 Active ADVAIR HFA 115-21 mcg/actuation inhaler Inhale 230 mcg/treatment of fluticasone into the lungs 2 (two) times a day. 02/04/20 25 Active glucagon (BAQSIMI) 3 mg/actuation SpryIndications:Ty pe 2 diabetes mellitus with hyperglycemia, with long-term current use of insulin 1 spray by Nasal route once as needed (severe hypoglycemia). 2 each 3 03/26/20 25 Active insulin regular U-500 CONC (HUMULIN R, KWIKPEN) 500 unit/mL (3 mL) subcutaneous injection penIndications:Typ e 2 diabetes mellitus with hyperglycemia, with long-term current use of insulin Inject 140 Units under the skin daily before breakfast AND 20-40 Units daily before lunch AND 70 Units Daily before dinner. 48 mL 2 03/26/20 25 Active Active Problems Problem Noted Date Diagnosed [...] pain, right 05/27/2023 Overview (05/27/2023): Plain film ([place]) 04/2023 - significant joint space narrowing and hypertrophy of 1st MTP, otherwise essentially nl Assessment & Plan (05/27/2023 9:55 AM EST): Proceed with MRI given chronicity and severity of pain, ? occult fx. 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 halfway current use of insulin 01/09/2023 Chronic pain [...] her glucose levels. Up to date with [facility]. Labs ordered Assessment & Plan (10/14/2024 12:08 [...] her glucose levels. Up to date with [facility]. Labs ordered Assessment & Plan (07/18/2024 11:02 [...] her glucose levels. Up to date with [facility]. Foot and nail care is good. 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 Up to date with [facility]. Waiting to see podiatry. Will order labs [...] her glucose levels. [facility] A foot exam was done by Dr [...] diabetic shoes. She has follow-up with her laundry supervisor Dr. Ware. Reviewed symptoms, prevention and treatment [...] as can tolerate. Up to date with [facility]. Lab orders given to do when having [...] 50% of this 28-minute visit was spent jbpv-id-brcq conversation with the patient and her present [...] held for 60 seconds twice daily. Large loom mechanic on tools and utensils. Assessment & Plan [...] not currently interested in second opinion from [facility]. 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 Assessment & Plan (02/03/2020 4:50 PM EDT): She is having a moderate flare of left first carpometacarpal osteoarthritis which will be treated with ice followed by warmth as well as enlarged loom mechanic on tools and utensils and her pain medication. In several weeks if it still bothering her I may consider an intra-articular cortisone injection. Assessment & Plan (09/24/2018 3:27 PM EDT): Enlarged loom mechanic on tools and utensils and the judicious [...] active, and she is to use enlarged loom mechanic on tools utensils and judicious use of warmth and steroid injections were necessary. Assessment & Plan (01/06/2019 3:33 PM EDT): Enlarged loom mechanic on tools utensils, judicious use of warmth, [...] Encounters Date Type Department Care Team Description 04/09/2025 Orders Only [facility] Endocrinology [address] [place] [address] [place] [address] Williams Eubanks DO 03/26/2025 11:40 AM EDT Office Visit [facility] [address] [place] [address] [place] [address] Norah Saldnaa PA-C Type 2 diabetes mellitus with hyperglycemia, with long-term current use of insulin (Primary Dx) 03/01/2025 Orders Only [facility] [address] [place] [address] [place] [address] Svetlana Bustillos MA Other fatigue; Type 2 diabetes mellitus with hyperglycemia, with long-term current use of insulin 02/12/2025 Telephone [facility] Endocrinology [address] [place] [address] [place] [address] Melanie Morton MD Appointment from Last 3 [...] AM EST Office Visit [facility] [address] [place] [address] Melanie Morton MD [address] [place] [address] 10/20/2025 11:20 AM EDT Office Visit [facility] [address] [place] [address] Norah Saldana PA-C 22 [place] [address] [email or web address] Health Maintenance Due Date Last Done Comments [...] FOBT 2007 SIGMOIDOSCOPY 2007 VIRTUAL COLONOSCOPY 2007 RSV VACCINE (1 - Risk 50-74 years 1-dose series) 2012 ZOSTER VACCINES (1 of 2) 2012 DIABETIC EYE EXAM 06/13/2022 URINE MICROALBUMIN/CREATININE RATIO 06/13/2022 HEMOGLOBIN A1C 01/10/2024 07/11/2023 LIPID PANEL 07/11/2024 07/11/2023 INFLUENZA VACCINE (#1) 2025 , 03/29/2020, 03/29/2020, Additional history exists COVID-19 VACCINE ( season) 2025 11/22/2021, 06/01/2021, 10/07/2020, Additional history exists BLOOD PRESSURE 09/23/2025 03/26/2025 CREATININE LEVEL 02/13/2026 02/13/2025, 07/2024, 10/08/2024, Additional history exists HEPATITIS A VACCINES Aged [...] REPORT ONLY Routine 03/03/2025 8:43 AM EDT ASPARTATE AMINOTRANSFERASE (AST) Routine 02/13/2025 10:11 AM [...] Routine 02/13/2025 10:10 AM EDT Other fatigue CBC Routine 02/12/2025 9:12 AM EDT COMPREHENSIVE METABOLIC PANEL Routine 02/12/2025 9:12 AM EDT LIPID PANEL Routine 02/12/2025 9:12 AM EDT TSH Routine 02/12/2025 9:12 AM EDT HEMOGLOBIN A1C Routine 02/12/2025 9:03 AM EDT OUTSIDE XR ABDOMEN REPORT ONLY Routine 02/10/2025 8:49 AM EDT from Last 3 Months Results * Outside US Thyroid Report Only (03/17/2025 8:40 AM EDT) us Williams Eubanks DO IMG US THYROID Final R esult * Outside CT??Chest Report Only (03/03/2025 8:43 AM EDT) Historical Provider IMG CT CHEST Final Res ult * Aspartate aminotransferase (AST) (02/13/2025 10:11 AM EDT) Blood Norah Bradford Les PA-C LAB BLOOD ORDERABL ES Final Result Performing Organization Address [facility] de Phone Number [address] [address] * Vitamin B12 (02/13/2025 10:11 AM EDT) Blood Norah Bradyor PA-C LAB BLOOD ORDERABL ES Final Result Performing Organization Address [facility] de Phone Number [address] [address] * TSH with reflex (02/13/2025 10:11 AM EDT) Blood Norah Saldana PA-C LAB BLOOD ORDERABL ES Final Result Performing Organization Address [facility] de Phone Number [address] [address] * 25-OH vitamin D (02/13/2025 10:10 AM EDT) Blood Norah Bradyor PA-C LAB BLOOD ORDERABL ES Final Result Performing Organization Address [facility] Co de Phone Number [address] [address] * C-peptide (02/13/2025 10:10 AM EDT) Blood Norah Saldana PA-C LAB BLOOD ORDERABL ES Final Result Performing Organization Address [facility] Co de Phone Number [address] [address] * Hemoglobin A1c (02/13/2025 10:10 AM EDT) Only the most recent of2 resultswithin the time period is included. Blood Norah Saldana PA-C LAB BLOOD ORDERABL ES Final Result Performing Organization Address [facility] de Phone Number [address] [address] * Microalbumin/creatinine ratio, random urine (02/13/2025 10:10 AM EDT) Urine (Urine) Norah Saldana PA-C URINE ORDERABLES F inal Result Performing Organization Address [facility] de Phone Number [address] [address] * Iron and iron binding capacity (02/13/2025 10:10 AM EDT) Blood Norah Saldana PA-C LAB BLOOD ORDERABL ES Final Result Performing Organization Address [facility] de Phone Number [address] [address] * Lipid panel (02/13/2025 10:10 AM EDT) Only the most recent of2 resultswithin the time period is included. Blood Norah Bradyor PA-C LAB BLOOD ORDERABL ES Final Result Performing Organization Address [facility] Co de Phone Number [address] [place] [address] * Basic metabolic panel (02/13/2025 10:10 AM EDT) Blood us Norah Saldana PA-C LAB BLOOD ORDERABL ES Final Result Performing Organization Address City/[facility]/ZIP Co de Phone Number [address] [address] * CBC (02/13/2025 10:10 AM EDT) Only the most recent of2 resultswithin the time period is included. Blood us Norah Saldana PA-C LAB BLOOD ORDERABL ES Final Result Performing Organization Address City/[facility]/ZIP Co de Phone Number [address] [address] * Comprehensive metabolic panel (02/12/2025 9:12 AM EDT) Williams Eubanks DO LAB BLOOD ORDERABLES Fi nal Result * TSH (02/12/2025 9:12 AM EDT) Williams Eubanks DO LAB BLOOD ORDERABLES Fi nal Result * Outside XR Abdomen Report Only (02/10/2025 8:49 AM EDT) us Williams Eubanks DO IMG XR ABDOMEN Final R esult from Last 3 Months Insurance MEDICARE PART A & B MEDICARE PART A & B MEDICARE PART A & B MEDICARE PART A & B MEDICARE PART A & B MEDICARE PART A & B MEDICARE PART A & B MEDICARE PART A & B MEDICARE PART A & B Care Teams Cost Specialist Relationship Specialty Start Date End Date Yuni Chirinos NP [address] [place] [address] PCP - General Nurse Practitioner 03/26/25 Additional Source Comments The information contained in this document represents components of the legal health record. It is not the complete legal health record.[facility]
--- OUTSIDE RECORDS SUMMARY | 2025-04-29 19:05 | XMS_ITS | Encounter Summary ---
Author Organization [facility] Address [address] [place] [address] Phone Care Team Providers Care Photocopy Operator Name Role Phone Eubanks, Gary Zaki Primary Care Provider Yuni Chirinos NP Primary Care Provider + Encounter Details Date Type Department Care Team (Late st Contact Info) Description 03/27/2021 Prep for Surgery [facility] Orthopedics & Sports Medicine [address] [place] [address] Gela Ott MD [address] [place] [address] Orthopedics & Sports Medicine, [facility] [place] [address] [email or web address] Social History Tobacco Use [...] AM EST Office Visit [facility] [address] [place] [address] Melanie Morton MD [address] [address] 10/20/2025 11:20 AM EDT Office Visit [facility] [address] [place] [address] Norah Saldana PA-C 22 [place] [address] [email or web address] documented as of this encounter Visit Diagnoses Not on filedocumented in this encounter Care Teams Photocopy Operator Relationship Specialty Start Date End Date Williams Eubanks DO 24 [facility] [place] [address] PCP - General Family Medicine 06/27/17 03/25/25 Yuni Chirinos NP [address] [place] [address] PCP - General Nurse Practitioner 03/26/25 documented as of this encounter Additional Source Comments The information contained in this document represents components of the legal health record. It is not the complete legal health record.[facility]
== END 2025-04-29 15:40 | disposition home or self-care (01) ==
LOC: HO.PMC 15:14
PROVIDERS: PCP Family Medicine; Visit Provider Nurse Practitioner Family
DX: M54.50 Low back pain, unspecified (principal); M54.16 Radiculopathy, lumbar region; Z79.891 Long term (current) use of opiate analgesic; G89.4 Chronic pain syndrome; M79.7 Fibromyalgia; M25.561 Pain in right knee; M25.562 Pain in left knee
CPT/HCPCS: 99214; G2211

== ENCOUNTER → 2025-04-29 15:14 | Outpatient (BNVA) | payer MEDICARE, SELFPAY | PROVIDERS: PCP Family Medicine; Visit Provider Nurse Practitioner Family | DX: Z51.81 Encounter for therapeutic drug level monitoring (principal); M54.50 Low back pain, unspecified; M54.16 Radiculopathy, lumbar region; M79.7 Fibromyalgia; M25.561 Pain in right knee; M25.562 Pain in left knee; G89.4 Chronic pain syndrome; Z79.891 Long term (current) use of opiate analgesic | CPT/HCPCS: 99212 ==

== ENCOUNTER 2025-06-03 15:21 | Outpatient (AMB) | payer MEDICARE, SELFPAY ==
--- NOTE | 2025-06-03 15:23 | MHC.OFFVIS ---
Vital Signs 06/03/25 15:39 Height 5 ft 5 in Weight 272 lb BMI 45.3 BP 130/60 Blood Pressure Location Lt brachial Position Sitting Respiration 16 Intake Visit Reasons: PILL COUNT Intake Note: Lina comes in today for a pill count to oxycodone, patient should have 18 tablets and presents with 30 tablets which she last took today 06/03/25 at 3:15pm. Pain today 7/10 Edi Programmer Analyst Required: No Accompanied by: Spouse Allergies aspartame Allergy (Unknown, Verified 06/03/25 15:30) Unknown cephalexin Allergy (Unknown, Verified 06/03/25 15:30) Unknown cyclobenzaprine Allergy (Unknown, Verified 06/03/25 15:30) Unknown dobutamine Allergy (Unknown, Verified 06/03/25 15:30) Unknown indomethacin Allergy (Unknown, Verified 06/03/25 15:30) Unknown levofloxacin (Levaquin) Allergy (Unknown, Verified 06/03/25 15:30) Unknown morphine Allergy (Unknown, Verified 06/03/25 15:30) Unknown penicillin V Allergy (Unknown, Verified 06/03/25 15:30) Unknown tramadol Allergy (Unknown, Verified 06/03/25 15:30) Unknown NSAIDS (Non-Steroidal Anti-Inflamma Adverse Reaction (Severe, Verified 06/03/25 15:30) afib Latex Gloves Allergy (Unknown, Uncoded 03/26/24 14:17) Unknown HPI Comments Details: Lina presents today for a pill count. Patient is supposed to have #18 pills, in her possession has #30 pills. This demonstrates a responsible attitude in regards to the medication regimen on as needed for moderate-severe pain only. Patient reports adequate analgesia on her regimen of oxycodone 5 mg TID prn with no noted side effects. Pain is rated at 7/10, low back and right buttock radiating down into right leg. The patient reports new-onset, severe, migratory joint pain that began around age 60. The pain moves between different joints, such as the elbow, knee, and ankle. The patient recalls a grandparent having similar symptoms referred to as rheumatism. She is considering Rheumatology referral given personal history of Sjogren's syndrome, psoriasis, rosacea and diabetes. Denies any recent cough, cold, infection, fever, or any significant changes in her medical history, medications or recent hospitalizations. - Analgesia: The patient takes pain medication up to three times daily on an as-needed basis, which improves pain control. - Aberrant Drug-Related Behaviors: The patient reports a surplus of medication due to taking less on days with good pain control. - An early refill was requested to accommodate travel plans. - The patient was counseled to finish the current supply before starting the new prescription. Past Procedures: 08/30/23: Right elbow steroid injection-90% pain relief for 1.5 months [facility] Medical History Environmental and seasonal allergies Chronic pain syndrome History of lung cancer Diabetes type 2 with atherosclerosis of arteries of extremities Morbid obesity Gout, arthritis Morbidly obese Gout Psoriasis Arthritis Family history of lung cancer Lung cancer Diabetic retinopathy Williamson's palsy Sciatica Plantar fasciitis, bilateral Rosacea Sleep apnea Asthma GERD (gastroesophageal reflux disease) IBS (irritable bowel syndrome) Nerve pain Migraine Carpal tunnel syndrome, bilateral Diabetic cheirarthropathy Fibromyalgia Non-alcoholic micronodular cirrhosis of liver Paroxysmal atrial fibrillation Primary Sjogren's syndrome Type 2 diabetes mellitus Surgical History History of carpal tunnel release History of lung surgery History of appendectomy History of repair of left rotator cuff History of section Social History Alcohol intake: never Patient Tobacco Use Status: Former Tobacco user Current occupational status: disabled Review of Systems Const All systems reviewed & are unremarkable except as noted in HPI and below Physical Exam Vital Signs: Last Vital Signs Resp 16 06/03/25 15:39 BP 130/60 06/03/25 15:39 BMI result Body Mass Index 45.3 General: Appears afebrile. No acute distress. Alert and oriented. Mood and affect appropriate. Follows and participates in conversation appropriately. Respiratory effort is unlabored. No cough. Wears facemask. Able to transition from sit to stand unassisted. Ambulates with cane. Ambulates with bilaterally normal heel strike and toe off. Back/Spine/Pelvis Cervical Spine: cervical ROM normal, cervical muscular tenderness and No Cervical spine tenderness Thoracic/Lumbar Spine: thoracic and lumbar spine normal to inspection, No Thoracic/lumbar spine scar(s), pain with thoraco-lumbar ROM, paraspinal muscle tenderness, thoraco-lumbar ROM limited, No thoracic spinal tenderness and No lumbar spinal tenderness Sacroiliac joints: bilaterally tender to palpation Extrem General: Yes capillary refill normal, Yes no clubbing, cyanosis or edema and Yes no calf tenderness Psych Appearance: grossly normal Mental Status: mental status grossly normal Speech and movement: Normal speech and movement present Affect: normal affect Attitude: cooperative Thought process: Normal thought process present Thought content: Normal thought content present, suicidality (none), no hallucinations and No Depressive thoughts present Insight: Good insight present (Psych) Judgement: Good judgement present (Psych) Results Reviewed Results Reviewed: Assessment & Plan Assessment & Plan (1) Low back pain: Code(s): M54.50 - Low back pain, unspecified Category: Medical (2) Opioid contract exists: Code(s): Z79.891 - termite technician (current) use of opiate analgesic Category: Medical (3) Chronic pain syndrome: Code(s): G89.4 - Chronic pain syndrome Category: Medical (4) Fibromyalgia: Code(s): M79.7 - Fibromyalgia Category: Medical (5) Bilateral knee pain: Code(s): M25.561 - Pain in right knee; M25.562 - Pain in left knee Category: Medical (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 Folloze reviewed. Refill for oxycodone for 30 days sent with advanced date of 06/07/25, early refill to accommodate holiday travels. Patient was instructed to finish the current bottle before starting the new one. Patient is aware of monitoring for side effects. Patient has Narcan at home. We discussed the patient's complaint of severe, migratory joint pain and the patient's history of autoimmune conditions. I recommended a Rheumatology consultation and plan to order preliminary labs to facilitate this, but we agreed to hold this workup until after the new year at the patient's request. All questions were answered and the patient is in agreement with the plan. Follow up in 4-5 weeks for pill count or sooner as needed. Medications: Refilled oxycodone Partial Fill upon patient request. 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
[2025-06-03 15:39] VITALS: BP 130/60; RESP 16; BMI 45.3
--- OUTSIDE RECORDS SUMMARY | 2025-06-03 20:34 | XMS_ITS | Encounter Summary ---
Author Organization [facility] Address [address] [place] [address] Phone Care Team Providers Care Certified Real Estate Appraiser Name Role Phone Eubanks, Gary Zaki Primary Care Provider Yuni Chirinos NP Primary Care Provider + Encounter Details Date Type Department Care Team (Late st Contact Info) Description 03/27/2021 Prep for Surgery [facility] Orthopedics & Sports Medicine [address] [place] [address] Gela Ott MD [address] [place] [address] Orthopedics & Sports Medicine, [facility] [place] [address] [email or web address] Social [...] AM EST Office Visit [facility] [address] [place] [address] Melanie Morton MD [address] [address] 10/20/2025 11:20 AM EDT Office Visit [facility] [address] [place] [address] Norah Saldana PA-C [address] [place] [address] [email or web address] documented as of this encounter Visit Diagnoses Not on filedocumented in this encounter Care Teams Certified Real Estate Appraiser Relationship Specialty Start Date End Date Williams Eubanks DO 24 [facility] [place] [address] PCP - General Family Medicine 06/27/17 03/25/25 Yuni Chirinos NP [address] [place] [address] PCP - General Nurse Practitioner 03/26/25 documented as of this encounter Additional Source Comments The information contained in this document represents components of the legal health record. It is not the complete legal health record.[facility]
--- OUTSIDE RECORDS SUMMARY | 2025-06-03 20:34 | XMS_ITS | Clinical Summary ---
Author Organization [facility] Address [address] [place] [address] Phone Care Team Providers Care Hi Low Truck Driver Name Role Phone Yuni Chirinos NP Primary [...] Asparatame Penicillin G Benzathin,Procain 06/27/2017 Penicillins 06/27/2017 Ezhcvdz-Qzt-Jtr Reductase Inhibitors 10/03/2022 Sulfamethoxazole-Trimethopri m 10/25/2020 Tramadol 06/27/2017 Medications bmedx-8z-vlu-epa-f issac oil 1,000-1,400 mg CpDR Take 1 capsule by mouth daily. Active fluticasone propionate (FLONASE) 50 mcg/actuation nasal spray 2 sprays by Nasal route as needed. Active iron bisgly,ps-FA-B-C#1 2-succ 65 mg-65 mg -1,000 mcg (24) Tab Take 1 tablet by mouth daily. Active propylene glycoL (SYSTANE BALANCE) 0.6 % Drop as directed. Active hwwbbxa-jeq-zflfn- pkp086-ake94 167 mg-65 mg -50 mg Tab Take 1 tablet by mouth daily. Active milk thistle 140 mg Cap Take 1 capsule by mouth daily. Active ofejzqjs-ptq-tkvtm us fumarate 9 mg iron/15 mL Liqd [...] pain, right 05/27/2023 Overview (05/27/2023): Plain film ([place]) 04/2023 - significant joint space narrowing and hypertrophy of 1st MTP, otherwise essentially nl Assessment & Plan (05/27/2023 9:55 AM EST): Proceed with MRI given chronicity and severity of pain, ? occult fx. Patient to f/u with tube builder airplane. oil heaterman current use of insulin 01/09/2023 Chronic pain [...] her glucose levels. Up to date with [facility]. Labs ordered Assessment & Plan (10/14/2024 12:08 [...] her glucose levels. Up to date with [facility]. Labs ordered Assessment & Plan (07/18/2024 11:02 [...] her glucose levels. Up to date with [facility]. Foot and nail care is good. Will order labs to do prior to next visit Assessment & Plan (11/13/2023 1:32 PM EDT): Control is unknown as we are unable to download the patient's dexcom G6 basting puller and we don't have the results of [...] her glucose levels. Up to date with [facility]. Waiting to see podiatry. Will order labs [...] her glucose levels. [facility] A foot exam was done by Dr [...] diabetic shoes. She has follow-up with her tube builder airplane Dr. Ware. Reviewed symptoms, prevention and treatment [...] as can tolerate. Up to date with [facility]. Lab orders given to do when having [...] 50% of this 28-minute visit was spent jdbs-nf-iovn conversation with the patient and her present [...] held for 60 seconds twice daily. Large mangle roller on tools and utensils. Assessment & Plan [...] not currently interested in second opinion from [facility]. D/w patient and her that Sjogren's [...] OTC products and regular follow up visits oil heaterman Rare potential complications include B cell lymphoma, [...] medicine along with generalized warmth and enlarged mangle roller on tools and utensils. 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 Assessment & Plan (02/03/2020 4:50 PM EDT): She is having a moderate flare of left first carpometacarpal osteoarthritis which will be treated with ice followed by warmth as well as enlarged mangle roller on tools and utensils and her pain medication. In several weeks if it still bothering her I may consider an intra-articular cortisone injection. Assessment & Plan (09/24/2018 3:27 PM EDT): Enlarged mangle roller on tools and utensils and the judicious [...] active, and she is to use enlarged mangle roller on tools utensils and judicious use of warmth and steroid injections were necessary. Assessment & Plan (01/06/2019 3:33 PM EDT): Enlarged mangle roller on tools utensils, judicious use of warmth, [...] Department Care Team Description 04/09/2025 Orders Only [facility] [address] [place] [address] [place] [address] Williams Eubanks DO 03/26/2025 11:40 AM EDT Office Visit [facility] [address] [place] [address] Norah Saldana PA-C Type 2 diabetes mellitus with hyperglycemia, with long-term current use of insulin (Primary Dx) from Last 3 Months Social History Tobacco [...] AM EST Office Visit [facility] [address] [place] [address] Melanie Morton MD [address] [place] [address] 10/20/2025 11:20 AM EDT Office Visit [facility] [address] [place] [address] [place] [address] Norah Saldana PA-C [address] [place] [address] Health Maintenance Due Date Last Done Comments [...] REPORT ONLY Routine 03/03/2025 8:43 AM EDT BASIC METABOLIC PANEL (BMP) Routine 02/13/2025 10:10 AM EDT Type 2 diabetes mellitus with hyperglycemia, with long-term current use of insulin from Last 3 Months or Most Recently Relevant to Health Maintenance Results * Outside US Thyroid Report Only (03/17/2025 8:40 AM EDT) us Williams Eubanks DO IMG US THYROID Final R esult * Outside CT??Chest Report Only (03/03/2025 8:43 AM EDT) us Historical Provider IMG CT CHEST Final Res ult * Basic metabolic panel (02/13/2025 10:10 AM EDT) Blood us Norah Saldana PA-C LAB BLOOD BKR REGI MARR Final Result Performing Organization Address City/State/[facility] Co de Phone Number [address] [address] from Last 3 Months or Most Recently Relevant to Health Maintenance Insurance MEDICARE PART A & B MEDICARE PART A & B MEDICARE PART A & B MEDICARE PART A & B MEDICARE PART A & B MEDICARE PART A & B MEDICARE PART A & B MEDICARE PART A & B MEDICARE PART A & B Care Teams Hi Low Truck Driver Relationship Specialty Start Date End Date Yuni Chirinos NP [address] [place] [address] PCP - General Nurse Practitioner 03/26/25 Additional Source Comments The information contained in this document represents components of the legal health record. It is not the complete legal health record.[facility]
--- OUTSIDE RECORDS SUMMARY | 2025-06-03 20:35 | XMS_ITS | Encounter Summary ---
Author Organization [facility] Address [address] [place] [address] Care Team Providers Care Recycling Attendant Name Role Phone Williams Eubanks MD Primary Care Provider [phone] Encounter Details Date Type Department Care Team Description 07/27/2022 Social Work [facility] [address] [place] [address] [facility] Social History Tobacco Use Types Packs/Day Years [...] on filedocumented in this encounter Care Teams Recycling Attendant Relationship Specialty Start Date End Date Williams Eubanks MD [address] [place] [address] PCP - General Family Medicine 01/21/19 documented as of this encounter
--- OUTSIDE RECORDS SUMMARY | 2025-06-03 20:35 | XMS_ITS | Clinical Summary ---
Author Organization [facility] Address [address] [place] [address] Care Team Providers Care Roustabout Name Role Phone Williams Eubanks MD Primary Care Provider [phone] Allergies Active Allergy Reactions Criticality Noted Date [...] DAY 90 DAYS 0 03/04/2022 Active nystatin 188135 UNIT/GM external powder APPLY POWDER TOPICALLY TO [...] of blood transfusion s as patient is Bahai 04/03/2018 Family history of colon cancer in [...] age to complete this topic Care Teams Roustabout Relationship Specialty Start Date End Date Williams Eubanks MD [address] [place] [address] PCP - General Family Medicine 01/21/19
--- OUTSIDE RECORDS SUMMARY | 2025-06-03 20:35 | XMS_ITS | Encounter Summary ---
Author Organization [facility] Address [address] [place] [address] Care Team Providers Care Retinal Surgeon Name Role Phone Yuni Chirinos Primary Care Provider [phone] Reason for Visit * Reason Comments Follow-up Encounter Details Date Type Department Care Team (Late st Contact Info) Description 04/16/2025 Social Work [facility] [address] [facility] 2nd [place] [phone] [facility] Social History Tobacco Use Types [...] Care Team (Late st Contact Info) Description 06/25/2025 2:00 PM EST Office Visit [facility] [address] [place] [phone] Oz So MD [address] [place] [address] Dr [address] [place] [phone] 07/28/2025 2:10 PM EST Office Visit [facility] [address] [facility] [address] [place] [phone] Galina Weeks NP [address] [place] [address] [address] [place] [phone] 10/13/2025 1:00 PM EDT Office Visit Gastroenterology - 299 [facility] [address] [phone] Zandra Briceno PA [address] [phone] 04/01/2026 11:30 AM EDT Office Visit [facility] Hematology Oncology [address] [place] [phone] Amarilis Reyes MD [address] [place] [phone] documented as of this encounter Visit Diagnoses Not on filedocumented in this encounter Care Teams Retinal Surgeon Relationship Specialty Start Date End Date Yuni Chirinos [address] [place] [address] PCP - General 03/11/25 documented as of this encounter
--- OUTSIDE RECORDS SUMMARY | 2025-06-03 20:35 | XMS_ITS | Encounter Summary ---
Author Organization [facility] Address [address] [place] [address] Phone Care Team Providers Care Kelly Machine Operator Name Role Phone Eubanks, Williams Haines DO Primary Care Provider Yuni Chirinos NP Primary Care Provider + Encounter Details Date Type Department Care Team (Late st Contact Info) Description 05/17/2021 Procedure Pass OR Admitting Dept - Virtual Department [address] [place] [address] Social History Tobacco Use Types Packs/Day Years [...] 11:00 AM EST Office Visit [facility] [address] [place] [address] Melanie Morton MD [address] [place] [address] 10/20/2025 11:20 AM EDT Office Visit [facility] [address] [place] [address] Norah Saldana PA-C [address] [place] [address] [email or web address] documented as of this encounter Visit Diagnoses Not on filedocumented in this encounter Care Teams Kelly Machine Operator Relationship Specialty Start Date End Date Williams Eubanks DO 24 [facility] [place] [address] PCP - General Family Medicine 06/27/17 03/25/25 Yuni Chirinos NP [address] [place] [address] PCP - General Nurse Practitioner 03/26/25 documented as of this encounter Additional Source Comments The information contained in this document represents components of the legal health record. It is not the complete legal health record.[facility]
--- OUTSIDE RECORDS SUMMARY | 2025-06-03 20:35 | XMS_ITS | Clinical Summary ---
Author Organization [facility] Address [address] [address] Care Team Providers Care Crossing Supervisor Name Role Phone Williams Eubanks Primary Care Provider [phone] Allergies Active Allergy Reactions Criticality Noted Date [...] sodium chloride (OCEAN) 0.65 % nasal spray [place] as directed Active Cranberry 400 MG capsule [...] time each day Active Cobalamin Combinations (Vitamin L45-Jrwir Acid) 500-400 MCG tablet Duration: 1 Active Probiotic Product (PROBIOTIC PEARLS PO) Take 1 capsule by mouth 1 (one) time each day Active Wilton-3 Fatty Acids (OMEGA 3 PO) Take 1 [...] Diagnosed Date Right upper quadrant pain 05/08/20232022 [facility] current use of insulin 01/09/2023 05/08/2023 H/O: [...] obtain updated plain films pending clinical course. Gouty arthritis of great toe 11/12/2022 Overview (05/08/2023): One lifetime episode of podagra [...] 11/15/2021 Migraine 11/15/2021 Mixed urinary incontinence 11/15/2021 Metabolic dysfunction-associated steatotic liver disease 11/15/2021 Patient encounter status 11/15/2021 Polyp of [...] followed by warmth as well as enlarged cone baker machine on tools and utensils and her pain [...] Encounters Date Type Department Care Team Description 05/13/2025 Orders Only [facility] [address] [place] [address] Gabriele Lopez MD Hypomagnesemia from Last 3 [...] Years Used Date Smoking Tobacco: Former Cigarettes 0 Q uit: 07/15/1979 Smokeless Tobacco: Never Tobacco [...] Care Team (Late st Contact Info) Description 06/30/2025 3:00 PM EST Office Visit [facility] [address] [place] [address] Gabriele Lopez MD [address] [address] Health Maintenance Due Date Last [...] Priority Date/Time Associated Diagnosis Comments MAGNESIUM Routine 05/17/2025 2:40 PM EST Hypomagnesemia BLOOD PANEL (HC) Routine 01/09/2019 12:0 0 AM EDT from Last 3 Months or Most Recently Relevant to Health Maintenance Results * Magnesium (05/17/2025 2:40 PM EST) Magnesium 1.8 1.6 - 2.3 mg/dL [facility] Blood specimen (specimen) Venous blood / Unknown 05/17/2025 2:40 PM EST 05/17/2025 us Gabriele Lopez MD LAB BLOOD ORDERABLES Final Resul t [facility] [address] [place] [address] * (ABNORMAL) Blood Panel (01/09/2019 12:00 AM [...] ug/dl PVNMA 01/09/2019 us Rtama Conversion LAB EUEFLZFTUY-[id number]-LOBC LICITED RESULTS Final Result PVNMA from Last 3 Months or Most Recently Relevant to Health Maintenance Insurance Medicare Medicare Care Teams Crossing Supervisor Relationship Specialty Start Date End Date Williams Eubanks DO [address] [place] [address] PCP - General 07/25/20
--- OUTSIDE RECORDS SUMMARY | 2025-06-03 20:35 | XMS_ITS | Encounter Summary ---
Author Organization [facility] Address [address] [place] [address] [place] [phone] Phone Care Team Providers Care Electronics Engineering Professor Name Role Phone Williams Eubanks DO Primary Care Provider Yuni Chirinos NP Primary Care Provider + Encounter Details Date Type Department Care Team (Late st Contact Info) Description 05/27/2023 Procedure Pass [facility], [facility] [address] [place] [address] Social History Tobacco Use Types Packs/Day Years [...] AM EST Office Visit [facility] [address] [place] [address] Melanie Morton MD [address] [address] 10/20/2025 11:20 AM EDT Office Visit [facility] [address] [place] [address] Norah Saldana PA-C [address] [place] [phone] [email or web address] documented as of this encounter Visit Diagnoses Not on filedocumented in this encounter Care Teams Electronics Engineering Professor Relationship Specialty Start Date End Date Williams Eubanks DO [address] [facility] [place] [address] PCP - General Family Medicine 06/27/17 03/25/25 Yuni Chirinos NP [address] [place] [phone] PCP - General Nurse Practitioner 03/26/25 documented as of this encounter Additional Source Comments The information contained in this document represents components of the legal health record. It is not the complete legal health record.[facility]
--- OUTSIDE RECORDS SUMMARY | 2025-06-03 20:35 | XMS_ITS | Clinical Summary ---
Author Organization [facility] Address [address] [place] [address] Phone Care Team Providers Care Bureau Chief Name Role Phone Yuni Chirinos Primary Care Provider [phone] Allergies Active Allergy Reactions Criticality Noted Date [...] nostril 2 (two) times a day. Active fluticasone propion-salmeter oL (Advair HFA) 115-21 mcg/actuation inhaler Inhale by mouth. 5 08/06/19 26 Active propranolol LA (Inderal LA) 60 mg 24 hr capsuleIndicatio ns:Paroxysmal atrial fibrillation (CMS/HCC V24, CMS/HCC V28) Take 1 capsule (60 mg total) by mouth 1 (one) time each day. Do not crush, chew, or split. 30 each 11 5 04/29/20 26 Active Active Problems Problem Noted Date Diagnosed Date Malignant neoplasm of upper lobe of right lung (CMS/HCC V24, CMS/HCC V28) 04/09/2025 Pleural effusion 03/11/2025 Assessment & Plan (04/29/2025 12:38 PM EDT): Patient's had a right-sided pleural effusion since at least 2021. 1 was documented on a CAT scan. Oncology is aware of this there is a small accumulation of fluid that she is but offered thoracentesis which she has declined. I do not feel that this fluid is secondary to heart failure. 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 Anxiety 08/11/2013 GUTHRIE (nonalcoholic steatohepatitis) 08/11/2013 Paroxysmal atrial fibrillation (CMS/HCC V24, CMS /HCC V28) 08/11/2013 Assessment & Plan (04/29/2025 12:38 PM EDT): Patient has a history of paroxysmal atrial fibrillation. It appears that she was on flecainide for period of time but had side effects from this was actually present placed on propranolol which seems to been controlling her breakthrough. She is concerned that the propranolol is affecting the effectiveness of her asthma therapy which she does she want to try tapering off of beta-laurence. Will decrease her from Inderal LA 80 to Inderal LA 60 mg a day and have her back in a month if that is effectively working and she is not having any breakthrough A-fib. Then we can switch her to short acting propranolol twice daily or 10 3 times daily and then gradually taper that down also. I did warn her that she could have recurrent atrial fibrillation. Orders: ECG 12 lead propranolol LA (Inderal LA) 60 mg 24 hr capsule; Take 1 capsule (60 mg total) by mouth 1 (one) time each day. Do not crush, chew, or split. Encounters Date Type Department Care Team Description 04/29/2025 11:20 AM EDT Office Visit [facility] Cardiology [address] [place] [phone] Xiomara Hernandez MD Paroxysmal atrial fibrillation (CMS/HCC V24, CMS/HCC V28) (Primary Dx); Pleural effusion 04/27/2025 11:00 AM EDT Ancillary Procedure [facility] Cardiology [facility] [address] [place] [address] Pleural effusion; Dilated cardiomyopathy (CMS/HCC V24, CMS/HCC V28) 04/21/2025 Telephone [facility] Hematology Oncology [address] [place] [address] Geraldine Cool [place] 04/20/2025 11:00 AM EDT Office Visit Pulmonology - [place] [address] [place] [phone] Rima Johnson MD Pleural effusion (Primary Dx); Malignant neoplasm of upper lobe of right lung (CMS/HCC V24, CMS/HCC V28); Pleural nodules 04/20/2025 Telephone [facility] [address] [place] [phone] Xiomara Hernandez MD 04/16/2025 [facility] [address] [phone] [facility] 04/16/2025 [facility] [address] [phone] [facility] 04/14/2025 1:00 PM EDT Office Visit Gastroenterology [facility] [address] [facility] [address] [facility] [address] [place] [phone] Zandra Briceno PA Liver cirrhosis secondary to GUTHRIE (nonalcoholic steatohepatitis) (CMS/HCC V24, CMS/HCC V28) (Primary Dx) 04/14/2025 Telephone Gastro[facility]ology [facility] [address] [facility] [address] [facility] [address] [place] [phone] Zandra Briceno PA 04/09/2025 11:30 AM EDT Office Visit [facility] Hematology Oncology [address] [place] [phone] Amarilis Reyes MD Malignant neoplasm of upper lobe of right lung (CMS/HCC V24, CMS/HCC V28) (Primary Dx); Other iron deficiency anemia; Anxiety 03/11/2025 Telephone [facility] [address] [place] [address] Xiomara Hernandez MD 03/10/2025 11:00 AM EDT Office Visit Thoracic Surgery - [place] [address] [facility] [address] [place] [address] Nhan Ewing PA Pleural nodules (Primary Dx) from Last 3 Months Immunizations Immunization Administration Dates Next Due Moderna SARS-CoV-2 COVID-19, mRNA, LNP-S, preservative free 11/22/2021,06/01/2021,10/07/2020,2020 Surgical History Surgery Date Site/Laterality Comments ROTATOR CUFF REPAIR 04/2012 Left PROCEDURE: HISTORICAL ROTATOR CUFF REPAIR FOOT SURGERY 07/2010 Left PROCEDURE: HISTORICAL FOOT SURGERY; COMMENT: arthrodesis 1st intermetatarsal base L foot APPENDECTOMY PROCEDURE: HISTORICAL APPENDECTOMY SECTION PROCEDURE: HISTORICAL OTHER SURGICAL HISTORY 08/2012 PROCEDURE: [place] BIOPSY LIVER NEEDLE PERCUTANEOUS UPPER GASTROINTESTINAL ENDOSCOPY 01/11/2015 PROCEDURE: [place] UPPER GI ENDOSCOPY PERFORMED; COMMENT: Normal COLONOSCOPY 11/08/2015 PROCEDURE: HISTORICAL COLONOSCOPY; COMMENT: Colon Polyps. Repeat 5 yrs OTHER SURGICAL HISTORY 02/2014 Right PROCEDURE: [place] RMVL LUNG XCP TOT PNEUMONECTOMY SLEEVE LOBECTOMY; COMMENT: Right Upper Lobe, Wedge Resection COLONOSCOPY 12/28/2020 PROCEDURE: HISTORICAL COLONOSCOPY; COMMENT: tubular adenomas Medical History Medical History Date Comments Paroxysmal atrial fibrillati on ([facility] V24, [facility] V28) 08/11/2013 DX:Paroxysmal atrial fibril lation ([facility]) Allergic rhinitis 08/11/2013 DX:Allergic rh initis Anxiety 08/11/2013 DX:Anxiety Sjogren's syndrome ([facility] V24) DX:Sjogren's syndrome ([facility]) GERD (gastroesophageal reflux disease) 8 DX:GERD (gastroesophageal [...] obesity with BMI of 4 0.0-44.9, adult ([facility] V24, [facility] V28) 03/10/2018 DX:Morbid obesity wit h BMI of 40.0-44.9, adult ([facility]) Fibromyalgia 03/10/2018 DX:Fibromyalgia Depression 03/10/2018 DX:Depression Pulmonary [...] of blood transfusion s as patient is Jewish 04/03/2018 DX:Refusal of blood trans fusions as patient is Jewish Asthma 05/14/2019 DX:Asthma Cryptogenic cirrhosis (CMS/H CC V24, 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) Vitamin D deficiency 05/14/2019 DX:Vitamin D deficiency OAB (overactive bladder) 05/14/2019 DX:OAB (overactive bladder) GUTHRIE (nonalcoholic steatohepatitis) 08/11/2013 DX:GUTHRIE (nonalcoholic steatohepatitis) Cirrhosis of liver (CMS/HCC V24, CMS/HCC V28) DX:Cirrhosis of liver (HCC) Refusal of blood transfusion s as patient is Jewish DX:Refusal of blood trans fusions as patient is Jewish; COMMENT: Patient states may possibly accept Cell [...] Sign Reading Time Taken Comments Blood Pressure 144/62 04/27/2025 11:35 AM EDT Pulse 58 04/29/2025 11:22 AM EDT Temperature 36.5 C (97.7 F) 04/20/2025 10:43 AM EDT Respiratory Rate 16 03/10/2025 11:12 AM EDT Oxygen Saturation 95% 04/29/2025 11:22 AM EDT Inhaled Oxygen Concentration - - Weight 124 kg (274 lb) 04/29/2025 11:22 AM EDT Height 165.1 cm (5' 5 ) 04/29/2025 11:22 AM EDT Body Mass Index 45.6 04/29/2025 11:22 AM EDT Plan of Treatment Upcoming Encounters Date Type Department Care Team (Late st Contact Info) Description 06/25/2025 2:00 PM EST Office Visit [facility] Cardiology [facility] [address] [place] [address] [address] [place] [phone] Xiomara Hernandez MD [address] [place] [address] [address] [place] [phone] 07/28/2025 2:10 PM EST Office Visit [facility] Cardiology [facility] [address] [place] [address] [place] [phone] Galina Weeks NP [address] [place] [address] [address] [place] [phone] 10/13/2025 1:00 PM EDT Office Visit Gastroenterology - [address] [place] [phone] Zandra Briceno PA [address] [address] 04/01/2026 11:30 AM EDT Office Visit [facility] Hematology Oncology [address] [place] [address] Amarilis Reyes MD [address] [place] [address] Health Maintenance Due Date Last Done Comments Breast Cancer Screening 1962 Colorectal Cancer Screening: Colonoscopy 1962 Diabetes: Annual Foot Exam 1972 Diabetes: Annual Retina Eye Exam 1972 DTaP,Tdap,and Td Vaccines (1 - Tdap) 1981 Hepatitis A Vaccines (1 of 2 - Risk 2-dose series) 1981 Zoster Vaccines (1 of 2) 1981 Cervical Cancer Screening: Pap Smear 1983 RSV Immunization Adult Patients (1 - Risk 50-74 years 1-dose series) 2012 Pneumococcal Vaccine: 50+ Years (2 of 2 - PPSV23, PCV20, or PCV21) 08/26/2017 07/01/2017 Hepatitis B Vaccines (1 of 3 - Risk 3-dose series) 2022 HIV Screening 06/23/2022 Hepatitis C Screening 06/23/2022 [...] Procedure Name Priority Date/Time Associated Diagnosis Comments ECG 12-LEAD Routine 04/29/2025 11:29 AM EDT Paroxysmal atrial fibrillation (CMS/HCC V24, CMS/HCC V28) TRANSTHORACIC ECHOCARDIOGRAM (TTE) COMPLETE W/ CONTRAST Routine 04/27/2025 11:35 AM EDT Pleural effusion Dilated cardiomyopathy (CMS/HCC V24, CMS/HCC V28) URINE ALBUMIN CREATININE RATIO Routine 07/11/2023 ANNUAL BMP BLOOD TEST Routine 07/11/2023 HEMOGLOBIN A1C Routine 07/11/2023 LIPID PANEL Routine 07/11/2023 from Last 3 Months or Most Recently Relevant to Health Maintenance Results * ECG 12 lead (04/29/2025 11:29 AM EDT) Ventricular Rate ECG 65 BPM GEMUSE Atrial Rate 65 BPM GEMUSE P-R Interval 154 ms GEMUSE QRS Duration 76 ms GEMUSE Q-T Interval 408 ms GEMUSE QTc 424 ms GEMUSE P Wave [place] 25 degrees GEMUSE R [place] 46 degrees GEMUSE T [place] 46 degrees GEMUSE ECG Interpretation Normal sinus rhythm Normal ECG When compared with ECG of 13-AUG-2002 17:23, No significant change was found Confirmed by Ani HERNANDEZ, XIOMARA ([id number]) on 04/29/2025 12:41:04 PM GEMUSE 04/29/2025 11:2 9 AM EDT 04/29/2025 12:41 PM EDT us Xiomara Hernandez MD ECG ORDERABLES Final Result GEMUSE * TRANSTHORACIC ECHOCARDIOGRAM (TTE) COMPLETE W/ CONTRAST (04/27/2025 11:35 AM EDT) Left Atrium Minor [place] 5.3 cm CV PACS Left Atrium Major [place] 5.5 cm CV PACS LA Area Sys (A2C) 20 cm2 CV PACS LA Area Sys (A4C) 20 cm2 CV PACS LA Volume (BP) 60 mL CV PACS RA Area 15.5 cm2 CV PACS RA 2D Volume 39 mL CV PACS AV Mean Gradient 3 mmHg CV PACS Ao VTI 28.2 cm CV PACS AV Peak Caesar 1.3 m/s CV PACS AV Peak Gradient 6 mmHg CV PACS AV Area Continuity Equation 2.9 cm2 CV PACS AV Area Peak Velocity 2.8 cm2 CV PACS Aortic Sinus Valsalva 3.2 cm CV PACS Ascending Aorta 3.4 cm CV PACS IVC Proximal 1.6 cm CV PACS IVSD 0.9 0.6 - 0.9 cm CV PACS LVIDD 4.6 3.8 - 5.2 cm CV PACS LVIDS 2.8 2.2 - 3.5 cm CV PACS LVOT Diameter 2.0 cm CV PACS LVOT Mean Grad 3 mmHg CV PACS LVOT Peak VTI 25.8 cm CV PACS LVOT Mean Caesar 0.7 m/s CV PACS LVOT Peak Caesar 1.1 m/s CV PACS LVOT Peak Gradient 5 mmHg CV PACS LVPWD 0.9 0.6 - 0.9 cm CV PACS MV E' Tissue Velocity Lateral 8 cm/s CV PACS MV E' Tissue Velocity Septal 7 cm/s CV PACS LVOT Area 3.1 cm2 CV PACS LVOT Stroke Volume 81 mL CV PACS E Wave Deceleration Time 162 119 - 242 ms CV PACS MV Peak A Caesar 0.80 m/s CV PACS MV Peak E Caesar 0.99 m/s CV PACS PV Acceleration Time 116 ms CV PACS PV Acceleration Time 116 ms CV PACS PV Peak Velocity 1.0 m/s CV PACS PV Peak Gradient 4 mmHg CV PACS RV Diastolic Basal Dimension 4.1 2.5 - 4.1 cm CV PACS RV S' 13 cm/s CV PACS TAPSE 32 mm CV PACS E/E' Ratio Septal 14 CV PACS E/E' Ratio Averaged 13 CV PACS Relative Wall Thickness ratio 0.39 CV PACS LVOT:AV VTI Index 0.91 CV PACS FS 39 % CV PACS LV Mass 2D 138 g CV PACS LVOT flow 220 mL/s CV PACS AV Velocity Ratio 0.85 CV PACS E/A Ratio 1.2 CV PACS E/E' Ratio Lateral 12 CV PACS BSA 2.39 m2 CV PACS LA Volume Index (BP) 27 mL/m2 CV PACS LVIDD Index 2.04 cm/m2 CV PACS LVIDS Index 1.24 cm/m2 CV PACS LV Mass Index 2D 61 44 - 88 g/m2 CV PACS LVOT Stroke Index 36 mL/m2 CV PACS RA 2D Volume Index 17 15 - 27 mL/m2 CV PACS JERROD Index (VTI) 1.27 cm2/m2 CV PACS JERROD Index (Pk Caesar) 1.24 cm2/m2 CV PACS Ascending Aorta Index 1.50 cm/m2 CV PACS Est. RA Pressure 3 mmHg CV PACS Anatomical Region Laterality Modality Ultrasound Narrative 05/02/2025 3:11 PM EDT Left ventricle cavity size is normal. Left ventricular systolic function is in the normal range with an ejection fraction of 55-60%. Definity contrast used to delineate endocardial borders No regional LV wall motion abnormalities noted. Left ventricle wall thickness is normal. Right ventricle cavity is normal. Right ventricular systolic function is normal. Tricuspid valve leaflets exhibit normal excursion. No hemodynamically significant valvular lesions Left Ventricle Left ventricle cavity size is normal. Wall thickness is normal. Systolic function is normal with an ejection fraction of 55-60%. There are no regional LV wall motion abnormalities. There is no diastolic dysfunction. Right Ventricle Right ventricle cavity appears normal. Systolic function is normal. Left Atrium Left atrium volume index is normal. Right Atrium Right atrium cavity is normal. IVC/SVC RA pressures is estimated to be 3 mmHg (IVC diameter <21 mm and decreases >50% during inspiration). Mitral Valve The leaflets are mildly thickened. There is trace regurgitation. There is no evidence of mitral valve stenosis. Tricuspid Valve The leaflets exhibit normal excursion. There is trace regurgitation. Cannot assess RVSP. Aortic Valve The aortic valve is trileaflet. There is no regurgitation or stenosis. Pulmonic Valve The pulmonic valve was not well visualized. There is trace pulmonic valve regurgitation. Ascending Aorta The aorta appears normal in size. Pericardium There is an fat pad. Study Details Overall the study quality was technically difficult. Definity contrast was given to enhance imaging. Study was difficult due to: poor endocardial visualization, patient body habitus and poor acoustic windows. Result [facility] Xiomara Hernandez MD CV ECHO PROCEDURES Final Resul t * Urine Albumin Creatinine Ratio (07/11/2023) [facility] Urine Albumin Creatinine Ratio abstracted Result [facility] MAINTENANCE Final Result * Annual BMP Blood Test (07/11/2023) [facility] Annual BMP Blood Test abstracted Result [facility] HEALTH MAINTENANCE Final Result * Hemoglobin A1c (07/11/2023) [facility] Hemoglobin A1C 0.0 % Comment:no interpretation,ab stracted Blood Venous blood specimen / Unknown Result [facility] LAB BLOOD ORDERABLES Sridevi l Result * Lipid panel (07/11/2023) [facility] LDL/HDL Ratio 0 Comment:no interpretation,ab stracted Triglycerides 0 mg/dL Comment:no interpretation,ab stracted Cholesterol 0 mg/dL Comment:no interpretation,ab stracted HDL 0 mg/dL Comment:no interpretation,ab stracted LDL Cholesterol 0 mg/dL Comment:no interpretation,ab stracted Blood Venous blood specimen / Unknown us Historical Provider LAB BLOOD ORDERABLES Sridevi bland Result from Last 3 Months or Most Recently Relevant to Health Maintenance Insurance MEDICARE [place]ICA[place] - [place] Advance Directives Documents on File Type Date Recorded 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
== END 2025-06-03 15:52 | disposition home or self-care (01) ==
LOC: HO.PMC 15:21
PROVIDERS: PCP Family Medicine; Visit Provider Nurse Practitioner Family
DX: M54.50 Low back pain, unspecified (principal); Z79.891 Long term (current) use of opiate analgesic; G89.4 Chronic pain syndrome; M79.7 Fibromyalgia; M25.561 Pain in right knee; M25.562 Pain in left knee; M13.80 Other specified arthritis, unspecified site
CPT/HCPCS: 99214

== ENCOUNTER → 2025-06-03 15:21 | Outpatient (BNVA) | payer MEDICARE, SELFPAY | PROVIDERS: PCP Family Medicine; Visit Provider Nurse Practitioner Family | DX: M54.50 Low back pain, unspecified (principal); Z79.891 Long term (current) use of opiate analgesic; G89.4 Chronic pain syndrome; M79.7 Fibromyalgia; M25.561 Pain in right knee; M25.562 Pain in left knee; Z87.891 Personal history of nicotine dependence | CPT/HCPCS: 99212 ==

== ENCOUNTER 2025-07-02 15:27 | Outpatient (AMB) | payer MEDICARE, SELFPAY ==
--- OUTSIDE RECORDS SUMMARY | 2025-06-25 14:00 | XMS_ITS | Encounter Summary ---
Author Organization [facility] Address [address] [place] [address] Care Team Providers Care Automotive Glass Technician Name Role Phone Patrice Chirinos Primary Care Provider [phone] Reason for Visit * Reason Comments Follow-up Encounter Details Date Type Department Care Team (Late st Contact Info) Description 06/25/2025 2:00 PM EST Office Visit [facility] Dr [address] [place] [phone] Oz So MD [address] [place] [address] Dr [address] [place] [phone] Paroxysmal atrial fibrillation (CMS/HCC V24, CMS/HCC V28) (Primary Dx) Social History Tobacco Use Types [...] on file documented as of this encounter Last Filed Vital Signs Vital Sign Reading Time Taken Comments Blood Pressure 122/58 06/25/2025 1:58 PM EST Pulse 67 06/25/2025 1:58 PM EST Temperature - - Respiratory Rate - - Oxygen Saturation 95% 06/25/2025 1:58 PM EST Inhaled Oxygen Concentration - - Weight 124 kg (272 lb 6.4 oz) 06/25/2025 1:58 PM EST Height 165.1 cm (5' 5 ) 06/25/2025 1:58 PM EST Body Mass Index 45.33 06/25/2025 1:58 PM EST documented in this encounter Progress Notes * Oz So MD - 06/25/2025 2:00 PM ESTAssociated Problem(s): Paroxysmal atrial fibrillation (CMS/HCC V24, CMS/HCC V28) Patient with possible catecholamine boost atrial fibrillation. Patient has been relatively stable on reduced dose of beta-laurence. Will try to wean the beta- laurence down because she thinks is affecting her reactive airway disease. She has been warned that we may reduce the beta-laurence so much thatshe might have breakthrough catecholamine induced A-fib she is aware of this. She wants to stay on 60 mg of extended release over the holidays. Will bring her back in August and discussed the possible decrease further of beta-laurence therapy pending her symptoms * Oz So MD - 06/25/2025 2:00 PM EST Images from the original note were not included. [facility] CONSULT REQUESTED BY: SEGUN Chirinos PCP: PATRICE CHIRINOS HPI: Lina Phipps is a a 65-year-old patient with a possible history of atrial fibrillation. Records were never quite clear as to what arrhythmia was when she was followed [facility]. She was placed on flecainide for period time and then switched to propranolol because they thought she had a catecholamine induced A-fib. In the past echocardiograms have shown preserved EF. She has Sjogren syndrome. She has a previous history of adenocarcinoma of the right lung, sleep apnea wearing CPAP mask and compliant. She is a PET scans and CT scans of the lung done that showed minimal FDG uptake in the right lung apex with a small pleural effusion. Her hemoglobin A1c has been elevated in the past. In 2013 she had a right upper lobe wedge resection for stage Ib adenocarcinoma. And is recently developed a pleural effusion. CT scan of her chest in February of last year showed a small right pleural effusion. Patient had an echocardiogram done 2 days ago in our office her EF is 55 to 60% with normal regional wall motion. The right ventricular cavitary size is normal and systolic function is normal the tricuspid valve exhibits normal excursion We did an echocardiogram today that really shows no pericardial effusion good cardiac function no significant valvular abnormalities.. I left's office visit she wanted to come off her beta-laurence so that her nebulized treatment for her asthma would be more effective. We decreased her Inderal in an effort to see if a lower dose might help improve her symptoms. We did warn her that there was a possibility of there being a breakthrough A-fib on the lower dose. Patient also has a pleural effusion on the right side's been there since 2021 documented on CAT scan oncology is aware of it she was offered thoracentesis before but she declined. We do not feel that the fluid is secondary to heart failure based on her most recent echo. With the decrease of the data laurence to 60 mg extended release she has noticed an improvement in her breathing. She has had no palpitations outside of a few skips no chest pain or pressure and no peripheral edema ACTIVE MEDICATIONS: Medications Taking[1] PAST MEDICAL HISTORY: Problem List[2] ALLERGIES: Allergies[3] FAMILY HISTORY: Family History[4] SOCIAL HISTORY: Social History Tobacco Use Smoking status: Former Current packs/day: 0.00 Average packs/day: 2.0 packs/day for 6.4 years (12.7 ttl pk-yrs) Types: Cigarettes Start date: 1978 Quit date: 08/11/1984 Years since quittin.8 Smokeless tobacco: Never Substance Use Topics Alcohol use: Not Currently REVIEW OF SYSTEMS: Review of Systems Constitutional: Negative. HENT: Negative. Eyes: Negative. Cardiovascular: Negative. Respiratory: Negative. Endocrine: Negative. Hematologic/Lymphatic: Negative. Skin: Negative. Musculoskeletal: Negative. Gastrointestinal: Negative. Genitourinary: Negative. Neurological: Negative. Psychiatric/Behavioral: Negative. Allergic/Immunologic: Negative. All other systems reviewed and are negative. PHYSICAL EXAM: Vitals: 06/25/25 1358 Pulse: 67 SpO2: 95% Weight: 124 kg (272 lb 6.4 oz) Height: 1.651 m (65 ) Physical Exam Constitutional: Appearance: Normal appearance. HENT: Head: Normocephalic and atraumatic. Nose: Nose normal. Eyes: Extraocular Movements: Extraocular movements intact. Pupils: Pupils are equal, round, and reactive to light. Cardiovascular: Rate and Rhythm: Regular rhythm. Pulmonary: Breath sounds: Normal breath sounds. Abdominal: General: Abdomen is flat. Bowel sounds are normal. Palpations: Abdomen is soft. Musculoskeletal: General: Normal range of motion. Cervical back: Normal range of motion and neck supple. Skin: General: Skin is warm and dry. Neurological: General: No focal deficit present. Mental Status: She is alert. Psychiatric: Mood and Affect: Mood normal. EKG: Encounter Date: 04/29/25 ECG 12 lead Result Value Ventricular Rate ECG 65 Atrial Rate 65 P-R Interval 154 QRS Duration 76 Q-T Interval 408 QTc 424 P Wave Monterey 25 R Monterey 46 T Monterey 46 ECG Interpretation Normal sinus rhythm Normal ECG When compared with ECG of 13-AUG-2002 17:23, No significant change was found Confirmed by Ani SO JAMES ([id number]) on 04/29/2025 12:41:04 PM *Note: Due to a large number of results and/or encounters for the requested time period, some results have not been displayed. A complete set of results can be found in Results Review. ASSESSMENT/PLAN: Assessment & Plan Paroxysmal atrial fibrillation (CMS/HCC V24, CMS/HCC V28) Patient with possible catecholamine boost atrial fibrillation. Patient has been relatively stable on reduced dose of beta-laurence. Will try to wean the beta- laurence down because she thinks is affecting her reactive airway disease. She has been warned that we may reduce the beta-laurence so much thatshe might have breakthrough catecholamine induced A-fib she is aware of this. She wants to stay on 60 mg of extended release over the holidays. Will bring her back in August and discussed the possible decrease further of beta-laurence therapy pending her symptoms Assessment/Plan The above note was prepared with the help of voice recognition software. Please excuse any grammatical or spelling errors that may have occurred The [facility] team will continue to co-manage this patient following the plan of care as established by my initial visit and as per AHA guidelines for ongoing management and surveillance of Atrial Fibrillation This will include medication titration, initiation of appropriate medications and further titration, and diagnostic studies to manage this disease process. [1] Outpatient Medications Marked as Taking for the 06/25/25 encounter (Office Visit) with Oz So MD Medication Sig Dispense Refill albuterol HFA (PROAIR HFA ; PROVENTIL HFA ; VENTOLIN HFA) 90 mcg/actuation inhaler INHALE 2 PUFF FOUR TIMES A DAY NEEDED FOR SHORTNESS OF BREATH. fluticasone propion-salmeteroL (Advair HFA) 115-21 mcg/actuation inhaler Inhale by mouth. (Patient taking differently: Inhale 2 puffs by mouth 2 (two) times a day.) fluticasone propionate (FLONASE) 50 mcg/actuation nasal spray Administer 2 sprays into each nostril2 (two) times a day. glucagon (Baqsimi) 3 mg/actuation nasal spray Administer 3 mg into one nostril if needed for low blood sugar. insulin regular (HumuLIN R U-500, Conc, Kwikpen) 500 unit/mL (3 mL) CONCENTRATED injection pen PLEASE SEE ATTACHED FOR DETAILED DIRECTIONS metFORMIN XR (GLUCOPHAGE-XR) 500 mg 24 hr tablet TAKE 2 TAB(S) ORALLY TWICE A DAY 90 DAYS nystatin (Nystop) 100,000 unit/gram powder APPLY POWDER TOPICALLY TO AFFECTED AREA ONCE DAILY NEEDED olopatadine (PATANOL) 0.1 % ophthalmic solution APPLY 1 DROP INTO BOTH EYES TWICE A DAY oxyCODONE (ROXICODONE) 5 mg immediate release tablet TAKE 1 TABLET BY MOUTH 3 TIMES A DAY NEEDEDFOR PAIN X 30 DAYS propranolol LA (Inderal LA) 60 mg 24 hr capsule Take 1 capsule (60 mg total) by mouth 1 (one) time each day. Do not crush, chew, or split. 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) Skin lesion Pleural effusion Malignant neoplasm of upper lobe of right lung (CMS/HCC V24, CMS/HCC V28) [3] Allergies Allergen Reactions Adhesive Tape-Silicones Aspartame Bactrim [Sulfamethoxazole-Trimethoprim] Celebrex [Celecoxib] Cevimeline Cyclobenzaprine Dobutamine Duloxetine Hcl Indomethacin Levaquin [Levofloxacin] Morphine Nsaids (Non-Steroidal Anti-Inflammatory Drug) Penicillins Tramadol Valproic Acid [4] Family History Problem Relation Name Age of Onset Colon cancer Father Arthritis Lung cancer Sister @ 44, Osteoarthritis Other (Other: Osteoarthritis) Brother Lung cancer Mother @ 51, cirrhosis Bladder Cancer Uncle Bladder Cancer Other Cousin documented in this encounter Plan of Treatment Upcoming Encounters Date Type Department Care Team (Late st Contact Info) Description 07/28/2025 2:10 PM EST Office Visit [place] [facility] [address] [place] [address] [place] [phone] Galina Weeks NP [address] [place] [address] Dr [address] [place] [phone] 08/26/2025 11:20 AM EST Office Visit [place] [facility] [place] [facility] [place] [phone] Oz So MD [address] [place] [address] Dr [address] [place] [phone] 10/13/2025 1:00 PM EDT Office Visit Gastroenterology - [address] [facility] [address] [place] [phone] Zandra Briceno PA [address] [address] 04/01/2026 11:30 AM EDT Office Visit [facility] Hematology Oncology [address] [place] [phone] Amarilis Reyes MD [address] [place] [phone] documented as of this encounter Visit Diagnoses Diagnosis Paroxysmal atrial fibrillation (CMS/HCC V24, CMS/HCC V28)- Primary Atrial fibrillation documented in this encounter Historical Medications * This list may reflect changes made after this encounter. glucagon (Baqsimi) 3 mg/actuation nasal spray Administer 3 mg into one nostril if needed for low blood sugar. added in this encounter Care Teams Automotive Glass Technician Relationship Specialty Start Date End Date Patrice Chirinos [address] [place] [address] PCP - General 03/11/25 documented as of this encounter
--- OUTSIDE RECORDS SUMMARY | 2025-06-30 15:00 | XMS_ITS | Encounter Summary ---
Author Organization [facility] Address [address] [place] [phone] Phone Care Team Providers Care Plumber Gasfitter Name Role Phone Yuni Chirinos GRADUATE ASSISTANT Primary Care Provider [phone] Reason for Visit * Reason Comments hypomagnesemia Encounter Details Date Type Department Care Team (Latest Contact Info) Description 06/30/2025 3:00 PM EST Office Visit [facility] [address] [place] [address] [place] [address] [place] [phone] Hypomagnesemia (Primary Dx); 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) Social History Tobacco Use Types Packs/Day Years Used Date Smoking Tobacco: Former Cigarettes 0 Q uit: 07/15/1979 Smokeless Tobacco: Never Alcohol [...] Sign Reading Time Taken Comments Blood Pressure 130/67 06/30/2025 3:03 PM EST Pulse 67 06/30/2025 3:03 PM EST Temperature - - Respiratory Rate - - Oxygen Saturation - - Inhaled Oxygen Concentration - - Weight - - Height - - Body Mass Index - - documented in this encounter Functional Status * BP Answer Date of Assessment Author 130/67 06/30/2025 3:03 PM EST Leida Bee * Pulse Answer Date of Assessment Author 67 06/30/2025 3:03 PM Leida Delcid * BP Answer Date of Assessment Author 130/67 06/30/2025 3:03 PM Leida Delcid documented as of this encounter Progress Notes * Gabriele Lopez MD - 06/30/2025 3:00 PM EST [facility] Patient Name: Lina Phipps, Female Date of : 1960, 65 y.o. Date: 06/30/2025 Referring MD: Williams Eubanks DO PCP: Yuni Chirinos NP Reason For Visit: I had the pleasure of seeing your patient for follow up of hypomagnesemia. The following portions of the patient's chart were reviewed in this encounter and updated as appropriate: Allergies Meds Problems Med Hx Surg Hx Fam Hx Constitutional: Negative for chills, fever, malaise/fatigue and weight loss. HENT: Negative for ear pain, hearing loss and tinnitus. Eyes: Negative for blurred vision, double vision, photophobia and pain. Respiratory: Negative for cough, hemoptysis, sputum production, shortness of breath and wheezing. Cardiovascular: Negative for chest pain, palpitations, orthopnea, claudication and leg swelling. Gastrointestinal: Negative for abdominal pain, diarrhea, nausea and vomiting. Genitourinary: Negative for dysuria, flank pain, frequency, hematuria and urgency. Musculoskeletal: Negative for myalgias. Skin: Negative for itching and rash. Neurological: Negative for dizziness, tingling and headaches. Psychiatric/Behavioral: Negative for depression. Full 13 point review of systems unremarkable except as noted above. Past Medical History: Diagnosis Date Anemia Asthma Atrial fibrillation (HCC) Chronic bronchitis (HCC) Gastroesophageal reflux disease Hyperlipidemia Irritable bowel syndrome Malignant tumor of lung (HCC) non-small cell carcinoma of the lung Type 2 diabetes mellitus (HCC) retinopathy Past Surgical History: Procedure Laterality Date APPENDECTOMY OTHER SURGICAL HISTORY Social History Tobacco Use Smoking status: Former Current packs/day: 0.00 Types: Cigarettes Quit date: 07/15/1979 Years since quittin.9 Smokeless tobacco: Never Substance Use Topics Alcohol use: Never Family History Problem Relation Age of Onset Diabetes Father Cancer Mother lung Cancer Sibling sister-lung Heart disease Mother mothers father Current Outpatient Medications Medication Sig Dispense Refill acyclovir (ZOVIRAX) 5 % ointment APPLY TO AFFECTED AREA EVERY 3 HRS X 30 DAY(S) albuterol HFA (PROVENTIL HFA;VENTOLIN HFA) 108 (90 Base) MCG/ACT inhaler ascorbic acid (VITAMIN C) 1000 MG tablet Baqsimi Two Pack 3 MG/DOSE powder USE DIRECTED INTRANASALLY ONCE CALCIUM POLYCARBOPHIL PO See administration instructions cetirizine (ZyrTEC) 5 MG chewable tablet Chew 5 mg 1 (one) time each day cholecalciferol (VITAMIN D-3) 25 MCG (1000 UT) tablet Take 1 tablet by mouth daily Cobalamin Combinations (Vitamin Z57-Zhwgg Acid) 500-400 MCG tablet Duration: 1 Cranberry 400 MG capsule Take 1 capsule by mouth 1 (one) time each day Cyanocobalamin 1500 MCG tablet dispersible Take 1 lozenge by mouth daily esomeprazole (NexIUM) [address] capsule Take 1 capsule by mouth 2 (two) times a day fluticasone (FLONASE) 50 MCG/ACT nasal spray Administer 2 sprays into each nostril every morning fluticasone-salmeterol (ADVAIR HFA) 115-21 MCG/ACT inhaler Inhale HumuLIN R U-500 KWIKPEN 500 UNIT/ML CONCENTRATED injection PLEASE SEE ATTACHED FOR DETAILED DIRECTIONS Iron, Ferrous Sulfate, 325 (65 Fe) MG tablet Take 1 capsule by mouth every other day Magnesium Cl-Calcium Carbonate 71.5-119 MG tablet delayed-release Take 3 tablets by mouth 2 (two) times a day metFORMIN XR (GLUCOPHAGE-XR) 500 MG 24 hr tablet Take 2 tablets by mouth 2 (two) times a day metroNIDAZOLE (Noritate) 1 % cream Apply topically 2 (two) times a day Milk Thistle 140 MG capsule Take 1 capsule by mouth daily Multiple Vitamin (multivitamin) capsule Take 1 capsule by mouth 1 (one) time each day mupirocin (BACTROBAN) 2 % ointment mupirocin 2 % topical ointment olopatadine (PATANOL) 0.1 % ophthalmic solution 1 drop twice a day oxyCODONE (ROXICODONE) 5 MG immediate release tablet Take 1 tablet by mouth 3 (three) times a day pimecrolimus (ELIDEL) 1 % cream pimecrolimus 1 % topical cream Probiotic Product (PROBIOTIC PEARLS PO) Take 1 capsule by mouth 1 (one) time each day Propranolol HCl SR Beads (PROPRANOLOL HCL ER BEADS PO) Take 60 mg by mouth 1 (one) time each day propranolol LA (INDERAL LA) 60 MG 24 hr capsule Take 80 mg by mouth every night (Patient taking differently: Take 60 mg by mouth every night) Propylene Glycol 0.6 % solution as directed. sodium chloride (OCEAN) 0.65 % nasal spray Cyclone as directed triamcinolone (KENALOG) 0.1 % cream APPLY CREAM EXTERNALLY TWICE DAILY NEEDED TO AFFECTED AREAS ON BACK, FOLLOWED BY MOISTURIZER No current facility-administered medications for this visit. Allergies Allergen Reactions Acetaminophen Due to cirhosis Adhesiv [Adhesive Tape] Other (see comments) Asparaginase Aspartame Other (see comments) Other reaction(s): Other (see comments) Cephalexin Other (see comments) Cyclobenzaprine Other (see comments) Dobutamine Other (see comments) Duloxetine Duloxetine Hcl Ibuprofen Indomethacin Other (see comments) Lactose Latex Other (see comments) Levofloxacin Other (see comments) Morphine Other (see comments) Nsaids Other (see comments) Other Asparatame Penicillin G Penicillins Statins Sulfamethoxazole-Trimethoprim Tramadol Other (see comments) Valproic Acid Celecoxib Palpitations Cevimeline Palpitations Clindamycin Rash Objective: Vitals: 06/30/25 1503 BP: 130/67 Pulse: 67 Vitals reviewed. Constitutional: She is oriented to person, place, and time. She does not appear ill. HEENT: Mouth/Throat: Oropharynx is clear and moist. Eyes: Pupils are equal, round, and reactive to light. Cardiovascular: Regular rhythm. She exhibits edema. Pulmonary/Chest: Breath sounds normal. Abdominal: Soft. There is no abdominal tenderness. Musculoskeletal: She exhibits decreased range of motion. Neurological: She is alert and oriented to person, place, and time. Skin: Skin is warm. Psychiatric: She has a normal mood and affect. EST GFR Date Value Ref Range Status 10/24/2020 117 ML/MIN/1.73 M2 Final Comment: Creatinine based estimated glomerular filtration rate (eGFR) is calculated using the Chronic Kidney Disease Epidemiology Collaboration (CKD-EPI). The CKD-EPI creatinine equation has not been validated in children (<18 years), women or in some racial or ethnic subgroups other than Caucasians and Americans. Testing performed or reported by [facility], a Service of [facility], [address] [place] [id number] Lopez Montague MD, Edging Machine Setter eGFR Non-Afr Nauruan Date Value Ref Range Status 04/29/2023 104 Final No lab exists for component: LABALBU [facility] Lab Units 05/17/25 1440 02/12/25 1044 02/26/24 0952 MAGNESIUM mg/dL 1.8 1.8 1.7 No lab exists for component: SPECGRAV , GLUCOSEUR , BILIRUBINUR , RBCUR , UPROTEIN , LEUKOCYTESUR , NITRITE PLAN: Assessment & Plan 1. Hypomagnesemia 2. 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 She had hypomagnesemia due to the use of proton pump inhibitors. She is no longer on PPI. (she is no longer taking slow mag due to its rodrigez) She does not have proteinuria. REC Kidney function and electrolytes follow magnesium twice a year Yearly f/u Orders Placed This Encounter Magnesium Magnesium Renal function panel Return in 1 year (on 06/30/2026). Gabriele Lopez MD documented in this encounter Plan of Treatment Upcoming Encounters Date Type Department Care Team (Late st Contact Info) Description 07/13/2026 1:00 PM EST Office Visit [facility] [address] [place] [phone] Gabriele Lopez MD [address] [phone] Scheduled Orders Name Type Priority Associated Diagnoses Orde r Schedule Magnesium Lab Routine Hypomagnesemia Expected: 06/30/2025, Expires: 07/31/2026 Magnesium Lab Routine Hypomagnesemia Expected: 12/29/2025 (Approximate), Expires: 07/31/2026 Renal function panel Lab Routine Hypomagnesemia Expected: 12/29/2025, Expires: 07/31/2026 documented as of this encounter Visit Diagnoses Diagnosis Hypomagnesemia- Primary 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
--- NOTE | 2025-07-02 15:29 | A.OFFVIS_ITS ---
Vital Signs 07/02/25 15:41 Height 5 ft 5 in Weight 270 lb 2 oz BMI 44.9 BP 128/62 Blood Pressure Location Lt brachial Position Sitting Pulse 72 Pulse Source Pulse Oximeter Intake Visit Reasons: PILL COUNT Intake Note: Lina comes in today for a pill count oxycodone, patient should have 12 tablets and presents with 31 tablets which she last took today 07/02/25 between 1-2pm. Pain today 6/10 Director Of Cardiopulmonary Services Required: No Accompanied by: Spouse Allergies aspartame Allergy (Unknown, Verified 07/02/25 15:42) Unknown cephalexin Allergy (Unknown, Verified 07/02/25 15:42) Unknown cyclobenzaprine Allergy (Unknown, Verified 07/02/25 15:42) Unknown dobutamine Allergy (Unknown, Verified 07/02/25 15:42) Unknown indomethacin Allergy (Unknown, Verified 07/02/25 15:42) Unknown levofloxacin (Levaquin) Allergy (Unknown, Verified 07/02/25 15:42) Unknown morphine Allergy (Unknown, Verified 07/02/25 15:42) Unknown penicillin V Allergy (Unknown, Verified 07/02/25 15:42) Unknown tramadol Allergy (Unknown, Verified 07/02/25 15:42) Unknown NSAIDS (Non-Steroidal Anti-Inflamma Adverse Reaction (Severe, Verified 07/02/25 15:42) afib Latex Gloves Allergy (Unknown, Uncoded 03/26/24 14:17) Unknown HPI Comments Details: Lina presents today for a pill count. Patient is supposed to have #12 pills, in her possession has #31 pills. This demonstrates a responsible attitude in regards to the medication regimen on as needed for moderate-severe pain only. Patient reports adequate analgesia on her regimen of oxycodone 5 mg TID prn with no noted side effects. Pain is rated at 6/10, low back and right buttock radiating down into right leg. Denies any recent cough, cold, infection, fever, or any significant changes in her medical history, medications or recent hospitalizations. Past Procedures: 08/30/23: Right elbow steroid injection-90% pain relief for 1.5 months [facility] Medical History Environmental and seasonal allergies Chronic pain syndrome History of lung cancer Diabetes type 2 with atherosclerosis of arteries of extremities Morbid obesity Gout, arthritis Morbidly obese Gout Psoriasis Arthritis Family history of lung cancer Lung cancer Diabetic retinopathy Williamson's palsy Sciatica Plantar fasciitis, bilateral Rosacea Sleep apnea Asthma GERD (gastroesophageal reflux disease) IBS (irritable bowel syndrome) Nerve pain Migraine Carpal tunnel syndrome, bilateral Diabetic cheirarthropathy Fibromyalgia Non-alcoholic micronodular cirrhosis of liver Paroxysmal atrial fibrillation Primary Sjogren's syndrome Type 2 diabetes mellitus Surgical History History of carpal tunnel release History of lung surgery History of appendectomy History of repair of left rotator cuff History of section Social History Alcohol intake: never Patient Tobacco Use Status: Former Tobacco user Current occupational status: disabled Review of Systems Const All systems reviewed & are unremarkable except as noted in HPI and below Physical Exam Vital Signs: Last Vital Signs Pulse 72 07/02/25 15:41 BP 128/62 07/02/25 15:41 BMI result Body Mass Index 44.9 General: Appears afebrile. No acute distress. Alert and oriented. Mood and affect appropriate. Follows and participates in conversation appropriately. Respiratory effort is unlabored. No cough. Wears facemask. Able to transition from sit to stand unassisted. Ambulates with cane. Ambulates with bilaterally normal heel strike and toe off. Psych Appearance: grossly normal Mental Status: mental status grossly normal Speech and movement: Normal speech and movement present Affect: normal affect Attitude: cooperative Thought process: Normal thought process present Thought content: Normal thought content present, suicidality (none), no warren llucinations and No Depressive thoughts present Insight: Good insight present (Psych) Judgement: Good judgement present (Psych) Assessment & Plan Assessment & Plan (1) Low back pain: Code(s): M54.50 - Low back pain, unspecified Category: Medical (2) Opioid contract exists: Code(s): Z79.891 - retirement (current) use of opiate analgesic Category: Medical (3) Chronic pain syndrome: Code(s): G89.4 - Chronic pain syndrome Category: Medical (4) Fibromyalgia: Code(s): M79.7 - Fibromyalgia Category: Medical (5) Bilateral knee pain: Code(s): M25.561 - Pain in right knee; M25.562 - Pain in left knee Category: Medical Plan Patient has shown accountability for her medication regimen and the pill count was accurate.?There is no evidence of misuse, abuse or diversion at this time. [facility]. [facility] for oxy[facility]one for 30 days sent with advanced date of 07/11/25. Refills also sent for Narcan and Lidocaine patches. All questions were answered and the patient is in agreement with the plan. Follow up in 4-5 weeks for pill count or sooner as needed. Medications: Refilled naloxone 4 mg/actuation (Narcan) spray 1 dose into ONE nostril; alternate nostrils w each dose until help arrives 4 mg intranasal Q2M PRN 2 ea 0RF opioid overdose lidocaine 5% 2 patches topical DAILY 60 patches 1RF for pain G89.4 - Chronic pain syndrome, M25.561 - Pain in right knee, M25.562 - Pain in left knee oxycodone Partial Fill upon patient request. 5 mg PO TID PRN 90 tabs 0RF pain 30 days G89.4 - Chronic pain syndrome, M25.561 - Pain in right knee, M25.562 - Pain in left knee, Z79.891 - retirement (current) use of opiate analgesic Coding Level of Care Code Est Pt Level 4 (12848) Diagnoses Low back pain M54.50 Opioid contract exists Z79.891 Chronic pain syndrome G89.4 Fibromyalgia M79.7 Bilateral knee pain M25.561; M25.562
[2025-07-02 15:41] VITALS: BP 128/62; PULSE 72; BMI 44.9
--- OUTSIDE RECORDS SUMMARY | 2025-07-02 16:32 | XMS_ITS | Clinical Summary ---
Author Organization [facility] Address [address] [place] [phone] Phone Care Team Providers Care Superintendent Transportation Name Role Phone Yuni Chirinos NP Primary [...] Asparatame Penicillin G Benzathin,Procain 06/27/2017 Penicillins 06/27/2017 Yttjfiw-Ufh-Ela Reductase Inhibitors 10/03/2022 Sulfamethoxazole-Trimethopri m 10/25/2020 Tramadol 06/27/2017 Medications yefwp-9c-blj-epa- fish oil 1,000-1,400 mg CpDR Take 1 capsule by mouth daily. Active fluticasone propionate (FLONASE) 50 mcg/actuation nasal spray 2 sprays by Nasal route as needed. Active iron bisgly,ps-FA-B-C# 12-succ 65 mg-65 mg -1,000 mcg (24) Tab Take 1 tablet by mouth daily. Active propylene glycoL (SYSTANE BALANCE) 0.6 % Drop as directed. Active izzztno-sol-bgzcd -sms794-ivc75 167 mg-65 mg -50 mg Tab Take 1 tablet by mouth daily. Active milk thistle 140 mg Cap Take 1 capsule by mouth daily. Active kqlvxoth-zjf-hqkz ous fumarate 9 mg iron/15 mL Liqd [...] mouth daily. 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 90 tablet 022 Active pimecrolimus (ELIDEL) 1 % cream APPLY TO AFFECTED AREA TWICE A DAY 30 g 022 Active Medication-Free Text Take 1,500 mg by mouth daily. chaga Active insulin pen needles, disposable, (BD INSULIN PEN NEEDLE UF SHORT) 31 gauge x 5/16 NdleIndications:T ype 2 diabetes mellitus with hyperglycemia, with long-term current use of insulin USE 1 EACH 3 TIMES A DAY BEFORE MEALS 300 each 3 025 Active esomeprazole (NEXIUM) 40 MG capsule Take 1 capsule by mouth 2 (two) times a day. Active FREESTYLE LITE Strp stripsIndications :Type 2 diabetes mellitus with hyperglycemia, with long-term current use of insulin 1 each by Percutaneous route 2 (two) times a day. 200 strip 3 025 Active ADVAIR HFA 115-21 mcg/actuation inhaler Inhale 230 mcg/treatment of fluticasone into the lungs 2 (two) times a day. 025 Active glucagon (BAQSIMI) 3 mg/actuation SpryIndications:T ype 2 diabetes mellitus with hyperglycemia, with long-term current use of insulin 1 spray by Nasal route once as needed (severe hypoglycemia). 2 each 3 025 Active insulin regular U-500 CONC (HUMULIN R, KWIKPEN) 500 unit/mL (3 mL) subcutaneous injection penIndications:Ty pe 2 diabetes mellitus with hyperglycemia, with long-term current use of insulin Inject 140 Units under the skin daily before breakfast AND 20-40 Units daily before lunch AND 70 Units Daily before dinner. 48 mL 2 025 Active metFORMIN (GLUCOPHAGE-XR) 500 MG 24 hr tabletIndications :Type 2 diabetes mellitus with hyperglycemia, with long-term current use of insulin TAKE 2 TABLETS BY MOUTH TWICE A DAY 360 tablet 2 025 Active metFORMIN (GLUCOPHAGE-XR) 500 MG 24 hr tabletIndications :Type 2 diabetes mellitus with hyperglycemia, with long-term current use of insulin TAKE 2 TABLETS (1,000 MG TOTAL) BY MOUTH 2 (TWO) TIMES A DAY. 360 tablet 2 025 2024 Discontinued Active Problems Problem Noted Date Diagnosed Date Weight gain 06/20/2025 Other fatigue 10/09/2024 Assessment & Plan (10/14/2024 [...] pain, right 05/27/2023 Overview (05/27/2023): Plain film ([place]) 04/2023 - significant joint space narrowing and hypertrophy of 1st MTP, otherwise essentially nl Assessment & Plan (05/27/2023 9:55 AM EST): Proceed with MRI given chronicity and severity of pain, ? occult fx. 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 Last A1c down to 7.8% in 05/2025. Dexcom CGM download reviewed, average glucose 174, GMI 7.5%, time in range 57%. Blood sugars trending up after the evening meal and spike between 2 to 3 AM which patient relates to increased pain. No frequent or severe hypoglycemia. Some overnight lows when using higher dose, about 65 units of Humulin R U-500 before dinner. Reports stable mild diabetic retinopathy, up-to-date with eye exam. Infrequent burning on feet. Weight is stable since last visit. -Keep current insulin doses -Continue current metformin. -Continue B12 supplementation -Continue to work on healthy meal plan, increase physical activity as tolerated -May try Nervive supplement if more frequent paresthesia on feet. If tries this, could stop the separate B12 supplement -Reviewed symptoms, prevention and treatment of hypoglycemia -Call with blood sugar problems -Follow-up with Evonne on 10/20/25 and with me in January 2026. Assessment & Plan (04/01/2025 3:43 PM EDT): [...] her glucose levels. Up to date with ophtho. Labs ordered Assessment & Plan (10/14/2024 12:08 [...] her glucose [facility]. [facility] ordered Assessment & Plan (07/18/2024 11:02 [...] her glucose levels. [facility] Foot and nail care is good. Will order labs to do prior to next visit Assessment & Plan (11/13/2023 1:32 PM EDT): Control is unknown as we are unable to download the patient's dexcom G6 lockstitch front maker and we don't have the results of [...] her glucose levels. Up to date with [facility]. Waiting to see podiatry. Will order labs [...] her glucose levels. Up to date with [facility]. A foot exam was done by Dr [...] diabetic shoes. She has follow-up with her apartment maintenance Dr. Ware. Reviewed symptoms, prevention and treatment [...] tolerate. Up to date with [facility]. Lab orders given to do when having [...] 50% of this 28-minute visit was spent ugyv-bd-okpv conversation with the patient and her present [...] held for 60 seconds twice daily. Large salvager helper on tools and utensils. Assessment & Plan [...] not currently interested in second opinion from [place] [facility]. 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 Assessment & Plan (02/03/2020 4:50 PM EDT): She is having a moderate flare of left first carpometacarpal osteoarthritis which will be treated with ice followed by warmth as well as enlarged salvager helper on tools and utensils and her pain medication. In several weeks if it still bothering her I may consider an intra-articular cortisone injection. Assessment & Plan (09/24/2018 3:27 PM EDT): Enlarged salvager helper on tools and utensils and the judicious [...] active, and she is to use enlarged salvager helper on tools utensils and judicious use of warmth and steroid injections were necessary. Assessment & Plan (01/06/2019 3:33 PM EDT): Enlarged salvager helper on tools utensils, judicious use of warmth, [...] Encounters Date Type Department Care Team Description 06/25/2025 Telephone [facility] Endocrinology [address] [place] [address] Norah Saldana PA-C Medication Problem 06/24/2025 Orders Only [facility] Diabetes [address] [place] [address] Svetlana Bustillos MA Type 2 diabetes mellitus with hyperglycemia, with long-term current use of insulin 06/22/2025 Refill [facility] Endocrinology [address] [place] [address] Norah Saldana PA-C Med Change Request 06/17/2025 11:00 AM EST Office Visit [facility] Endocrinology [address] [place] [address] Melanie Morton MD Type 2 diabetes mellitus with hyperglycemia, with long-term current use of insulin (Primary Dx); Weight gain 06/06/2025 Refill [facility] Endocrinology [address] [place] [address] Melanie Morton MD Medication Refill 04/09/2025 Orders Only [facility] Endocrinology [address] [place] [address] Williams Eubanks DO from Last 3 Months Social History Tobacco [...] Sign Reading Time Taken Comments Blood Pressure 110/70 06/17/2025 11:35 AM EST Pulse 63 06/17/2025 11:35 AM EST Temperature 35.9 C (96.6 F) 01/09/2023 1:05 PM EDT Respiratory Rate 16 05/27/2023 9:06 AM EST Oxygen Saturation 97% 03/26/2025 11:37 AM EDT Inhaled Oxygen Concentration - - Weight 124.3 kg (274 lb) 06/17/2025 11:35 AM EST Height 165.1 cm (5' 5 ) 06/17/2025 11:35 AM EST Body Mass Index 45.6 06/17/2025 11:35 AM EST Plan of Treatment Upcoming Encounters Date Type Department Care Team (Late st Contact Info) Description 10/20/2025 11:20 AM EDT Office Visit [facility] [address] [place] [address] [place] [address] Norah Saldana PA-C [address] [place] [phone] 01/18/2026 1:00 PM EDT Office Visit [facility] Endocrinology [address] [place] [address] Melanie Morton MD [address] [place] [phone] Health Maintenance Due Date Last Done Comments [...] 06/01/2021, 10/07/2020, Additional history exists BLOOD PRESSURE 12/16/2025 06/17/2025 CREATININE LEVEL 06/08/2026 06/08/2025, 08/2024, 02/12/2025, Additional history exists HEPATITIS A VACCINES Aged [...] Procedure Name Priority Date/Time Associated Diagnosis Comments HEMOGLOBIN A1C Routine 06/08/2025 2:24 PM EST Type 2 diabetes mellitus with hyperglycemia, with long-term current use of insulin ALANINE AMINOTRANSFERASE (ALT) Routine 06/08/2025 2:24 PM EST Type 2 diabetes mellitus with hyperglycemia, with long-term current use of insulin ASPARTATE AMINOTRANSFERASE (AST) Routine 06/08/2025 2:24 PM EST Type 2 diabetes mellitus with hyperglycemia, with long-term current use of insulin BASIC METABOLIC PANEL (BMP) Routine 05/16 2:24 PM EST Type 2 diabetes mellitus with hyperglycemia, with long-term current use of insulin from Last 3 Months Results * Hemoglobin A1c (06/08/2025 2:24 PM EST) Blood (Blood) Norah CAST-C LAB BLOOD BKR ORDE RABLES Final Result Performing Organization Address [facility] Co de Phone Number [address] [phone] * Alanine Aminotransferase (ALT) (06/08/2025 2:24 PM EST) Blood (Blood) Norah CAST-C LAB BLOOD BKR ORDE RABLES Final Result Performing Organization Address [facility] Co de Phone Number [address] [phone] * Aspartate Aminotransferase (AST) (06/08/2025 2:24 PM EST) Blood (Blood) Norah Saldana PA-C LAB BLOOD BKR ORDE RABLES Final Result Performing Organization Address [facility] Co de Phone Number [address] [phone] * Basic Metabolic Panel (BMP) (06/08/2025 2:24 PM EST) Blood (Blood) Norah CAST-C LAB BLOOD BKR ORDE RABLES Final Result Performing Organization Address [facility] Co de Phone Number [address] [phone] from Last 3 Months Insurance MEDICARE PART A & B MEDICARE PART A & B MEDICARE PART A & B MEDICARE PART A & B MEDICARE PART A & B MEDICARE PART A & B MEDICARE PART A & B MEDICARE PART A & B MEDICARE PART A & B Member Subscriber Plan / Payer (Ef fective 2015-Present) Name:Lina Phipps Member ID:[id number] Relation to Subscriber:Self Name:Lina Phipps Subscriber ID:[id number] Payer ID:[id number] Group ID:Not on file Type:Medicare Address: [facility] [employer] [facility] [address] [place] [phone] Care Teams Superintendent Transportation Relationship Specialty Start Date End Date Yuni Chirinos NP [address] [place] [phone] PCP - General Nurse Practitioner 03/26/25 Additional Source Comments The information contained in this document represents components of the legal health record. It is not the complete legal health record.[facility]
--- OUTSIDE RECORDS SUMMARY | 2025-07-02 16:32 | XMS_ITS | Patient Health Record ---
Author Organization [facility] Address [address] [place] [address] Care Team Providers Care Wireless Retail Manager Name Role Phone EM SALGUERO KIM Primary Care Provider VINAYAK Yusuf Unavailable [phone] Allergies Allergen (clinical drug ingredient) Drug/Non Drug Allergy documented on EMR Reaction Allergy Type Onset Date Status Aspartame Unknown Drug Allergy Active sulfamethoxazole / trimethoprim Bactrim Unknown Drug Allergy Active celecoxib CeleBREX Unknown Drug Allergy Active cephalexin Cephalexin Unknown Drug Allergy Activ e indomethacin Indomethacin Unknown Drug Allergy A ctive Levaquin Unknown Drug Allergy Active cevimeline Cevimeline Unknown Drug Allergy Activ e cyclobenzaprine Cyclobenzaprine Unknown Drug Allergy Active dobutamine DOBUTamine Unknown Drug Allergy Activ e Latex Latex Unknown Allergy Active morphine Morphine Unknown Drug Allergy Active Non-steroidal anti-inflammatory agent (FN) NSAIDs Unknown Drug Allergy Active Penicillin Unknown Drug Allergy Active tramadol traMADol Unknown Drug Allergy Active Reason For Referral No Information Medications Medication SIG (Take, Route, Frequency, Duration) Notes Start Date End Date Status FreeStyle Lancets - Miscellaneous as directed Active Dexcom G6 Lumber Chain Offbearer - Device as directed Active BD Pen Needle Short U/F 31G X 8 MM Miscellaneous as directed Active Baqsimi One Pack 3 MG/DOSE Powder as directed Nasally once Active Dexcom G6 Transmitter TO MONITOR BLOOD GLUCOSE DX E11.65 TO CHANGE TRANSMITTER EVERY 90 DAYS 04/14/2020 Active Vitamin D 25 MCG (1000 UT) Tablet 1 tab(s) orally BID Active DEXCOM G6 SENSOR 3 PACK TO MONITOR BLOOD GLUCOSE DX E11.65 TO CHANGE THE SENSOR EVERY 10 DAYS Active Iron 325 (65 Fe) MG Tablet 1 tablet Orally Once a day; Duration: 30 day(s) Active HumuLIN R U-500 KwikPen 500 UNIT/ML Solution Pen-injector 75-90 Units ac breakfast and 0-25 Units before dinner Subcutaneous twice a day Active Olopatadine HCl 0.1 % Solution 1 drop into affected eye Ophthalmic Twice a day Active Dexcom G6 Transmitter - Miscellaneous to monitor blood glucose dx E11.42, on insulin to change the tranmitter every 90 days; Duration: 90 days Active Magnesium 125 MG Capsule 1 cap Orally once a day Active Probiotic Pearls - Capsule 1 cap Orally once a day Active Vitamin B12 1000 MCG Tablet Extended Release 1 tablet Orally Once a day; Duration: 30 day(s) Active FreeStyle Lite w/Device Kit as directed Active Multivitamin - Tablet 1 cap(s) orally on ce a day; Duration: 30 day(s) Active Propranolol HCl ER 80 MG Capsule Extended Release 24 Hour 1 cap(s) orally once a day Active FreeStyle Lite Test - Strip TO TEST BLOOD GLUCOSE 2 TIMES PER DAY Active metFORMIN HCl ER 500 MG Tablet Extended Release 24 Hour TAKE 2 TAB(S) Orally twice a day; Duration: 90 days Active Diabetic Shoes with inserts Ac tive oxyCODONE HCl 5 MG Tablet 1 tab(s) orally three times a day Active Medical Compression Stockings - Miscellaneous as directed 20-30 mmhg 12/27/2021 Active Dexcom G6 Sensor - Miscellaneous to monitor blood glucose dx E11.42, on insulin to change the senor every 10 days; Duration: 90 days Active Social History Tobacco Use: Social History Observation Description Date Details (start date - stop date) Former Smoker NA - NA Social History Tobacco Use: Social Info Question Answer Notes Smoking Are you a: former smoker Additional Details Category Social Info Options Details General 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, 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 Past year's travels: none 2021 alcohol use: yes Very rarely wine cooler drug use: No marijuana, cocai ne age [age] Hobbies/Exercise habits: needle work, photography, arts and craft, painting Coffee/Tea/Soda: yes Decaf coffee 1 QD Marital Status Living with daughter(s) smokers in household No pt former s moker Section Notes: recent stent, knee r eplacement, back injury, lost job recently recent stent, knee r eplacement, back injury, lost job recently recent stent, knee r eplacement, back injury, lost job recently recent stent, knee r eplacement, back injury, lost job recently recent stent, knee r eplacement, back injury, lost job recently recent stent, knee r eplacement, back injury, lost job recently recent stent, knee r eplacement, back injury, lost job recently recent stent, knee r eplacement, back injury, lost job recently recent stent, knee r eplacement, back injury, lost job recently recent stent, knee r eplacement, back injury, lost job recently recent stent, knee r eplacement, back injury, lost job recently recent stent, knee r eplacement, back injury, lost job recently recent stent, knee r eplacement, back injury, lost job recently recent stent, knee r eplacement, back injury, lost job recently recent stent, knee r eplacement, back injury, lost job recently recent stent, knee r eplacement, back injury, lost job recently recent stent, knee r eplacement, back injury, lost job recently recent stent, knee r eplacement, back injury, lost job recently recent stent, knee r eplacement, back injury, lost job recently recent stent, knee r eplacement, back injury, lost job recently recent stent, knee r eplacement, back injury, lost job recent stent, knee r eplacement, back injury, lost job recent stent, knee r eplacement, back injury, lost job recent stent, knee r eplacement, back injury, lost job recent stent, knee r eplacement, back injury, lost job recent stent, knee r eplacement, back injury, lost job recent stent, knee r eplacement, back injury, lost job recent stent, knee r eplacement, back injury, lost job recently recent stent, knee r eplacement, back injury, lost job recently recent stent, knee r eplacement, back injury, lost job recently recent stent, knee r eplacement, back injury, lost job recently recent stent, knee r eplacement, back injury, lost job recently recent stent, knee r eplacement, back injury, lost job recently recent stent, knee r eplacement, back injury, lost job recently recent stent, knee r eplacement, back injury, lost job recently recent stent, knee r eplacement, back injury, lost job recently recent stent, knee r eplacement, back injury, lost job recently recent stent, knee r eplacement, back injury, lost job recently recent stent, knee r eplacement, back injury, lost job recently recent stent, knee r eplacement, back injury, lost job recently recent stent, knee r eplacement, back injury, lost job recently recent stent, knee r eplacement, back injury, lost job recently recent stent, knee r eplacement, back injury, lost job Problems Problem Type SNOMED Code ICD Code Onset Dates Problem Status W/U Status Risk Notes Problem Diabetes mellitus type II (22344703) Diabetes mellitus type II (250.00) Active confirmed Problem Obese (674971708) Obese (278.00) Active confirm ed Problem Obesity (081222598) Obesity, unspecified (278.00) Active confirmed Problem Essential hypertension (53014697) HTN [Hypertension] (401.9) Active confirmed Problem Steatosis of liver (552376202) FATTY LIVER DISEASE (571.8) Active confirmed Problem Paresthesia (98773269) Paresthesia (782.0) Active confirmed Problem Neurologic disorder associated with type II diabetes mellitus (276402656) Diabetes mellitus type 2 with neurological manifestations, uncontrolled (250.62) Active confirmed Problem Iron deficiency anemia (81989520) IRON DEFIC ANEMIA NOS (280.9) Active confirmed Problem Diabetic neuropathy (343028122) NEUROPATHY IN DIABETES (357.2) Active confirmed Problem Neurologic disorder associated with type II diabetes mellitus (561310718) Diabetes mellitus type 2 w/ neurological manifestations, not uncontrolled (250.60) Active confirmed Low Problem Vitamin D deficiency (74748469) Vitamin D deficiency (E55.9) Active confirmed Problem Diabetic retinopathy associated with type 2 diabetes mellitus (890094245) Type 2 diabetes mellitus with mild nonproliferative diabetic retinopathy without macular edema (E11.329) Active confirmed Problem Hyperglycemia due to type 2 diabetes mellitus (618969256489157) Type 2 diabetes mellitus with hyperglycemia (E11.65) Active confirmed Problem Morbid obesity (829281266) Morbid obesity due to excess calories (E66.01) Active confirmed Problem Diabetic peripheral neuropathy associated with type 2 diabetes mellitus (1674248936356) Type 2 diabetes mellitus with peripheral neuropathy (E11.40) Active confirmed Problem Body mass index 40+ - morbidly obese (949584915) BMI 40.0-44.9, adult (Z68.41) Active confirmed Problem Polyneuropathy due to type 2 diabetes mellitus (094138709) Type 2 diabetes mellitus with peripheral neuropathy (E11.42) Active confirmed Plan Of Treatment Future Test Test Name Order Date LIPID PROFILE 09/14/2018 GLYCOHEMOGLOBIN (HBA1C) 09/14/2018 VITAMIN B12 09/14/2018 COMP. METABOLIC 09/14/2018 Urine Microalbumin(Creat/MALB Ratio) 09/2018 GLYCOHEMOGLOBIN (HBA1C) 04/10/2019 COMP. METABOLIC 04/10/2019 GLYCOHEMOGLOBIN (HBA1C) 04/13/2020 COMP. METABOLIC 04/13/2020 GLYCOHEMOGLOBIN (HBA1C) 07/13/2020 COMP. METABOLIC 07/13/2020 GLYCOHEMOGLOBIN (HBA1C) 10/27/2020 FREE T4 10/27/2020 TSH 10/27/2020 COMP. METABOLIC 10/27/2020 GLYCOHEMOGLOBIN (HBA1C) 05/03/2021 COMP. METABOLIC 05/03/2021 LIPID PROFILE 11/12/2021 GLYCOHEMOGLOBIN (HBA1C) 11/12/2021 COMP. METABOLIC 11/12/2021 Insurance Providers Payer Name Payer Address Payer Phone Subscriber Number Group Number Insured Name Patient Relationship to Insured Coverage Start Date Coverage End Date MEDICARE [employer] [facility] [employer] [address] [place] [address] [id number] ANNA MARIEDARBY [employer]ES EDWIGE Self - patient is the insured [employer] [address] [place] [address] [phone] [id number] AROLDO HENRRY EDWIGE Self - patient is the insured Medical (General) History Medical History History ICD Code T2 DM Dx 2001 peripheral neuropathy feet- symptoms res olved by 2014 mild retinopathy-Dr Luna hypercholesterolemia HTN Obesity LORAINE Dx 2007. No Rx. Repeat testing 05/03 18, severe LORAINE-CPAP psoriasis migraines irritable bowel GERD Depression borderline glaucoma seasonal allergies Anemia-on iron dermatitis-stomach/elbows/knees Fatty liver- intraop Bx. 08/27. 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
--- OUTSIDE RECORDS SUMMARY | 2025-07-02 16:32 | XMS_ITS | Encounter Summary ---
Author Organization [facility] Address [address] [place] [address] Phone Care Team Providers Care Health Evaluator Name Role Phone Yuni Chirinos NP Primary Care Provider + Encounter Details Date Type Department Care Team (Late st Contact Info) Description 06/24/[address] [facility] [address] [place] [address] Svetlana BustillosTROY, [place] [address] [place] [address] [email or web address] Type 2 diabetes mellitus with hyperglycemia, with [...] Description 10/20/2025 11:20 AM EDT Office Visit [facility] Endocrinology [facility] [address] [place] [address] Norah Saldana PA-C [address] [place] [address] 01/18/2026 1:00 PM EDT Office Visit [facility] Endocr[facility] [address] [place] [address] Melanie Morton MD [address] [place] [address] documented as of this encounter Procedures Procedure [...] use of insulin documented in this encounter Results * Hemoglobin A1c (06/08/2025 2:24 PM EST) Blood (Blood) us Norah Saldana PA-C LAB BLOOD BKR REGI MARR Final Result [facility] [address] [place] [address] * Alanine Aminotransferase (ALT) (06/08/2025 2:24 PM EST) Blood (Blood) us Norah CAST-C LAB BLOOD BKR ORDE TEJINDER Final Result Performing Organization Address [facility] de Phone Number [address] [address] * Aspartate Aminotransferase (AST) (06/08/2025 2:24 PM EST) Blood (Blood) Norah Saldana PA-C LAB BLOOD BKR ORDKayode MARR Final Result Performing Organization Address [facility] de Phone Number [address] [address] * Basic Metabolic Panel (BMP) (06/08/2025 2:24 PM EST) Blood (Blood) Norah Saldana PA-C LAB BLOOD BKR REGI MARR Final Result Performing Organization Address [facility] de Phone Number [address] [address] documented in this encounter Visit Diagnoses Diagnosis Type 2 diabetes mellitus with hyperglycemia, with long-term current use of insulin documented in this encounter Care Teams Health Evaluator Relationship Specialty Start Date End Date Yuni Chirinos NP [address] [place] [address] PCP - General Nurse Practitioner 03/26/25 documented as of this encounter Additional Source Comments The information contained in this document represents components of the legal health record. It is not the complete legal health record.[facility]
--- OUTSIDE RECORDS SUMMARY | 2025-07-02 16:32 | XMS_ITS | Encounter Summary ---
Author Organization [facility] Address [address] [place] [address] Phone Care Team Providers Care Dismantler Name Role Phone Eubanks, Williams Zaki SALGUERO Primary Care Provider Yuni Chirinos NP Primary Care Provider + Encounter Details Date Type Department Care Team (Late st Contact Info) Description 03/27/2021 Prep for Surgery [facility] [address] [place] [address] Gela Ott MD [address] [place] [address] Orthopedics & Sports Medicine, [place] [address] [email or web address] Social History Tobacco Use Types Packs/Day Years [...] Description 10/20/2025 11:20 AM EDT Office Visit [facility] [address] [place] [address] Norah Saldana PA-C [address] [place] [address] 01/18/2026 1:00 PM EDT Office Visit [facility] [address] [place] [address] [place] [address] Melanie Morton MD [address] [place] [address] documented as of this encounter Visit Diagnoses Not on filedocumented in this encounter Care Teams Dismantler Relationship Specialty Start Date End Date Williams Eubanks DO [address] [facility] [place] [address] PCP - General Family Medicine 06/27/17 03/25/25 Yuni Chirinos NP [address] [place] [address] PCP - General Nurse Practitioner 03/26/25 documented as of this encounter Additional Source Comments The information contained in this document represents components of the legal health record. It is not the complete legal health record.[facility]
--- OUTSIDE RECORDS SUMMARY | 2025-07-02 16:33 | XMS_ITS | Encounter Summary ---
Author Organization [facility] Address [address] [place] [address] [place] [address] Phone Care Team Providers Care Traditional Maori Health Practitioner Name Role Phone Williams Eubanks DO Primary Care Provider Yuni Chirinos NP Primary Care Provider + Encounter Details Date Type Department Care Team (Late st Contact Info) Description 05/27/2023 Procedure Pass [facility] [address] [place] [address] Social History Tobacco Use Types Packs/Day Years [...] Description 10/20/2025 11:20 AM EDT Office Visit [facility] Endocrinology [address] [place] [address] Norah Saldana PA-C [address] [place] [address] 01/18/2026 1:00 PM EDT Office Visit [facility] Endocrinology [address] [place] [address] Melanie Morton MD [address] [place] [address] documented as of this encounter Visit Diagnoses Not on filedocumented in this encounter Care Teams Traditional Maori Health Practitioner Relationship Specialty Start Date End Date Williams Eubanks DO [address] [facility] [place] [address] PCP - General Family Medicine 06/27/17 03/25/25 Yuni Chirinos NP [address] [place] [address] PCP - General Nurse Practitioner 03/26/25 documented as of this encounter Additional Source Comments The information contained in this document represents components of the legal health record. It is not the complete legal health record.[facility]
--- OUTSIDE RECORDS SUMMARY | 2025-07-02 16:33 | XMS_ITS | Clinical Summary ---
Author Organization [facility] Prior to 12/12/[address] [place] [address] Care Team Providers Care Drone Pilot Name Role Phone Williams Eubanks MD Primary Care Provider [phone] Allergies Active Allergy Reactions Criticality Noted Date [...] DAY 90 DAYS 0 03/04/2022 Active nystatin 056349 UNIT/GM external powder APPLY POWDER TOPICALLY TO [...] of blood transfusion s as patient is Jain 04/03/2018 Family history of colon cancer in [...] 1-dose series) 2022 Influenza Vaccine (#1) 2025 , 03/29/2020, 03/29/2020, Additional history exists Hepatitis B Vaccines Aged Out No long er eligible based on patient's age to complete this topic RSV Ped < 20 months Aged Out No longe r eligible based on patient's age to complete this topic Care Teams Drone Pilot Relationship Specialty Start Date End Date Williams Eubanks MD [address] [place] [address] PCP - General Family Medicine 01/21/19
--- OUTSIDE RECORDS SUMMARY | 2025-07-02 16:33 | XMS_ITS | Clinical Summary ---
Author Organization [facility] Address [address] [place] [address] Phone Care Team Providers Care Cold Meat Cook Name Role Phone CandisYuni carlson Primary Care Provider [phone] Allergies Active Allergy Reactions Criticality Noted Date [...] A DAY NEEDED FOR SHORTNESS OF BREATH. 2 Active insulin regular (HumuLIN R U-500, [...] 30 each 11 5 04/29/20 26 Active glucagon (Baqsimi) 3 mg/actuation nasal spray Administer 3 mg into one nostril if needed for low blood sugar. Active Active Problems Problem Noted Date Diagnosed Date Malignant neoplasm of upper lobe of right lung 0 04/09/2025 Pleural effusion 03/11/2025 Assessment & Plan [...] (nonalcoholic steatohepatitis) 08/11/2013 Paroxysmal atrial fibrillation 08/11/2013 Assessment & Plan (06/25/2025 2:17 PM EST): Patient with possible catecholamine boost atrial fibrillation. Patient has been relatively stable on reduced dose of beta-laurence. Will try to wean the beta- laurence down because she thinks is affecting her reactive airway disease. She has been warned that we may reduce the beta-laurence so much that she might have breakthrough catecholamine induced A-fib she is aware of this. She wants to stay on 60 mg of extended release over the holidays. Will bring her back in August and discussed the possible decrease further of beta-laurence therapy pending her symptoms Assessment & Plan (04/29/2025 12:38 PM EDT): [...] Date Type Department Care Team Description 06/25/2025 2:00 PM EST Office Visit [facility] [address] [place] [address] Xiomara Hernandez MD Paroxysmal atrial fibrillation (CMS/HCC V24, CMS/HCC V28) (Primary Dx) 04/29/2025 11:20 AM EDT Office Visit [facility] Cardiology [facility] [address] [place] [address] Xiomara Hernandez MD Paroxysmal atrial fibrillation (CMS/HCC V24, CMS/HCC V28) (Primary Dx); Pleural effusion 04/27/2025 11:00 AM EDT Ancillary Procedure [facility] [address] [place] [phone] Pleural effusion; Dilated cardiomyopathy (CMS/HCC V24, CMS/HCC V28) 04/21/2025 Telephone [facility] Oncology [address] [place] [phone] Geraldine Cool [place] 04/20/2025 11:00 AM EDT Office Visit Pulmonology [facility] [address] [facility] [address] [place] [phone] Rima Johnson MD Pleural effusion (Primary Dx); Malignant neoplasm of upper lobe of right lung (CMS/HCC V24, CMS/HCC V28); Pleural nodules 04/20/2025 Telephone [facility] [address] [facility] [address] [place] [address] Xiomara Hernandez MD 04/16/2025 [facility] [address] [phone] [facility] 04/16/2025 [facility] [address] [phone] [facility] 04/14/2025 1:00 PM EDT Office Visit Gastroenterology [facility] [address] [facility] [address] [place] [address] Zandra Briceno PA Liver cirrhosis secondary to GUTHRIE (nonalcoholic steatohepatitis) (CMS/HCC V24, CMS/HCC V28) (Primary Dx) 04/14/2025 Telephone Gastroenterology [facility] [address] [facility] [address] [place] [address] Zandra Briceno PA 04/09/2025 11:30 AM EDT Office Visit [facility] [address] [place] [address] Amarilis Pearce MD Malignant neoplasm of upper lobe of right lung (CMS/HCC V24, CMS/HCC V28) (Primary Dx); Other iron deficiency anemia; Anxiety from Last 3 Months Immunizations Immunization Administration [...] History Date Comments Paroxysmal atrial fibrillati on ([facility] V24, [facility] V28) 08/11/2013 DX:Paroxysmal atrial fibril lation (HCC) Allergic rhinitis 08/11/2013 DX:Allergic rh initis Anxiety 08/11/2013 DX:Anxiety Sjogren's syndrome ([facility] V24) DX:Sjogren's syndrome (HCC) GERD (gastroesophageal reflux [...] of blood transfusion s as patient is Gnosticist 04/03/2018 DX:Refusal of blood trans fusions as patient is Gnosticist Asthma 05/14/2019 DX:Asthma Cryptogenic cirrhosis (CMS/H CC V24, 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) Vitamin D deficiency 05/14/2019 DX:Vitamin D deficiency OAB (overactive bladder) 05/14/2019 DX:OAB (overactive bladder) GUTHRIE (nonalcoholic steatohepatitis) 08/11/2013 DX:GUTHRIE (nonalcoholic steatohepatitis) Cirrhosis of liver (CMS/HCC V24, CMS/HCC V28) DX:Cirrhosis of liver (HCC) Refusal of blood transfusion s as patient is Gnosticist DX:Refusal of blood trans fusions as patient is Gnosticist; COMMENT: Patient states may possibly accept Cell [...] Pulse 67 06/25/2025 1:58 PM EST Temperature 36.5 C (97.7 F) 04/20/2025 10:43 AM EDT Respiratory Rate 16 03/10/2025 11:12 AM EDT Oxygen Saturation 95% 06/25/2025 1:58 PM EST Inhaled Oxygen Concentration - - Weight 124 kg (272 lb 6.4 oz) 06/25/2025 1:58 PM EST Height 165.1 cm (5' 5 ) 06/25/2025 1:58 PM EST Body Mass Index 45.33 06/25/2025 1:58 PM EST Plan of Treatment Upcoming Encounters Date Type Department Care Team (Late st Contact Info) Description 07/28/2025 2:10 PM EST Office Visit [place] [facility] [address] [place] [phone] Galina Weeks NP [address] [place] [address] [address] [place] [phone] 08/26/2025 11:20 AM EST Office Visit [place] [facility] [address] [place] [phone] Xiomara Hernandez MD [address] [place] [address] [place] [phone] 10/13/2025 1:00 PM EDT Office Visit Gastroenterology - [address] [phone] Zandra Briceno PA [address] [address] 04/01/2026 11:30 AM EDT Office Visit [facility] Oncology [address] [place] [address] Amarilis Reyes MD [address] [place] [phone] Health Maintenance Due Date Last Done Comments [...] GEMUSE QTc 424 ms GEMUSE P Wave [place] 25 degrees GEMUSE R [place] 46 degrees GEMUSE T [place] 46 degrees GEMUSE ECG Interpretation Normal sinus [...] (04/27/2025 11:35 AM EDT) Left Atrium Minor [place] 5.3 cm CV PACS Left Atrium Major [place] 5.5 cm CV PACS LA Area Sys [...] body habitus and poor acoustic windows. Result [facility] Xiomara Hernandez MD CV ECHO PROCEDURES Final Resul t * Urine Albumin Creatinine Ratio (07/11/2023) [facility] Urine Albumin Creatinine Ratio abstracted Result [facility] Provider HEALTH MAINTENANCE Final Result * Annual BMP Blood Test (07/11/2023) [facility] Annual BMP Blood Test abstracted Result [facility] Provider HEALTH MAINTENANCE Final Result * Hemoglobin A1c (07/11/2023) [facility] Hemoglobin A1C 0.0 % Comment:no interpretation,ab stracted [...] Documents on File Type Date Recorded Patient Egg Trayer Expl anation Health Care Decision (hx) 03/01/2014 [...] (hx) 02/12/2014 AD GARCIAS DIRECTIVE Care Teams Cold Meat Cook Relationship Specialty Start Date End Date Yuni Chirinos [address] [place] [address] PCP - General 03/11/25
--- OUTSIDE RECORDS SUMMARY | 2025-07-02 16:33 | XMS_ITS | Encounter Summary ---
Author Organization [facility] Address [address] [place] [address] Care Team Providers Care Program Assistant Name Role Phone Yuni Chirinos Primary Care Provider [phone] Reason for Visit * Reason Comments Follow-up Encounter Details Date Type Department Care Team (Late st Contact Info) Description 04/16/2025 Social Work [facility] [address] [place] [address] [address] [place] [address] [facility] Social History Tobacco Use Types Packs/Day Years [...] Description 07/28/2025 2:10 PM EST Office [facility] [address] [place] [address] Dr [address] [place] [phone] Galina Weeks NP [address] [place] [address] Dr [address] [place] [phone] 08/26/2025 11:20 AM EST Office Visit [facility] [address] [place] [address] Dr [address] [place] [phone] Oz So MD [address] [place] [address] Dr [address] [place] [phone] 10/13/2025 1:00 PM EDT Office Visit Gastroenterology - 299 [facility] [address] [phone] Zandra Briceno PA [address] [phone] 04/01/2026 11:30 AM EDT Office Visit [facility] Hematology Oncology [address] [place] [phone] Amarilis Reyes MD [address] [place] [phone] documented as of this encounter Visit Diagnoses Not on filedocumented in this encounter Care Teams Program Assistant Relationship Specialty Start Date End Date Yuni Chirinos [address] [place] [address] PCP - General 03/11/25 documented as of this encounter
--- OUTSIDE RECORDS SUMMARY | 2025-07-02 16:33 | XMS_ITS | Clinical Summary ---
Author Organization [facility] Address [address] [place] [phone] Phone Care Team Providers Care Support Manager Name Role Phone Yuni Chirinos MAP AND CHART MOUNTER Primary Care Provider [phone] Allergies Active Allergy Reactions Criticality Noted Date [...] HFA;VENTOLIN HFA) 108 (90 Base) MCG/ACT inhaler Active ascorbic acid (VITAMIN C) 1000 MG tablet Active cholecalciferol (VITAMIN D-3) 25 MCG (1000 UT) tablet Take 1 tablet by mouth daily Active Cyanocobalamin 1500 MCG tablet dispersible Take 1 lozenge by mouth daily Active esomeprazole (NexIUM) [address] capsule Take 1 capsule by mouth 2 (two) times a day Active fluticasone (FLONASE) 50 MCG/ACT nasal spray Administer 2 sprays into each nostril every morning Active HumuLIN R U-500 KWIKPEN 500 UNIT/ML CONCENTRATED injection PLEASE SEE ATTACHED FOR DETAILED DIRECTIONS 08/02/19 21 Active Magnesium Cl-Calcium Carbonate 71.5-119 MG tablet delayed-release Take 3 tablets by mouth 2 (two) times a day 12/14/19 16 Active metFORMIN XR (GLUCOPHAGE-XR) 500 MG 24 hr tablet Take 2 tablets by mouth 2 (two) times a day Active metroNIDAZOLE (Noritate) 1 % cream Apply topically 2 (two) times a day Active mupirocin (BACTROBAN) 2 % ointment mupirocin 2 % topical ointment 03/11/20 19 Active olopatadine (PATANOL) 0.1 % ophthalmic solution 1 drop twice a day Active oxyCODONE (ROXICODONE) 5 MG immediate release tablet Take 1 tablet by mouth 3 (three) times a day 08/19/19 21 Active pimecrolimus (ELIDEL) 1 % cream pimecrolimus 1 % topical cream 05/25/20 20 Active Propranolol HCl SR Beads (PROPRANOLOL HCL ER BEADS PO) Take 60 mg by mouth 1 (one) time each day Active Propylene Glycol 0.6 % solution as directed. Ac tive sodium chloride (OCEAN) 0.65 % nasal spray Hammond as directed Active Cranberry 400 MG capsule [...] time each day Active Cobalamin Combinations (Vitamin G07-Eyhrb Acid) 500-400 MCG tablet Duration: 1 Active Probiotic Product (PROBIOTIC PEARLS PO) Take 1 capsule by mouth 1 (one) time each day Active CALCIUM POLYCARBOPHIL PO See administration instructions Active Baqsimi Two Pack 3 MG/DOSE powder USE DIRECTED INTRANASALLY ONCE 08/31/19 22 Active triamcinolone (KENALOG) 0.1 % cream APPLY CREAM EXTERNALLY TWICE DAILY NEEDED TO AFFECTED AREAS ON BACK, FOLLOWED BY MOISTURIZER 10/10/19 22 Active propranolol LA (INDERAL LA) 60 MG 24 hr capsule Take 80 mg by mouth every night 03/05/20 23 Active cetirizine (ZyrTEC) 5 MG chewable tablet Chew 5 mg 1 (one) time each day Active fluticasone-salm eterol (ADVAIR HFA) 115-21 MCG/ACT inhaler Inhale 08/11/19 25 026 Active estradiol (ESTRACE) 0.1 MG/GM vaginal cream Insert 2 g into the vagina Discontin ued(Med List Maintenan ce) loratadine (CLARITIN) 10 MG tablet Take 1 tablet by mouth 1 (one) time each day 025 Discontin ued(Med List Maintenan ce) Mirabegron ER (Myrbetriq) 25 MG tablet sustained-releas e 24 hour Take 1 tablet by mouth 1 (one) time each day 025 Discontin ued(Med List Maintenan ce) Potassium 99 MG tablet Take 1 tablet by mouth 1 (one) time each day 025 Discontin ued(Med List Maintenan ce) [place]-3 Fatty Acids (OMEGA 3 PO) Take 1 capsule by mouth daily 025 Discontin ued(Med List Maintenan ce) doxycycline (VIBRAMYCIN) 100 MG capsule TAKE 1 TABLET BY MOUTH TWICE A DAY FOR 2-4 WEEKS NEEDED FOR FLARING. 10/10/19 22 025 Discontin ued(Med List Maintenan ce) hydrocortisone 0.5 % cream APPLY IN A THIN FILM TO THE AFFECTED SKIN AND RUB IN GENTLY AND COMPLETELY 1-2 TIMES PER DAY 03/18/20 23 025 Discontin ued(Med List Maintenan ce) Naloxone HCl 4 MG/0.1ML liquid USE 1 SPRAY INTO ONE NOSTRIL NEEDED CALL 911 REPEAT AFTER 2-3 MIN IF NO OR MINIMAL RESPONSE 03/05/20 025 Discontin ued(Med List Maintenan ce) Active Problems Problem Noted Date Diagnosed Date Right upper quadrant pain 05/08/20232022 senior living current use of insulin 01/09/2023 05/08/2023 H/O: [...] followed by warmth as well as enlarged oim consultant on tools and utensils and her pain [...] Encounters Date Type Department Care Team Description 06/30/2025 3:00 PM EST [facility] Visit [facility] [address] [address] Gabriele Lopez MD Hypomagnesemia (Primary Dx); 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) 05/13/2025 Orders Only [facility] [address] [address] Gabriele Lopez MD Hypomagnesemia from Last 3 [...] Office Visit [facility] [address] [place] [address] Gabriele Lopez MD [address] [address] Health Maintenance Due Date Last [...] EST) Magnesium 1.8 1.6 - 2.3 mg/dL [facility] (specimen) Venous blood / Unknown 05/17/2025 2:40 PM EST 05/17/2025 Gabriele Lopez MD LAB BLOOD ORDERABLES Final [facility]ul t [facility] [place] [address] [place] [phone] * (ABNORMAL) Blood Panel (01/09/2019 12:00 AM [...] 365 261 - 462 ug/dl PVNMA 01/09/2019 [facility] [id number] LICITED RESULTS Final Result PVNMA from Last 3 Months or Most Recently Relevant to Health Maintenance Insurance Medicare Medicare Care Teams Support Manager Relationship Specialty Start Date End Date Yuni Chirinos NP [address] [place] [address] PCP - General Nurse Practitioner 06/30/25
--- OUTSIDE RECORDS SUMMARY | 2025-07-02 16:33 | XMS_ITS | Encounter Summary ---
Author Organization [facility] Prior to 12/12/[address] [place] [address] Care Team Providers Care Slab Grinder Name Role Phone Williams Eubanks MD Primary Care Provider Encounter Details Date Type Department Care Team Description 07/27/2022 Social Work [facility] On[facility] Services [address] [place] [address] Alvaro Bryant [facility] Social History Tobacco Use Types Packs/Day Years [...] on filedocumented in this encounter Care Teams Slab Grinder Relationship Specialty Start Date End Date Williams Eubanks MD [address] [place] [phone] PCP - General Family Medicine 01/21/19 documented as of this encounter
--- OUTSIDE RECORDS SUMMARY | 2025-07-02 16:33 | XMS_ITS | Encounter Summary ---
Author Organization [facility] Address [address] [place] [address] [place] [phone] Phone Care Team Providers Care Irrigation Teacher Name Role Phone Eubanks, Williams Haines DO Primary Care Provider Yuni Chirinos NP Primary Care Provider + Encounter Details Date Type Department Care Team (Late st Contact Info) Description 05/17/2021 Procedure Pass [place] Admitting Dept - Virtual Department [address] [place] [address] Social History Tobacco Use Types Packs/Day Years [...] Description 10/20/2025 11:20 AM EDT Office Visit [facility] [address] [place] [address] Norah Saldana PA-C [address] [place] [address] 01/18/2026 1:00 PM EDT Office Visit [facility] [address] [place] [address] [place] [address] Melanie Morton MD [address] [address] documented as of this encounter Visit Diagnoses Not on filedocumented in this encounter Care Teams Irrigation Teacher Relationship Specialty Start Date End Date Williams Eubanks DO [address] [facility] [place] [address] PCP - General Family Medicine 06/27/17 03/25/25 Yuni Chirinos NP [address] [place] [address] PCP - General Nurse Practitioner 03/26/25 documented as of this encounter Additional Source Comments The information contained in this document represents components of the legal health record. It is not the complete legal health record.[facility]
== END 2025-07-02 15:58 | disposition home or self-care (01) ==
LOC: HO.PMC 15:28
PROVIDERS: PCP Family Medicine; Visit Provider Nurse Practitioner Family
DX: M54.50 Low back pain, unspecified (principal); Z79.891 Long term (current) use of opiate analgesic; G89.4 Chronic pain syndrome; M79.7 Fibromyalgia; M25.561 Pain in right knee; M25.562 Pain in left knee
CPT/HCPCS: 99214

== ENCOUNTER → 2025-07-02 15:27 | Outpatient (BNVA) | payer MEDICARE, SELFPAY | PROVIDERS: PCP Family Medicine; Visit Provider Nurse Practitioner Family | DX: M54.50 Low back pain, unspecified (principal); Z79.891 Long term (current) use of opiate analgesic; G89.4 Chronic pain syndrome; M25.561 Pain in right knee; M25.562 Pain in left knee; M79.7 Fibromyalgia; Z87.891 Personal history of nicotine dependence | CPT/HCPCS: 99212 ==